=== PATIENT | female | born 1990 | race Caucasian/White ===

== ENCOUNTER → 2018-03-20 | Outpatient (CLI) | payer SELFPAY ==
[~2018-03-20] MED LIST: ALBU0.8322 IH; ALBU8.5H2 IH; AZIT200S PO; CYCL10TA9 PO; FAMO20TA5 PO; NAPR-243 PO; ONDA-42 SL; OTC ALLERGY; PRED15SO PO; TRAM50TA2 PO; TRM50T PO
--- NOTE | 2018-03-20 16:06 | Diagnostic Imaging Report ---
PROCEDURE: US OB SINGLE FETUS <14 WKS. TECHNIQUE: Multiple real-time grayscale images were obtained over the gravid uterus in various projections. INDICATION: Positive test and episodes of vaginal bleeding. FINDINGS: The uterus measures 8.9 x 4.7 x 5.8 cm. Endometrium is 5 mm in thickness. No intrauterine gestational sac is present. The ovaries are unremarkable and show normal vascularity. No adnexal mass or free fluid is seen. IMPRESSION: No evidence of intrauterine or ectopic . Dictated by: Dictated on workstation # [id number]
== END ==
LOC: RAD 13:38
PROVIDERS: ATTEND Nurse Practitioner Family
DX: O20.9 Hemorrhage in early pregnancy, unspecified (principal); R79.9 Abnormal finding of blood chemistry, unspecified; Z3A.00 Weeks of gestation of pregnancy not specified
CPT/HCPCS: 76801

== ENCOUNTER 2018-05-14 05:49 | Outpatient (CLI) | payer MEDICAID ==
[~2018-05-14] VITALS: Ht 165.1 cm; Wt 49.9 kg
[2018-05-14] MEDS ORDERED: LORA10CA PO (09:28)
[2018-05-15] MEDS ORDERED: OXYC-471 PO (13:14)
[2018-05-15] MEDS ORDERED: MEDR150D8 IM (13:14)
== END 2018-05-14 09:41 | disposition home or self-care (01) ==
LOC: PREOP 05:49
PROVIDERS: ATTEND Obstetrics & Gynecology
DX: Z01.818 Encounter for other preprocedural examination (principal)

== ENCOUNTER 2018-05-15 11:26 | Day surgery (SDC) | payer MEDICAID ==
[~2018-05-15] VITALS: Ht 157.5 cm; Wt 117.9 kg
[~2018-05-15 11:26] MED LIST changes: +LORA10CA PO
[2018-05-15] MEDS ORDERED: ceFAZolin 2 GM IV Premixed 50 ML IV ONE (11:30)
[2018-05-15] MEDS: LACTATED RINGERS 1,000 ML IV PRN ×2 (11:50→14:13)
[2018-05-15 11:58] VITALS: BP 129/77
[2018-05-15] MEDS ORDERED: SEVOFLURANE (ULTANE) 15 ML INHAL SOLN ONE ×6 (11:58→15:00)
[2018-05-15] MEDS ORDERED: proPOfol 200 MG/20 ML (DIPRIVAN) VIAL IV ONE ×2 (11:58→14:05)
[2018-05-15] MEDS ORDERED: ONDANSETRON 4 MG/2 ML (SDV) Z0FRAN ONE (11:58)
[2018-05-15] MEDS ORDERED: DEXAMETHASONE 10 MG/ML (DECADRON) 1 ML VIAL ONE (11:58)
[2018-05-15] MEDS ORDERED: LIDOCAINE PF 2% 5 ML (XYLOCAINE) VIAL ONE (11:58)
[2018-05-15] MEDS ORDERED: MIDAZOLAM 2 MG/2 ML (VERSED) VIAL ONE (11:59)
[2018-05-15] MEDS ORDERED: fentaNYL INJECTION 100 MCG/2 ML AMP ONE (11:59)
[2018-05-15] MEDS ORDERED: ceFAZolin INJECTION 1,000 MG in NS (IVPB) 50 ML IV ONE (12:15)
[2018-05-15] MEDS ORDERED: D5 LR IV SOLUTION 1,000 ML IV SCH (13:09)
--- NOTE | 2018-05-15 13:12 | Discharge Instructions ---
Discharge Instructions Discharge Medications New, Converted or Re-Newed RX: RX on Chart Patient Instructions Patient Instructions: As directed Return to The Hospital For: As directed Activity & Diet Activity as Tolerated: No Orders-Post D/C & Referrals Follow Up Appt: Call to make follow up appt. for patient in 2 weeks. Activity: As tolerated. Diet: As tolerated-Clear Liquids only if nauseated. May shower or tub bathe as desired. No driving for 24 hours, no alcoholic beverages for 24 hours, and nothing per vagina (no tampons, douching, or intercoarse) for 2 weeks. Patient to return to the clinic as soon as possible for: Temperature greater than 101F, Severe Pain, Foul discharge from incision or vagina, Excessive Bleeding (more than a period). YOBANI WALKER MD May 15, 2018 1:12 pm
[2018-05-15] MEDS ORDERED: MEDR150D8 IM (13:14)
[2018-05-15] MEDS ORDERED: OXYC-471 PO (13:14)
[2018-05-15] MEDS ORDERED: MEPERIDINE (DEMEROL) INJ 100 MG/ML IM ONE (13:15)
[2018-05-15] MEDS ORDERED: ONDANSETRON 4 MG/2 ML (SDV) Z0FRAN IVP PRN ×2 (13:15→15:15)
[2018-05-15] MEDS ORDERED: KETOROLAC 30 MG/ML VIAL IVP ONE (13:15)
[2018-05-15] MEDS ORDERED: oxyCODONE/APAP 5/325MG (PERCOCET 5) TABLET PO PRN ×2 (13:15→14:00)
[2018-05-15] MEDS ORDERED: PROMETHAZINE INJ 25 MG/ML (PHENERGAN) AMP IM ONE (13:15)
--- NOTE | 2018-05-15 13:15 | Progress Note-Pre Operative ---
Pre-Operative Progress Note H&P Reviewed The H&P was reviewed, patient examined and no changes noted. Date Seen by Provider: May 15, 2018 Time Seen by Provider: 13:15 Date H&P Reviewed: May 15, 2018 Time H&P Reviewed: 13:15 Pre-Operative Diagnosis: DUB/intrauterine mass YOBANI WALKER MD May 15, 2018 1:15 pm
--- NOTE | 2018-05-15 13:16 | Progress Note-Post Operative ---
Post-Operative Progess Note Surgeon (s)/Managing Consultant Clinical Professor (s) Surgeon YOBANI WALKER MD Managing Consultant Clinical Professor: Melissa Cuello Pre-Operative Diagnosis DUB/intrauterine mass Post-Operative Diagnosis same with pathology pending Procedure & Operative Findings Date of Procedure 05/15/18 Procedure Performed/Findings Hysteroscopy with mass/polyp resection Anesthesia Type GETA Estimated Blood Loss Estimated blood loss (mL): 100-200 cc Specimens/Packing Specimens Removed Intrauterine mass and endometrial curettings Packing: None YOBANI WALKER MD May 15, 2018 13:16
[2018-05-15] MEDS ORDERED: HYDROmorphone 1 MG/ML (DILAUDID) 1 ML SYRINGE IV PRN (15:15)
[2018-05-15] MEDS: morphine INJ 10 MG/ML 1ML (SYR OR VIAL) IVP PRN ×2 (15:20→15:25)
--- NOTE | 2018-05-15 15:21 | Anesthesia-General Post-Op ---
General Patient Condition Mental Status/LOC: Same as Preop Cardiovascular: Satisfactory Nausea/Vomiting: Absent Respiratory: Satisfactory Pain: Controlled Complications: Absent Post Op Complications Complications None Follow Up Care/Instructions Patient Instructions None needed. Anesthesia/Patient Condition Patient Condition Patient is doing well, no complaints, stable vital signs, no apparent adverse anesthesia problems. JEREMY FAGAN DO May 15, 2018 15:21
[2018-05-15 16:00] VITALS: BP 105/61
[2018-05-15 16:30] VITALS: BP 110/62
[2018-05-15 17:00] VITALS: BP 105/64
[2018-05-15 17:20] VITALS: BP 105/64
--- NOTE | 2018-05-15 19:32 | OPERATIVE REPORT ---
DATE OF SERVICE: 05/15/2018 PREOPERATIVE DIAGNOSES: Dysfunctional uterine bleeding and intrauterine mass. POSTOPERATIVE DIAGNOSES: Dysfunctional uterine bleeding and intrauterine mass with pathology pending. OPERATIVE PROCEDURE: Hysteroscopy with resection of intrauterine mass of unsure etiology with pathology still pending and with endometrial curettage. OPERATIVE DESCRIPTION: With the patient in supine position under satisfactory general anesthesia, she was repositioned in dorsal lithotomy position in the Zack stirrups and prepped and draped in usual fashion for vaginal surgery. A weighted speculum was placed in the posterior fornix of vagina, cervix was exposed and grasped anteriorly with single tooth tenaculum. Uterus was sounded to 8 cm with uterine sound. The cervix was then serially dilated with Tulio dilators to a #20 Tulio and then a #19 Hegar dilator. Hysteroscope was introduced. There was a large fibrotic appearing mass basically filling the lower half of the endometrial cavity. The upper endometrial cavity appeared perfectly normal as were both tubal ostia. An attempt was made to resect the mass at its attachment posteriorly. Part of the attachment was resected and then the mass was gradually extracted in bits and pieces in order to reduce its size adequate that it would pass through the cervix at the point of dilation as the cervix was resistant to dilating any further. Eventually, the bulk of the mass was re-extracted in one final portion; numerous portions were removed in the process. The endometrial cavity was then sharply curettaged in all 4 quadrants. That tissue was labeled and sent to pathology separately. The endometrial cavity was examined a final time with the hysteroscope. There was no remaining abnormal appearing tissue. The endometrial cavity appeared perfectly normal at this point. Sponge and needle counts were correct at the end of procedure. Estimated blood loss for procedure was around 100 to 200 mL. A total of 2700 mL of glycine was used as distending medium and 2500 mL was recovered and another fairly large aliquot was on the floor and in the drapes. The patient tolerated the procedure well and was uneventfully awakened from general anesthesia and transferred to recovery room in stable condition with plans for discharge home PAR. Job ID: [id number] DocumentID: [id number] Dictated Date: 05/15/2018 14:53:16 Pricing/Signage Team Member Date: 05/15/2018 19:32:19 Dictated By: YOBANI WALKER MD
== END 2018-05-15 17:20 | disposition home or self-care (01) ==
LOC: SDC 11:26
PROVIDERS: ATTEND Obstetrics & Gynecology
DX: N93.8 Other specified abnormal uterine and vaginal bleeding (principal); N85.9 Noninflammatory disorder of uterus, unspecified
CPT/HCPCS: 84703; 87081

== ENCOUNTER → 2018-06-04 | Outpatient (CLI) | payer MEDICAID ==
[~2018-06-04] MED LIST changes: +MEDR150D8 IM; +OXYC-471 PO
--- NOTE | 2018-06-04 12:08 | Diagnostic Imaging Report ---
INDICATION: Routine screening. Patient has family history of mother diagnosed with breast carcinoma at the age of 35. COMPARISON: No prior mammograms are available for comparison. This is a baseline study. TECHNIQUE: 2D and 3D bilateral screening mammography was performed with computer-aided detection (CAD) system. FINDINGS: Both breasts are extremely dense, limiting the sensitivity of mammography. No mass or malignant appearing microcalcifications are seen. The axillae are unremarkable. IMPRESSION: No mammographic features suspicious for malignancy are identified. ACR BI-RADS Category 1: Negative. Result letter will be mailed to the patient. Note: At least 10% of breast cancer is not imaged by mammography. Dictated by: Dictated on workstation # [id number]
== END ==
LOC: RAD 09:15
PROVIDERS: ATTEND Obstetrics & Gynecology
DX: Z12.31 Encounter for screening mammogram for malignant neoplasm of breast (principal); Z80.3 Family history of malignant neoplasm of breast
CPT/HCPCS: 77067

== ENCOUNTER 2018-11-06 11:49 | Emergency (ER) | payer SELFPAY ==
[~2018-11-06] VITALS: Ht 167.6 cm; Wt 52.2 kg
[2018-11-06] MEDS ORDERED: NAPR-1071 PO (12:40)
[2018-11-06] MEDS ORDERED: PROM5SYR PO (12:40)
[2018-11-06] MEDS ORDERED: AMOX500C2 PO (12:40)
--- NOTE | 2018-11-06 12:41 | ED Cough/URI ---
General Stated Complaint: CONGESTION;CHEST PAIN;COUGH Source: patient Exam Limitations: no limitations History of Present Illness Date Seen by Provider: Nov 06, 2018 Time Seen by Provider: 12:36 Initial Comments to ER with a one-week history of a cough that is occasionally productive. She does have sharp unbearable" chest pain when she coughs. This is been present for one week and she also has a sore throat getting progressively worse. She denies any fevers. Timing/Duration: week, getting worse Severity/Quality: productive cough Associated Symptoms: cough, sore throat Allergies and Home Medications Allergies Coded Allergies: No Known Drug Allergies (Unverified , 05/14/18) Home Medications Loratadine 10 Mg Capsule, 10 MG PO DAILY, (Reported) Medroxyprogesterone Acetate 150 Mg/1 Ml Syringe, 150 MG IM [id number] PRN for sched Prescribed by: YOBANI PETERSON on 05/15/18 1314 Oxycodone HCl/Acetaminophen 1 Each Tablet, 1-2 TAB PO Q4H PRN for PAIN-MODERATE Prescribed by: YOBANI PETERSON on 05/15/18 1314 Patient Home Medication List Home Medication List Reviewed: Yes Review of Systems Review of Systems Constitutional: see HPI; No chills, No fever EENTM: see HPI, throat pain Respiratory: see HPI, cough Cardiovascular: no symptoms reported Genitourinary: no symptoms reported Musculoskeletal: no symptoms reported Skin: no symptoms reported Psychiatric/Neurological: No Symptoms Reported Past Apjhhcu-Jcngsa-Xukpwl Hx Patient Social History Recent Hopitalizations: No Immunizations Up To Date Tetanus Booster (TDap): Less than 5yrs Seasonal Allergies Seasonal Allergies: Yes Past Medical History Headaches /Migraines Reproductive Disorders: Yes (DUB, UTERINE MASS) Female Reproductive Disorders: Menstrual Problems Sexually Transmitted Disease: No HIV/AIDS: No Loss of Vision: Denies Hearing Impairment: Denies Adverse Reaction/Blood Tranf: No (N/A) Family Medical History No Pertinent Family Hx Physical Exam Capillary Refill : Height: 5'2.00" Weight: 260lbs. 0.0oz. 117.229096gh; 47.6 BMI Method:Stated General Appearance: WD/WN, no apparent distress Eyes: Bilateral Eye Normal Inspection, Bilateral Eye PERRL, Bilateral Eye EOMI HEENT: PERRL/EOMI, normal ENT inspection Respiratory: no respiratory distress, no accessory muscle use Cardiovascular: regular rate, rhythm, no murmur Gastrointestinal: normal bowel sounds, non tender, soft Extremities: normal range of motion, non-tender Neurologic/Psychiatric: alert, normal mood/affect, oriented x 3 Skin: normal color, warm/dry Progress/Results/Core Measures Suspected Sepsis SIRS Temperature: Pulse: Respiratory Rate: Blood Pressure / Mean: Results/Orders My Orders Orders - FOREIGN TAVERAS APRN Rapid Strep A Screen (11/06/18 12:35) Chest Pa/Lat (2 View) (11/06/18 12:35) Vital Signs/I&O Capillary Refill : Departure Impression Primary Impression: Bronchitis Additional Impression: Pharyngitis Qualified Codes: J02.9 - Acute pharyngitis, unspecified Disposition: HOME, SELF-CARE Condition: Stable Departure-Patient Inst. Decision time for Depature: 12:38 Referrals: NO,LOCAL PHYSICIAN (PCP/Family) Primary Care Physician Patient Instructions: Acute Bronchitis in Adults, Sore Throat in Adults Add. Discharge Instructions: 1. Cough medication as directed. Beware this may cause constipation so you should take MiraLAX daily while taking the cough medication. Antibiotics as directed. Scripts Amoxicillin (Amoxicillin) 500 Mg Capsule 500 MG PO TID, #21 CAP Prov: FOREIGN TAVERAS APRN 11/06/18 Naproxen (Naprosyn) 500 Mg Tablet 500 MG PO BID PRN for CHEST PAIN, #20 TAB Prov: FOREIGN TAVERAS APRN 11/06/18 Promethazine HCl/Codeine (Prometh-Codein 6.25-10 mg/5 ml) 5 Ml Syrup 5 ML PO Q4H PRN for COUGH, #120 ML Prov: FOREIGN TAVERAS APRN 11/06/18 FOREIGN TAVERAS APRN Nov 06, 2018 12:41
--- NOTE | 2018-11-06 13:18 | Diagnostic Imaging Report ---
INDICATION: Lower respiratory infection. EXAMINATION: PA and lateral chest. FINDINGS: The heart size and pulmonary vascularity are normal. The lungs are clear. There are no effusions or pneumothoraces. IMPRESSION: Negative chest. Dictated by: Dictated on workstation # [id number]
[2018-11-06 13:40] VITALS: BP 110/58
== END 2018-11-06 13:40 | disposition home or self-care (01) ==
LOC: EDUNIT# 11:49 → ER 11:50
DX: J40 Bronchitis, not specified as acute or chronic (principal); J02.9 Acute pharyngitis, unspecified; G43.909 Migraine, unspecified, not intractable, without status migrainosus; Z87.448 Personal history of other diseases of urinary system
CPT/HCPCS: 71046; 87430

== ENCOUNTER 2018-12-11 11:21 | Emergency (ER) | payer SELFPAY ==
[~2018-12-11] VITALS: Ht 167.6 cm; Wt 52.2 kg
[~2018-12-11 11:21] MED LIST changes: +AMOX500C2 PO; +NAPR-1071 PO; +PROM5SYR PO
--- OUTSIDE RECORDS SUMMARY | 2018-12-11 11:26 | XMS REPORT ---
Author Author JON RICHEY Organization [facility] Address [address] [place] [address] Care Team Providers Care Hogshead Mat Assembler Name Role Phone JON RICHEY Unavailable PROBLEMS Type Condition ICD9-CM Code UGG65-DV Code Onset Dates Condition Status SNOMED Code Problem Seasonal allergic rhinitis, unspecified trigger J30.2 Active [id number] ALLERGIES No Known Allergies ENCOUNTERS Encounter Location Date Diagnosis [facility] [address] [address] May, [facility] [address] [address] Apr, Vaginal bleeding N93.9 [facility] [address] [address] Apr, [facility] [address] [address] Apr, 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 [facility] [id number] [place] [phone] 15 Apr, 2018 Paroxysmal nerve pain M79.2 [facility] [id number] [place] [address] 13 Apr, 2018 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 [facility] [id number] [place] [address] 12 Apr, 2018 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 [facility] [id number] [place] [address] Apr, [facility] [address] [address] Apr, 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 [facility] [address] [address] Apr, 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 [facility] [id number] [address] March, 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 [facility] [id number] [place] [address] March, 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 [facility] [id number] [place] [address] March, 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 [facility] [address] [place] [address] March, 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 [facility] [id number] [place] [address] March, 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 [facility] [address] [address] March, [facility] [id number] [address] March, 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 [facility] [address] [address] March, Miscarriage O03.9 [facility] [address] [address] March, [facility] [id number] [address] March, Miscarriage O03.9 [facility] [address] [address] March, Miscarriage O03.9 [facility] [id number] [place] [address] Feb, Miscarriage O03.9 [place] [address] [address] Feb, Miscarriage O03.9 [place] [id number] [place] [address] Feb, Miscarriage O03.9 [facility] [address] [address] Feb, 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 [place] [address] [address] Feb, 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 [place] [id number] [place] [address] Feb, 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 [place] [id number] [place] [address] Feb, 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 [place] [id number] [place] [address] Feb, confirmed by positive urine test Z32.01 [place] [id number] [place] [address] Jan, confirmed by positive urine test Z32.01 [place] [id number] [place] [address] Jan, Encounter for counseling regarding contraception Z30.09 ; Encounter for initial prescription of injectable contraceptive Z30.013 ; Encounter to establish care Z76.89 ; Seasonal allergic rhinitis, unspecified trigger J30.2 and confirmed by positive urine test Z32.01 [place] [address] [place] [address] Feb, Encounter for Depo-Provera contraception Z30.42 [place] [address] [address] Dec, Encounter for Depo-Provera contraception Z30.42 [facility] [address] [address] Sep, Encounter for Depo-Provera contraception Z30.42 [facility] [address] [address] Sep, Well woman exam Z01.419 and Breast cancer screening Z12.39 [facility] [id number], [place] [address] Jun, Encounter for contraceptive management V25.9 [facility] [address] [address] Apr, Encounter for contraceptive management V25.9 [facility] [address], [place] [address] Jan, [facility] [id number] [address] Jan, [facility] [address] [address] Jan, [facility] [address] [address] Jan, [facility] [address] [address] Jan, [facility] [address] [address] Aug, [facility] [address] [address] Aug, [facility] [id number] [address] Aug, [facility] [id number] [address] Aug, [facility] [id number] [address] 19 Jul, 2014 [facility] [id number] [address] Jul, [facility] [address] [address] Aug, [facility] [id number] [address] Aug, [facility] [address] [address] Aug, [facility] [address] [address] Aug, [facility] [id number] [address] Oct, [facility] [id number], [place] [address] Sep, [facility] [id number] [address] Sep, IMMUNIZATIONS No Known Immunizations SOCIAL HISTORY Never Assessed REASON FOR VISIT Abnormal labs -- [facility] PLAN OF CARE Activity Details Follow Up prn Reason: VITAL SIGNS Height 66 in 2018-04-30 Weight 105.6 lbs 2018-04-30 Temperature 97.7 degrees Fahrenheit 2018-04-30 Heart Rate 70 bpm 2018-04-30 Respiratory Rate 18 2018-04-30 BMI 17.04 kg/m2 2018-04-30 Blood pressure systolic 110 mmHg 2018-04-30 Blood pressure diastolic 68 mmHg 2018-04-30 MEDICATIONS Unknown Medications RESULTS Name Result Date Reference Range HEMOGLOBIN (IN HOUSE) 2018-04-30 HEMOGLOBIN 13.2 11.5 - 16 gm/dL Lot # [id number] Exp date 08/13/2019 PROCEDURES Procedure Date Ordered Result Body Site HEMOGLOBIN April 30, 2018 INSTRUCTIONS MEDICATIONS ADMINISTERED No Known Medications MEDICAL (GENERAL) HISTORY Type Description Date Medical History asthma Surgical History DN 2016
--- OUTSIDE RECORDS SUMMARY | 2018-12-11 11:26 | XMS REPORT ---
Author Author CHRIS ROJAS [facility] IN [facility] Address [address] [place] [address] Care Team Providers Care Labeling Specialist Name Role Phone CHRIS ROJAS Unavailable PROBLEMS Type Condition ICD9-CM Code RAX61-MM Code Onset Dates Condition Status SNOMED Code Problem Vaginal bleeding N93.9 Active 631732099 Problem Encounter for initial prescription of injectable contraceptive Z30.013 Active 834437770 Problem 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 Active 703639746 Problem confirmed by positive urine test Z32.01 Active 690111356 Problem Seasonal allergic rhinitis, unspecified trigger J30.2 Active [id number] ALLERGIES No Information ENCOUNTERS Encounter Location Date Diagnosis [facility] [id number] [place] [address] 99840- 7737 05 May, 2018 [facility] [id number] [place] [address] 57253- 7998 26 Apr, 2018 Vaginal bleeding N93.9 [facility] [id number] [place] [address] 58406- 4803 22 Apr, 2018 [facility] [id number] [place] [address] 70731- 6457 19 Apr, 2018 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 [facility] IN [facility] [id number] [place] [address] 06350 -6009 15 Apr, 2018 Paroxysmal nerve pain M79.2 [facility] [address] 94304- 8371 13 Apr, 2018 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 [facility] [id number] [place] [address] 09920- 0256 12 Apr, 2018 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 [facility] [address] [address] 8[address] Apr, [facility] [id number] [place] [address] 97817- 9246 Apr, 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 [facility] [address] [address] 2546 Apr, 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 [facility] [id number] [place] [address] 97907 2546 March, 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 [facility] [id number] [place] [address] 65359- 5536 March, 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 [facility] [id number] [place] [address] 56205- 9936 March, 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 [facility] [id number] [address] 2[address] March, 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 [facility] [address], [place] [address]- 8074 March, 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 [facility] [address], [place] [address] 2546 March, [facility] [address], [place] [address]- 2546 March, 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 [facility] [id number] [address] 3286 March, Miscarriage O03.9 [facility] [address] [address] 2546 March, [facility] [id number] [place] [address] 96861- 2425 March, Miscarriage O03.9 [facility] [address] [place] [address] 17046- 9115 March, Miscarriage O03.9 [facility] [id number] [place] [address] 62093- 7731 Feb, Miscarriage O03.9 [facility] [id number] [place] [address] 02479- 8328 Feb, Miscarriage O03.9 [facility] [id number] [place] [address] 88190- 8794 Feb, Miscarriage O03.9 [facility] [id number] [place] [address] 64379- 4237 Feb, 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 [facility] [id number] [place] [address] 21331- 6362 Feb, 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 [facility] [id number] [place] [address] 77159- 1236 Feb, 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 [facility] [id number] [place] [address] 51032- 1621 Feb, 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 [facility] [facility] [address] [place] [address] 08966- 4607 Feb, confirmed by positive urine test Z32.01 [facility] [facility] [address] [place] [address] 55417- 0198 Jan, confirmed by positive urine test Z32.01 [facility] [address] [place] [address] 17763- 1901 Jan, Encounter for counseling regarding contraception Z30.09 ; Encounter for initial prescription of injectable contraceptive Z30.013 ; Encounter to establish care Z76.89 ; Seasonal allergic rhinitis, unspecified trigger J30.2 and confirmed by positive urine test Z32.01 [facility] [address], [place] [address]- 6363 Feb, Encounter for Depo-Provera contraception Z30.42 [facility] [address] [place] [address] 85484- 2783 Dec, Encounter for Depo-Provera contraception Z30.42 [facility] [id number] [place] [address] 01607- 8540 Sep, Encounter for Depo-Provera contraception Z30.42 [facility] [address] [place] [address] 01073- 5679 Sep, Well woman exam Z01.419 and Breast cancer screening Z12.39 [facility] [address] [place] [address] 02860- 7383 Jun, Encounter for contraceptive management V25.9 [facility] [id number] [place] [address] 86449- 3087 Apr, Encounter for contraceptive management V25.9 [facility] [address] [place] [address] 63074- 4107 30 Jan, 2015 [facility] [id number] [place] [address] 71450- 6256 Jan, [facility] [address], [place] [address]- 6649 Jan, [facility] [address], [place] [address]- 7247 Jan, [facility] [address], [place] [address]- 8337 Jan, [facility] [id number] [place] [address] 40381- 6648 Aug, [facility] [address], [place] [address]- 6654 Aug, [facility] [address] [address]- 1534 17 Aug, 2014 [facility] [address] [facility] [id number] [address]- 2426 17 Aug, 2014 [facility] [address] [facility] [id number] [address] 8416 Jul, [facility] [address], [place] [address]- 5468 Jul, [facility] [address] [facility] [id number] [address]- 9522 Aug, [facility] [address], [place] [address]- 1429 Aug, [facility] [address], [place] [address]- 4714 Aug, [facility] [address], [place] [address]- 6561 Aug, [facility] [id number], [place] [address]- 9066 Oct, [facility] [address], [place] [address]- 3811 Sep, [facility] [id number] [address]- 3989 Sep, IMMUNIZATIONS No Known Immunizations SOCIAL HISTORY Never Assessed REASON FOR VISIT Requests return call PLAN OF CARE VITAL SIGNS MEDICATIONS Unknown Medications RESULTS No Results PROCEDURES No Known procedures INSTRUCTIONS MEDICATIONS ADMINISTERED No Known Medications MEDICAL (GENERAL) HISTORY Type Description Date Medical History asthma Surgical History [facility] 2016
--- OUTSIDE RECORDS SUMMARY | 2018-12-11 11:27 | XMS REPORT ---
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 Active 806015387 Problem confirmed by positive urine test Z32.01 Active 876030022 Problem Seasonal allergic rhinitis, unspecified trigger J30.2 Active 568451113 ALLERGIES No Known Allergies ENCOUNTERS Encounter Location Date Diagnosis [facility] [id number] [place] [address] 48964- 6130 05 May, 2018 [facility] [address] 57624- 1856 26 Apr, 2018 Vaginal bleeding N93.9 [facility] [id number] [place] [address] 56296- 7383 22 Apr, 2018 [facility] [id number] [place] [address] 23244- 3883 19 Apr, 2018 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 [facility] IN [facility] [id number] [place] [address] 24515 -7948 15 Apr, 2018 Paroxysmal nerve pain M79.2 [facility] [id number] [place] [address] 29797- 7262 13 Apr, 2018 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 [facility] [id number] [place] [address] 88118- 3003 12 Apr, 2018 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 [facility] [address] [address]- 3496 Apr, [facility] [id number] [place] [address] 74099- 0136 Apr, 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 [facility] [id number] [place] [address] 06795 2546 Apr, 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 [facility] [id number] [place] [address] 55835 2546 March, 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 [facility] [id number] [place] [address] 13552- 8326 March, 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 [facility] [id number] [place] [address] 90530- 5446 March, 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 [facility] [id number] [place] [address] 06774- 4254 March, 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 [facility] [id number] [place] [address] 83368- 7966 March, 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 [facility] [address] [address]- 2186 March, [facility] [id number] [place] [address] 48086- 2548 March, 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 [facility] [id number] [place] [address] 79891- 2446 March, Miscarriage O03.9 [facility] [address] [address]- 2886 March, [facility] [id number] [place] [address] 65290- 4317 March, Miscarriage O03.9 [facility] [address] [place] [address] 26571- 3438 March, Miscarriage O03.9 [facility] [id number] [place] [address] 82897- 8455 Feb, Miscarriage O03.9 [facility] [id number] [place] [address] 74447- 6491 Feb, Miscarriage O03.9 [place] [facility] [id number] [place] [address] 95451- 3593 Feb, Miscarriage O03.9 [place] [facility] [id number] [place] [address] 73003- 7338 Feb, 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 [place] [facility] [id number] [place] [address] 43195- 3413 Feb, 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 [place] [facility] [id number] [place] [address] 45307- 6373 Feb, 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 [place] [facility] [id number] [place] [address] 29749- 0349 Feb, 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 [place] [facility] [id number] [place] [address] 92589- 1170 Feb, confirmed by positive urine test Z32.01 [place] [facility] [id number] [place] [address] 12424- 5084 Jan, confirmed by positive urine test Z32.01 [place] [facility] [id number] [place] [address] 95189- 3212 Jan, Encounter for counseling regarding contraception Z30.09 ; Encounter for initial prescription of injectable contraceptive Z30.013 ; Encounter to establish care Z76.89 ; Seasonal allergic rhinitis, unspecified trigger J30.2 and confirmed by positive urine test Z32.01 [facility] [address] [address]- 3211 Feb, Encounter for Depo-Provera contraception Z30.42 [facility] [id number] [place] [address] 329038- 9116 Dec, Encounter for Depo-Provera contraception Z30.42 [facility] [id number] [place] [address] 62292- 9554 Sep, Encounter for Depo-Provera contraception Z30.42 [facility] [id number] [place] [address] 20691- 5954 Sep, Well woman exam Z01.419 and Breast cancer screening Z12.39 [facility] [id number] [place] [address] 08930- 4077 Jun, Encounter for contraceptive management V25.9 [facility] [id number] [place] [address] 50484- 2779 Apr, Encounter for contraceptive management V25.9 [facility] [id number] [place] [address] 74292- 0718 Jan, [facility] [id number] [place] [address] 84499- 0654 Jan, [facility] [id number] [place] [address] 73332- 9942 Jan, [facility] [id number] [place] [address] 89602- 3425 Jan, [facility] [id number] [place] [address] 16244- 1792 Jan, [facility] [id number] [place] [address] 113165- 5403 Aug, [facility] [id number] [place] [address] 03657- 4568 Aug, [facility] [address] [address]- 5835 17 Aug, 2014 [facility] [address] [address]- 1630 17 Aug, 2014 [facility] [address] [address]- 1480 19 Jul, 2013 [facility] [address] [address]- 6489 19 Jul, 2013 [facility] [address] [address]- 9694 Aug, 2012 [facility] [id number] [place] [address] 79860- 0168 Aug, [facility] [id number] [place] [address] 86672- 9080 Aug, [facility] [id number] [place] [address] 39785- 5672 Aug, [facility] [address] [address]- 6734 Oct, [facility] [address] [address]- 0795 Sep, [facility] [address] [address]- 0393 Sep, IMMUNIZATIONS No Known Immunizations SOCIAL HISTORY Never Assessed REASON FOR VISIT ear infection Pt c/o R ear pain which started about an hour ago and radiates into neck LENNY Fernandez PLAN OF CARE Activity Details Follow Up prn Reason: VITAL SIGNS Height 66 in 2018-04-19 Weight 109.8 lbs 2018-04-19 Temperature 99.4 degrees Fahrenheit 2018-04-19 Heart Rate 88 bpm 2018-04-19 Respiratory Rate 20 2018-04-19 BMI 17.72 kg/m2 2018-04-19 Blood pressure systolic 122 mmHg 2018-04-19 Blood pressure diastolic 64 mmHg 2018-04-19 MEDICATIONS Unknown Medications RESULTS No Results PROCEDURES No Known procedures INSTRUCTIONS MEDICATIONS ADMINISTERED No Known Medications MEDICAL (GENERAL) HISTORY Type Description Date Medical History asthma Surgical History [facility] 2017
--- OUTSIDE RECORDS SUMMARY | 2018-12-11 11:27 | XMS REPORT ---
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 Active 586503632 Problem confirmed by positive urine test Z32.01 Active 425403350 Problem Seasonal allergic rhinitis, unspecified trigger J30.2 Active 735958027 ALLERGIES No Information ENCOUNTERS Encounter Location Date Diagnosis [facility] [id number] [place] [address] 31693- 4278 05 May, 2018 [facility] [id number] [place] [address] 69570- 7738 26 Apr, 2018 Vaginal bleeding N93.9 [facility] [id number] [place] [address] 96960- 0279 22 Apr, 2018 [facility] [id number] [place] [address] 67965- 1497 19 Apr, 2018 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 [facility] [id number] [place] [address] 57060 -1444 15 Apr, 2018 Paroxysmal nerve pain M79.2 [facility] [address] 94007- 8527 13 Apr, 2018 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 [facility] [id number] [place] [address] 88341- 4633 12 Apr, 2018 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 [facility] [address], [place] [address] Apr, [facility] [id number] [place] [address] 73791- 6236 Apr, 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 [facility] [address], [place] [address] 2546 Apr, 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 [facility] [id number] [place] [address] 07098 2546 March, 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 [facility] [id number] [place] [address] 91985- 5286 March, 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 [facility] [id number] [place] [address] 48102- 5386 March, 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 [facility] [id number] [address] 14[address] March, 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 [facility] [address], [place] [address] 5895 March, 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 [facility] [address], [place] [address] 2546 March, [facility] [address], [place] [address]- 2546 March, 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 [facility] [id number] [address] 1626 March, Miscarriage O03.9 [facility] [address], [place] [address] 2546 March, [facility] [id number] [place] [address] 73455- 2936 March, Miscarriage O03.9 [facility] [id number] [place] [address] 46872- 5943 March, Miscarriage O03.9 [facility] [id number] [place] [address] 34761- 8363 Feb, Miscarriage O03.9 [facility] [id number] [place] [address] 25846- 0715 Feb, Miscarriage O03.9 [facility] [id number] [place] [address] 17722- 6523 Feb, Miscarriage O03.9 [facility] [id number] [place] [address] 52628- 0624 Feb, 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 [place] [id number] [place] [address] 38840- 9702 Feb, 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 [place] [id number] [place] [address] 84066- 9494 Feb, 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 [place] [id number] [place] [address] 72297- 7765 Feb, 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 [place] [address] [place] [address] 55717- 4109 Feb, confirmed by positive urine test Z32.01 [place] [address] [place] [address] 69025- 3551 Jan, confirmed by positive urine test Z32.01 [place] [id number] [place] [address] 33686- 9931 Jan, Encounter for counseling regarding contraception Z30.09 ; Encounter for initial prescription of injectable contraceptive Z30.013 ; Encounter to establish care Z76.89 ; Seasonal allergic rhinitis, unspecified trigger J30.2 and confirmed by positive urine test Z32.01 [facility] [address], [place] [address]- 3377 Feb, Encounter for Depo-Provera contraception Z30.42 [facility] [address] [place] [address] 15528- 4008 Dec, Encounter for Depo-Provera contraception Z30.42 [facility] [id number] [place] [address] 29884- 9825 Sep, Encounter for Depo-Provera contraception Z30.42 [facility] [address] [place] [address] 27621- 1771 Sep, Well woman exam Z01.419 and Breast cancer screening Z12.39 [facility] [address] [place] [address] 73418- 6651 Jun, Encounter for contraceptive management V25.9 [facility] [id number] [place] [address] 20010- 9048 Apr, Encounter for contraceptive management V25.9 [facility] [address] [place] [address] 78509- 3054 30 Jan, 2015 [facility] [id number] [place] [address] 49693- 0308 Jan, [facility] [address], [place] [address]- 9999 Jan, [facility] [address], [place] [address]- 7870 Jan, [facility] [address], [place] [address]- 7154 Jan, [facility] [id number] [place] [address] 49347- 9961 Aug, [facility] [address], [place] [address] 0006 Aug, [facility] [address] [address] 3014 17 Aug, 2014 [facility] [address] [facility] [id number] [address] 8126 17 Aug, 2014 [facility] [address] [facility] [id number] [address]692 Jul, [facility] [address], [place] [address]- 3045 Jul, [facility] [address] [facility] [id number] [address] 3863 Aug, [facility] [address] 9337 Aug, [facility] [address], [place] [address]- 5936 Aug, [facility] [address], [place] [address]- 1994 Aug, [facility] [address], [place] [address]- 3228 Oct, [facility] [address], [place] [address]- 3843 Sep, [facility] [id number], [place] [address]- 3640 Sep, IMMUNIZATIONS No Known Immunizations SOCIAL HISTORY Never Assessed REASON FOR VISIT Deferred lab PLAN OF CARE VITAL SIGNS MEDICATIONS Unknown Medications RESULTS No Results PROCEDURES No Known procedures INSTRUCTIONS MEDICATIONS ADMINISTERED No Known Medications MEDICAL (GENERAL) HISTORY Type Description Date Medical History asthma Surgical History [facility] 2016
--- OUTSIDE RECORDS SUMMARY | 2018-12-11 11:27 | XMS REPORT ---
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 Active 088172098 Problem confirmed by positive urine test Z32.01 Active 536702411 Problem Seasonal allergic rhinitis, unspecified trigger J30.2 Active 693406189 ALLERGIES No Information ENCOUNTERS Encounter Location Date Diagnosis [facility] [id number] [place] [address] 68167- 1991 05 May, 2018 [facility] [id number] [place] [address] 79912- 2659 26 Apr, 2018 Vaginal bleeding N93.9 [facility] [id number] [place] [address] 63770- 7568 22 Apr, 2018 [facility] [id number] [place] [address] 12289- 1093 19 Apr, 2018 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 [facility] IN [facility] [id number] [place] [address] 77375 -9150 15 Apr, 2018 Paroxysmal nerve pain M79.2 [facility] [address] 72528- 2885 13 Apr, 2018 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 [facility] [id number] [place] [address] 03414- 7031 12 Apr, 2018 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 [facility] [address] [address]- 9106 Apr, [facility] [id number] [place] [address] 58730- 4226 Apr, 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 [facility] [address] [address] 2546 Apr, 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 [facility] [id number] [place] [address] 26320 2546 March, 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 [facility] [id number] [place] [address] 89636- 2386 March, 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 [facility] [id number] [place] [address] 41020- 0646 March, 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 [facility] [address] [address]- 1235 March, 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 [facility] [address] [address]- 1128 March, 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 [facility] [address] [address] 2546 March, [facility] [address] [address]- 2546 March, 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 [facility] [address] [address]- 4416 March, Miscarriage O03.9 [facility] [address] [address]- 2546 March, [facility] [id number] [place] [address] 62970- 3934 March, Miscarriage O03.9 [facility] [id number] [place] [address] 60677- 3225 March, Miscarriage O03.9 [facility] [id number] [place] [address] 35068- 0770 Feb, Miscarriage O03.9 [facility] [id number] [place] [address] 58443- 5877 Feb, Miscarriage O03.9 [facility] [id number] [place] [address] 21775- 5298 Feb, Miscarriage O03.9 [facility] [id number] [place] [address] 96056- 7850 Feb, 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 [place] [id number] [place] [address] 63123- 2485 Feb, 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 [place] [id number] [place] [address] 75451- 4721 Feb, 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 [place] [id number] [place] [address] 18877- 4974 Feb, 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 [place] [address] [place] [address] 82224- 8499 Feb, confirmed by positive urine test Z32.01 [place] [address] [place] [address] 78615- 4348 Jan, confirmed by positive urine test Z32.01 [place] [id number] [place] [address] 81571- 1818 Jan, Encounter for counseling regarding contraception Z30.09 ; Encounter for initial prescription of injectable contraceptive Z30.013 ; Encounter to establish care Z76.89 ; Seasonal allergic rhinitis, unspecified trigger J30.2 and confirmed by positive urine test Z32.01 [facility] [address] [address]- 9519 Feb, Encounter for Depo-Provera contraception Z30.42 [facility] [address] [place] [address] 45039- 1910 Dec, Encounter for Depo-Provera contraception Z30.42 [facility] [id number] [place] [address] 79247- 2521 Sep, Encounter for Depo-Provera contraception Z30.42 [facility] [address] [place] [address] 55167- 6584 Sep, Well woman exam Z01.419 and Breast cancer screening Z12.39 [facility] [address] [place] [address] 13371- 7883 Jun, Encounter for contraceptive management V25.9 [facility] [id number] [place] [address] 74634- 6292 Apr, Encounter for contraceptive management V25.9 [facility] [address] [place] [address] 71394- 5315 30 Jan, 2015 [facility] [id number] [place] [address] 82700- 4434 Jan, [facility] [address] [address]- 3010 Jan, [facility] [address] [address]- 0734 Jan, [facility] [address] [address]- 1844 Jan, [facility] [id number] [place] [address] 03763- 9367 Aug, [facility] [address] [address]- 6804 Aug, [facility] [address] [address]- 6929 17 Aug, 2014 [facility] [id number] [address]- 5629 17 Aug, 2014 [facility] [id number] [address]- 8580 Jul, [facility] [address] [address]- 6874 19 Jul, 2014 [facility] [address] [address]- 0217 Aug, [facility] [address] [address]- 0449 Aug, [facility] [address] 5782 Aug, [facility] [address] [address]- 7964 Aug, [facility] [address] [address]- 2334 Oct, [facility] [address] 7106 Sep, [facility] [id number] [address]- 6801 Sep, IMMUNIZATIONS No Known Immunizations SOCIAL HISTORY Never Assessed REASON FOR VISIT Lab (walk-in) PLAN OF CARE VITAL SIGNS MEDICATIONS Unknown Medications RESULTS No Results PROCEDURES Procedure Date Ordered Result Body Site CHORIONIC GONADOTROPIN TEST April 23, 2018 VENIPUNCT, ROUTINE* April 23, 2018 INSTRUCTIONS MEDICATIONS ADMINISTERED No Known Medications MEDICAL (GENERAL) HISTORY Type Description Date Medical History asthma Surgical History [facility] 2016
--- OUTSIDE RECORDS SUMMARY | 2018-12-11 11:27 | XMS REPORT ---
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 Active 623700543 Problem confirmed by positive urine test Z32.01 Active 208528935 Problem Seasonal allergic rhinitis, unspecified trigger J30.2 Active 469772181 ALLERGIES No Information ENCOUNTERS Encounter Location Date Diagnosis [facility] [place] [id number] [place] [address] 55329- 8143 05 May, 2018 [facility] [place] [id number] [place] [address] 56729- 2442 26 Apr, 2018 Vaginal bleeding N93.9 [facility] [place] [id number] [place] [address] 89254- 8507 22 Apr, 2018 [facility] [place] [id number] [place] [address] 26193- 6276 19 Apr, 2018 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 [facility] IN [facility] [id number] [place] [address] 10301 -8944 15 Apr, 2018 Paroxysmal nerve pain M79.2 [facility] [place] [address] 42326- 5068 13 Apr, 2018 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 [facility] [place] [id number] [place] [address] 88522- 7803 12 Apr, 2018 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 [facility] [place] [address], [place] [address] 7986 Apr, [facility] [place] [id number] [place] [address] 88697- 4796 Apr, 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 [facility] [place] [address], [place] [address] 2546 Apr, 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 [facility] [place] [id number] [place] [address] 30476 2546 March, 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 [facility] [place] [id number] [place] [address] 40892- 5636 March, 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 [facility] [place] [id number] [place] [address] 58303- 7996 March, 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 [facility] [place] [id number] [address]- 6627 March, 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 [facility] [place] [address] [address]- 4901 March, 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 [facility] [place] [address] [address] 2546 March, [facility] [place] [address], [place] [address]- 2546 March, 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 [facility] [place] [id number] [address]- 0566 March, Miscarriage O03.9 [facility] [place] [address] [address]- 2546 March, [facility] [place] [id number] [place] [address] 25860- 5892 March, Miscarriage O03.9 [facility] [place] [id number] [place] [address] 31479- 0186 March, Miscarriage O03.9 [facility] [place] [id number] [place] [address] 86258- 1663 Feb, Miscarriage O03.9 [facility] [place] [id number] [place] [address] 19537- 0434 Feb, Miscarriage O03.9 [facility] [place] [id number] [place] [address] 24514- 4979 Feb, Miscarriage O03.9 [facility] [place] [id number] [place] [address] 69294- 1373 Feb, 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 [place] [id number] [place] [address] 57630- 3911 Feb, 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 [place] [id number] [place] [address] 06527- 0065 Feb, 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 [place] [id number] [place] [address] 62623- 4252 Feb, 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 [place] [address] [place] [address] 68265- 8410 Feb, confirmed by positive urine test Z32.01 [place] [address] [place] [address] 17371- 7329 Jan, confirmed by positive urine test Z32.01 [place] [id number] [place] [address] 50108- 3406 Jan, Encounter for counseling regarding contraception Z30.09 ; Encounter for initial prescription of injectable contraceptive Z30.013 ; Encounter to establish care Z76.89 ; Seasonal allergic rhinitis, unspecified trigger J30.2 and confirmed by positive urine test Z32.01 [facility] [place] [address] [address]- 8745 Feb, Encounter for Depo-Provera contraception Z30.42 [facility] [place] [address] [place] [address] 07160- 0747 Dec, Encounter for Depo-Provera contraception Z30.42 [facility] [place] [id number] [place] [address] 15414- 5206 Sep, Encounter for Depo-Provera contraception Z30.42 [facility] [place] [address] [place] [address] 62949- 4548 Sep, Well woman exam Z01.419 and Breast cancer screening Z12.39 [facility] [place] [id number] [place] [address] 57374- 8187 Jun, Encounter for contraceptive management V25.9 [facility] [place] [id number] [place] [address] 39329- 1980 Apr, Encounter for contraceptive management V25.9 [facility] [place] [id number] [place] [address] 64140- 0261 30 Jan, 2015 [facility] [place] [id number] [place] [address] 07601- 3611 Jan, [facility] [place] [address] [address]- 8611 Jan, [facility] [place] [address] [address]- 2598 Jan, [facility] [place] [address] [address]- 1689 Jan, [facility] [place] [id number] [place] [address] 12015- 2528 Aug, [facility] [place] [address] [address]- 2822 Aug, [facility] [place] [id number] [address]- 2171 17 Aug, 2014 [facility] [place] [id number] [address]- 1860 17 Aug, 2014 [facility] [place] [address] [address]- 0718 19 Jul, 2013 [facility] [place] [address] [address]- 3196 19 Jul, 2013 [facility] [place] [address] [address]- 5310 Aug, [facility] [place] [address] [address]- 1918 18 Aug, 2013 [facility] [place] [address] [address]- 1369 Aug, [facility] [place] [address] [address]- 1471 Aug, [facility] [place] [address], [place] [address]- 5648 Oct, [facility] [place] [address] [address]- 4145 Sep, [facility] [place] [id number] [address]- 5029 Sep, IMMUNIZATIONS No Known Immunizations SOCIAL HISTORY Never Assessed REASON FOR VISIT Lab (walk-in)--[facility] PLAN OF CARE VITAL SIGNS MEDICATIONS Unknown Medications RESULTS No Results PROCEDURES Procedure Date Ordered Result Body Site CHORIONIC GONADOTROPIN TEST April 16, 2018 VENIPUNCT, ROUTINE* April 16, 2018 INSTRUCTIONS MEDICATIONS ADMINISTERED No Known Medications MEDICAL (GENERAL) HISTORY Type Description Date Medical History asthma Surgical History [facility] 2017
--- OUTSIDE RECORDS SUMMARY | 2018-12-11 11:27 | XMS REPORT ---
Author Author CHRIS ROJAS 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 230878213 Problem confirmed by positive urine test Z32.01 Active 634458150 Problem Seasonal allergic rhinitis, unspecified trigger J30.2 Active 050165053 ALLERGIES No Information ENCOUNTERS Encounter Location Date Diagnosis [facility] [id number] [place] [address] 83521- 9771 05 May, 2018 [facility] [id number] [place] [address] 68363- 3584 26 Apr, 2018 Vaginal bleeding N93.9 [facility] [id number] [place] [address] 43282- 8452 22 Apr, 2018 [facility] [id number] [place] [address] 86731- 8164 19 Apr, 2018 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 [facility] [id number] [place] [address] 32305 -9241 15 Apr, 2018 Paroxysmal nerve pain M79.2 [facility] [address] 17764- 0238 13 Apr, 2018 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 [facility] [id number] [place] [address] 26292- 4741 12 Apr, 2018 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 [facility] [address], [place] [address]- 8346 Apr, [facility] [id number] [place] [address] 04878- 0216 Apr, 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 [facility] [address], [place] [address] 2546 Apr, 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 [facility] [id number] [place] [address] 59130 2546 March, 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 [facility] [id number] [place] [address] 57521- 9176 March, 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 [facility] [id number] [place] [address] 33916- 6996 March, 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 [facility] [id number], [place] [address]- 9917 March, 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 [facility] [address], [place] [address]- 0493 March, 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 [facility] [address], [place] [address] 2546 March, [facility] [address], [place] [address]- 2546 March, 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 [facility] [id number], [place] [address]- 2506 March, Miscarriage O03.9 [facility] [address], [place] [address]- 2546 March, [facility] [id number] [place] [address] 58954- 5400 March, Miscarriage O03.9 [facility] [address] [place] [address] 09619- 1095 March, Miscarriage O03.9 [facility] [id number] [place] [address] 49915- 4743 Feb, Miscarriage O03.9 [facility] [id number] [place] [address] 61873- 7385 Feb, Miscarriage O03.9 [facility] [id number] [place] [address] 18167- 4134 Feb, Miscarriage O03.9 [facility] [id number] [place] [address] 55131- 4566 Feb, 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 [place] [id number] [place] [address] 83505- 9553 Feb, 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 [place] [id number] [place] [address] 12944- 2262 Feb, 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 [place] [id number] [place] [address] 62808- 4224 Feb, 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 [place] [address] [place] [address] 17142- 5140 Feb, confirmed by positive urine test Z32.01 [place] [address] [place] [address] 52578- 0187 Jan, confirmed by positive urine test Z32.01 [place] [id number] [place] [address] 74268- 7628 Jan, Encounter for counseling regarding contraception Z30.09 ; Encounter for initial prescription of injectable contraceptive Z30.013 ; Encounter to establish care Z76.89 ; Seasonal allergic rhinitis, unspecified trigger J30.2 and confirmed by positive urine test Z32.01 [facility] [address], [place] [address]- 1142 Feb, Encounter for Depo-Provera contraception Z30.42 [facility] [address] [place] [address] 86179- 2148 Dec, Encounter for Depo-Provera contraception Z30.42 [facility] [id number] [place] [address] 68454- 2693 Sep, Encounter for Depo-Provera contraception Z30.42 [facility] [address] [place] [address] 43956- 7195 Sep, Well woman exam Z01.419 and Breast cancer screening Z12.39 [facility] [address] [place] [address] 24858- 6990 Jun, Encounter for contraceptive management V25.9 [facility] [id number] [place] [address] 71325- 9804 Apr, Encounter for contraceptive management V25.9 [facility] [address] [place] [address] 87027- 5235 30 Jan, 2015 [facility] [id number] [place] [address] 31864- 2919 Jan, [facility] [address], [place] [address]- 5311 Jan, [facility] [address], [place] [address]- 0431 Jan, [facility] [address], [place] [address]- 6213 Jan, [facility] [id number] [place] [address] 36716- 7251 Aug, [facility] [address], [place] [address]- 2813 Aug, [facility] [id number] [place] [address]- 9368 17 Aug, 2014 [facility] [address] [facility] [id number] [address]- 8433 17 Aug, 2014 [facility] [address] [facility] [id number], [place] [address]- 0693 Jul, [facility] [address], [place] [address]- 1065 Jul, [facility] [address] [facility] [id number], [place] [address]- 2538 Aug, [facility] [address], [place] [address]- 7006 Aug, [facility] [address], [place] [address]- 0500 Aug, [facility] [address], [place] [address]- 3874 Aug, [facility] [id number], [place] [address]- 6450 Oct, [facility] [address], [place] [address]- 4044 Sep, [facility] [id number], [place] [address]- 5329 Sep, IMMUNIZATIONS No Known Immunizations SOCIAL HISTORY Never Assessed REASON FOR VISIT Requests return call PLAN OF CARE VITAL SIGNS MEDICATIONS Unknown Medications RESULTS No Results PROCEDURES No Known procedures INSTRUCTIONS MEDICATIONS ADMINISTERED No Known Medications MEDICAL (GENERAL) HISTORY Type Description Date Medical History asthma Surgical History [facility] 2016
--- OUTSIDE RECORDS SUMMARY | 2018-12-11 11:27 | XMS REPORT ---
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 600397884 Problem confirmed by positive urine test Z32.01 Active 026672248 Problem Seasonal allergic rhinitis, unspecified trigger J30.2 Active 136070259 ALLERGIES No Information ENCOUNTERS Encounter Location Date Diagnosis [facility] [id number] [place] [address] 18189- 1975 05 May, 2018 [facility] [id number] [address] 97690- 3506 26 Apr, 2018 Vaginal bleeding N93.9 [facility] [id number] [address] 89180- 8742 22 Apr, 2018 [facility] [id number] [address] 97178- 0565 19 Apr, 2018 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 [facility] [id number] [address] 66019 -1671 15 Apr, 2018 Paroxysmal nerve pain M79.2 [facility] [address] 25161- 6752 13 Apr, 2018 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 [facility] [id number] [address] 67254- 9388 12 Apr, 2018 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 [place] [id number] [address] 2546 Apr, [facility] [id number] [address] 10527- 3856 Apr, 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 [facility] [address] [address] 2546 Apr, 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 [facility] [id number] [address] 2546 March, 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 [facility] [id number] [address] 99326- 2696 March, 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 [facility] [address] [address] 12[address] March, 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 [facility] [address] [place] [address] 65893- 4053 March, 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 [facility] [address] [address] 54805- 5297 March, 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 [facility] [address] [address]- 8636 March, [facility] [address] [address] 2546 March, 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 [facility] [address], [place] [address] 2546 March, Miscarriage O03.9 [facility] [address], [place] [address]- 2546 March, [facility] [id number] [address] 69866- 0774 March, Miscarriage O03.9 [facility] [id number] [address] 37188- 8960 March, Miscarriage O03.9 [facility] [id number] [place] [address] 049512- 3775 Feb, Miscarriage O03.9 [facility] [id number] [place] [address] 74973- 9126 Feb, Miscarriage O03.9 [facility] [id number] [place] [address] 13824- 0920 Feb, Miscarriage O03.9 [place] [id number] [address] 46911- 5370 Feb, 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 [place] [id number] [address] 76482- 9427 Feb, 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 [place] [id number] [address] 23978- 2126 Feb, 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 [place] [id number] [place] [address] 25746- 5235 Feb, 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 [place] [id number] [place] [address] 52743- 4920 Feb, confirmed by positive urine test Z32.01 [place] [id number] [place] [address] 43839- 8130 Jan, confirmed by positive urine test Z32.01 [place] [id number] [place] [address] 94515- 1192 Jan, Encounter for counseling regarding contraception Z30.09 ; Encounter for initial prescription of injectable contraceptive Z30.013 ; Encounter to establish care Z76.89 ; Seasonal allergic rhinitis, unspecified trigger J30.2 and confirmed by positive urine test Z32.01 [facility] [address] [address]- 2662 Feb, Encounter for Depo-Provera contraception Z30.42 [facility] [address] [place] [address] 802092- 1300 Dec, Encounter for Depo-Provera contraception Z30.42 [facility] [address] [place] [address] 40954- 2404 Sep, Encounter for Depo-Provera contraception Z30.42 [facility] [address] [place] [address] 36277- 6070 Sep, Well woman exam Z01.419 and Breast cancer screening Z12.39 [facility] [address] [address]- 7305 Jun, Encounter for contraceptive management V25.9 [facility] [id number] [place] [address] 96537- 1149 Apr, Encounter for contraceptive management V25.9 [facility] [address] [address]- 7795 Jan, [facility] [address] [place] [address] 20706- 0498 Jan, [facility] [address], [place] [address]- 8136 Jan, [facility] [address], [place] [address]- 6542 Jan, [facility] [address], [place] [address]- 9402 Jan, [facility] [id number] [place] [address] 191524- 7896 Aug, [facility] [address], [place] [address]- 1630 Aug, [facility] [id number] [address]- 5827 17 Aug, 2014 [facility] [address] [facility] [id number] [address] 4796 17 Aug, 2014 [facility] [address] [facility] [id number] [address] Jul, [facility] [address], [place] [address]- 1022 Jul, [facility] [address], [place] [address]- 5535 Aug, [facility] [address] 5747 Aug, [facility] [address], [place] [address]- 4736 Aug, [facility] [address], [place] [address]- 9929 Aug, [facility] [id number] [address]- 3627 Oct, [facility] [id number], [place] [address]- 0137 Sep, [facility] [id number] [address]- 5867 Sep, IMMUNIZATIONS No Known Immunizations SOCIAL HISTORY Never Assessed REASON FOR VISIT Requests return call PLAN OF CARE VITAL SIGNS MEDICATIONS Unknown Medications RESULTS No Results PROCEDURES No Known procedures INSTRUCTIONS MEDICATIONS ADMINISTERED No Known Medications MEDICAL (GENERAL) HISTORY Type Description Date Medical History asthma Surgical History [facility] 2016
--- OUTSIDE RECORDS SUMMARY | 2018-12-11 11:27 | XMS REPORT ---
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 Active 364216702 Problem confirmed by positive urine test Z32.01 Active 596334640 Problem Seasonal allergic rhinitis, unspecified trigger J30.2 Active 524492510 ALLERGIES No Information ENCOUNTERS Encounter Location Date Diagnosis [facility] [id number] [place] [address] 01145- 6976 05 May, 2018 [facility] [id number] [place] [address] 66557- 0501 26 Apr, 2018 Vaginal bleeding N93.9 [facility] [id number] [place] [address] 43208- 3700 22 Apr, 2018 [facility] [id number] [place] [address] 83672- 0123 19 Apr, 2018 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 [facility] [id number] [place] [address] 57812 -5956 15 Apr, 2018 Paroxysmal nerve pain M79.2 [facility] [address] 23562- 9524 13 Apr, 2018 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 [facility] [id number] [place] [address] 28096- 4943 12 Apr, 2018 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 [facility] [address] [address]- 4496 Apr, [facility] [id number] [place] [address] 33909- 8026 Apr, 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 [facility] [address] [address] 2546 Apr, 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 [facility] [id number] [place] [address] 54638 2546 March, 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 [facility] [id number] [place] [address] 56050- 8596 March, 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 [facility] [id number] [place] [address] 65951- 1106 March, 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 [facility] [id number] [address]- 0400 March, 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 [facility] [address] [address]- 5676 March, 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 [facility] [address] [address] 2546 March, [facility] [address] [address]- 2546 March, 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 [facility] [address] [address]- 4566 March, Miscarriage O03.9 [facility] [address] [address]- 2546 March, [facility] [id number] [place] [address] 02521- 0935 March, Miscarriage O03.9 [facility] [address] [place] [address] 46594- 1333 March, Miscarriage O03.9 [facility] [id number] [place] [address] 81923- 8837 Feb, Miscarriage O03.9 [facility] [id number] [place] [address] 77378- 7252 Feb, Miscarriage O03.9 [facility] [id number] [place] [address] 31597- 7782 Feb, Miscarriage O03.9 [facility] [id number] [place] [address] 09552- 0057 Feb, 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 [place] [id number] [place] [address] 20675- 3438 Feb, 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 [place] [id number] [place] [address] 56136- 9136 Feb, 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 [place] [id number] [place] [address] 96020- 6041 Feb, 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 [place] [address] [place] [address] 31670- 1713 Feb, confirmed by positive urine test Z32.01 [place] [address] [place] [address] 24493- 6781 Jan, confirmed by positive urine test Z32.01 [place] [id number] [place] [address] 84930- 3205 Jan, Encounter for counseling regarding contraception Z30.09 ; Encounter for initial prescription of injectable contraceptive Z30.013 ; Encounter to establish care Z76.89 ; Seasonal allergic rhinitis, unspecified trigger J30.2 and confirmed by positive urine test Z32.01 [facility] [address] [address]- 0113 Feb, Encounter for Depo-Provera contraception Z30.42 [facility] [address] [place] [address] 44685- 1792 Dec, Encounter for Depo-Provera contraception Z30.42 [facility] [id number] [place] [address] 08088- 2655 Sep, Encounter for Depo-Provera contraception Z30.42 [facility] [address] [place] [address] 28350- 6417 Sep, Well woman exam Z01.419 and Breast cancer screening Z12.39 [facility] [address] [place] [address] 08480- 3227 Jun, Encounter for contraceptive management V25.9 [facility] [id number] [place] [address] 18078- 8389 Apr, Encounter for contraceptive management V25.9 [facility] [address] [place] [address] 04672- 7910 30 Jan, 2015 [facility] [id number] [place] [address] 46678- 1387 Jan, [facility] [address] [address]- 4430 Jan, [facility] [address] [address]- 3921 Jan, [facility] [address] [address]- 3687 Jan, [facility] [id number] [place] [address] 65080- 6458 Aug, [facility] [address] [address]- 0784 Aug, [facility] [id number] [address]- 6862 17 Aug, 2014 [facility] [address] [facility] [id number] [address]- 9252 17 Aug, 2014 [facility] [address] [facility] [id number] 9118 Jul, [facility] [address] [address]- 3723 Jul, [facility] [address] [facility] [id number] [address]- 1657 Aug, [facility] [address] 4313 Aug, [facility] [address] [address]- 8821 Aug, [facility] [address] [address]- 0731 Aug, [facility] [address] [address]- 4142 Oct, [facility] [address] [address]- 5899 Sep, [facility] [id number] [address]- 1298 Sep, IMMUNIZATIONS No Known Immunizations SOCIAL HISTORY Never Assessed REASON FOR VISIT deferred lab PLAN OF CARE VITAL SIGNS MEDICATIONS Unknown Medications RESULTS No Results PROCEDURES No Known procedures INSTRUCTIONS MEDICATIONS ADMINISTERED No Known Medications MEDICAL (GENERAL) HISTORY Type Description Date Medical History asthma Surgical History [facility] 2016
--- OUTSIDE RECORDS SUMMARY | 2018-12-11 11:28 | XMS REPORT ---
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 Active 300942980 Problem confirmed by positive urine test Z32.01 Active 749010943 Problem Seasonal allergic rhinitis, unspecified trigger J30.2 Active 889923300 ALLERGIES No Information ENCOUNTERS Encounter Location Date Diagnosis [facility] [id number] [place] [address] 99987- 9724 05 May, 2018 [facility] [id number] [place] [address] 92274- 3057 26 Apr, 2018 Vaginal bleeding N93.9 [facility] [id number] [place] [address] 34091- 0797 22 Apr, 2018 [facility] [id number] [place] [address] 99778- 9948 19 Apr, 2018 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 [facility] IN [facility] [id number] [place] [address] 72389 -2997 15 Apr, 2018 Paroxysmal nerve pain M79.2 [facility] [address] 07667- 1240 13 Apr, 2018 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 [facility] [id number] [place] [address] 30476- 6102 12 Apr, 2018 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 [facility] [address], [place] [address] 3[address] Apr, [facility] [id number] [place] [address] 63052- 4536 Apr, 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 [facility] [address], [place] [address] 2546 Apr, 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 [facility] [id number] [place] [address] 98290 2546 March, 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 [facility] [id number] [place] [address] 71933- 7626 March, 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 [facility] [id number] [place] [address] 55856- 9256 March, 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 [facility] [id number] [address] 0018 March, 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 [facility] [address], [place] [address] 9739 March, 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 [facility] [address] [address] 2546 March, [facility] [address], [place] [address]- 2546 March, 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 [facility] [id number] [address] 5226 March, Miscarriage O03.9 [facility] [address] [address] 2546 March, [facility] [id number] [place] [address] 60558- 5229 March, Miscarriage O03.9 [facility] [address] [place] [address] 84654- 3939 March, Miscarriage O03.9 [facility] [id number] [place] [address] 09885- 4001 Feb, Miscarriage O03.9 [facility] [id number] [place] [address] 55961- 4024 Feb, Miscarriage O03.9 [facility] [id number] [place] [address] 64850- 0133 Feb, Miscarriage O03.9 [facility] [id number] [place] [address] 30403- 5608 Feb, 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 [place] [facility] [id number] [place] [address] 83491- 2275 Feb, 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 [facility] [facility] [id number] [place] [address] 84597- 9901 Feb, 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 [place] [id number] [place] [address] 37679- 0787 Feb, 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 [place] [facility] [address] [place] [address] 13067- 0548 Feb, confirmed by positive urine test Z32.01 [place] [address] [place] [address] 18766- 2231 Jan, confirmed by positive urine test Z32.01 [place] [facility] [id number] [place] [address] 55313- 2501 Jan, Encounter for counseling regarding contraception Z30.09 ; Encounter for initial prescription of injectable contraceptive Z30.013 ; Encounter to establish care Z76.89 ; Seasonal allergic rhinitis, unspecified trigger J30.2 and confirmed by positive urine test Z32.01 [facility] [address], [place] [address] 2730 Feb, Encounter for Depo-Provera contraception Z30.42 [facility] [address] [place] [address] 50809- 7502 Dec, Encounter for Depo-Provera contraception Z30.42 [facility] [id number] [place] [address] 04218- 6891 Sep, Encounter for Depo-Provera contraception Z30.42 [facility] [address] [place] [address] 55973- 2330 Sep, Well woman exam Z01.419 and Breast cancer screening Z12.39 [facility] [address] [place] [address] 72571- 0221 Jun, Encounter for contraceptive management V25.9 [facility] [id number] [place] [address] 89648- 8551 Apr, Encounter for contraceptive management V25.9 [facility] [address] [place] [address] 87046- 8319 30 Jan, 2015 [facility] [id number] [place] [address] 91642- 8804 Jan, [facility] [address], [place] [address]- 7960 Jan, [facility] [address], [place] [address]- 8689 Jan, [facility] [address], [place] [address]- 5321 Jan, [facility] [id number] [place] [address] 84927- 4595 Aug, [facility] [address], [place] [address]- 2448 Aug, [facility] [address] [address]- 3031 17 Aug, 2014 [facility] [id number] [address]- 5126 17 Aug, 2014 [facility] [id number], [place] [address]- 7419 19 Jul, 2013 [facility] [address], [place] [address]- 1660 19 Jul, 2013 [facility] [address], [place] [address]- 5037 Aug, [facility] [address], [place] [address]- 8336 18 Aug, 2013 [facility] [address], [place] [address]- 7969 Aug, [facility] [address], [place] [address]- 9948 Aug, [facility] [address], [place] [address]- 8905 Oct, [facility] [address], [place] [address]- 3223 Sep, [facility] [id number] [address]- 5685 Sep, IMMUNIZATIONS No Known Immunizations SOCIAL HISTORY Never Assessed REASON FOR VISIT Lab (walk-in)--[facility] PLAN OF CARE VITAL SIGNS MEDICATIONS Unknown Medications RESULTS No Results PROCEDURES Procedure Date Ordered Result Body Site CHORIONIC GONADOTROPIN TEST March 28, 2018 VENIPUNCT, ROUTINE* March 28, 2018 INSTRUCTIONS MEDICATIONS ADMINISTERED No Known Medications MEDICAL (GENERAL) HISTORY Type Description Date Medical History asthma Surgical History [facility] 2016
--- OUTSIDE RECORDS SUMMARY | 2018-12-11 11:28 | XMS REPORT ---
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 025728117 Problem confirmed by positive urine test Z32.01 Active 432065370 Problem Seasonal allergic rhinitis, unspecified trigger J30.2 Active 507429512 ALLERGIES No Information ENCOUNTERS Encounter Location Date Diagnosis [facility] [id number] [place] [address] 07803- 5346 05 May, 2018 [facility] [id number] [place] [address] 96455- 3762 26 Apr, 2018 Vaginal bleeding N93.9 [facility] [id number] [place] [address] 80141- 6738 22 Apr, 2018 [facility] [id number] [place] [address] 58127- 6420 19 Apr, 2018 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 [facility] IN [facility] [id number] [place] [address] 46271 -3626 15 Apr, 2018 Paroxysmal nerve pain M79.2 [facility] [address] 94458- 3486 13 Apr, 2018 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 [facility] [id number] [place] [address] 76594- 4804 12 Apr, 2018 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 [facility] [address], [place] [address]- 9576 Apr, [facility] [id number] [place] [address] 44226- 8106 Apr, 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 [facility] [address], [place] [address] 2546 Apr, 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 [facility] [id number] [place] [address] 77925 2546 March, 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 [facility] [id number] [place] [address] 66443- 2146 March, 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 [facility] [id number] [place] [address] 44715- 6726 March, 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 [facility] [id number] [address]- 0753 March, 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 [facility] [address], [place] [address]- 0389 March, 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 [facility] [address], [place] [address] 2546 March, [facility] [address], [place] [address]- 2546 March, 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 [facility] [id number] [address]- 7226 March, Miscarriage O03.9 [facility] [address], [place] [address]- 2546 March, [facility] [id number] [place] [address] 68462- 8733 March, Miscarriage O03.9 [facility] [address] [place] [address] 19616- 4128 March, Miscarriage O03.9 [facility] [id number] [place] [address] 73419- 7715 Feb, Miscarriage O03.9 [facility] [id number] [place] [address] 20169- 5810 Feb, Miscarriage O03.9 [facility] [id number] [place] [address] 23541- 2775 Feb, Miscarriage O03.9 [facility] [id number] [place] [address] 57557- 7996 Feb, 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 [place] [facility] [id number] [place] [address] 79436- 4409 Feb, 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 [place] [facility] [id number] [place] [address] 53075- 6022 Feb, 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 [place] [id number] [place] [address] 92686- 9106 Feb, 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 [place] [facility] [address] [place] [address] 21016- 4429 Feb, confirmed by positive urine test Z32.01 [place] [address] [place] [address] 39910- 5818 Jan, confirmed by positive urine test Z32.01 [place] [id number] [place] [address] 46704- 5261 Jan, Encounter for counseling regarding contraception Z30.09 ; Encounter for initial prescription of injectable contraceptive Z30.013 ; Encounter to establish care Z76.89 ; Seasonal allergic rhinitis, unspecified trigger J30.2 and confirmed by positive urine test Z32.01 [facility] [address], [place] [address]- 7077 Feb, Encounter for Depo-Provera contraception Z30.42 [facility] [address] [place] [address] 15562- 9573 Dec, Encounter for Depo-Provera contraception Z30.42 [facility] [id number] [place] [address] 03124- 0707 Sep, Encounter for Depo-Provera contraception Z30.42 [facility] [address] [place] [address] 07610- 9944 Sep, Well woman exam Z01.419 and Breast cancer screening Z12.39 [facility] [address] [place] [address] 22558- 8409 Jun, Encounter for contraceptive management V25.9 [facility] [id number] [place] [address] 49569- 2319 Apr, Encounter for contraceptive management V25.9 [facility] [address] [place] [address] 07028- 9402 30 Jan, 2015 [facility] [id number] [place] [address] 30421- 5540 Jan, [facility] [address], [place] [address]- 0410 Jan, [facility] [address], [place] [address]- 1923 Jan, [facility] [address], [place] [address]- 4407 Jan, [facility] [id number] [place] [address] 96228- 7541 Aug, [facility] [address], [place] [address]- 2140 Aug, [facility] [address] [address]- 9505 17 Aug, 2014 [facility] [address], [place] [address]- 2961 Aug, [facility] [address] 2535 Jul, [facility] [address], [place] [address]- 5116 Jul, [facility] [address], [place] [address]- 4678 Aug, [facility] [address] 8871 Aug, [facility] [address] [place] [address]- 5929 Aug, [facility] [address] 4241 Aug, [facility] [address], [place] [address]- 1197 Oct, [facility] [address], [place] [address]- 9809 Sep, [facility] [id number] [address]- 3802 Sep, IMMUNIZATIONS No Known Immunizations SOCIAL HISTORY Never Assessed REASON FOR VISIT new orders for HCG PLAN OF CARE VITAL SIGNS MEDICATIONS Unknown Medications RESULTS No Results PROCEDURES No Known procedures INSTRUCTIONS MEDICATIONS ADMINISTERED No Known Medications MEDICAL (GENERAL) HISTORY Type Description Date Medical History asthma Surgical History [facility] 2016
--- OUTSIDE RECORDS SUMMARY | 2018-12-11 11:28 | XMS REPORT ---
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 Active 742511682 Problem confirmed by positive urine test Z32.01 Active 165857548 Problem Seasonal allergic rhinitis, unspecified trigger J30.2 Active 404472156 ALLERGIES No Information ENCOUNTERS Encounter Location Date Diagnosis [facility] [id number] [place] [address] 45560- 0205 05 May, 2018 [facility] [id number] [place] [address] 91468- 5883 26 Apr, 2018 Vaginal bleeding N93.9 [facility] [id number] [place] [address] 77955- 8076 22 Apr, 2018 [facility] [id number] [place] [address] 83763- 5421 19 Apr, 2018 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 [facility] IN [facility] [id number] [place] [address] 83140 -0626 15 Apr, 2018 Paroxysmal nerve pain M79.2 [facility] [address] 8[address]67- 0301 13 Apr, 2018 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 [facility] [id number] [place] [address] 86640- 0403 12 Apr, 2018 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 [facility] [address], [place] [address] 12[address] Apr, [facility] [id number] [place] [address] 30961- 5316 Apr, 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 [facility] [address], [place] [address] 2546 Apr, 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 [facility] [id number] [place] [address] 52952 2546 March, 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 [facility] [id number] [place] [address] 62593- 8276 March, 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 [facility] [id number] [place] [address] 25315- 7946 March, 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 [facility] [id number] [address] 9833 March, 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 [facility] [address], [place] [address]- 7052 March, 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 [facility] [address] [place] [address] 2546 March, [facility] [address] [place] [address]- 2546 March, 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 [facility] [id number] [address] 9316 March, Miscarriage O03.9 [facility] [address], [place] [address] 2546 March, [facility] [id number] [place] [address] 57113- 8322 March, Miscarriage O03.9 [facility] [address] [place] [address] 34502- 1031 March, Miscarriage O03.9 [facility] [id number] [place] [address] 90518- 6855 Feb, Miscarriage O03.9 [facility] [id number] [place] [address] 26707- 7945 Feb, Miscarriage O03.9 [facility] [id number] [place] [address] 14201- 8293 Feb, Miscarriage O03.9 [facility] [id number] [place] [address] 18925- 6731 Feb, 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 [place] [id number] [place] [address] 31796- 3844 Feb, 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 [place] [id number] [place] [address] 19345- 5807 Feb, 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 [place] [facility] [id number] [place] [address] 05647- 6219 Feb, 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 [place] [address] [place] [address] 06273- 5123 Feb, confirmed by positive urine test Z32.01 [place] [id number] [place] [address] 91779- 1629 Jan, confirmed by positive urine test Z32.01 [place] [id number] [place] [address] 78482- 0805 Jan, Encounter for counseling regarding contraception Z30.09 ; Encounter for initial prescription of injectable contraceptive Z30.013 ; Encounter to establish care Z76.89 ; Seasonal allergic rhinitis, unspecified trigger J30.2 and confirmed by positive urine test Z32.01 [facility] [address], [place] [address] 5837 Feb, Encounter for Depo-Provera contraception Z30.42 [facility] [address] [place] [address] 20477- 0113 Dec, Encounter for Depo-Provera contraception Z30.42 [facility] [id number] [place] [address] 05825- 1857 Sep, Encounter for Depo-Provera contraception Z30.42 [facility] [address] [place] [address] 87355- 6162 Sep, Well woman exam Z01.419 and Breast cancer screening Z12.39 [facility] [address] [place] [address] 98833- 8581 Jun, Encounter for contraceptive management V25.9 [facility] [id number] [place] [address] 77001- 7355 Apr, Encounter for contraceptive management V25.9 [facility] [address] [place] [address] 52648- 9803 30 Jan, 2015 [facility] [id number] [place] [address] 03127- 0891 Jan, [facility] [address], [place] [address]- 2206 Jan, [facility] [address], [place] [address]- 4536 Jan, [facility] [address], [place] [address]- 3497 Jan, [facility] [id number] [place] [address] 23587- 1127 Aug, [facility] [address], [place] [address]- 6613 Aug, [facility] [id number] [address]- 7365 17 Aug, 2014 [facility] [address], [place] [address]- 3560 17 Aug, 2014 [facility] [address], [place] [address]- 0326 19 Jul, 2014 [facility] [address], [place] [address]- 4283 19 Jul, 2014 [facility] [address], [place] [address]- 0619 Aug, [facility] [address], [place] [address]- 5020 18 Aug, 2013 [facility] [address] 8033 Aug, [facility] [address], [place] [address]- 4568 Aug, [facility] [address] 6703 Oct, [facility] [address] 5064 Sep, [facility] [id number] [address]- 5812 Sep, IMMUNIZATIONS No Known Immunizations SOCIAL HISTORY Never Assessed REASON FOR VISIT Lab (walk-in) PLAN OF CARE VITAL SIGNS MEDICATIONS Unknown Medications RESULTS No Results PROCEDURES Procedure Date Ordered Result Body Site CHORIONIC GONADOTROPIN TEST April 09, 2018 INSTRUCTIONS MEDICATIONS ADMINISTERED No Known Medications MEDICAL (GENERAL) HISTORY Type Description Date Medical History asthma Surgical History [facility] 2016
--- OUTSIDE RECORDS SUMMARY | 2018-12-11 11:28 | XMS REPORT ---
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 Active 805524035 Problem confirmed by positive urine test Z32.01 Active 544681610 Problem Seasonal allergic rhinitis, unspecified trigger J30.2 Active 632877058 ALLERGIES No Information ENCOUNTERS Encounter Location Date Diagnosis [facility] [id number] [place] [address] 66375- 5483 05 May, 2018 [facility] [id number] [place] [address] 14204- 6935 26 Apr, 2018 Vaginal bleeding N93.9 [facility] [id number] [place] [address] 42758- 9238 22 Apr, 2018 [facility] [id number] [place] [address] 00793- 1420 19 Apr, 2018 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 [facility] [id number] [place] [address] 71371 -5582 15 Apr, 2018 Paroxysmal nerve pain M79.2 [facility] [address] 66682- 5574 13 Apr, 2018 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 [facility] [id number] [place] [address] 54065- 4422 12 Apr, 2018 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 [facility] [address] [address]- 5866 Apr, [facility] [id number] [place] [address] 96490- 2236 Apr, 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 [facility] [address] [address] 2546 Apr, 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 [facility] [id number] [place] [address] 48000 2546 March, 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 [facility] [id number] [place] [address] 65843- 4136 March, 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 [facility] [id number] [place] [address] 51573- 2956 March, 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 [facility] [address] [address]- 8202 March, Abnormal human chorionic gonadotropin (hCG) 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.9 [facility] [address] [address]- 8778 March, Abnormal human chorionic gonadotropin (hCG) R79.9 [facility] [address] [address] 2546 March, [facility] [address] [address]- 2546 March, Abnormal human chorionic gonadotropin (hCG) 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 [facility] [address] [address]- 7296 March, Miscarriage O03.9 [facility] [address] [address]- 2546 March, [facility] [id number] [place] [address] 96354- 2521 March, Miscarriage O03.9 [facility] [address] [place] [address] 35849- 3683 March, Miscarriage O03.9 [facility] [id number] [place] [address] 70308- 5731 Feb, Miscarriage O03.9 [facility] [id number] [place] [address] 32830- 6201 Feb, Miscarriage O03.9 [facility] [id number] [place] [address] 30685- 0615 Feb, Miscarriage O03.9 [facility] [id number] [place] [address] 32167- 1574 Feb, Abnormal human chorionic gonadotropin (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 [place] [id number] [place] [address] 14822- 7410 Feb, Abnormal human chorionic gonadotropin (hCG) 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 [place] [id number] [place] [address] 76326- 4510 Feb, Abnormal human chorionic gonadotropin (hCG) 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.9 [place] [id number] [place] [address] 15478- 5451 Feb, Abnormal human chorionic 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 [place] [address] [place] [address] 53126- 9088 Feb, confirmed by positive urine test Z32.01 [place] [address] [place] [address] 66457- 8536 Jan, confirmed by positive urine test Z32.01 [place] [id number] [place] [address] 01915- 5515 Jan, Encounter for counseling regarding contraception Z30.09 ; Encounter for initial prescription of injectable contraceptive Z30.013 ; Encounter to establish care Z76.89 ; Seasonal allergic rhinitis, unspecified trigger J30.2 and confirmed by positive urine test Z32.01 [facility] [address] [address]- 4439 Feb, Encounter for Depo-Provera contraception Z30.42 [facility] [address] [place] [address] 02294- 4000 Dec, Encounter for Depo-Provera contraception Z30.42 [facility] [id number] [place] [address] 41808- 0207 Sep, Encounter for Depo-Provera contraception Z30.42 [facility] [address] [place] [address] 26689- 1628 Sep, Well woman exam Z01.419 and Breast cancer screening Z12.39 [facility] [address] [place] [address] 82218- 0190 Jun, Encounter for contraceptive management V25.9 [facility] [id number] [place] [address] 41369- 2141 Apr, Encounter for contraceptive management V25.9 [facility] [address] [place] [address] 96896- 0150 30 Jan, 2015 [facility] [id number] [place] [address] 10448- 1812 Jan, [facility] [address] [address]- 1132 Jan, [facility] [address] [address]- 7754 Jan, [facility] [address] [address]- 3008 Jan, [facility] [id number] [place] [address] 71020- 3870 Aug, [facility] [address] [address]- 0688 Aug, [facility] [address] [address]- 6315 17 Aug, 2014 [facility] [id number] [address]- 8227 17 Aug, 2014 [facility] [id number] [address]- 5315 19 Jul, 2013 [facility] [address] [address]- 3078 19 Jul, 2013 [facility] [address] [address]- 2234 Aug, [facility] [address] [address]- 7967 18 Aug, 2013 [facility] [address] [address]- 1183 Aug, [facility] [address] [address]- 0584 Aug, [facility] [address] [address]- 5625 Oct, [facility] [address] [address]- 3741 Sep, [facility] [id number] [address]- 8006 Sep, IMMUNIZATIONS No Known Immunizations SOCIAL HISTORY Never Assessed REASON FOR VISIT Lab (walk-in)--[facility]ly [facility] PLAN OF CARE Activity Details Future/Pending Procedure ROUTINE VENIPUNCTURE VITAL SIGNS MEDICATIONS Unknown Medications RESULTS No Results PROCEDURES Procedure Date Ordered Result Body Site CHORIONIC GONADOTROPIN TEST April 02, 2018 VENIPUNCT, ROUTINE* April 02, 2018 INSTRUCTIONS MEDICATIONS ADMINISTERED No Known Medications MEDICAL (GENERAL) HISTORY Type Description Date Medical History asthma Surgical History [facility] 2016
--- OUTSIDE RECORDS SUMMARY | 2018-12-11 11:28 | XMS REPORT ---
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 Active 521314509 Problem confirmed by positive urine test Z32.01 Active 757208995 Problem Seasonal allergic rhinitis, unspecified trigger J30.2 Active 151251474 ALLERGIES No Information ENCOUNTERS Encounter Location Date Diagnosis [facility] [id number] [place] [address] 83334- 3873 05 May, 2018 [facility] [id number] [place] [address] 78138- 4167 26 Apr, 2018 Vaginal bleeding N93.9 [facility] [id number] [place] [address] 39016- 9347 22 Apr, 2018 [facility] [id number] [place] [address] 37413- 4480 Apr, Abnormal human chorionic gonadotropin (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 [facility] IN [facility] [id number] [place] [address] 75456 -9845 15 Apr, 2018 Paroxysmal nerve pain M79.2 [facility] [address] 43131- 4871 13 Apr, 2018 Abnormal human chorionic gonadotropin (hCG) 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.9 [facility] [id number] [place] [address] 37233- 1754 12 Apr, 2018 Abnormal human chorionic gonadotropin (hCG) 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.9 [facility] [address] [address] 8[address] Apr, [facility] [id number] [place] [address] 92868- 7216 Apr, Abnormal human chorionic gonadotropin (hCG) 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.9 [facility] [address], [place] [address] 2546 Apr, Abnormal human chorionic gonadotropin (hCG) R79.9 [facility] [id number] [place] [address] 62700 2546 March, Abnormal human chorionic gonadotropin (hCG) 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.9 [facility] [id number] [place] [address] 13818- 1826 March, Abnormal human chorionic gonadotropin (hCG) R79.9 [facility] [id number] [place] [address] 47893- 7926 March, Abnormal human chorionic gonadotropin (hCG) R79.9 [facility] [id number] [address] 9045 March, Abnormal human chorionic gonadotropin (hCG) R79.9 [facility] [address], [place] [address] 4509 March, Abnormal human chorionic gonadotropin (hCG) R79.9 [facility] [address], [place] [address] 2546 March, [facility] [address], [place] [address] 2546 March, Abnormal human chorionic gonadotropin (hCG) R79.9 [facility] [id number] [address] 3136 March, Miscarriage O03.9 [facility] [address] [address] 2546 March, [facility] [id number] [place] [address] 28722- 0211 March, Miscarriage O03.9 [facility] [id number] [place] [address] 49427- 7042 March, Miscarriage O03.9 [facility] [id number] [place] [address] 85360- 6436 Feb, Miscarriage O03.9 [facility] [id number] [place] [address] 11909- 4276 Feb, Miscarriage O03.9 [facility] [id number] [place] [address] 64036- 7745 Feb, Miscarriage O03.9 [facility] [id number] [place] [address] 50704- 8404 Feb, Abnormal human chorionic gonadotropin (hCG) 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 [place] [facility] [id number] [place] [address] 82671- 7008 Feb, Abnormal human chorionic gonadotropin (hCG) 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.9 [facility] [facility] [id number] [place] [address] 72703- 0534 Feb, Abnormal human chorionic gonadotropin (hCG) 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.9 [facility] [facility] [id number] [place] [address] 60415- 0301 Feb, Abnormal human chorionic gonadotropin (hCG) 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 [place] [facility] [address] [place] [address] 07933- 4907 Feb, confirmed by positive urine test Z32.01 [place] [id number] [place] [address] 99208- 5501 Jan, confirmed by positive urine test Z32.01 [place] [facility] [id number] [place] [address] 65994- 6267 Jan, Encounter for counseling regarding contraception Z30.09 ; Encounter for initial prescription of injectable contraceptive Z30.013 ; Encounter to establish care Z76.89 ; Seasonal allergic rhinitis, unspecified trigger J30.2 and confirmed by positive urine test Z32.01 [facility] [address], [place] [address]- 6336 Feb, Encounter for Depo-Provera contraception Z30.42 [facility] [address] [place] [address] 34405- 2200 Dec, Encounter for Depo-Provera contraception Z30.42 [facility] [id number] [place] [address] 78810- 3881 Sep, Encounter for Depo-Provera contraception Z30.42 [facility] [address] [place] [address] 46177- 3498 Sep, Well woman exam Z01.419 and Breast cancer screening Z12.39 [facility] [address] [place] [address] 77296- 8700 Jun, Encounter for contraceptive management V25.9 [facility] [id number] [place] [address] 94636- 1679 Apr, Encounter for contraceptive management V25.9 [facility] [address] [place] [address] 87458- 3657 30 Jan, 2015 [facility] [id number] [place] [address] 24089- 9524 Jan, [facility] [address], [place] [address]- 6789 Jan, [facility] [address], [place] [address]- 2285 Jan, [facility] [address], [place] [address]- 9503 Jan, [facility] [id number] [place] [address] 72573- 8162 Aug, [facility] [address], [place] [address]- 3042 Aug, [facility] [id number] [address]- 8484 17 Aug, 2014 [facility] [address] [facility] [id number] [address]- 9773 17 Aug, 2014 [facility] [address] [facility] [id number] 1429 Jul, [facility] [address], [place] [address]- 1845 Jul, [facility] [address] [facility] [id number] [address]- 8635 Aug, [facility] [address] 3489 Aug, [facility] [address], [place] [address]- 2645 Aug, [facility] [address], [place] [address]- 7545 Aug, [facility] [address], [place] [address]- 3622 Oct, [facility] [address], [place] [address]- 4192 Sep, [facility] [id number] [address]- 3409 Sep, IMMUNIZATIONS No Known Immunizations SOCIAL HISTORY Never Assessed REASON FOR VISIT Deferred lab PLAN OF CARE VITAL SIGNS MEDICATIONS Unknown Medications RESULTS No Results PROCEDURES No Known procedures INSTRUCTIONS MEDICATIONS ADMINISTERED No Known Medications MEDICAL (GENERAL) HISTORY Type Description Date Medical History asthma Surgical History [facility] 2016
--- OUTSIDE RECORDS SUMMARY | 2018-12-11 11:28 | XMS REPORT ---
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 [id number] [place] [address] 17548- 1657 05 May, 2018 [facility] [id number] [place] [address] 47723- 3233 26 Apr, [address] [facility] [id number] [place] [address] 70659- 4585 22 Apr, 2018 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 [address], [place] [address]- 7506 Apr, 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 [address], [place] [address] 2546 March, 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 [id number] [address]- 6866 March, Miscarriage O03.9 [facility] [address], [place] [address]- 2546 March, [facility] [id number] [place] [address] 96374- 7149 March, Miscarriage O03.9 [facility] [id number] [place] [address] 98503- 9796 March, Miscarriage O03.9 [facility] [id number] [place] [address] 24770- 1602 Feb, Miscarriage O03.9 [facility] [id number] [place] [address] 05717- 5668 Feb, Miscarriage O03.9 [facility] [id number] [place] [address] 30668- 3692 Feb, Miscarriage O03.9 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 [facility] [id number] [place] [address] 22364- 5954 Feb, confirmed by positive urine test Z32.01 [place] [id number] [place] [address] 84185- 3816 Jan, confirmed by positive urine test Z32.01 [place] [id number] [place] [address] 67299- 3605 Jan, Encounter for counseling regarding contraception Z30.09 ; Encounter for initial prescription of injectable contraceptive Z30.013 ; Encounter to establish care Z76.89 ; Seasonal allergic rhinitis, unspecified trigger J30.2 and confirmed by positive urine test Z32.01 [facility] [address], [place] [address]- 8284 Feb, Encounter for Depo-Provera contraception Z30.42 [facility] [id number] [place] [address] 61575- 9030 Dec, Encounter for Depo-Provera contraception Z30.42 [facility] [id number] [place] [address] 01444- 9098 Sep, Encounter for Depo-Provera contraception Z30.42 [facility] [id number] [place] [address] 93511- 1858 Sep, Well woman exam Z01.419 and Breast cancer screening Z12.39 [facility] [id number] [place] [address] 72656- 1027 Jun, Encounter for contraceptive management V25.9 [facility] [id number] [place] [address] 46454- 1023 Apr, Encounter for contraceptive management V25.9 [facility] [id number] [place] [address] 06436- 7669 [address], 2015 [facility] [id number] [place] [address] 17732- 6028 Jan, [facility] [address] [address]- 4340 Jan, [facility] [address] [address]- 7738 Jan, [facility] [address], [place] [address]- 1474 Jan, [facility] [id number] [place] [address] 00644- 2541 Aug, [facility] [address], [place] [address]- 1011 Aug, [facility] [id number] [address]- 4525 17 Aug, 2014 [facility] [address] [facility] [id number], [place] [address]- 9417 17 Aug, 2014 [facility] [address] [facility] [id number] [address]287 Jul, [facility] [address], [place] [address]- 2056 19 Jul, 2014 [facility] [address] [facility] [id number], [place] [address]- 4079 Aug, [facility] [address] [address]- 3735 Aug, [facility] [address]- 6104 Aug, [facility] [address] [address] 4040 Aug, [facility] [id number] [address]- 5913 Oct, [facility] [address] 3947 Sep, [facility] [id number], [place] [address]- 1109 Sep, IMMUNIZATIONS No Known Immunizations SOCIAL HISTORY Never Assessed REASON FOR VISIT ask Dr. Strauss on Sunday PLAN OF CARE VITAL SIGNS MEDICATIONS Unknown Medications RESULTS No Results PROCEDURES No Known procedures INSTRUCTIONS MEDICATIONS ADMINISTERED No Known Medications MEDICAL (GENERAL) HISTORY Type Description Date Medical History asthma Surgical History [facility] 2016
--- OUTSIDE RECORDS SUMMARY | 2018-12-11 11:29 | XMS REPORT ---
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 Active 081784351 Problem confirmed by positive urine test Z32.01 Active 701734643 Problem Seasonal allergic rhinitis, unspecified trigger J30.2 Active 604256023 ALLERGIES No Information ENCOUNTERS Encounter Location Date Diagnosis [facility] [id number] [place] [address] 15048- 0285 05 May, 2018 [facility] [id number] [place] [address] 25400- 8678 26 Apr, 2018 Vaginal bleeding N93.9 [facility] [id number] [place] [address] 27816- 4843 22 Apr, 2018 [facility] [id number] [place] [address] 00814- 0845 19 Apr, 2018 Abnormal human chorionic 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 [facility] [id number] [place] [address] 46934 -9363 15 Apr, 2018 Paroxysmal nerve pain M79.2 [facility] [address] 25786- 9880 13 Apr, 2018 Abnormal human chorionic gonadotropin (hCG) R79.9 [facility] [id number] [place] [address] 35821- 7953 12 Apr, 2018 Abnormal human chorionic gonadotropin (hCG) 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.9 [facility] [address] [place] [address] 4816 Apr, [facility] [id number] [place] [address] 59244- 5296 Apr, Abnormal human chorionic gonadotropin (hCG) 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.9 [facility] [address] [place] [address] 2546 Apr, Abnormal human chorionic gonadotropin (hCG) 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 [facility] [id number] [place] [address] 79013 2546 March, Abnormal human chorionic gonadotropin (hCG) 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 [facility] [address] [place] [address] 2546 March, [facility] [address] [place] [address]- 2546 March, Abnormal human chorionic gonadotropin (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 [facility] [id number] [address]- 4296 March, Miscarriage O03.9 [facility] [address] [place] [address] 2546 March, [facility] [id number] [place] [address] 94943- 2564 March, Miscarriage O03.9 [facility] [address] [place] [address] 50245- 0335 March, Miscarriage O03.9 [facility] [id number] [place] [address] 59331- 0557 Feb, Miscarriage O03.9 [facility] [id number] [place] [address] 93937- 1482 Feb, Miscarriage O03.9 [facility] [id number] [place] [address] 71061- 9392 Feb, Miscarriage O03.9 [facility] [id number] [place] [address] 90778- 2753 Feb, Abnormal human chorionic gonadotropin (hCG) 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 [facility] [id number] [place] [address] 67232- 6282 Feb, Abnormal human chorionic gonadotropin (hCG) 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 [facility] [id number] [place] [address] 36904- 5821 Feb, Abnormal human chorionic gonadotropin (hCG) 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 [facility] [id number] [place] [address] 95305- 6961 Feb, Abnormal human chorionic 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 [facility] [address] [place] [address] 18851- 7236 Feb, confirmed by positive urine test Z32.01 [place] [facility] [address] [place] [address] 78657- 2561 Jan, confirmed by positive urine test Z32.01 [facility] [id number] [place] [address] 10946- 1367 Jan, Encounter for counseling regarding contraception Z30.09 ; Encounter for initial prescription of injectable contraceptive Z30.013 ; Encounter to establish care Z76.89 ; Seasonal allergic rhinitis, unspecified trigger J30.2 and confirmed by positive urine test Z32.01 [facility] [address], [place] [address]- 5435 Feb, Encounter for Depo-Provera contraception Z30.42 [facility] [address] [place] [address] 42251- 5253 Dec, Encounter for Depo-Provera contraception Z30.42 [facility] [id number] [place] [address] 87073- 5305 Sep, Encounter for Depo-Provera contraception Z30.42 [facility] [address] [place] [address] 19011- 8585 Sep, Well woman exam Z01.419 and Breast cancer screening Z12.39 [facility] [address] [place] [address] 30216- 2141 Jun, Encounter for contraceptive management V25.9 [facility] [id number] [place] [address] 78055- 7369 Apr, Encounter for contraceptive management V25.9 [facility] [address] [place] [address] 24763- 3692 30 Jan, 2015 [facility] [id number] [place] [address] 33774- 0721 Jan, [facility] [address], [place] [address]- 3088 Jan, [facility] [address], [place] [address] 1948 Jan, [facility] [address], [place] [address]- 0164 Jan, [facility] [id number] [place] [address] 73948- 4900 Aug, [facility] [address], [place] [address]- 9110 Aug, [facility] [id number] [place] [address]- 5294 17 Aug, 2014 [facility] [id number] [address]- 5693 17 Aug, 2014 [facility] [id number] [address]- 3180 19 Jul, 2013 [facility] [address], [place] [address]- 0548 19 Jul, 2013 [facility] [address], [place] [address]- 5593 Aug, [facility] [address], [place] [address]- 8696 18 Aug, 2013 [facility] [address], [place] [address]- 4388 Aug, [facility] [address], [place] [address]- 0762 Aug, [facility] [address], [place] [address]- 8491 Oct, [facility] [address], [place] [address]- 7743 Sep, [facility] [id number] [address]- 8614 Sep, IMMUNIZATIONS No Known Immunizations SOCIAL HISTORY Never Assessed REASON FOR VISIT Lab (walk-in) PLAN OF CARE VITAL SIGNS MEDICATIONS Unknown Medications RESULTS No Results PROCEDURES Procedure Date Ordered Result Body Site CHORIONIC GONADOTROPIN TEST March 05, 2018 VENIPUNCT, ROUTINE* March 05, 2018 INSTRUCTIONS MEDICATIONS ADMINISTERED No Known Medications MEDICAL (GENERAL) HISTORY Type Description Date Medical History asthma Surgical History [facility] 2016
--- OUTSIDE RECORDS SUMMARY | 2018-12-11 11:29 | XMS REPORT ---
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 Active 996018915 Problem confirmed by positive urine test Z32.01 Active 072103795 Problem Seasonal allergic rhinitis, unspecified trigger J30.2 Active [id number] ALLERGIES No Information ENCOUNTERS Encounter Location Date Diagnosis [facility] [id number] [place] [address] 49659- 1924 05 May, 2018 [facility] [id number] [place] [address] 01901- 2776 26 Apr, 2018 Vaginal bleeding N93.9 [facility] [id number] [place] [address] 23380- 0193 22 Apr, 2018 [facility] [id number] [place] [address] 08325- 9570 19 Apr, 2018 Abnormal human chorionic 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 [facility] [id number] [place] [address] 81474 -6707 15 Apr, 2018 Paroxysmal nerve pain M79.2 [facility] [id number] [place] [address] 45501- 0550 13 Apr, 2018 Abnormal human 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 [facility] [id number] [place] [address] 60798- 4950 12 Apr, 2018 Abnormal human chorionic gonadotropin (hCG) 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 [facility] [address], [place] [address]- 7166 Apr, [facility] [id number] [place] [address] 15924- 4946 Apr, Abnormal human chorionic 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 [facility] [address], [place] [address] 2546 Apr, Abnormal human chorionic gonadotropin (hCG) 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 [facility] [id number] [place] [address] 98167 2546 March, Abnormal human chorionic gonadotropin (hCG) 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 [facility] [id number] [place] [address] 29504- 6396 March, Abnormal human chorionic gonadotropin (hCG) 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 [facility] [id number] [place] [address] 52283- 5126 March, Abnormal human chorionic gonadotropin (hCG) 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.9 [facility] [id number] [address]- 3625 March, Abnormal human chorionic gonadotropin (hCG) 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.9 [facility] [address], [place] [address]- 6921 March, Abnormal human chorionic gonadotropin (hCG) 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.9 [facility] [address], [place] [address] 2546 March, [facility] [address], [place] [address]- 2546 March, Abnormal human chorionic gonadotropin (hCG) 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 [facility] [id number] [place] [address]- 5396 March, Miscarriage O03.9 [facility] [address], [place] [address]- 2546 March, [facility] [id number] [place] [address] 24842- 6364 March, Miscarriage O03.9 [facility] [address] [place] [address] 75789- 0637 March, Miscarriage O03.9 [facility] [id number] [place] [address] 96777- 1379 Feb, Miscarriage O03.9 [facility] [id number] [place] [address] 54575- 4331 Feb, Miscarriage O03.9 [facility] [id number] [place] [address] 79623- 8884 Feb, Miscarriage O03.9 [facility] [id number] [place] [address] 63297- 7249 Feb, Abnormal human chorionic 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 [facility] [id number] [place] [address] 39699- 9262 Feb, Abnormal human chorionic 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 [facility] [id number] [place] [address] 13334- 4516 Feb, Abnormal human chorionic gonadotropin (hCG) 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 [facility] [id number] [place] [address] 28777- 5391 Feb, Abnormal human 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 [facility] [address] [place] [address] 52696- 5835 Feb, confirmed by positive urine test Z32.01 [facility] [address] [place] [address] 79686- 3342 Jan, confirmed by positive urine test Z32.01 [facility] [id number] [place] [address] 43721- 6323 Jan, Encounter for counseling regarding contraception Z30.09 ; Encounter for initial prescription of injectable contraceptive Z30.013 ; Encounter to establish care Z76.89 ; Seasonal allergic rhinitis, unspecified trigger J30.2 and confirmed by positive urine test Z32.01 [facility] [address], [place] [address]- 5283 Feb, Encounter for Depo-Provera contraception Z30.42 [facility] [address] [place] [address] 43947- 8588 Dec, Encounter for Depo-Provera contraception Z30.42 [facility] [id number] [place] [address] 46373- 0905 Sep, Encounter for Depo-Provera contraception Z30.42 [facility] [address] [place] [address] 90299- 5871 Sep, Well woman exam Z01.419 and Breast cancer screening Z12.39 [facility] [address] [place] [address] 96187- 1207 Jun, Encounter for contraceptive management V25.9 [facility] [id number] [place] [address] 95952- 8596 Apr, Encounter for contraceptive management V25.9 [facility] [address] [place] [address] 59170- 2546 30 Jan, 2015 [facility] [id number] [place] [address] 49794- 2193 Jan, [facility] [address], [place] [address]- 1714 Jan, [facility] [address], [place] [address]- 3311 Jan, [facility] [address], [place] [address]- 4469 Jan, [facility] [id number] [place] [address] 65272- 0638 Aug, [facility] [address], [place] [address]- 1186 Aug, [facility] [id number] [place] [address]- 3316 17 Aug, 2013 [facility] [id number], [place] [address]- 6474 17 Aug, 2013 [facility] [id number], [place] [address]- 1090 19 Jul, 2013 [facility] [address] [place] [address]- 6719 19 Jul, 2013 [facility] [address], [place] [address]- 9442 19 Aug, 2012 [facility] [address], [place] [address]- 0728 18 Aug, 2013 [facility] [address] [place] [address]- 6701 Aug, 2012 [facility] [address], [place] [address]- 9395 16 Aug, 2012 [facility] [id number] [place] [address]- 6168 Oct, [facility] [address], [place] [address]- 2730 Sep, [facility] [id number], [place] [address]- 4345 Sep, IMMUNIZATIONS No Known Immunizations SOCIAL HISTORY Never Assessed REASON FOR VISIT Blood pressure check. [facility] PLAN OF CARE VITAL SIGNS Height 66 in 2018-03-19 Blood pressure systolic 90 mmHg 2018-03-19 Blood pressure diastolic 60 mmHg 2018-03-19 MEDICATIONS Unknown Medications RESULTS No Results PROCEDURES No Known procedures INSTRUCTIONS MEDICATIONS ADMINISTERED No Known Medications MEDICAL (GENERAL) HISTORY Type Description Date Medical History asthma Surgical History [facility] 2017
--- OUTSIDE RECORDS SUMMARY | 2018-12-11 11:29 | XMS REPORT ---
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 Active 604641347 Problem confirmed by positive urine test Z32.01 Active 040686841 Problem Seasonal allergic rhinitis, unspecified trigger J30.2 Active 508167637 ALLERGIES No Information ENCOUNTERS Encounter Location Date Diagnosis [facility] [id number] [place] [address] 08534- 9634 05 May, 2018 [facility] [id number] [place] [address] 12451- 2008 26 Apr, 2018 Vaginal bleeding N93.9 [facility] [id number] [place] [address] 36822- 2074 22 Apr, 2018 [facility] [id number] [place] [address] 07444- 4488 19 Apr, 2018 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 [facility] IN [facility] [id number] [place] [address] 71221 -4247 15 Apr, 2018 Paroxysmal nerve pain M79.2 [facility] [address] [address]- 5013 13 Apr, 2018 Abnormal human chorionic 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 [facility] [id number] [place] [address] 80410- 8295 12 Apr, 2018 Abnormal human chorionic 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 [facility] [address] [address] Apr, [facility] [id number] [place] [address] 14811- 2116 Apr, Abnormal human chorionic gonadotropin (hCG) 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.9 [facility] [address] [address] 2546 Apr, Abnormal human chorionic gonadotropin (hCG) 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.9 [facility] [id number] [place] [address] 68140 2546 March, Abnormal human chorionic gonadotropin (hCG) 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.9 [facility] [id number] [place] [address] 31646- 0496 March, Abnormal human chorionic gonadotropin (hCG) R79.9 [facility] [id number] [place] [address] 06578- 3236 March, Abnormal human chorionic gonadotropin (hCG) R79.9 [facility] [id number] [address]- 7394 March, Abnormal human chorionic gonadotropin (hCG) R79.9 [facility] [address] [address]- 8681 March, Abnormal human chorionic gonadotropin (hCG) 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.9 [facility] [id number] [address] 2546 March, [facility] [address] [address]- 2546 March, Abnormal human chorionic gonadotropin (hCG) 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.9 [facility] [id number] [address]- 8886 March, Miscarriage O03.9 [facility] [address] [address] 2546 March, [facility] [id number] [place] [address] 50912- 2878 March, Miscarriage O03.9 [facility] [id number] [place] [address] 30735- 0889 March, Miscarriage O03.9 [facility] [id number] [place] [address] 97659- 0414 Feb, Miscarriage O03.9 [facility] [id number] [place] [address] 87113- 6134 Feb, Miscarriage O03.9 [facility] [id number] [place] [address] 47755- 6490 Feb, Miscarriage O03.9 [facility] [id number] [place] [address] 10496- 7612 Feb, Abnormal human chorionic gonadotropin (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 [place] [id number] [place] [address] 88763- 9873 Feb, Abnormal human chorionic gonadotropin (hCG) 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.9 [place] [id number] [place] [address] 80872- 7721 Feb, Abnormal human chorionic gonadotropin (hCG) 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.9 [place] [id number] [place] [address] 54028- 1096 Feb, Abnormal human chorionic gonadotropin (hCG) 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 [place] [id number] [place] [address] 00467- 7139 Feb, confirmed by positive urine test Z32.01 [place] [id number] [place] [address] 11737- 7468 Jan, confirmed by positive urine test Z32.01 [place] [id number] [place] [address] 50620- 7744 Jan, Encounter for counseling regarding contraception Z30.09 ; Encounter for initial prescription of injectable contraceptive Z30.013 ; Encounter to establish care Z76.89 ; Seasonal allergic rhinitis, unspecified trigger J30.2 and confirmed by positive urine test Z32.01 [facility] [address] [address]- 1598 Feb, Encounter for Depo-Provera contraception Z30.42 [facility] [id number] [place] [address] 10355- 5977 Dec, Encounter for Depo-Provera contraception Z30.42 [facility] [id number] [place] [address] 74378- 8228 Sep, Encounter for Depo-Provera contraception Z30.42 [facility] [address] [place] [address] 47951- 3516 Sep, Well woman exam Z01.419 and Breast cancer screening Z12.39 [facility] [id number] [place] [address] 26832- 5602 Jun, Encounter for contraceptive management V25.9 [facility] [id number] [place] [address] 64952- 8839 Apr, Encounter for contraceptive management V25.9 [facility] [id number] [place] [address] 41903- 0158 30 Jan, 2015 [facility] [id number] [place] [address] 90500- 0431 Jan, [facility] [address] [address]- 9866 Jan, [facility] [address], [place] [address]- 8068 Jan, [facility] [address] [address]- 1723 Jan, [facility] [id number] [place] [address] 31357- 5127 Aug, [facility] [address], [place] [address]- 3971 Aug, [facility] [id number], [place] [address]- 0522 17 Aug, 2014 [facility] [address] [facility] [id number] [address]- 6826 17 Aug, 2014 [facility] [address] [facility] [id number] [address]- 1185 Jul, [facility] [address] [address]- 5810 Jul, [facility] [address] [facility] [id number] [address]- 1146 Aug, [facility] [address] [address]- 0711 Aug, [facility] [address] [address]- 4639 Aug, [facility] [address] [address]- 5980 Aug, [facility] [id number] [address]- 4017 Oct, [facility] [address], [place] [address]- 1775 Sep, [facility] [id number] [address]- 3077 Sep, IMMUNIZATIONS No Known Immunizations SOCIAL HISTORY Never Assessed REASON FOR VISIT Requests return call PLAN OF CARE VITAL SIGNS MEDICATIONS Unknown Medications RESULTS No Results PROCEDURES No Known procedures INSTRUCTIONS MEDICATIONS ADMINISTERED No Known Medications MEDICAL (GENERAL) HISTORY Type Description Date Medical History asthma Surgical History [facility] 2016
--- OUTSIDE RECORDS SUMMARY | 2018-12-11 11:29 | XMS REPORT ---
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 749014237 Problem confirmed by positive urine test Z32.01 Active 456170623 Problem Seasonal allergic rhinitis, unspecified trigger J30.2 Active 906365727 ALLERGIES No Information ENCOUNTERS Encounter Location Date Diagnosis [facility] [id number] [place] [address] 95445- 0268 05 May, 2018 [facility] [id number] [place] [address] 16461- 6513 26 Apr, 2018 Vaginal bleeding N93.9 [facility] [id number] [place] [address] 98310- 0883 22 Apr, 2018 [facility] [id number] [place] [address] 66814- 4605 19 Apr, 2018 Abnormal human chorionic gonadotropin (hCG) R79.9 [facility] IN [facility] [id number] [place] [address] 35658 -0246 15 Apr, 2018 Paroxysmal nerve pain M79.2 [facility] [address] 61018- 8355 13 Apr, 2018 Abnormal human chorionic gonadotropin (hCG) 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.9 [facility] [id number] [place] [address] 09470- 2714 12 Apr, 2018 Abnormal human chorionic gonadotropin (hCG) 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 [facility] [address] [address]- 2496 Apr, [facility] [id number] [place] [address] 04777- 8776 Apr, Abnormal human chorionic gonadotropin (hCG) 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.9 [facility] [address] [address] 2546 Apr, Abnormal human chorionic gonadotropin (hCG) 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.9 [facility] [id number] [place] [address] 47113 2546 March, Abnormal human chorionic gonadotropin (hCG) 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.9 [facility] [id number] [place] [address] 86323- 5466 March, Abnormal human chorionic gonadotropin (hCG) 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.9 [facility] [id number] [place] [address] 80921- 2806 March, Abnormal human chorionic gonadotropin (hCG) R79.9 [facility] [id number] [address]- 2191 March, Abnormal human chorionic gonadotropin (hCG) 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.9 [facility] [address] [address]- 9270 March, Abnormal human chorionic gonadotropin (hCG) 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.9 [facility] [address] [address] 2546 March, [facility] [id number] [address]- 2546 March, Abnormal human chorionic 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 [facility] [id number] [address]- 1456 March, Miscarriage O03.9 [facility] [address] [address]- 2546 March, [facility] [id number] [place] [address] 12555- 9623 March, Miscarriage O03.9 [facility] [id number] [place] [address] 53795- 5906 March, Miscarriage O03.9 [facility] [id number] [place] [address] 94030- 6676 Feb, Miscarriage O03.9 [facility] [id number] [place] [address] 57379- 0644 Feb, Miscarriage O03.9 [facility] [id number] [place] [address] 42100- 5490 Feb, Miscarriage O03.9 [facility] [id number] [place] [address] 02264- 1113 Feb, Abnormal human chorionic gonadotropin (hCG) 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.9 [place] [id number] [place] [address] 61934- 7462 Feb, Abnormal human chorionic gonadotropin (hCG) 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.9 [place] [id number] [place] [address] 99428- 0979 Feb, Abnormal human chorionic gonadotropin (hCG) 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.9 [place] [id number] [place] [address] 64570- 5296 Feb, Abnormal human chorionic 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 [place] [id number] [place] [address] 44077- 9326 Feb, confirmed by positive urine test Z32.01 [place] [id number] [place] [address] 28400- 4047 Jan, confirmed by positive urine test Z32.01 [place] [id number] [place] [address] 28728- 3946 Jan, Encounter for counseling regarding contraception Z30.09 ; Encounter for initial prescription of injectable contraceptive Z30.013 ; Encounter to establish care Z76.89 ; Seasonal allergic rhinitis, unspecified trigger J30.2 and confirmed by positive urine test Z32.01 [facility] [address] [address]- 8228 Feb, Encounter for Depo-Provera contraception Z30.42 [facility] [id number] [place] [address] 77928- 0863 Dec, Encounter for Depo-Provera contraception Z30.42 [facility] [id number] [place] [address] 29254- 7182 Sep, Encounter for Depo-Provera contraception Z30.42 [facility] [id number] [place] [address] 96093- 8540 Sep, Well woman exam Z01.419 and Breast cancer screening Z12.39 [facility] [id number] [place] [address] 87310- 7776 Jun, Encounter for contraceptive management V25.9 [facility] [id number] [place] [address] 06634- 5515 Apr, Encounter for contraceptive management V25.9 [facility] [id number] [place] [address] 78275- 9582 30 Jan, 2015 [facility] [id number] [place] [address] 94952- 6779 Jan, [facility] [address] [address]- 3928 Jan, [facility] [id number] [address]- 9879 Jan, [facility] [id number] [address]- 6750 Jan, [facility] [id number] [place] [address] 54014- 9389 Aug, [facility] [address] [address]- 7548 Aug, [facility] [id number] [address]- 0455 17 Aug, 2014 [facility] [address] [facility] [id number] [address]- 4771 17 Aug, 2014 [facility] [address] [facility] [id number] [address]- 3333 Jul, [facility] [address] [address]- 7517 Jul, [facility] [address] [facility] [id number] [address]- 8745 Aug, [facility] [id number] [address]- 6724 Aug, [facility] [id number] [address]- 9929 Aug, [facility] [id number] [address]- 5753 Aug, [facility] [id number] [address]- 4523 Oct, [facility] [address] [address]- 1334 Sep, [facility] [id number] [address]- 1400 Sep, IMMUNIZATIONS No Known Immunizations SOCIAL HISTORY Never Assessed REASON FOR VISIT Requests return call PLAN OF CARE VITAL SIGNS MEDICATIONS Unknown Medications RESULTS No Results PROCEDURES No Known procedures INSTRUCTIONS MEDICATIONS ADMINISTERED No Known Medications MEDICAL (GENERAL) HISTORY Type Description Date Medical History asthma Surgical History [facility] 2016
--- OUTSIDE RECORDS SUMMARY | 2018-12-11 11:29 | XMS REPORT ---
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 728189545 Problem confirmed by positive urine test Z32.01 Active 487196980 Problem Seasonal allergic rhinitis, unspecified trigger J30.2 Active 893377672 ALLERGIES No Information ENCOUNTERS Encounter Location Date Diagnosis [facility] [id number] [place] [address] 24964- 6417 05 May, 2018 [facility] [id number] [place] [address] 52943- 7814 26 Apr, 2018 Vaginal bleeding N93.9 [facility] [id number] [place] [address] 42660- 0983 22 Apr, 2018 [facility] [id number] [place] [address] 55582- 5427 19 Apr, 2018 Abnormal human chorionic gonadotropin (hCG) 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.9 [facility] IN [facility] [id number] [place] [address] 15528 -5690 15 Apr, 2018 Paroxysmal nerve pain M79.2 [facility] [id number] [place] [address] 04168- 3515 13 Apr, 2018 Abnormal human chorionic gonadotropin (hCG) 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.9 [facility] [id number] [place] [address] 71482- 2937 12 Apr, 2018 Abnormal human chorionic gonadotropin (hCG) 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.9 [facility] [id number] [address] Apr, [facility] [id number] [place] [address] 07009- 5426 Apr, Abnormal human chorionic gonadotropin (hCG) 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.9 [facility] [id number] [address] 2546 Apr, Abnormal human chorionic gonadotropin (hCG) 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.9 [facility] [id number] [place] [address] 34661 2546 March, Abnormal human chorionic gonadotropin (hCG) 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.9 [facility] [id number] [place] [address] 43533- 6326 March, Abnormal human chorionic gonadotropin (hCG) R79.9 [facility] [id number] [place] [address] 55726- 3296 March, Abnormal human chorionic gonadotropin (hCG) R79.9 [facility] [id number] [address] 2580 March, Abnormal human chorionic gonadotropin (hCG) 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.9 [facility] [id number] [address] 2046 March, Abnormal human chorionic gonadotropin (hCG) 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.9 [facility] [id number] [address] 2546 March, [facility] [id number] [address]- 2546 March, Abnormal human chorionic gonadotropin (hCG) 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.9 [facility] [id number] [address]- 5856 March, Miscarriage O03.9 [facility] [id number] [address]- 2546 March, [facility] [id number] [place] [address] 81114- 2698 March, Miscarriage O03.9 [facility] [id number] [place] [address] 76696- 2694 March, Miscarriage O03.9 [facility] [id number] [place] [address] 35138- 0311 Feb, Miscarriage O03.9 [facility] [id number] [place] [address] 70519- 3112 Feb, Miscarriage O03.9 [facility] [id number] [place] [address] 12770- 8443 Feb, Miscarriage O03.9 [facility] [id number] [place] [address] 37418- 7718 Feb, Abnormal human chorionic gonadotropin (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 [place] [id number] [place] [address] 09242- 7064 Feb, Abnormal human chorionic gonadotropin (hCG) 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 [place] [id number] [place] [address] 76036- 0314 Feb, Abnormal human chorionic gonadotropin (hCG) 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 [place] [id number] [place] [address] 98602- 2251 Feb, Abnormal human 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 [place] [id number] [place] [address] 26527- 0789 Feb, confirmed by positive urine test Z32.01 [place] [id number] [place] [address] 41994- 3553 Jan, confirmed by positive urine test Z32.01 [place] [id number] [place] [address] 66119- 4685 Jan, Encounter for counseling regarding contraception Z30.09 ; Encounter for initial prescription of injectable contraceptive Z30.013 ; Encounter to establish care Z76.89 ; Seasonal allergic rhinitis, unspecified trigger J30.2 and confirmed by positive urine test Z32.01 [facility] [address] [address]- 4068 Feb, Encounter for Depo-Provera contraception Z30.42 [facility] [id number] [place] [address] 52138- 2508 Dec, Encounter for Depo-Provera contraception Z30.42 [facility] [id number] [place] [address] 38043- 8183 Sep, Encounter for Depo-Provera contraception Z30.42 [facility] [id number] [place] [address] 61713- 7182 Sep, Well woman exam Z01.419 and Breast cancer screening Z12.39 [facility] [id number] [place] [address] 64812- 2053 Jun, Encounter for contraceptive management V25.9 [facility] [id number] [place] [address] 16134- 7192 Apr, Encounter for contraceptive management V25.9 [facility] [id number] [place] [address] 10300- 7418 30 Jan, 2015 [facility] [id number] [place] [address] 46000- 3322 Jan, [facility] [id number] [address]- 6230 Jan, [facility] [id number] [address]- 8455 Jan, [facility] [id number] [address]- 6813 Jan, [facility] [id number] [place] [address] 05476- 2642 Aug, [facility] [address] [address]- 9294 Aug, [facility] [id number] [address]- 9927 17 Aug, 2014 [facility] [id number] [address]- 8130 17 Aug, 2014 [facility] [address] [facility] [id number] 7162 19 Jul, 2013 [facility] [address] [address]- 8316 19 Jul, 2013 [facility] [address] [facility] [id number] [address]- 7050 Aug, [facility] [id number] 8578 18 Aug, 2013 [facility] [id number] [address]- 0045 Aug, [facility] [id number] [address]- 3142 Aug, [facility] [id number] [address]- 1044 Oct, [facility] [id number] [address]- 6923 Sep, [facility] [id number] [address]- 5293 Sep, IMMUNIZATIONS No Known Immunizations SOCIAL HISTORY Never Assessed REASON FOR VISIT Referral/US from lab PLAN OF CARE VITAL SIGNS MEDICATIONS Unknown Medications RESULTS Name Result Date Reference Range Ultrasound : OB, Early <14 WEEKS 2018-03-21 PROCEDURES No Known procedures INSTRUCTIONS MEDICATIONS ADMINISTERED No Known Medications MEDICAL (GENERAL) HISTORY Type Description Date Medical History asthma Surgical History [facility] 2017
--- OUTSIDE RECORDS SUMMARY | 2018-12-11 11:29 | XMS REPORT ---
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 Active 432247814 Problem confirmed by positive urine test Z32.01 Active 229661687 Problem Seasonal allergic rhinitis, unspecified trigger J30.2 Active [id number] ALLERGIES No Information ENCOUNTERS Encounter Location Date Diagnosis [facility] [id number] [place] [address] 81513- 9930 05 May, 2018 [facility] [id number] [place] [address] 78570- 1008 26 Apr, 2018 Vaginal bleeding N93.9 [facility] [id number] [place] [address] 26420- 4027 22 Apr, 2018 [facility] [id number] [place] [address] 96813- 9830 19 Apr, 2018 Abnormal human chorionic 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 [facility] IN [facility] [id number] [place] [address] 59920 -4059 15 Apr, 2018 Paroxysmal nerve pain M79.2 [facility] [address] 26273- 2065 13 Apr, 2018 Abnormal human chorionic 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 [facility] [id number] [place] [address] 77850- 7804 12 Apr, 2018 Abnormal human chorionic gonadotropin (hCG) 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 [facility] [address] [address]- 8256 Apr, [facility] [id number] [place] [address] 95903- 0686 Apr, Abnormal human chorionic gonadotropin (hCG) 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 [facility] [address] [address] 2546 Apr, Abnormal human chorionic gonadotropin (hCG) 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 [facility] [id number] [place] [address] 59665 2546 March, Abnormal human chorionic gonadotropin (hCG) 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 [facility] [id number] [place] [address] 63299- 1766 March, Abnormal human chorionic gonadotropin (hCG) 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 [facility] [id number] [place] [address] 41230- 7046 March, Abnormal human chorionic gonadotropin (hCG) 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 [facility] [id number] [address]- 9849 March, Abnormal human chorionic gonadotropin (hCG) 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.9 [facility] [address] [address]- 6543 March, Abnormal human chorionic gonadotropin (hCG) 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 [facility] [id number] [address] 2546 March, [facility] [id number] [address]- 2546 March, Abnormal human chorionic gonadotropin (hCG) 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 [facility] [id number] [address]- 5746 March, Miscarriage O03.9 [facility] [address] [address]- 2546 March, [facility] [id number] [place] [address] 06545- 0429 March, Miscarriage O03.9 [facility] [id number] [place] [address] 04871- 1292 March, Miscarriage O03.9 [facility] [id number] [place] [address] 10277- 9429 Feb, Miscarriage O03.9 [facility] [id number] [place] [address] 21330- 8717 Feb, Miscarriage O03.9 [facility] [id number] [place] [address] 75906- 6236 Feb, Miscarriage O03.9 [facility] [id number] [place] [address] 94152- 9712 Feb, Abnormal human chorionic gonadotropin (hCG) 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 [place] [id number] [place] [address] 91127- 2163 Feb, Abnormal human chorionic gonadotropin (hCG) 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.9 [place] [id number] [place] [address] 36971- 5924 Feb, Abnormal human chorionic 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 [place] [facility] [id number] [place] [address] 14913- 3786 Feb, Abnormal human 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 [place] [address] [place] [address] 29179- 6060 Feb, confirmed by positive urine test Z32.01 [place] [id number] [place] [address] 19405- 7925 Jan, confirmed by positive urine test Z32.01 [place] [facility] [id number] [place] [address] 22676- 0518 Jan, Encounter for counseling regarding contraception Z30.09 ; Encounter for initial prescription of injectable contraceptive Z30.013 ; Encounter to establish care Z76.89 ; Seasonal allergic rhinitis, unspecified trigger J30.2 and confirmed by positive urine test Z32.01 [facility] [address] [address]- 4844 Feb, Encounter for Depo-Provera contraception Z30.42 [facility] [id number] [place] [address] 25870- 6190 Dec, Encounter for Depo-Provera contraception Z30.42 [facility] [id number] [place] [address] 54164- 1829 Sep, Encounter for Depo-Provera contraception Z30.42 [facility] [address] [place] [address] 91894- 1918 Sep, Well woman exam Z01.419 and Breast cancer screening Z12.39 [facility] [address] [place] [address] 78110- 7457 Jun, Encounter for contraceptive management V25.9 [facility] [id number] [place] [address] 81301- 3864 Apr, Encounter for contraceptive management V25.9 [facility] [id number] [place] [address] 35901- 7839 30 Jan, 2015 [facility] [id number] [place] [address] 93206- 9728 Jan, [facility] [address] [address]- 0362 Jan, [facility] [address] [address]- 3743 Jan, [facility] [address] [address]- 2632 Jan, [facility] [id number] [place] [address] 41156- 8845 Aug, [facility] [address] [address]- 0898 Aug, [facility] [id number] [address]- 4416 17 Aug, 2014 [facility] [address] [address]- 5592 17 Aug, 2014 [facility] [address] [address]- 5585 19 Jul, 2014 [facility] [address] [address]- 5281 19 Jul, 2014 [facility] [address] [address]- 6378 Aug, [facility] [address] [address]- 2810 Aug, [facility] [id number] 8219 Aug, [facility] [id number] [address]- 5229 Aug, [facility] [address] [address]- 6112 Oct, [facility] [id number] 4720 Sep, [facility] [id number] [address]- 6664 Sep, IMMUNIZATIONS No Known Immunizations SOCIAL HISTORY Never Assessed REASON FOR VISIT Lab (walk-in) PLAN OF CARE VITAL SIGNS MEDICATIONS Unknown Medications RESULTS No Results PROCEDURES Procedure Date Ordered Result Body Site CHORIONIC GONADOTROPIN TEST March 12, 2018 INSTRUCTIONS MEDICATIONS ADMINISTERED No Known Medications MEDICAL (GENERAL) HISTORY Type Description Date Medical History asthma Surgical History [facility] 2016
--- OUTSIDE RECORDS SUMMARY | 2018-12-11 11:29 | XMS REPORT ---
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 Active 662777955 Problem confirmed by positive urine test Z32.01 Active 045926318 Problem Seasonal allergic rhinitis, unspecified trigger J30.2 Active 508341014 ALLERGIES No Information ENCOUNTERS Encounter Location Date Diagnosis [facility] [id number] [place] [address] 20759- 2617 05 May, 2018 [facility] [id number] [place] [address] 97002- 4710 26 Apr, 2018 Vaginal bleeding N93.9 [facility] [id number] [place] [address] 52363- 6179 22 Apr, 2018 [facility] [id number] [place] [address] 16207- 6504 19 Apr, 2018 Abnormal human chorionic gonadotropin (hCG) 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.9 [facility] [address], [place] [address] 94[address] Apr, [facility] [id number] [place] [address] 28492- 3506 Apr, Abnormal human chorionic gonadotropin (hCG) 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.9 [facility] [address], [place] [address] 2546 Apr, Abnormal human chorionic gonadotropin (hCG) 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.9 [facility] [id number] [place] [address] 06314 2546 March, Abnormal human chorionic gonadotropin (hCG) 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.9 [facility] [id number] [place] [address] 15278- 0556 March, Abnormal human chorionic gonadotropin (hCG) R79.9 [facility] [id number] [place] [address] 50835- 8566 March, Abnormal human chorionic gonadotropin (hCG) R79.9 [facility] [id number] [address] 6505 March, Abnormal human chorionic gonadotropin (hCG) R79.9 [facility] [address], [place] [address] 3312 March, Abnormal human chorionic gonadotropin (hCG) R79.9 [facility] [address], [place] [address] 2546 March, [facility] [address], [place] [address]- 2546 March, Abnormal human chorionic gonadotropin (hCG) R79.9 [facility] [id number] [address] 0266 March, Miscarriage O03.9 [facility] [address], [place] [address] 2546 March, [facility] [id number] [place] [address] 79388- 0373 March, Miscarriage O03.9 [facility] [id number] [place] [address] 06064- 3040 March, Miscarriage O03.9 [facility] [id number] [place] [address] 37940- 9755 Feb, Miscarriage O03.9 [facility] [id number] [place] [address] 20847- 5838 Feb, Miscarriage O03.9 [facility] [id number] [place] [address] 69799- 4876 Feb, Miscarriage O03.9 [facility] [id number] [place] [address] 82884- 7500 Feb, Abnormal human chorionic gonadotropin (hCG) 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.9 [facility] [id number] [place] [address] 90251- 5138 Feb, Abnormal human chorionic gonadotropin (hCG) 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 [place] [facility] [id number] [place] [address] 86858- 4379 Feb, Abnormal human chorionic gonadotropin (hCG) 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.9 [facility] [id number] [place] [address] 62007- 0845 Feb, Abnormal human chorionic gonadotropin (hCG) 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 [facility] [facility] [id number] [place] [address] 72008- 8436 Feb, confirmed by positive urine test Z32.01 [address] [id number] [place] [address] 82546- 5185 Jan, confirmed by positive urine test Z32.01 [facility] [facility] [id number] [place] [address] 79361- 7357 Jan, Encounter for counseling regarding contraception Z30.09 ; Encounter for initial prescription of injectable contraceptive Z30.013 ; Encounter to establish care Z76.89 ; Seasonal allergic rhinitis, unspecified trigger J30.2 and confirmed by positive urine test Z32.01 [facility] [address], [place] [address]- 3878 Feb, Encounter for Depo-Provera contraception Z30.42 [facility] [address] [place] [address] 29735- 6917 Dec, Encounter for Depo-Provera contraception Z30.42 [facility] [id number] [place] [address] 22711- 4486 Sep, Encounter for Depo-Provera contraception Z30.42 [facility] [address] [place] [address] 13510- 5850 Sep, Well woman exam Z01.419 and Breast cancer screening Z12.39 [facility] [id number] [place] [address] 60183- 1546 Jun, Encounter for contraceptive management V25.9 [facility] [id number] [place] [address] 54923- 0375 Apr, Encounter for contraceptive management V25.9 [facility] [address] [place] [address] 67069- 2225 30 Jan, 2015 [facility] [id number] [place] [address] 10741- 2653 Jan, [facility] [address], [place] [address]- 2352 Jan, [facility] [address], [place] [address]- 7559 Jan, [facility] [address], [place] [address]- 6212 Jan, [facility] [id number] [place] [address] 43091- 6179 Aug, [facility] [address], [place] [address]- 9251 Aug, [facility] [id number] [address]- 2200 17 Aug, 2014 [facility] [address] [facility] [id number] [address] 3536 17 Aug, 2014 [facility] [address] [facility] [id number] 4127 Jul, [facility] [address], [place] [address]- 7078 Jul, [facility] [address] [facility] [id number], [place] [address]- 6011 Aug, [facility] [address] 1009 Aug, [facility] [address], [place] [address]- 8872 Aug, [facility] [address], [place] [address]- 5067 Aug, [facility] [address], [place] [address]- 5037 Oct, [facility] [address], [place] [address]- 8441 Sep, [facility] [id number], [place] [address]- 0978 Sep, IMMUNIZATIONS No Known Immunizations SOCIAL HISTORY Never Assessed REASON FOR VISIT deferred lab PLAN OF CARE VITAL SIGNS MEDICATIONS Unknown Medications RESULTS No Results PROCEDURES No Known procedures INSTRUCTIONS MEDICATIONS ADMINISTERED No Known Medications MEDICAL (GENERAL) HISTORY Type Description Date Medical History asthma Surgical History [facility] 2016
--- OUTSIDE RECORDS SUMMARY | 2018-12-11 11:30 | XMS REPORT ---
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 944303584 Problem confirmed by positive urine test Z32.01 Active 854781378 Problem Seasonal allergic rhinitis, unspecified trigger J30.2 Active [id number] ALLERGIES No Information ENCOUNTERS Encounter Location Date Diagnosis [facility] [place] [id number] [place] [address] 84424- 1183 05 May, 2018 [facility] [place] [id number] [place] [address] 22623- 4556 26 Apr, 2018 Vaginal bleeding N93.9 [facility] [place] [id number] [place] [address] 56576- 3712 22 Apr, 2018 [facility] [place] [id number] [place] [address] 82069- 7708 19 Apr, 2018 Abnormal human chorionic gonadotropin (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 [facility] IN [facility] [id number] [place] [address] 55847 -2921 15 Apr, 2018 Paroxysmal nerve pain M79.2 [facility] [place] [address] 92401- 3936 13 Apr, 2018 Abnormal human chorionic gonadotropin (hCG) 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.9 [facility] [place] [id number] [place] [address] 92567- 8004 12 Apr, 2018 Abnormal human chorionic gonadotropin (hCG) 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.9 [facility] [place] [address], [place] [address]- 9966 Apr, [facility] [place] [id number] [place] [address] 68979- 3366 Apr, Abnormal human chorionic gonadotropin (hCG) 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9 [facility] [place] [id number] [place] [address] 86307- 7596 March, Abnormal human chorionic gonadotropin (hCG) 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.9 [facility] [place] [id number], [place] [address]- 9575 March, Abnormal human chorionic gonadotropin (hCG) 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.9 [facility] [place] [address], [place] [address]- 4005 March, Abnormal human chorionic gonadotropin (hCG) 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 [facility] [place] [address], [place] [address] 2546 March, [facility] [place] [address], [place] [address]- 2546 March, Abnormal human chorionic gonadotropin (hCG) 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.9 [facility] [place] [id number], [place] [address]- 4086 March, Miscarriage O03.9 [facility] [place] [address], [place] [address]- 2546 March, [facility] [place] [id number] [place] [address] 08014- 7218 March, Miscarriage O03.9 [facility] [place] [address] [place] [address] 28446- 5178 March, Miscarriage O03.9 [facility] [place] [id number] [place] [address] 78792- 6571 Feb, Miscarriage O03.9 [facility] [place] [id number] [place] [address] 35858- 7293 Feb, Miscarriage O03.9 [facility] [place] [id number] [place] [address] 05252- 7089 Feb, Miscarriage O03.9 [facility] [place] [id number] [place] [address] 65361- 6652 Feb, Abnormal human chorionic gonadotropin (hCG) 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.9 [facility] [facility] [id number] [place] [address] 83644- 5474 Feb, Abnormal human chorionic gonadotropin (hCG) 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.9 [place] [facility] [id number] [place] [address] 72308- 0584 Feb, Abnormal human chorionic gonadotropin (hCG) 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.9 [facility] [id number] [place] [address] 94096- 8656 Feb, Abnormal human chorionic gonadotropin (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 [facility] [address] [place] [address] 35714- 3337 Feb, confirmed by positive urine test Z32.01 [place] [facility] [address] [place] [address] 97897- 6786 Jan, confirmed by positive urine test Z32.01 [place] [facility] [id number] [place] [address] 93602- 1959 Jan, Encounter for counseling regarding contraception Z30.09 ; Encounter for initial prescription of injectable contraceptive Z30.013 ; Encounter to establish care Z76.89 ; Seasonal allergic rhinitis, unspecified trigger J30.2 and confirmed by positive urine test Z32.01 [facility] [place] [address], [place] [address]- 9277 Feb, Encounter for Depo-Provera contraception Z30.42 [facility] [place] [address] [place] [address] 23525- 5544 Dec, Encounter for Depo-Provera contraception Z30.42 [facility] [place] [id number] [place] [address] 01886- 9379 Sep, Encounter for Depo-Provera contraception Z30.42 [facility] [place] [address] [place] [address] 61807- 7057 Sep, Well woman exam Z01.419 and Breast cancer screening Z12.39 [facility] [place] [address] [place] [address] 41199- 6263 Jun, Encounter for contraceptive management V25.9 [facility] [place] [id number] [place] [address] 60811- 7152 Apr, Encounter for contraceptive management V25.9 [facility] [place] [address] [place] [address] 86504- 6490 30 Jan, 2015 [facility] [place] [id number] [place] [address] 09869- 8955 Jan, [facility] [place] [address], [place] [address]- 0346 Jan, [facility] [place] [address], [place] [address]- 5331 Jan, [facility] [place] [address], [place] [address]- 5753 Jan, [facility] [place] [id number] [place] [address] 45529- 5340 Aug, [facility] [place] [address], [place] [address]- 8910 Aug, [facility] [place] [id number], [place] [address]- 1997 17 Aug, 2014 [facility] [place] [id number], [place] [address]- 7760 17 Aug, 2014 [facility] [place] [id number], [place] [address]- 2986 19 Jul, 2013 [facility] [place] [address], [place] [address]- 0806 19 Jul, 2013 [facility] [place] [address], [place] [address]- 6144 Aug, [facility] [place] [address], [place] [address]- 1612 18 Aug, 2013 [facility] [place] [address], [place] [address]- 6153 Aug, [facility] [place] [address], [place] [address]- 1463 Aug, [facility] [place] [address], [place] [address]- 9607 Oct, [facility] [place] [address], [place] [address]- 9884 Sep, [facility] [place] [id number], [place] [address]- 3502 Sep, IMMUNIZATIONS No Known Immunizations SOCIAL HISTORY Never Assessed REASON FOR VISIT Lab (walk-in) PLAN OF CARE VITAL SIGNS MEDICATIONS Unknown Medications RESULTS No Results PROCEDURES Procedure Date Ordered Result Body Site CHORIONIC GONADOTROPIN TEST February 12, 2018 VENIPUNCT, ROUTINE* February 12, 2018 INSTRUCTIONS MEDICATIONS ADMINISTERED No Known Medications MEDICAL (GENERAL) HISTORY Type Description Date Medical History asthma Surgical History [facility] 2017
--- OUTSIDE RECORDS SUMMARY | 2018-12-11 11:30 | XMS REPORT ---
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 Active 063665027 Problem confirmed by positive urine test Z32.01 Active 389284959 Problem Seasonal allergic rhinitis, unspecified trigger J30.2 Active [id number] ALLERGIES No Information ENCOUNTERS Encounter Location Date Diagnosis [facility] [id number] [place] [address] 55986- 6125 05 May, 2018 [facility] [id number] [place] [address] 20398- 3791 26 Apr, 2018 Vaginal bleeding N93.9 [facility] [id number] [place] [address] 28291- 9571 22 Apr, 2018 [facility] [id number] [place] [address] 86361- 3860 19 Apr, 2018 Abnormal human chorionic gonadotropin (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 [facility] [id number] [place] [address] 63835 -5448 15 Apr, 2018 Paroxysmal nerve pain M79.2 [facility] [address] 95188- 2355 13 Apr, 2018 Abnormal human chorionic gonadotropin (hCG) 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.9 [facility] [id number] [place] [address] 06088- 7733 12 Apr, 2018 Abnormal human chorionic gonadotropin (hCG) 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.9 [facility] [address] [address] 8[address] Apr, [facility] [id number] [place] [address] 94033- 2786 Apr, Abnormal human chorionic gonadotropin (hCG) 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.9 [facility] [address] [address] 2546 Apr, Abnormal human chorionic gonadotropin (hCG) R79.9 [facility] [id number] [place] [address] 01218 2546 March, Abnormal human chorionic gonadotropin (hCG) 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.9 [facility] [id number] [place] [address] 63056- 6846 March, Abnormal human chorionic gonadotropin (hCG) 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.9 [facility] [id number] [place] [address] 83945- 5846 March, Abnormal human chorionic gonadotropin (hCG) 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.9 [facility] [id number] [address] 3666 March, Abnormal human chorionic gonadotropin (hCG) 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.9 [facility] [address] [address] 3221 March, Abnormal human chorionic gonadotropin (hCG) R79.9 [facility] [address] [address] 2546 March, [facility] [address] [address]- 2546 March, Abnormal human chorionic gonadotropin (hCG) 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 [facility] [id number] [address]- 9366 March, Miscarriage O03.9 [facility] [address] [address]- 2546 March, [facility] [id number] [place] [address] 46480- 9725 March, Miscarriage O03.9 [facility] [address] [place] [address] 38743- 7121 March, Miscarriage O03.9 [facility] [id number] [place] [address] 47693- 7911 Feb, Miscarriage O03.9 [facility] [id number] [place] [address] 79328- 2948 Feb, Miscarriage O03.9 [facility] [id number] [place] [address] 33940- 1441 Feb, Miscarriage O03.9 [facility] [id number] [place] [address] 17075- 6651 Feb, Abnormal human chorionic gonadotropin (hCG) 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.9 [place] [id number] [place] [address] 93118- 9674 Feb, Abnormal human chorionic gonadotropin (hCG) 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.9 [place] [id number] [place] [address] 36860- 4329 Feb, Abnormal human chorionic gonadotropin (hCG) 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.9 [place] [id number] [place] [address] 54007- 9928 Feb, Abnormal human 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 [place] [address] [place] [address] 82591- 3682 Feb, confirmed by positive urine test Z32.01 [place] [address] [place] [address] 05861- 9776 Jan, confirmed by positive urine test Z32.01 [place] [id number] [place] [address] 79447- 0604 Jan, Encounter for counseling regarding contraception Z30.09 ; Encounter for initial prescription of injectable contraceptive Z30.013 ; Encounter to establish care Z76.89 ; Seasonal allergic rhinitis, unspecified trigger J30.2 and confirmed by positive urine test Z32.01 [facility] [address], [place] [address]- 9254 Feb, Encounter for Depo-Provera contraception Z30.42 [facility] [address] [place] [address] 40162- 6153 Dec, Encounter for Depo-Provera contraception Z30.42 [facility] [id number] [place] [address] 07954- 0478 Sep, Encounter for Depo-Provera contraception Z30.42 [facility] [address] [place] [address] 25705- 6209 Sep, Well woman exam Z01.419 and Breast cancer screening Z12.39 [facility] [address] [place] [address] 26251- 4457 Jun, Encounter for contraceptive management V25.9 [facility] [id number] [place] [address] 62582- 3280 Apr, Encounter for contraceptive management V25.9 [facility] [address] [place] [address] 07040- 9274 30 Jan, 2015 [facility] [id number] [place] [address] 53646- 8920 Jan, [facility] [address] [address]- 9713 Jan, [facility] [address], [place] [address]- 0074 Jan, [facility] [address], [place] [address]- 0937 Jan, [facility] [id number] [place] [address] 17166- 3261 Aug, [facility] [address] [address]- 3200 Aug, [facility] [address] [address]- 6790 17 Aug, 2014 [facility] [address], [place] [address]- 5377 17 Aug, 2014 [facility] [address] [facility] [id number] 6463 Jul, [facility] [address], [place] [address]- 9471 Jul, [facility] [address] [address]- 1070 Aug, [facility] [address] 0122 Aug, [facility] [address], [place] [address]- 7676 Aug, [facility] [address], [place] [address]- 6073 Aug, [facility] [id number] [address]- 8217 Oct, [facility] [address], [place] [address]- 9757 Sep, [facility] [id number], [place] [address]- 2296 Sep, IMMUNIZATIONS No Known Immunizations SOCIAL HISTORY Never Assessed REASON FOR VISIT Deferred Lab/FYI PLAN OF CARE VITAL SIGNS MEDICATIONS Unknown Medications RESULTS No Results PROCEDURES No Known procedures INSTRUCTIONS MEDICATIONS ADMINISTERED No Known Medications MEDICAL (GENERAL) HISTORY Type Description Date Medical History asthma Surgical History [facility] 2016
--- OUTSIDE RECORDS SUMMARY | 2018-12-11 11:30 | XMS REPORT ---
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 Active 494283170 Problem confirmed by positive urine test Z32.01 Active 429262032 Problem Seasonal allergic rhinitis, unspecified trigger J30.2 Active [id number] ALLERGIES No Information ENCOUNTERS Encounter Location Date Diagnosis [facility] [id number] [place] [address] 76344- 3333 05 May, 2018 [facility] [id number] [place] [address] 95454- 4404 26 Apr, 2018 Vaginal bleeding N93.9 [facility] [id number] [place] [address] 06273- 7698 22 Apr, 2018 [facility] [id number] [place] [address] 98583- 9423 19 Apr, 2018 Abnormal human chorionic 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 [facility] [id number] [place] [address] 44524 -9543 15 Apr, 2018 Paroxysmal nerve pain M79.2 [facility] [address] 39362- 5156 13 Apr, 2018 Abnormal human chorionic gonadotropin (hCG) 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 [facility] [id number] [place] [address] 14217- 8721 12 Apr, 2018 Abnormal human chorionic gonadotropin (hCG) 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 [facility] [address], [place] [address]- 6246 Apr, [facility] [id number] [place] [address] 07961- 8216 Apr, Abnormal human chorionic gonadotropin (hCG) 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 [facility] [address], [place] [address] 2546 Apr, Abnormal human chorionic gonadotropin (hCG) 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.9 [facility] [id number] [place] [address] 92167 2546 March, Abnormal human chorionic gonadotropin (hCG) 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.9 [facility] [id number] [place] [address] 42119- 1296 March, Abnormal human chorionic gonadotropin (hCG) R79.9 [facility] [id number] [place] [address] 32598- 0686 March, Abnormal human chorionic gonadotropin (hCG) 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.9 [facility] [address], [place] [address]- 0582 March, Abnormal human chorionic gonadotropin (hCG) R79.9 [facility] [address], [place] [address]- 2493 March, Abnormal human chorionic gonadotropin (hCG) R79.9 [facility] [address], [place] [address] 2546 March, [facility] [address], [place] [address]- 2546 March, Abnormal human chorionic gonadotropin (hCG) 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.9 [facility] [id number] [address]- 0746 March, Miscarriage O03.9 [facility] [address], [place] [address]- 2546 March, [facility] [id number] [place] [address] 89541- 2380 March, Miscarriage O03.9 [facility] [address] [place] [address] 17317- 7326 March, Miscarriage O03.9 [facility] [id number] [place] [address] 80041- 8105 Feb, Miscarriage O03.9 [facility] [id number] [place] [address] 62514- 9745 Feb, Miscarriage O03.9 [facility] [id number] [place] [address] 01970- 6740 Feb, Miscarriage O03.9 [facility] [id number] [place] [address] 49104- 2850 Feb, Abnormal human chorionic 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 [place] [id number] [place] [address] 95874- 0554 Feb, Abnormal human chorionic gonadotropin (hCG) 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 [place] [id number] [place] [address] 85634- 7956 Feb, Abnormal human chorionic gonadotropin (hCG) 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 [place] [id number] [place] [address] 36405- 8004 Feb, Abnormal human chorionic 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 [place] [address] [place] [address] 99962- 1247 Feb, confirmed by positive urine test Z32.01 [place] [address] [place] [address] 29644- 8100 Jan, confirmed by positive urine test Z32.01 [place] [id number] [place] [address] 04075- 0336 Jan, Encounter for counseling regarding contraception Z30.09 ; Encounter for initial prescription of injectable contraceptive Z30.013 ; Encounter to establish care Z76.89 ; Seasonal allergic rhinitis, unspecified trigger J30.2 and confirmed by positive urine test Z32.01 [facility] [address], [place] [address]- 0634 Feb, Encounter for Depo-Provera contraception Z30.42 [facility] [address] [place] [address] 15255- 9246 Dec, Encounter for Depo-Provera contraception Z30.42 [facility] [id number] [place] [address] 52448- 8902 Sep, Encounter for Depo-Provera contraception Z30.42 [facility] [address] [place] [address] 62115- 6493 Sep, Well woman exam Z01.419 and Breast cancer screening Z12.39 [facility] [address] [place] [address] 08668- 3089 Jun, Encounter for contraceptive management V25.9 [facility] [id number] [place] [address] 02373- 1988 Apr, Encounter for contraceptive management V25.9 [facility] [address] [place] [address] 03656- 9921 30 Jan, 2015 [facility] [id number] [place] [address] 00832- 7981 Jan, [facility] [address], [place] [address]- 8707 Jan, [facility] [address], [place] [address]- 4188 Jan, [facility] [address], [place] [address]- 4846 Jan, [facility] [id number] [place] [address] 93514- 0308 Aug, [facility] [address], [place] [address]- 7160 Aug, [facility] [address] [address]- 3478 17 Aug, 2014 [facility] [address] [facility] [id number] [address]- 8827 17 Aug, 2014 [facility] [address] [facility] [id number] 2952 Jul, [facility] [address], [place] [address]- 6971 Jul, [facility] [address] [facility] [id number], [place] [address]- 8856 Aug, [facility] [address]- 4295 Aug, [facility] [address], [place] [address]- 8372 Aug, [facility] [address], [place] [address]- 6359 Aug, [facility] [address], [place] [address]- 9383 Oct, [facility] [address], [place] [address]- 7348 Sep, [facility] [id number], [place] [address]- 0656 Sep, IMMUNIZATIONS No Known Immunizations SOCIAL HISTORY Never Assessed REASON FOR VISIT Deferred lab PLAN OF CARE VITAL SIGNS MEDICATIONS Unknown Medications RESULTS No Results PROCEDURES No Known procedures INSTRUCTIONS MEDICATIONS ADMINISTERED No Known Medications MEDICAL (GENERAL) HISTORY Type Description Date Medical History asthma Surgical History [facility] 2016
--- OUTSIDE RECORDS SUMMARY | 2018-12-11 11:30 | XMS REPORT ---
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 Active 146565106 Problem confirmed by positive urine test Z32.01 Active 802499395 Problem Seasonal allergic rhinitis, unspecified trigger J30.2 Active 612938210 ALLERGIES No Information ENCOUNTERS Encounter Location Date Diagnosis [facility] [id number] [place] [address] 00211- 5401 05 May, 2018 [facility] [id number] [place] [address] 86481- 8710 26 Apr, 2018 Vaginal bleeding N93.9 [facility] [id number] [place] [address] 07015- 6239 22 Apr, 2018 [facility] [id number] [place] [address] 98941- 1703 19 Apr, 2018 Abnormal human chorionic gonadotropin (hCG) R79.9 [facility] IN [facility] [id number] [place] [address] 93630 -7807 15 Apr, 2018 Paroxysmal nerve pain M79.2 [facility] [address] 39689- 4348 13 Apr, 2018 Abnormal human chorionic gonadotropin (hCG) 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.9 [facility] [id number] [place] [address] 69594- 2096 12 Apr, 2018 Abnormal human chorionic gonadotropin (hCG) R79.9 [facility] [address] [address] 9296 Apr, [facility] [id number] [place] [address] 68068- 5686 Apr, Abnormal human chorionic gonadotropin (hCG) R79.9 [facility] [address] [address] 2546 Apr, Abnormal human chorionic gonadotropin (hCG) R79.9 [facility] [id number] [place] [address] 27978 2546 March, Abnormal human chorionic gonadotropin (hCG) R79.9 [facility] [id number] [place] [address] 64949- 0216 March, Abnormal human chorionic gonadotropin (hCG) R79.9 [facility] [id number] [place] [address] 95164- 0766 March, Abnormal human chorionic gonadotropin (hCG) R79.9 [facility] [id number] [address] 8586 March, Abnormal human chorionic gonadotropin (hCG) R79.9 [facility] [address] [place] [address]- 6974 March, Abnormal human chorionic gonadotropin (hCG) R79.9 [facility] [address] [address] 2546 March, [facility] [address] [place] [address]- 2546 March, Abnormal human chorionic gonadotropin (hCG) 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.9 [facility] [id number] [address] 6356 March, Miscarriage O03.9 [facility] [address] [place] [address] 2546 March, [facility] [id number] [place] [address] 64753- 2520 March, Miscarriage O03.9 [facility] [id number] [place] [address] 77002- 6438 March, Miscarriage O03.9 [facility] [id number] [place] [address] 11151- 8001 Feb, Miscarriage O03.9 [facility] [id number] [place] [address] 16619- 9210 Feb, Miscarriage O03.9 [facility] [id number] [place] [address] 13237- 2337 Feb, Miscarriage O03.9 [facility] [id number] [place] [address] 96576- 9680 Feb, Abnormal human chorionic gonadotropin (hCG) R79.9 [facility] [id number] [place] [address] 20713- 7134 Feb, Abnormal human chorionic gonadotropin (hCG) R79.9 [place] [facility] [id number] [place] [address] 23002- 2151 Feb, Abnormal human chorionic gonadotropin (hCG) R79.9 [facility] [id number] [place] [address] 60583- 2895 Feb, Abnormal human chorionic gonadotropin (hCG) R79.9 [facility] [id number] [place] [address] 78853- 5581 Feb, confirmed by positive urine test Z32.01 [place] [id number] [place] [address] 28736- 5140 Jan, confirmed by positive urine test Z32.01 [facility] [id number] [place] [address] 00427- 4861 Jan, Encounter for counseling regarding contraception Z30.09 ; Encounter for initial prescription of injectable contraceptive Z30.013 ; Encounter to establish care Z76.89 ; Seasonal allergic rhinitis, unspecified trigger J30.2 and confirmed by positive urine test Z32.01 [facility] [address], [place] [address]- 4115 Feb, Encounter for Depo-Provera contraception Z30.42 [facility] [id number] [place] [address] 00016- 1845 Dec, Encounter for Depo-Provera contraception Z30.42 [facility] [id number] [place] [address] 15559- 2411 Sep, Encounter for Depo-Provera contraception Z30.42 [facility] [id number] [place] [address] 69138- 6033 Sep, Well woman exam Z01.419 and Breast cancer screening Z12.39 [facility] [id number] [place] [address] 92617- 8450 Jun, Encounter for contraceptive management V25.9 [facility] [id number] [place] [address] 96533- 7968 Apr, Encounter for contraceptive management V25.9 [facility] [id number] [place] [address] 16675- 2778 30 Jan, 2015 [facility] [id number] [place] [address] 44166- 9086 Jan, [facility] [address], [place] [address]- 9522 Jan, [facility] [address], [place] [address]- 3206 Jan, [facility] [address] [place] [address]- 6312 Jan, [facility] [id number] [place] [address] 04765- 2457 Aug, [facility] [address], [place] [address]- 6380 Aug, [facility] [id number] [address]- 1800 17 Aug, 2014 [facility] [address] [address]- 7427 17 Aug, 2014 [facility] [address] [place] [address]- 2173 Jul, [facility] [address], [place] [address]- 5276 19 Jul, 2014 [facility] [address], [place] [address]- 0122 Aug, [facility] [address] [place] [address]- 5359 Aug, [facility] [address] 3119 Aug, [facility] [address], [place] [address]- 7686 Aug, [facility] [address], [place] [address]- 1017 Oct, [facility] [address] 8[address] Sep, [facility] [id number] [address]- 9420 Sep, IMMUNIZATIONS No Known Immunizations SOCIAL HISTORY Never Assessed REASON FOR VISIT Lab (walk-in) PLAN OF CARE VITAL SIGNS MEDICATIONS Unknown Medications RESULTS No Results PROCEDURES Procedure Date Ordered Result Body Site CHORIONIC GONADOTROPIN TEST February 19, 2018 INSTRUCTIONS MEDICATIONS ADMINISTERED No Known Medications MEDICAL (GENERAL) HISTORY Type Description Date Medical History asthma Surgical History [facility] 2016
--- OUTSIDE RECORDS SUMMARY | 2018-12-11 11:30 | XMS REPORT ---
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 645180335 Problem confirmed by positive urine test Z32.01 Active 827628166 Problem Seasonal allergic rhinitis, unspecified trigger J30.2 Active 335230293 ALLERGIES No Information ENCOUNTERS Encounter Location Date Diagnosis [facility] [id number] [place] [address] 19262- 6346 05 May, 2018 [facility] [id number] [place] [address] 57781- 1492 26 Apr, 2018 Vaginal bleeding N93.9 [facility] [id number] [place] [address] 37557- 1270 22 Apr, 2018 [facility] [id number] [place] [address] 98996- 5424 19 Apr, 2018 Abnormal human chorionic gonadotropin (hCG) R79.9 [facility] IN [facility] [id number] [place] [address] 84539 -9087 15 Apr, 2018 Paroxysmal nerve pain M79.2 [facility] [address] 81075- 8461 13 Apr, 2018 Abnormal human chorionic gonadotropin (hCG) 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.9 [facility] [id number] [place] [address] 08677- 0574 12 Apr, 2018 Abnormal human chorionic gonadotropin (hCG) R79.9 [facility] [address], [place] [address]- 4886 Apr, [facility] [id number] [place] [address] 77866- 2896 Apr, Abnormal human chorionic gonadotropin (hCG) R79.9 [facility] [address], [place] [address] 2546 Apr, Abnormal human chorionic gonadotropin (hCG) R79.9 [facility] [id number] [place] [address] 04418 2546 March, Abnormal human chorionic gonadotropin (hCG) R79.9 [facility] [id number] [place] [address] 50138- 6946 March, Abnormal human chorionic gonadotropin (hCG) R79.9 [facility] [id number] [place] [address] 64657- 7516 March, Abnormal human chorionic gonadotropin (hCG) R79.9 [facility] [id number] [address]- 1286 March, Abnormal human chorionic gonadotropin (hCG) R79.9 [facility] [address], [place] [address]- 2946 March, Abnormal human chorionic gonadotropin (hCG) R79.9 [facility] [address], [place] [address] 2546 March, [facility] [address] [address]- 2546 March, Abnormal human chorionic gonadotropin (hCG) 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.9 [facility] [id number] [address]- 4136 March, Miscarriage O03.9 [facility] [address], [place] [address]- 2546 March, [facility] [id number] [place] [address] 72963- 0961 March, Miscarriage O03.9 [facility] [id number] [place] [address] 31861- 4971 March, Miscarriage O03.9 [facility] [id number] [place] [address] 58176- 9479 Feb, Miscarriage O03.9 [facility] [id number] [place] [address] 70031- 9166 Feb, Miscarriage O03.9 [facility] [id number] [place] [address] 19539- 4246 Feb, Miscarriage O03.9 [facility] [id number] [place] [address] 13422- 0864 Feb, Abnormal human chorionic gonadotropin (hCG) R79.9 [facility] [id number] [place] [address] 17033- 0699 Feb, Abnormal human chorionic gonadotropin (hCG) R79.9 [place] [id number] [place] [address] 40644- 3809 Feb, Abnormal human chorionic gonadotropin (hCG) R79.9 [place] [id number] [place] [address] 82765- 9595 Feb, Abnormal human chorionic gonadotropin (hCG) 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.9 [place] [id number] [place] [address] 65538- 0704 Feb, confirmed by positive urine test Z32.01 [place] [id number] [place] [address] 08756- 9199 Jan, confirmed by positive urine test Z32.01 [place] [facility] [id number] [place] [address] 56421- 5297 Jan, Encounter for counseling regarding contraception Z30.09 ; Encounter for initial prescription of injectable contraceptive Z30.013 ; Encounter to establish care Z76.89 ; Seasonal allergic rhinitis, unspecified trigger J30.2 and confirmed by positive urine test Z32.01 [facility] [address], [place] [address]- 1925 Feb, Encounter for Depo-Provera contraception Z30.42 [facility] [id number] [place] [address] 75031- 8342 Dec, Encounter for Depo-Provera contraception Z30.42 [facility] [id number] [place] [address] 04233- 3794 Sep, Encounter for Depo-Provera contraception Z30.42 [facility] [address] [place] [address] 58993- 5036 Sep, Well woman exam Z01.419 and Breast cancer screening Z12.39 [facility] [address] [place] [address] 46727- 6788 Jun, Encounter for contraceptive management V25.9 [facility] [id number] [place] [address] 25335- 9350 Apr, Encounter for contraceptive management V25.9 [facility] [address] [place] [address] 76865- 3765 30 Jan, 2015 [facility] [id number] [place] [address] 83734- 9496 Jan, [facility] [address], [place] [address]- 8706 Jan, [facility] [address], [place] [address]- 4831 Jan, [facility] [address], [place] [address]- 0274 Jan, [facility] [id number] [place] [address] 09707- 0429 Aug, [facility] [address] [address]- 0317 Aug, [facility] [address] [place] [address]- 5885 17 Aug, 2014 [facility] [address] 1669 Aug, [facility] [address] 6935 Jul, [facility] [address] [address]- 0078 Jul, [facility] [address] [address]- 5764 Aug, [facility] [address] [address]- 2687 Aug, [facility] [address] 0399 Aug, [facility] [address], [place] [address]- 5864 Aug, [facility] [address], [place] [address]- 4150 Oct, [facility] [address] [address]- 4735 Sep, [facility] [id number] [address]- 9377 Sep, IMMUNIZATIONS No Known Immunizations SOCIAL HISTORY Never Assessed REASON FOR VISIT Patient Concerns PLAN OF CARE VITAL SIGNS MEDICATIONS Unknown Medications RESULTS No Results PROCEDURES No Known procedures INSTRUCTIONS MEDICATIONS ADMINISTERED No Known Medications MEDICAL (GENERAL) HISTORY Type Description Date Medical History asthma Surgical History [facility] 2016
--- OUTSIDE RECORDS SUMMARY | 2018-12-11 11:30 | XMS REPORT ---
Author Author CHRIS ROJAS 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 314617313 Problem confirmed by positive urine test Z32.01 Active 112637052 Problem Seasonal allergic rhinitis, unspecified trigger J30.2 Active [id number] ALLERGIES No Information ENCOUNTERS Encounter Location Date Diagnosis [facility] [id number] [place] [address] 95966- 8277 05 May, 2018 [facility] [id number] [place] [address] 43369- 5620 26 Apr, 2018 Vaginal bleeding N93.9 [facility] [id number] [place] [address] 11989- 0740 22 Apr, 2018 [facility] [id number] [place] [address] 63764- 5272 19 Apr, 2018 Abnormal human chorionic gonadotropin (hCG) R79.9 [facility] IN [facility] [id number] [place] [address] 60664 -1203 15 Apr, 2018 Paroxysmal nerve pain M79.2 [facility] [address] [address]- 8903 13 Apr, 2018 Abnormal human chorionic gonadotropin (hCG) R79.9 [facility] [id number] [place] [address] 02321- 5363 12 Apr, 2018 Abnormal human chorionic gonadotropin (hCG) R79.9 [facility] [address] [address] Apr, [facility] [id number] [place] [address] 80112- 7216 Apr, Abnormal human chorionic gonadotropin (hCG) R79.9 [facility] [address] [address] 2546 Apr, Abnormal human chorionic gonadotropin (hCG) R79.9 [facility] [id number] [place] [address] 14776 2546 March, Abnormal human chorionic gonadotropin (hCG) R79.9 [facility] [id number] [place] [address] 57706- 2796 March, Abnormal human chorionic gonadotropin (hCG) R79.9 [facility] [id number] [place] [address] 35926- 9046 March, Abnormal human chorionic gonadotropin (hCG) R79.9 [facility] [id number] [address]- 0678 March, Abnormal human chorionic gonadotropin (hCG) R79.9 [facility] [address] [address] 8157 March, Abnormal human chorionic gonadotropin (hCG) R79.9 [facility] [address] [address] 2546 March, [facility] [address] [address]- 2546 March, Abnormal human chorionic gonadotropin (hCG) R79.9 [facility] [id number] [address] 3596 March, Miscarriage O03.9 [facility] [address] [address]- 2546 March, [facility] [id number] [place] [address] 02144- 4951 March, Miscarriage O03.9 [facility] [address] [place] [address] 57703- 3783 March, Miscarriage O03.9 [facility] [id number] [place] [address] 40389- 1136 Feb, Miscarriage O03.9 [facility] [id number] [place] [address] 21569- 8771 Feb, Miscarriage O03.9 [facility] [id number] [place] [address] 22328- 1308 Feb, Miscarriage O03.9 [facility] [id number] [place] [address] 76479- 1632 Feb, Abnormal human chorionic gonadotropin (hCG) R79.9 [facility] [facility] [id number] [place] [address] 99475- 8549 Feb, Abnormal human chorionic gonadotropin (hCG) 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.9 [place] [facility] [id number] [place] [address] 38398- 9525 Feb, Abnormal human chorionic gonadotropin (hCG) 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.9 [place] [facility] [id number] [place] [address] 29039- 3626 Feb, Abnormal human chorionic gonadotropin (hCG) 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 [place] [facility] [address] [place] [address] 43988- 4149 Feb, confirmed by positive urine test Z32.01 [place] [address] [place] [address] 23430- 8547 Jan, confirmed by positive urine test Z32.01 [place] [facility] [id number] [place] [address] 22928- 9213 Jan, Encounter for counseling regarding contraception Z30.09 ; Encounter for initial prescription of injectable contraceptive Z30.013 ; Encounter to establish care Z76.89 ; Seasonal allergic rhinitis, unspecified trigger J30.2 and confirmed by positive urine test Z32.01 [facility] [address] [address]- 7995 Feb, Encounter for Depo-Provera contraception Z30.42 [facility] [address] [place] [address] 42463- 8007 Dec, Encounter for Depo-Provera contraception Z30.42 [facility] [id number] [place] [address] 71308- 8525 Sep, Encounter for Depo-Provera contraception Z30.42 [facility] [address] [place] [address] 93221- 8179 Sep, Well woman exam Z01.419 and Breast cancer screening Z12.39 [facility] [address] [place] [address] 53218- 0408 Jun, Encounter for contraceptive management V25.9 [facility] [id number] [place] [address] 63019- 7268 Apr, Encounter for contraceptive management V25.9 [facility] [address] [place] [address] 96334- 3369 30 Jan, 2015 [facility] [id number] [place] [address] 14889- 2887 Jan, [facility] [address] [address]- 6564 Jan, [facility] [address] [address]- 1000 Jan, [facility] [address] [address]- 2193 Jan, [facility] [id number] [place] [address] 90958- 6404 Aug, [facility] [address] [address]- 2785 Aug, [facility] [address] [address]- 8739 17 Aug, 2014 [facility] [address] [address]- 1847 17 Aug, 2014 [facility] [address] [address]- 8755 19 Jul, 2013 [facility] [address] [address]- 9181 19 Jul, 2013 [facility] [address] [address]- 0721 Aug, [facility] [address] [address]- 7926 18 Aug, 2013 [facility] [address] 8[address] Aug, [facility] [address] [address]- 5360 Aug, [facility] [address] [address]- 1352 Oct, [facility] [address] [address] Sep, [facility] [id number] [address]- 6239 Sep, IMMUNIZATIONS No Known Immunizations SOCIAL HISTORY Never Assessed REASON FOR VISIT Lab (walk-in)--[facility] PLAN OF CARE VITAL SIGNS MEDICATIONS Unknown Medications RESULTS No Results PROCEDURES Procedure Date Ordered Result Body Site CHORIONIC GONADOTROPIN TEST February 26, 2018 INSTRUCTIONS MEDICATIONS ADMINISTERED No Known Medications MEDICAL (GENERAL) HISTORY Type Description Date Medical History asthma Surgical History [facility] 2016
--- OUTSIDE RECORDS SUMMARY | 2018-12-11 11:31 | XMS REPORT ---
Author BRITTNI Jimenez [facility] eClinicalWorks Address Unknown Phone Unavailable Care Team Providers Care Missile Pad Mechanic Name Role Phone BRITTNI MCMAHON CP Unavailable Allergies No Known Allergies Problems Problem Type Condition Code Onset Dates Condition Status Problem Unspecified breast screening V76.10 Active Problem General counseling for prescription of oral contraceptives V25.01 Active Problem examination or test, negative result V72.41 Active Assessment Encounter for Depo-Provera contraception Z30.42 Active Problem Leukorrhea, not specified as infective 623.5 Active Problem Screening examination for venereal disease V74.5 Active Medications No Known Medications Procedures Procedure Coding System Code Date DEPO PROVERA (150 MG/ML) CPT-4 J1050 February 24, 2016 THER/PROPH/DIAG INJ, SC/IM CPT-4 21021 February 24, 2016 URINE TEST CPT-4 20923 February 24, 2016 Results Name Result Date Reference Range Unit Abnormality Flag TEST, URINE (IN HOUSE) ----RESULTS negative [id number] ----Lot # [id number] ----Control + [id number] ----Exp date [id number] Summary Purpose eClinicalWorks Submission
--- OUTSIDE RECORDS SUMMARY | 2018-12-11 11:31 | XMS REPORT ---
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 Active 968140940 Problem confirmed by positive urine test Z32.01 Active 624647547 Problem Seasonal allergic rhinitis, unspecified trigger J30.2 Active 367225403 ALLERGIES No Information ENCOUNTERS Encounter Location Date Diagnosis [facility] [id number] [place] [address] 49469- 8864 05 May, 2018 [facility] [place] [id number] [place] [address] 41455- 1437 26 Apr, 2018 Vaginal bleeding N93.9 [facility] [id number] [place] [address] 03663- 7623 22 Apr, 2018 [facility] [place] [id number] [place] [address] 91822- 7622 19 Apr, 2018 Abnormal human chorionic gonadotropin (hCG) 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.9 [facility] IN [facility] [id number] [place] [address] 85503 -5372 15 Apr, 2018 Paroxysmal nerve pain M79.2 [facility] [place] [address] 55597- 8342 13 Apr, 2018 Abnormal human chorionic gonadotropin (hCG) 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.9 [facility] [place] [id number] [place] [address] 86687- 0689 12 Apr, 2018 Abnormal human chorionic gonadotropin (hCG) R79.9 [facility] [address] [address]- 6036 Apr, [facility] [place] [id number] [place] [address] 40010- 3256 Apr, Abnormal human chorionic gonadotropin (hCG) R79.9 [facility] [place] [address] [address] 2546 Apr, Abnormal human chorionic gonadotropin (hCG) R79.9 [facility] [place] [id number] [place] [address] 71724 2546 March, Abnormal human chorionic gonadotropin (hCG) R79.9 [facility] [place] [id number] [place] [address] 81445- 8446 March, Abnormal human chorionic gonadotropin (hCG) R79.9 [facility] [place] [id number] [place] [address] 30929- 4296 March, Abnormal human chorionic gonadotropin (hCG) R79.9 [facility] [place] [id number] [address]- 4339 March, Abnormal human chorionic gonadotropin (hCG) R79.9 [facility] [place] [address] [address]- 9604 March, Abnormal human chorionic gonadotropin (hCG) R79.9 [facility] [place] [address] [address] 2546 March, [facility] [place] [address] [address]- 2546 March, Abnormal human chorionic gonadotropin (hCG) R79.9 [facility] [place] [id number] [address]- 1606 March, Miscarriage O03.9 [facility] [place] [address] [address]- 2546 March, [facility] [place] [id number] [place] [address] 24236- 5839 March, Miscarriage O03.9 [facility] [place] [address] [place] [address] 42437- 2530 March, Miscarriage O03.9 [facility] [place] [id number] [place] [address] 83400- 4476 Feb, Miscarriage O03.9 [facility] [place] [id number] [place] [address] 58258- 9033 Feb, Miscarriage O03.9 [facility] [place] [id number] [place] [address] 16510- 4030 Feb, Miscarriage O03.9 [facility] [place] [id number] [place] [address] 75403- 4304 Feb, Abnormal human chorionic gonadotropin (hCG) 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 [place] [facility] [id number] [place] [address] 27752- 8038 Feb, Abnormal human chorionic gonadotropin (hCG) R79.9 [place] [id number] [place] [address] 40426- 7729 Feb, Abnormal human chorionic gonadotropin (hCG) 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.9 [place] [id number] [place] [address] 79661- 1331 Feb, Abnormal human chorionic gonadotropin (hCG) 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 [place] [address] [place] [address] 91118- 3139 Feb, confirmed by positive urine test Z32.01 [place] [address] [place] [address] 96617- 2382 Jan, confirmed by positive urine test Z32.01 [place] [facility] [id number] [place] [address] 00952- 8096 Jan, Encounter for counseling regarding contraception Z30.09 ; Encounter for initial prescription of injectable contraceptive Z30.013 ; Encounter to establish care Z76.89 ; Seasonal allergic rhinitis, unspecified trigger J30.2 and confirmed by positive urine test Z32.01 [facility] [place] [address] [address]- 9237 Feb, Encounter for Depo-Provera contraception Z30.42 [facility] [place] [address] [place] [address] 75278- 8753 Dec, Encounter for Depo-Provera contraception Z30.42 [facility] [place] [id number] [place] [address] 64570- 3442 Sep, Encounter for Depo-Provera contraception Z30.42 [facility] [place] [address] [place] [address] 91476- 5145 Sep, Well woman exam Z01.419 and Breast cancer screening Z12.39 [facility] [place] [address] [place] [address] 60594- 6844 Jun, Encounter for contraceptive management V25.9 [facility] [place] [id number] [place] [address] 52611- 6975 Apr, Encounter for contraceptive management V25.9 [facility] [place] [address] [place] [address] 01686- 8925 30 Jan, 2015 [facility] [place] [id number] [place] [address] 99793- 4122 Jan, [facility] [place] [address] [address]- 0179 Jan, [facility] [place] [address], [place] [address]- 7837 Jan, [facility] [place] [address], [place] [address]- 4860 Jan, [facility] [place] [id number] [place] [address] 71797- 5882 Aug, [facility] [place] [address] [address]- 6030 Aug, [facility] [place] [id number] [address]- 6554 17 Aug, 2014 [facility] [place] [id number] [address]- 0322 17 Aug, 2014 [facility] [place] [id number] [address]- 2820 19 Jul, 2013 [facility] [place] [address] [address]- 3976 19 Jul, 2013 [facility] [place] [address] [address]- 0042 Aug, [facility] [place] [address] [address]- 1661 18 Aug, 2013 [facility] [place] [address] [address]- 7586 Aug, [facility] [place] [address], [place] [address]- 3549 Aug, [facility] [place] [address], [place] [address]- 0478 Oct, [facility] [place] [address], [place] [address]- 6383 Sep, [facility] [place] [id number] [address]- 9893 Sep, IMMUNIZATIONS No Known Immunizations SOCIAL HISTORY Never Assessed REASON FOR VISIT Lab (walk-in) PLAN OF CARE VITAL SIGNS MEDICATIONS Unknown Medications RESULTS No Results PROCEDURES Procedure Date Ordered Result Body Site CHORIONIC GONADOTROPIN TEST February 05, 2018 VENIPUNCT, ROUTINE* February 05, 2018 INSTRUCTIONS MEDICATIONS ADMINISTERED No Known Medications MEDICAL (GENERAL) HISTORY Type Description Date Medical History asthma Surgical History [facility] 2016
--- OUTSIDE RECORDS SUMMARY | 2018-12-11 11:31 | XMS REPORT ---
Author BRITTNI Jimneez eClinicalWorks Address Unknown Phone Unavailable Care Team Providers Care Water Resources Technical Officer Name Role Phone BRITTNI MCMAHON CP Unavailable [...] Date DEPO PROVERA (150 MG/ML) CPT-4 J1050 Dec 06, 2015 THER/PROPH/DIAG INJ, SC/IM CPT-4 62308 Dec 06, 2015 URINE TEST CPT-4 82466 Dec 06, 2015 Results No Known Results Summary Purpose eClinicalWorks Submission
--- OUTSIDE RECORDS SUMMARY | 2018-12-11 11:31 | XMS REPORT ---
Author MAU Vela [facility] eClinicalWorks Address Unknown Phone Unavailable Care Team Providers Care Swim Coach Name Role Phone MAU JAMES CP Unavailable Allergies No Known Allergies Problems [...] Date DEPO PROVERA (150 MG/ML) CPT-4 J1050 Sep 14, 2015 THER/PROPH/DIAG INJ, SC/IM CPT-4 97744 Sep 14, 2015 URINE TEST CPT-4 18916 Sep 14, 2015 Results Name Result Date Reference Range Unit Abnormality Flag TEST, URINE (IN HOUSE) Summary Purpose eClinicalWorks Submission
--- OUTSIDE RECORDS SUMMARY | 2018-12-11 11:31 | XMS REPORT ---
Author Author MAU JAMES [facility] eClinicalWorks Address Unknown Phone Unavailable Care Team Providers Care Production Technician Name Role Phone MAU JAMES CP Unavailable Allergies, Adverse Reactions, Alerts Substance Reaction Event Type N.K.D.A. Info Not Available Non Drug Allergy Problems Problem Type Condition Code Onset Dates Condition Status Problem Unspecified breast screening V76.10 Active Problem General counseling for prescription of oral contraceptives V25.01 Active Problem examination or test, negative result V72.41 Active Assessment Well woman exam Z01.419 Active Assessment Breast cancer screening Z12.39 Active Problem Leukorrhea, not specified as infective 623.5 Active Problem Screening examination for venereal disease V74.5 Active Medications No Known Medications Procedures Procedure Coding System Code Date CULTURE, BACTERIA, OTHER CPT-4 82473 Sep 07, 2015 Preventive Care Est Pt. Age 18-39 CPT-4 68634 Sep 07, 2015 SPECIMEN HANDLING CPT-4 26839 Sep 07, 2015 Vital Signs Date/Time: Sep 07, 2015 Temperature 99.4 F Weight 110.2 lbs Height 66 in BMI 17.78 Index Blood Pressure Diastolic 68 mmHg Blood Pressure Systolic 118 mmHg Cardiac Monitoring Heart Rate 84 bpm Results Name Result Date Reference Range Unit Abnormality Flag PDF Report PAP TEST, HPV IF ASCUS Summary Purpose eClinicalWorks Submission
--- OUTSIDE RECORDS SUMMARY | 2018-12-11 11:31 | XMS REPORT ---
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 Active 358136538 Problem confirmed by positive urine test Z32.01 Active 739283582 Problem Seasonal allergic rhinitis, unspecified trigger J30.2 Active 271244639 ALLERGIES No Information ENCOUNTERS Encounter Location Date Diagnosis [facility] [id number] [place] [address] 47033- 1108 05 May, 2018 [facility] [id number] [place] [address] 92891- 5043 26 Apr, 2018 Vaginal bleeding N93.9 [facility] [id number] [place] [address] 89885- 6728 22 Apr, 2018 [facility] [id number] [place] [address] 93064- 0658 19 Apr, 2018 Abnormal human chorionic gonadotropin (hCG) R79.9 [facility] IN [facility] [id number] [place] [address] 43426 -7899 15 Apr, 2018 Paroxysmal nerve pain M79.2 [facility] [address] 45644- 7784 13 Apr, 2018 Abnormal human chorionic gonadotropin (hCG) R79.9 [facility] [id number] [place] [address] 28305- 2023 12 Apr, 2018 Abnormal human chorionic gonadotropin (hCG) R79.9 [facility] [address] [address] 8[address] Apr, [facility] [id number] [place] [address] 84911- 3956 Apr, Abnormal human chorionic gonadotropin (hCG) R79.9 [facility] [address] [address] 2546 Apr, Abnormal human chorionic gonadotropin (hCG) R79.9 [facility] [id number] [place] [address] 31404 2546 March, Abnormal human chorionic gonadotropin (hCG) R79.9 [facility] [id number] [place] [address] 42228- 9876 March, Abnormal human chorionic gonadotropin (hCG) R79.9 [facility] [id number] [place] [address] 63194- 8196 March, Abnormal human chorionic gonadotropin (hCG) R79.9 [facility] [id number] [address] 0161 March, Abnormal human chorionic gonadotropin (hCG) R79.9 [facility] [address] [address] 9338 March, Abnormal human chorionic gonadotropin (hCG) R79.9 [facility] [address] [address] 2546 March, [facility] [address] [address] 2546 March, Abnormal human chorionic gonadotropin (hCG) R79.9 [facility] [id number] [address] 8286 March, Miscarriage O03.9 [facility] [address] [address] 2546 March, [facility] [id number] [place] [address] 81869- 8071 March, Miscarriage O03.9 [facility] [address] [place] [address] 42036- 1227 March, Miscarriage O03.9 [facility] [id number] [place] [address] 49826- 7554 Feb, Miscarriage O03.9 [facility] [id number] [place] [address] 28908- 8158 Feb, Miscarriage O03.9 [facility] [id number] [place] [address] 04389- 8195 Feb, Miscarriage O03.9 [facility] [id number] [place] [address] 98285- 3636 Feb, Abnormal human chorionic gonadotropin (hCG) R79.9 [facility] [id number] [place] [address] 08855- 4968 Feb, Abnormal human chorionic gonadotropin (hCG) R79.9 [facility] [id number] [place] [address] 89433- 3051 Feb, Abnormal human chorionic gonadotropin (hCG) R79.9 [facility] [id number] [place] [address] 87337- 5150 Feb, Abnormal human chorionic gonadotropin (hCG) R79.9 [facility] [address] [place] [address] 99547- 9809 Feb, confirmed by positive urine test Z32.01 [place] [facility] [address] [place] [address] 69375- 0645 Jan, confirmed by positive urine test Z32.01 [facility] [id number] [place] [address] 07526- 5212 Jan, Encounter for counseling regarding contraception Z30.09 ; Encounter for initial prescription of injectable contraceptive Z30.013 ; Encounter to establish care Z76.89 ; Seasonal allergic rhinitis, unspecified trigger J30.2 and confirmed by positive urine test Z32.01 [facility] [address] [address]- 4711 Feb, Encounter for Depo-Provera contraception Z30.42 [facility] [address] [place] [address] 22330- 5999 Dec, Encounter for Depo-Provera contraception Z30.42 [facility] [id number] [place] [address] 69743- 0702 Sep, Encounter for Depo-Provera contraception Z30.42 [facility] [address] [place] [address] 89370- 1119 Sep, Well woman exam Z01.419 and Breast cancer screening Z12.39 [facility] [address] [place] [address] 17477- 0331 Jun, Encounter for contraceptive management V25.9 [facility] [id number] [place] [address] 17999- 1305 Apr, Encounter for contraceptive management V25.9 [facility] [address] [place] [address] 75896- 8782 30 Jan, 2015 [facility] [id number] [place] [address] 66519- 2136 Jan, [facility] [address] [address] 0621 Jan, [facility] [address] [address]- 0695 Jan, [facility] [address] [address]- 1648 Jan, [facility] [id number] [place] [address] 83674- 0709 Aug, [facility] [address] [address]- 5267 Aug, [facility] [id number] [address]- 9955 17 Aug, 2014 [facility] [address] [facility] [id number] [address]- 0281 17 Aug, 2014 [facility] [address] [facility] [id number] [address]19 Jul, [facility] [address] [address]- 3644 Jul, [facility] [address] [facility] [id number] [address]- 9137 Aug, [facility] [address] 5992 Aug, [facility] [address] [address]- 3064 Aug, [facility] [address] [address]- 3574 Aug, [facility] [id number] [address]- 7607 Oct, [facility] [address] [address]- 2041 Sep, [facility] [id number] [address]- 5769 Sep, IMMUNIZATIONS No Known Immunizations SOCIAL HISTORY Never Assessed REASON FOR VISIT Deferred Lab PLAN OF CARE VITAL SIGNS MEDICATIONS Unknown Medications RESULTS No Results PROCEDURES No Known procedures INSTRUCTIONS MEDICATIONS ADMINISTERED No Known Medications MEDICAL (GENERAL) HISTORY Type Description Date Medical History asthma Surgical History [facility] 2016
--- OUTSIDE RECORDS SUMMARY | 2018-12-11 11:31 | XMS REPORT ---
Author Author MISAEL CASTELAN Organization [employer] Address Unknown Phone Unavailable Care Team Providers Care Color Specialist Name Role Phone MISAEL CASTELAN CP Unavailable Allergies No Known Allergies Problems Problem Type Condition ICD-9 Code Onset Dates Condition Status Problem Unspecified breast screening V76.10 Active Problem General counseling for prescription of oral contraceptives V25.01 Active Problem examination or test, negative result V72.41 Active Assessment Encounter for contraceptive management V25.9 Active Problem Leukorrhea, not specified as infective 623.5 Active Problem Screening examination for venereal disease V74.5 Active Medications No Known Medications Procedures Procedure Coding System Code Date DEPO PROVERA (150 MG/ML) CPT-4 J1050 Jun 28, 2015 THER/PROPH/DIAG INJ, SC/IM CPT-4 14501 Jun 28, 2015 URINE TEST CPT-4 25005 Jun 28, 2015 Results Name Result Date Reference Range Unit Abnormality Flag TEST, URINE (IN HOUSE) Summary Purpose [employer] Submission
--- OUTSIDE RECORDS SUMMARY | 2018-12-11 11:31 | XMS REPORT ---
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 Active 913728827 Problem confirmed by positive urine test Z32.01 Active 614059335 Problem Seasonal allergic rhinitis, unspecified trigger J30.2 Active 940504057 ALLERGIES No Known Allergies ENCOUNTERS Encounter Location Date Diagnosis [facility] [id number] [place] [address] 00582- 8341 05 May, 2018 [facility] [id number] [place] [address] 70705- 9311 26 Apr, 2018 Vaginal bleeding N93.9 [facility] [id number] [place] [address] 67102- 1484 22 Apr, 2018 [facility] [id number] [place] [address] 22212- 2048 19 Apr, 2018 Abnormal human chorionic gonadotropin (hCG) R79.9 [facility] [address] [place] [address] 31510 -2860 15 Apr, 2018 Paroxysmal nerve pain M79.2 [facility] [id number] [place] [address] 51901- 8597 13 Apr, 2018 Abnormal human chorionic gonadotropin (hCG) R79.9 [facility] [id number] [place] [address] 00577- 8793 12 Apr, 2018 Abnormal human chorionic gonadotropin (hCG) R79.9 [facility] [address], [place] [address]- 1906 Apr, [facility] [id number] [place] [address] 09967- 3936 Apr, Abnormal human chorionic gonadotropin (hCG) R79.9 [facility] [address], [place] [address] 2546 Apr, Abnormal human chorionic gonadotropin (hCG) R79.9 [facility] [id number] [place] [address] 60801- 5706 March, Abnormal human chorionic gonadotropin (hCG) R79.9 [facility] [id number] [place] [address] 28929- 6206 March, Abnormal human chorionic gonadotropin (hCG) R79.9 [facility] [id number] [place] [address] 99386- 3776 March, Abnormal human chorionic gonadotropin (hCG) R79.9 [facility] [address], [place] [address]- 4319 March, Abnormal human chorionic gonadotropin (hCG) R79.9 [facility] [id number], [place] [address]- 9111 March, Abnormal human chorionic gonadotropin (hCG) R79.9 [facility] [address], [place] [address]- 3176 March, [facility] [id number], [place] [address]- 2540 March, Abnormal human chorionic gonadotropin (hCG) R79.9 [facility] [id number] [address]- 6646 March, Miscarriage O03.9 [facility] [address], [place] [address]- 7296 March, [facility] [id number] [place] [address] 97541- 6940 March, Miscarriage O03.9 [facility] [id number] [place] [address] 71829- 1903 March, Miscarriage O03.9 [facility] [address] [place] [address]- 5891 Feb, Miscarriage O03.9 [facility] [id number] [place] [address] 52836- 4810 Feb, Miscarriage O03.9 [facility] [id number] [place] [address] 52094- 0991 Feb, Miscarriage O03.9 [facility] [id number] [place] [address] 92493- 2070 Feb, Abnormal human chorionic gonadotropin (hCG) R79.9 [facility] [id number] [place] [address] 37108- 8208 Feb, Abnormal human chorionic gonadotropin (hCG) R79.9 [facility] [address] [place] [address] 65725- 4103 Feb, Abnormal human chorionic gonadotropin (hCG) R79.9 [facility] [id number] [place] [address] 45425- 2201 Feb, Abnormal human chorionic gonadotropin (hCG) R79.9 [facility] [address] [place] [address] 97247- 9089 Feb, confirmed by positive urine test Z32.01 [facility] [id number] [place] [address] 74921- 0756 Jan, confirmed by positive urine test Z32.01 [facility] [id number] [place] [address] 66813- 9405 Jan, Encounter for counseling regarding contraception Z30.09 ; Encounter for initial prescription of injectable contraceptive Z30.013 ; Encounter to establish care Z76.89 ; Seasonal allergic rhinitis, unspecified trigger J30.2 and confirmed by positive urine test Z32.01 [facility] [address], [place] [address]- 8028 Feb, Encounter for Depo-Provera contraception Z30.42 [facility] [id number]- 2956 Dec, Encounter for Depo-Provera contraception Z30.42 [facility] [address] [place] [address] 65317- 8900 Sep, Encounter for Depo-Provera contraception Z30.42 [facility] [address] [place] [address] 72761- 5241 Sep, Well woman exam Z01.419 and Breast cancer screening Z12.39 [facility] [address], [place] [address]- 8739 Jun, Encounter for contraceptive management V25.9 [facility] [id number] [place] [address] 93291- 7053 Apr, Encounter for contraceptive management V25.9 [facility] [address], [place] [address]- 5067 30 Jan, 2015 [facility] [id number] [place] [address] 91353- 1090 Jan, [facility] [id number], [place] [address]- 1885 Jan, [facility] [address], [place] [address]- 9668 Jan, [facility] [address], [place] [address]- 7425 Jan, [facility] [id number] [place] [address] 331337- 7744 Aug, [facility] [address], [place] [address]- 1756 Aug, [facility] [id number] [address]- 0407 17 Aug, 2014 [facility] [address], [place] [address]- 4973 Aug, [facility] [address], [place] [address]- 3839 Jul, [facility] [address], [place] [address]- 5988 Jul, [facility] [address] [address]- 7822 Aug, [facility] [address] [place] [address] 07849- 6237 Aug, [facility] [address], [place] [address]- 7599 Aug, [facility] [id number] [place] [address] 517433- 7626 Aug, [facility] [address], [place] [address]- 5582 Oct, [facility] [address], [place] [address]- 0387 Sep, [facility] [id number], [place] [address]- 5299 Sep, IMMUNIZATIONS No Known Immunizations SOCIAL HISTORY Never Assessed REASON FOR VISIT control consult-- cierra alicea, patient states she had 3 miscarriage , she was using depo injection back in and would like to talk to doctor today what other options she has PLAN OF CARE Activity Details Follow Up prn, will refer to MONITOR TECH Reason: VITAL SIGNS Height 66 in 2018-01-29 Weight 111.4 lbs 2018-01-29 Temperature 98.0 degrees Fahrenheit 2018-01-29 BMI 17.98 kg/m2 2018-01-29 Blood pressure systolic 118 mmHg 2018-01-29 Blood pressure diastolic 78 mmHg 2018-01-29 MEDICATIONS Medication Instructions Dosage Frequency Start Date End Date Duration Status Flonase 50 MCG/ACT Nasally Once a day 1 spray in each nostril 24h Jan, 30 day(s) Active RESULTS No Results PROCEDURES Procedure Date Ordered Result Body Site COMPREHEN METABOLIC PANEL January 29, 2018 COMPLETE CBC W/AUTO DIFF WBC January 29, 2018 URINE TEST January 29, 2018 VENIPUNCT, ROUTINE* January 29, 2018 Hemoglobin Test Send Out 0 dollar January 29, 2018 LIPID PANEL January 29, 2018 CHORIONIC GONADOTROPIN TEST January 29, 2018 ASSAY THYROID STIM HORMONE January 29, 2018 INSTRUCTIONS MEDICATIONS ADMINISTERED No Known Medications MEDICAL (GENERAL) HISTORY Type Description Date Medical History asthma Surgical History [facility] 2017
--- OUTSIDE RECORDS SUMMARY | 2018-12-11 11:32 | XMS REPORT | Continuity of Care Document ---
Author Author [facility] Address Unknown Phone Unavailable Allergies Active Description Code Type Severity Reaction Onset Reported/Identified Relationship to Patient Clinical Status Yes No Known Drug Allergies [id number] Drug Allergy Unknown N/A 05/14/2018 Medications There is no data. Problems Date Dx Coded Attending Type Code Diagnosis Diagnosed By 09/26/2011 BRITTNI MCMAHON DO V16.3 FAMILY HISTORY OF MALIGNANT NEOPLASM OF BREAST 09/26/2011 BRITTNI MCMAHON DO V70.0 EXAM - ROUTINE H&P 09/26/2011 MISAEL CASTELAN APRN A V16.3 FAMILY HISTORY OF MALIGNANT NEOPLASM OF BREAST 09/26/2011 MISAEL CASTELAN APRN A V70.0 EXAM - ROUTINE H&P 09/26/2011 MISAEL CASTELAN APRN A V16.3 FAMILY HISTORY OF MALIGNANT NEOPLASM OF BREAST 09/26/2011 TONIE CASTELAN APRNIDI A V70.0 EXAM - ROUTINE H&P 10/13/2011 BRITTNI MCMAHON DO V25.9 CONTRACEPTION MANAGEMENT 10/13/2011 MISAEL CASTELAN APRN A V25.9 CONTRACEPTION MANAGEMENT 10/13/2011 MISAEL CASTELAN APRN A V25.9 CONTRACEPTION MANAGEMENT 05/31/2013 DARON SINGLETARY Ot 786.50 CHEST PAIN NOS 05/31/2013 DARON SINGLETARY Ot 786.52 PAINFUL RESPIRATION 05/31/2013 DARON SINGLETAYR Ot 787.3 FLATUL/ERUCTAT/GAS PAIN 08/20/2013 BRITTNI MCMAHON DO 623.5 LEUKORRHEA NOT SPECIFIED INFECTIVE 08/20/2013 BRITTNI MCMAHON DO V25.01 CONTRACEPTION - ORAL CONTRACEPTION 08/20/2013 BRITTNI MCMAHON DO V76.10 BREAST CANCER SCREENING 08/20/2013 MISAEL CASTELAN APRN 623.5 LEUKORRHEA NOT SPECIFIED INFECTIVE 08/20/2013 ANNELISE INTERIOR ASSEMBLIES INSTALLER, MISAEL A V25.01 CONTRACEPTION - ORAL CONTRACEPTION 08/20/2013 TONIE CASTELAN APRNIDI A V76.10 BREAST CANCER SCREENING 08/20/2013 TONIE CASTELAN APRNPAUL Schneider 623.5 LEUKORRHEA NOT SPECIFIED INFECTIVE 08/20/2013 ANNELISE PATELNTONIEMISAEL A V25.01 CONTRACEPTION - ORAL CONTRACEPTION 08/20/2013 ANNELISE PATELNTONIEMISAEL A V76.10 BREAST CANCER SCREENING 03/20/2014 DARON SINGLETARY Ot 478.75 LARYNGEAL SPASM 03/20/2014 DARON SINGLETARY Ot 493.00 EXTRINSIC ASTHMA, NOS 03/20/2014 DARON SINGLETARY Ot 786.52 PAINFUL RESPIRATION 01/18/2015 ANNELISE INTERIOR ASSEMBLIES INSTALLER, MISAEL A V72.41 TEST NEGATIVE RESULT 01/19/2015 ANNELISE PATELStephani IMSAEL A V74.5 STD SCREEN 03/08/2015 FOREIGN TAVERAS INTERIOR ASSEMBLIES INSTALLER Ot 787.01 NAUSEA WITH VOMITING 07/22/2015 FOREIGN TAVERAS INTERIOR ASSEMBLIES INSTALLER Ot 462 ACUTE PHARYNGITIS 02/25/2016 FOREIGN TAVERAS INTERIOR ASSEMBLIES INSTALLER Ot 787.01 NAUSEA WITH VOMITING 03/21/2018 CHRIS ROJAS INTERIOR ASSEMBLIES INSTALLER Ot O20.9 HEMORRHAGE IN EARLY , UNSPECIFI 03/21/2018 CHRIS ROJAS APRN Ot R79.9 ABNORMAL FINDING OF BLOOD CHEMISTRY, UNS 03/21/2018 CHRIS ROJAS APRN Ot Z3A.00 WEEKS OF GESTATION OF NOT SPEC 05/13/2018 CHRIS ROJAS APRN Ot O20.9 HEMORRHAGE IN EARLY , UNSPECIFI 05/13/2018 CHRIS ROJAS INTERIOR ASSEMBLIES INSTALLER Ot R79.9 ABNORMAL FINDING OF BLOOD CHEMISTRY, UNS 05/13/2018 CHRIS ROJAS INTERIOR ASSEMBLIES INSTALLER Ot Z3A.00 WEEKS OF GESTATION OF NOT SPEC 05/14/2018 YOBANI WALKER MD Ot Z01.818 ENCOUNTER FOR OTHER PREPROCEDURAL EXAMIN 05/15/2018 YOBANI WALKER MD Ot Z01.818 ENCOUNTER FOR OTHER PREPROCEDURAL EXAMIN 05/15/2018 YOBANI WALKER MD Ot N85.9 NONINFLAMMATORY DISORDER OF UTERUS, [facility] 05/15/2018 YOBANI WALKER MD, Ot N93.8 OTHER SPECIFIED ABNORMAL UTERINE AND VAG 05/17/2018 YOBANI WALKER MD, Ot N85.9 NONINFLAMMATORY DISORDER OF UTERUS, UNSP 05/17/2018 YOBANI WALKER MD, Ot N93.8 OTHER SPECIFIED ABNORMAL UTERINE AND VAG 05/20/2018 YOBANI WALKER MD, Ot Z01.818 ENCOUNTER FOR OTHER PREPROCEDURAL EXAMIN 05/22/2018 CHRIS ROJAS APRN Ot O20.9 HEMORRHAGE IN EARLY , UNSPECIFI 05/22/2018 CHRIS ROJAS APRN Ot R79.9 ABNORMAL FINDING OF BLOOD CHEMISTRY, UNS 05/22/2018 CHRIS ROJAS APRN Ot Z3A.00 WEEKS OF GESTATION OF NOT SPEC 05/23/2018 YOBANI WALKER MD, Ot N85.9 NONINFLAMMATORY DISORDER OF UTERUS, [facility] 05/23/2018 YOBANI WALKER MD, Ot N93.8 OTHER SPECIFIED ABNORMAL UTERINE AND VAG 11/06/2018 CHRIS ROJAS APRN Ot O20.9 HEMORRHAGE IN EARLY , UNSPECIFI 11/06/2018 CHRIS ROJAS APRN Ot R79.9 ABNORMAL FINDING OF BLOOD CHEMISTRY, UNS 11/06/2018 CHRIS ROJAS APRN Ot Z3A.00 WEEKS OF GESTATION OF NOT SPEC 11/06/2018 YOBANI WALKER MD, Ot Z12.31 ENCNTR SCREEN MAMMOGRAM FOR MALIGNANT NE 11/06/2018 YOBANI WALKER MD, Ot Z80.3 FAMILY HISTORY OF MALIGNANT NEOPLASM OF 11/08/2018 FOREIGN TAVERAS APRN Ot G43.909 MIGRAINE, UNSP, NOT INTRACTABLE, WITHOUT 11/08/2018 FOREIGN TAVERAS APRN Ot J02.9 ACUTE PHARYNGITIS, UNSPECIFIED 11/08/2018 FOREIGN TAVERAS APRN Ot J40 BRONCHITIS, NOT SPECIFIED ACUTE OR CH 11/08/2018 FOREIGN TAVERAS APRN Ot R05 COUGH 11/08/2018 FOREIGN TAVERAS APRN Ot Z87.448 PERSONAL HISTORY OF OTHER DISEASES OF UR Procedures Code Description [place] [address] URINE TEST (IN- HOUSE) 08/20/2013 30582 CULTURE UROGENITAL 08/23/2013 83238 TEST, URINE (IN- HOUSE) 08/24/2014 35990 TEST, URINE (IN- HOUSE) 01/18/2015 Results Test Result Range [facility] - 01/29/18 10:37 GLUCOSE 76 mg/dL 65-99 UREA NITROGEN (BUN) 8 mg/dL 7-25 CREATININE 0.63 mg/dL 0.50-1.10 eGFR NON-AFR. NEPALESE 125 mL/min/1.73m2 > OR=60 eGFR 144 mL/min/1.73m2 > OR=60 BUN/CREATININE RATIO NOT APPLICABLE (calc) 6-22 SODIUM 141 mmol/L 135-146 POTASSIUM 3.9 mmol/L 3.5-5.3 CHLORIDE 108 mmol/L 98-110 CARBON DIOXIDE 26 mmol/L 20-31 CALCIUM 9.5 mg/dL 8.6-10.2 PROTEIN, TOTAL 7.7 g/dL 6.1-8.1 ALBUMIN 4.5 g/dL 3.6-5.1 GLOBULIN 3.2 g/dL (calc) 1.9-3.7 ALBUMIN/GLOBULIN RATIO 1.4 (calc) 1.0-2.5 BILIRUBIN, TOTAL 0.4 mg/dL 0.2-1.2 ALKALINE PHOSPHATASE 73 U/L 33-115 AST 19 U/L 10-30 ALT 15 U/L 6-29 CBC - 01/29/18 10:37 WHITE BLOOD CELL COUNT 4.4 Thousand/uL 3.8-10.8 RED BLOOD CELL COUNT 4.23 Million/uL 3.80-5.10 HEMOGLOBIN 12.7 g/dL 11.7-15.5 HEMATOCRIT 38.1 % 35.0-45.0 MCV 90.1 fL 80.0-100.0 MCH 30.0 pg 27.0-33.0 MCHC 33.3 g/dL 32.0-36.0 RDW 11.7 % 11.0-15.0 PLATELET COUNT 201 Thousand/uL 140-400 MPV 11.2 fL 7.5-12.5 ABSOLUTE NEUTROPHILS 2424 cells/uL [id number] ABSOLUTE LYMPHOCYTES 1544 cells/uL 850-3900 ABSOLUTE MONOCYTES 321 cells/uL 200-950 ABSOLUTE EOSINOPHILS 88 cells/uL 15-500 ABSOLUTE BASOPHILS 22 cells/uL 0-200 NEUTROPHILS 55.1 % NRG LYMPHOCYTES 35.1 % NRG MONOCYTES 7.3 % NRG EOSINOPHILS 2.0 % NRG BASOPHILS 0.5 % NRG HCG, QUANTITATIVE - 01/29/18 10:37 HCG, TOTAL, QN 660 mIU/mL NRG THYROID ANALYZER - 01/29/18 10:37 TSH 0.67 mIU/L NRG A1C - 01/29/18 10:37 HEMOGLOBIN A1c 4.9 % of total Hgb <5.7 HCG, QUANTITATIVE - 02/05/18 09:20 HCG, TOTAL, QN 238 mIU/mL NRG HCG, QUANTITATIVE - 02/12/18 15:54 HCG, TOTAL, QN 116 mIU/mL NRG HCG, QUANTITATIVE - 03/12/18 12:30 HCG, TOTAL, QN 32 mIU/mL NRG HCG, QUANTITATIVE - 03/28/18 15:12 HCG, TOTAL, QN 22 mIU/mL NRG HCG, QUANTITATIVE - 04/02/18 13:36 HCG, TOTAL, QN 18 mIU/mL NRG HCG, QUANTITATIVE - 04/09/18 13:22 HCG, TOTAL, QN 16 mIU/mL NRG HCG, QUANTITATIVE - 04/16/18 13:10 HCG, TOTAL, QN 9 mIU/mL NRG HCG, QUANTITATIVE - 04/23/18 13:49 HCG, TOTAL, QN 12 mIU/mL NRG Urine beta human chorionic gonadotropin (hCG) measurement - 05/15/18 11:35 Urine beta human chorionic gonadotropin (hCG) measurement NEGATIVE NEGATIVE Methicillin resistant Staphylococcus aureus (MRSA) screening culture - 11:40 Methicillin resistant Staphylococcus aureus (MRSA) screening culture NEG NRG Streptococcus pyogenes antigen detection - 11/06/18 12:35 Streptococcus pyogenes antigen detection NEGATIVE NEGATIVE Bacterial throat culture - 11/06/18 12:35 Bacterial throat culture NBS NRG Encounters ACCT No. Visit Date/Time Discharge Status Pt. Type Provider Facility Loc./Unit Complaint [id number] 01/19/2015 10:35:00 01/19/2015 23:59:59 [facility] Outpatient MISAEL CASTELAN APRN [id number] 08/24/2014 10:13:00 08/24/2014 23:59:59 [facility] Outpatient MISAEL CASTELAN APRN [id number] 08/20/2013 10:48:00 08/20/2013 23:59:59 CLS Outpatient BRITTNI MCMAHON DO [id number] 11/06/2018 11:50:00 11/06/2018 13:40:00 DIS Outpatient FOREIGN TAVERAS APRN [facility] ER CONGESTION;CHEST PAIN; COUGH [id number] 06/04/2018 09:15:00 06/04/2018 23:59:59 CLS Outpatient YOBANI WALKER MD [facility] RAD FAMILY HX BREAST CANCER [id number] 05/15/2018 11:26:00 05/15/2018 17:20:00 DIS Outpatient YOBANI WALKER MD [facility] SDC DUB,INTRAUTERINE MASS [id number] 05/14/2018 05:49:00 05/14/2018 09:41:00 DIS Outpatient YOBANI WALKER MD [facility] PREOP DUB, INTRAUTERINE MASS [id number] 03/20/2018 13:38:00 03/20/2018 23:59:59 CLS Outpatient CHRIS ROJAS APRN [facility] RAD ABN HUMAN CHORIONIC GONADOTROPIN [id number] 07/22/2015 19:20:00 07/22/2015 19:53:00 DIS Emergency FOREIGN TAVERAS APRN [facility] ER SORE THROAT [id number] 03/08/2015 13:34:00 03/08/2015 16:17:00 DIS Emergency FOREIGN TAVERAS INTERIOR ASSEMBLIES INSTALLER [facility] ER VOMITING [id number] 03/20/2014 11:33:00 03/20/2014 15:02:00 DIS Emergency DARON SINGLETARY [facility] ER CHEST PAIN [id number] 05/31/2013 13:40:00 05/31/2013 15:20:00 DIS Emergency DARON SINGLETARY [facility] ER CHEST PAIN WHEEZING [id number] 03/30/2013 15:07:00 03/30/2013 23:59:59 CLS Outpatient [id number] 11/19/2018 15:00:00 11/19/2018 23:59:59 CLS [facility] [id number] 04/23/2018 13:40:00 Document Registration [id number] 04/16/2018 13:00:00 Document Registration [id number] 04/09/2018 13:20:00 Document Registration [id number] 04/02/2018 13:20:00 Document Registration [id number] 03/28/2018 15:00:00 Document Registration [id number] 03/12/2018 12:20:00 Document Registration [id number] 02/12/2018 15:40:00 Document Registration [id number] 02/05/2018 09:20:00 Document Registration [id number] 01/29/2018 09:30:00 Document Registration [id number] 07/22/2015 19:20:33 ACT Document Registration
--- NOTE | 2018-12-11 11:55 | ED Lower Extremity ---
General Chief Complaint: Lower Extremity Stated Complaint: FOOT INJ Nursing Triage Note: BOTTLE OF SOAP FELL ON TOP OF LEFT FOOT CUASING PAIN AND SWELLING. HAVE NOT TAKEN ANYTHING FOR THE PAIN. Nursing Sepsis Screen: No Definite Risk History of Present Illness Date Seen by Provider: Dec 11, 2018 Time Seen by Provider: 11:45 Initial Comments 28-year-old female presents for left foot pain. She states that she dropped a large, 1 L bottle of shampoo onto her foot last evening at approximately 2300. She reports that it immediately came painful and swollen. She has had nothing for the pain or swelling. She denies any previous histories of injury to her left foot. She is on the Depo-Provera shot. Onset: yesterday Pain/Injury Location: left foot Method of Injury: direct blow Allergies and Home Medications Allergies Coded Allergies: No Known Drug Allergies (Unverified , 05/14/18) Home Medications Medroxyprogesterone Acetate 150 Mg/1 Ml Syringe, 150 MG IM [id number] PRN for sched Prescribed by: YOBANI PETERSON on 05/15/18 1314 Patient Home Medication List Home Medication List Reviewed: Yes Review of Systems Constitutional: no symptoms reported, see HPI Musculoskeletal: see HPI, joint pain (left foot), joint swelling All Other Systems Reviewed Negative Unless Noted: Yes Past Naqjyhl-Pxrroh-Nubkpd Hx Past Med/Social Hx: Reviewed Nursing Past Med/Soc Hx Patient Social History Alcohol Use: Denies Use Recreational Drug Use: No Smoking Status: Never a Smoker Recent Foreign Travel: No Contact w/Someone Who Travel: No Recent Infectious Disease Expo: No Recent Hopitalizations: No Immunizations Up To Date Tetanus Booster (TDap): Less than 5yrs Seasonal Allergies Seasonal Allergies: Yes Past Medical History Surgeries: Yes (D&C) Respiratory: No Cardiac: No Neurological: Yes Headaches /Migraines : No Reproductive Disorders: Yes (DUB, UTERINE MASS) Female Reproductive Disorders: Menstrual Problems Sexually Transmitted Disease: No HIV/AIDS: No Gastrointestinal: No Musculoskeletal: No Endocrine: No Loss of Vision: Denies Hearing Impairment: Denies Cancer: No Psychosocial: No Integumentary: No Blood Disorders: No Adverse Reaction/Blood Tranf: No (N/A) Family Medical History No Pertinent Family Hx Physical Exam Vital Signs Vital Signs - First Documented 12/11/18 11:25 Temp 98.5 Pulse 96 Resp 16 B/P (MAP) 116/66 (83) Pulse Ox 98 O2 Delivery Room Air Capillary Refill : Less Than 3 Seconds Height, Weight, BMI Height: 5'6.00" Weight: 115lbs. 0.0oz. 52.444245pd; 47.6 BMI Method:Stated General Appearance: WD/WN, no apparent distress Cardiovascular: normal peripheral pulses, regular rate, rhythm, no murmur Respiratory: chest non-tender, lungs clear, normal breath sounds Feet: right foot non-tender, right foot normal inspection, right foot normal range of motion, right foot no evidence of injury; left foot bone tenderness ( fourth and fifth metatarsals), left foot ecchymosis, left foot limited range of motion (third fourth and fifth toes, secondary to pain), left foot pain (dorsum , lateral aspect), left foot soft tissue tenderness, left foot swelling Neurologic/Tendon: normal sensation, normal motor functions, normal tendon functions Neurologic/Psychiatric: no motor/sensory deficits, alert, normal mood/affect, oriented x 3 Skin: normal color, warm/dry Progress/Results/Core Measures Results/Orders My Orders Orders - SRIKANTH ROWLEY Foot, Left, 3 Views (12/11/18 11:44) Acetaminophen Tablet/Caplet (Tylenol T (12/11/18 11:56) Vital Signs/I&O 12/11/18 12/11/18 11:25 12:30 Temp 98.5 98.5 Pulse 96 96 Resp 16 16 B/P (MAP) 116/66 (83) 116/66 (83) Pulse Ox 98 98 O2 Delivery Room Air Blood Pressure Mean: 83 Diagnostic Imaging Diagonstic Imaging: Xray Plain Films/CT/US/NM/MRI: other (foot) Comments NAME: JAMA VALADEZ MED REC#: [id number] PT STATUS: REG ER : 1990 PHYSICIAN: SRIKANTH ROWLEY ADMIT DATE: 12/11/18/ER Draft Date of Exam:12/11/18 FOOT, LEFT, 3 VIEWS INDICATION: Bruising and swelling to left foot. TIME OF EXAM: 12:06 p.m. FINDINGS: 3 views of the left foot were obtained. Metatarsals are intact. Phalanges are intact. Midfoot and hindfoot are unremarkable. No fractures are seen. IMPRESSION: No acute bony abnormality is detected. Dictated on workstation # [id number] Dict: 12/11/18 1209 Trans: 12/11/18 1217 [id number] Interpreted by: SYDNEY SANDERS MD Electronically signed by: Reviewed: Reviewed by Me Departure Impression Primary Impression: Contusion of left foot Qualified Codes: S90.32XA - Contusion of left foot, initial encounter Disposition: HOME, SELF-CARE Condition: Improved Departure-Patient Inst. Decision time for Depature: 12:20 Referrals: NO,LOCAL PHYSICIAN (PCP/Family) Primary Care Physician Patient Instructions: Contusion (DC) Add. Discharge Instructions: Ice pack to left foot 20 minutes every 2 hours while awake. Elevate for 20 minutes every 2 hours as tolerated. Use Gabriel wrap for the next 2-3 days. Activity and shoe her comfortable. You may alternate between Tylenol 650 mg and ibuprofen 600 mg every 4 hours for pain and swelling. Follow-up with your primary care provider in 2-3 days if symptoms are not improving or worsen. Return to the emergency department for new, urgent health care matters. All discharge instructions reviewed with patient and/or family. Voiced understanding. SRIKANTH ROWLEY Dec 11, 2018 11:55
[2018-12-11] MEDS ORDERED: ACETAMINOPHEN 325 MG TABLET PO STA (11:56)
--- NOTE | 2018-12-11 12:17 | Diagnostic Imaging Report ---
INDICATION: Bruising and swelling to left foot. TIME OF EXAM: 12:06 p.m. FINDINGS: 3 views of the left foot were obtained. Metatarsals are intact. Phalanges are intact. Midfoot and hindfoot are unremarkable. No fractures are seen. IMPRESSION: No acute bony abnormality is detected. Dictated by: Dictated on workstation # [id number]
[2018-12-11 12:30] VITALS: BP 116/66
== END 2018-12-11 12:30 | disposition home or self-care (01) ==
LOC: EDUNIT# 11:21 → ER 11:22
DX: S90.32XA Contusion of left foot, initial encounter (principal); G43.909 Migraine, unspecified, not intractable, without status migrainosus; Z87.448 Personal history of other diseases of urinary system; Z98.890 Other specified postprocedural states; W20.8XXA Other cause of strike by thrown, projected or falling object, initial encounter
CPT/HCPCS: 73630

== ENCOUNTER 2019-06-17 10:54 | Emergency (ER) | payer MEDICAID, OTHER ==
[~2019-06-17] VITALS: Ht 167.6 cm; Wt 49.4 kg
[2019-06-17] MEDS ORDERED: LACTATED RINGERS 1,000 ML IV ONE (11:07)
[2019-06-17 11:17] LABS: BASOPHILS % (AUTO) 0 % (0-10); EOSINOPHILS # (AUTO) 0.1 10^3/uL (0.0-0.3); EOSINOPHILS % (AUTO) 1 % (0-10); HEMATOCRIT 42 % (35-52); HEMOGLOBIN 13.5 G/DL (11.5-16.0); LYMPHOCYTES # (AUTO) 1.5 X 10^3 (1.0-4.0); LYMPHOCYTES % (AUTO) 20 % (12-44); MEAN CORPUSCULAR HEMOGLOBIN 29 PG (25-34); MEAN CORPUSCULAR HGB CONC 32 G/DL (32-36); MEAN CORPUSCULAR VOLUME 90 FL (80-99); MEAN PLATELET VOLUME 10.3 FL (7.4-10.4); MONOCYTES # (AUTO) 0.8 X 10^3 (0.0-1.0); MONOCYTES % (AUTO) 10 % (0-12); NEUTROPHILS # (AUTO) 5.3 X 10^3 (1.8-7.8); NEUTROPHILS % (AUTO) 69 % (42-75); PLATELET COUNT 223 10^3/uL (130-400); WHITE BLOOD COUNT 7.6 10^3/uL (4.3-11.0)
--- NOTE | 2019-06-17 11:17 | ED GI ---
General Chief Complaint: Abdominal/GI Problems Stated Complaint: N/V/D; Nursing Triage Note: PT AMBULATE TO ROOM 10 WITH C/O N/V X1, DIARRHEA X4 ALL BEGINNING THIS MORNING. PT STATES SHE IS AND HAD FIRST APPT WITH LOYOLA THIS SUNDAY. Sepsis Screen: No Definite Risk Source of Information: Patient Exam Limitations: No Limitations History of Present Illness Date Seen by Provider: Jun 17, 2019 Time Seen by Provider: 11:10 Initial Comments at approximately 9 weeks 0 days with LMP of 04/15/19 presents with one day nausea vomiting and diarrhea as well as runny nose. No fevers chills cough chest pain or abdominal pain. No significant history of medical history or history of abdominal surgeries. No trauma. No blood in the stool. She's vomited 4 times and had 3 bouts of diarrhea. She has not tried taking anything for it. Allergies and Home Medications Allergies Coded Allergies: No Known Drug Allergies (Unverified , 05/14/18) Home Medications Medroxyprogesterone Acetate 150 Mg/1 Ml Syringe, 150 MG IM [id number] PRN for sched Prescribed by: YOBANI PETERSON on 05/15/18 1314 Patient Home Medication List Home Medication List Reviewed: Yes Review of Systems Review of Systems Constitutional: No chills, No diaphoresis EENTM: No Blurred Vision, No Double Vision Respiratory: Denies Cough, Denies Shortness of Air Cardiovascular: Denies Chest Pain, Denies Edema Gastrointestinal: Denies Constipated; Diarrhea, Nausea, Vomiting Genitourinary: Denies Discharge, Denies Drainage Musculoskeletal: No back pain, No joint pain Skin: No pruritus, No rash Past Nqvfeqt-Qufvvl-Dynnre Hx Patient Social History Alcohol Use: Denies Use Recreational Drug Use: No Smoking Status: Never a Smoker Recent Foreign Travel: No Contact w/Someone Who Travel: No Recent Infectious Disease Expo: No Recent Hopitalizations: No Physical Abuse: No Sexual Abuse: No Mistreated: No Fear: No Immunizations Up To Date Tetanus Booster (TDap): Less than 5yrs Seasonal Allergies Seasonal Allergies: Yes Past Medical History Surgeries: Yes (D&C) Respiratory: No Cardiac: No Neurological: Yes Headaches /Migraines : Yes Reproductive Disorders: Yes (DUB, UTERINE MASS) Female Reproductive Disorders: Menstrual Problems Sexually Transmitted Disease: No HIV/AIDS: No Genitourinary: No Gastrointestinal: No Musculoskeletal: No Endocrine: No HEENT: No Loss of Vision: Denies Hearing Impairment: Denies Cancer: No Psychosocial: No Integumentary: No Blood Disorders: No Adverse Reaction/Blood Tranf: No (N/A) Family Medical History No Pertinent Family Hx Physical Exam Vital Signs Vital Signs - First Documented 06/17/19 11:01 Temp 97.8 Pulse 95 Resp 16 B/P (MAP) 132/86 (101) Pulse Ox 100 O2 Delivery Room Air Capillary Refill : Less Than 3 Seconds Height/Weight/BMI Height: 5'6.00" Weight: 109lbs. 0.0oz. 49.738035rz; 47.6 BMI Method:Stated General Appearance: no apparent distress, thin HEENT: PERRL/EOMI, pharynx normal Neck: full range of motion, normal inspection Respiratory: normal breath sounds, no respiratory distress, no accessory muscle use Cardiovascular: normal peripheral pulses, regular rate, rhythm Gastrointestinal: normal bowel sounds, non tender, soft Neurologic/Psychiatric: alert, normal mood/affect, oriented x 3 Skin: normal color, warm/dry Progress/Results/Core Measures Results/Orders Lab Results Laboratory Tests Test 06/17/19 11:06 06/17/19 11:16 Range/Units White Blood Count 7.6 4.3-11.0 10^3/uL Red Blood Count 4.65 4.35-5.85 10^6/uL Hemoglobin 13.5 11.5-16.0 G/DL Hematocrit 42 35-52 % Mean Corpuscular Volume 90 80-99 FL Mean Corpuscular Hemoglobin 29 25-34 PG Mean Corpuscular Hemoglobin Concent 32 32-36 G/DL Red Cell Distribution Width 13.0 10.0-14.5 % Platelet Count 223 130-400 10^3/uL Mean Platelet Volume 10.3 7.4-10.4 FL Neutrophils (%) (Auto) 69 42-75 % Lymphocytes (%) (Auto) 20 12-44 % Monocytes (%) (Auto) 10 0-12 % Eosinophils (%) (Auto) 1 0-10 % Basophils (%) (Auto) 0 0-10 % Neutrophils # (Auto) 5.3 1.8-7.8 X 10^3 Lymphocytes # (Auto) 1.5 1.0-4.0 X 10^3 Monocytes # (Auto) 0.8 0.0-1.0 X 10^3 Eosinophils # (Auto) 0.1 0.0-0.3 10^3/uL Basophils # (Auto) 0.0 0.0-0.1 10^3/uL Sodium Level 141 135-145 MMOL/L Potassium Level 3.9 3.6-5.0 MMOL/L Chloride Level 112 H 98-107 MMOL/L Carbon Dioxide Level 20 L 21-32 MMOL/L Anion Gap 9 5-14 MMOL/L Blood Urea Nitrogen 8 7-18 MG/DL Creatinine 0.64 0.60-1.30 MG/DL Estimat Glomerular Filtration Rate > 60 BUN/Creatinine Ratio 13 Glucose Level 87 70-105 MG/DL Calcium Level 9.7 8.5-10.1 MG/DL Corrected Calcium 9.3 8.5-10.1 MG/DL Magnesium Level 2.0 1.6-2.4 MG/DL Total Bilirubin 0.3 0.1-1.0 MG/DL Aspartate Amino Transf (AST/SGOT) 18 5-34 U/L Alanine Aminotransferase (ALT/SGPT) 18 0-55 U/L Alkaline Phosphatase 94 40-136 U/L Total Protein 8.4 H 6.4-8.2 GM/DL Albumin 4.5 3.2-4.5 GM/DL Urine Color YELLOW Urine Clarity CLEAR Urine pH 5 5-9 Urine Specific Gail 1.030 H 1.016-1.022 Urine Protein NEGATIVE NEGATIVE Urine Glucose (UA) NEGATIVE NEGATIVE Urine Ketones NEGATIVE NEGATIVE Urine Nitrite NEGATIVE NEGATIVE Urine Bilirubin NEGATIVE NEGATIVE Urine Urobilinogen NORMAL NORMAL MG/DL Urine Leukocyte Esterase NEGATIVE NEGATIVE Urine RBC (Auto) 2+ H NEGATIVE Urine RBC RARE /HPF Urine WBC 5-10 H /HPF Urine Squamous Epithelial Cells 25-50 H /HPF Urine Crystals NONE /LPF Urine Bacteria LARGE H /HPF Urine Casts NONE /LPF Urine Mucus NEGATIVE /LPF Urine Culture Indicated YES Urine Test POSITIVE NEGATIVE My Orders Orders - YENNY CANELA Cbc With Automated Diff (06/17/19 11:07) Comprehensive Metabolic Panel (06/17/19 11:07) Magnesium (06/17/19 11:07) Ua Culture If Indicated (06/17/19 11:07) Ed Iv/Invasive Line Start (06/17/19 11:07) Lactated Ringers (Lr 1000 Ml Iv Solution (06/17/19 11:07) Hcg,Qualitative Urine (06/17/19 11:17) Ondansetron Injection (Zofran Injectio (06/17/19 11:30) Urine Culture (06/17/19 11:16) Medications Given in ED Current Medications Medications Dose Ordered Sig/Oriana Route Start Time Stop Time Status Last Admin Dose Admin Lactated Ringer's 1,000 ml @ 0 mls/hr Q0M ONCE IV 06/17/19 11:07 06/17/19 11:13 DC 06/17/19 11:21 999 MLS/HR Ondansetron HCl 4 mg ONCE ONCE IVP 06/17/19 11:30 06/17/19 11:31 DC 06/17/19 11:25 4 MG Vital Signs/I&O 06/17/19 11:01 Temp 97.8 Pulse 95 Resp 16 B/P (MAP) 132/86 (101) Pulse Ox 100 O2 Delivery Room Air Blood Pressure Mean: 101 Progress Progress Note : Time: 12:04 Progress Note Concern for viral gastroenteritis and colitis. Zofran for her nausea check some labs give her a liter of saline and check a urinalysis. Urinalysis looks to be contaminated. She's not having any urinary symptoms so we will just culture it and wait for results. Departure Impression Primary Impression: Gastroenteritis and colitis, viral Additional Impression: Qualified Codes: Z3A.09 - 9 weeks gestation of Disposition: 01 HOME, SELF-CARE Condition: Stable Departure-Patient Inst. Decision time for Depature: 12:06 Referrals: NO,LOCAL PHYSICIAN (PCP) Primary Care Physician MARVEL LOYOLA DO Patient Instructions: Viral Gastroenteritis, Adult (DC) Add. Discharge Instructions: Start with a liquid diet. Advance your diet as you're tolerating it. If you're still having diarrhea then use soft, bland foods such as bananas, rice, applesauce and toast. Zofran 1 tablet under the tongue every 6 hours as needed for nausea or vomiting. Keep your scheduled follow-up appointment later this week with Dr. Loyola. All discharge instructions reviewed with patient and/or family. Voiced understanding. Scripts Ondansetron (Ondansetron Odt) 4 Mg Tab.rapdis 4 MG PO Q6H PRN for NAUSEA/VOMITING, #8 TAB 0 Refills Prov: YENNY CANELA 06/17/19 YENNY CANELA Jun 17, 2019 11:17
[2019-06-17 11:20] LABS: BILIRUBIN,URINE NEGATIVE (NEGATIVE); CLARITY,URINE CLEAR; COLOR,URINE YELLOW; GLUCOSE, URINE (UA) NEGATIVE (NEGATIVE); KETONES,URINE NEGATIVE (NEGATIVE); LEUKOCYTE ESTERASE ,URINE NEGATIVE (NEGATIVE); NITRITE,URINE NEGATIVE (NEGATIVE); PH,URINE 5 (5-9); PROTEIN,URINE NEGATIVE (NEGATIVE); UROBILINOGEN,URINE NORMAL (NORMAL)
[2019-06-17 11:29] LABS: BACTERIA,URINE LARGE /HPF; RBC,URINE RARE /HPF; SQUAMOUS EPITHELIAL CELL,UR 25-50 /HPF
[2019-06-17] MEDS ORDERED: ONDANSETRON 4 MG/2 ML (SDV) Z0FRAN IVP ONE (11:30)
[2019-06-17 11:37] LABS: ALANINE AMINOTRANSFERASE 18 U/L (0-55); ALBUMIN 4.5 GM/DL (3.2-4.5); ALKALINE PHOSPHATASE 94 U/L (40-136); BILIRUBIN,TOTAL 0.3 MG/DL (0.1-1.0); BUN/CREATININE RATIO 13; CALCIUM 9.7 MG/DL (8.5-10.1); CARBON DIOXIDE 20 MMOL/L (21-32); CHLORIDE 112 MMOL/L (98-107); CREATININE SERUM 0.64 MG/DL (0.60-1.30); GFR ESTIMATED > 60; GLUCOSE 87 MG/DL (70-105); POTASSIUM 3.9 MMOL/L (3.6-5.0); SODIUM 141 MMOL/L (135-145); TOTAL PROTEIN 8.4 GM/DL (6.4-8.2)
--- NOTE | 2019-06-17 12:05 | NUR ---
PT CONTINUE C/O NAUSEA. PROVIDER NOTIFIED.
[2019-06-17] MEDS ORDERED: ONDA4TAB11 PO (12:08)
[2019-06-17] MEDS ORDERED: PROMETHAZINE INJ 25 MG/ML (PHENERGAN) AMP IVP ONE (12:15)
[2019-06-17] MEDS ORDERED: PROM25TA14 PO (12:15)
--- NOTE | 2019-06-17 13:00 | NUR ---
PT REPORTS NAUSEA HAS DECREASED. PROVIDER NOTIFIED.
[2019-06-17 13:02] VITALS: BP 131/80
== END 2019-06-17 13:02 | disposition home or self-care (01) ==
LOC: EDUNIT# 10:54 → ER 10:55
DX: O98.811 Other maternal infectious and parasitic diseases complicating pregnancy, first trimester (principal); A08.4 Viral intestinal infection, unspecified; O99.351 Diseases of the nervous system complicating pregnancy, first trimester; G43.909 Migraine, unspecified, not intractable, without status migrainosus; Z3A.09 9 weeks gestation of pregnancy
CPT/HCPCS: 36415; 80053; 81000; 83735; 84703; 85025; 87088

== ENCOUNTER → 2019-07-23 | Outpatient (CLI) | payer MEDICAID ==
[~2019-07-23] MED LIST changes: +ONDA4TAB11 PO; +PROM25TA14 PO
== END ==
LOC: LABNPT 16:13
PROVIDERS: ATTEND Obstetrics & Gynecology
DX: Z91.89 Other specified personal risk factors, not elsewhere classified (principal); Z3A.10 10 weeks gestation of pregnancy
CPT/HCPCS: 84702

== ENCOUNTER 2019-10-07 08:43 | Emergency (ER) | payer MEDICAID ==
[~2019-10-07] VITALS: Ht 168 cm; Wt 51.0 kg
--- NOTE | 2019-10-07 09:15 | ED GU-Female ---
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 Patient reports that just started this morning as heavy with clots. Patient is unsure when her last menstrual period was. Patient has been on the Depakote shot for a few years. She is having some lower abdominal pelvic cramping. Mild dizziness. No other systemic complaints Allergies and Home Medications Allergies Coded Allergies: No Known Drug Allergies (Unverified , 05/14/18) Home Medications Medroxyprogesterone Acetate 150 Mg/1 Ml Syringe, 150 MG IM [id number] PRN for sche d Prescribed by: YOBANI PETERSON on 05/15/18 1314 Ondansetron 4 Mg Tab.rapdis, 4 MG PO Q6H PRN for NAUSEA/VOMITING Prescribed by: YENNY CANELA on 06/17/19 1208 Promethazine HCl 25 Mg Tablet, 25 MG PO Q6H PRN for NAUSEA/VOMITING Prescribed by: YENNY CANELA on 06/17/19 1215 Patient Home Medication List Home Medication List Reviewed: Yes Review of Systems Review of Systems Constitutional: No chills, No fever Respiratory: No cough, No short of breath Cardiovascular: No chest pain, No palpitations Gastrointestinal: see HPI Genitourinary: see HPI Musculoskeletal: no symptoms reported Skin: no symptoms reported Past Ztailse-Oiqwbd-Fnzzts Hx Past Med/Social Hx: Reviewed Nursing Past Med/Soc Hx Patient Social History Recent Hopitalizations: No Immunizations Up To Date Tetanus Booster (TDap): Less than 5yrs Seasonal Allergies Seasonal Allergies: Yes Past Medical History Surgeries: Yes (D&C) Respiratory: No Cardiac: No Neurological: Yes Headaches /Migraines Reproductive Disorders: Yes (DUB, UTERINE MASS) Female Reproductive Disorders: Menstrual Problems Sexually Transmitted Disease: No HIV/AIDS: No Genitourinary: No Gastrointestinal: No Musculoskeletal: No Endocrine: No HEENT: No Loss of Vision: Denies Hearing Impairment: Denies Cancer: No Psychosocial: No Integumentary: No Blood Disorders: No Adverse Reaction/Blood Tranf: No (N/A) Family Medical History No Pertinent Family Hx Physical Exam Vital Signs Vital Signs - First Documented 10/07/19 09:00 Temp 36.7 Pulse 91 Resp 20 B/P (MAP) 119/84 (96) Pulse Ox 98 O2 Delivery Room Air Capillary Refill : Height, Weight, BMI Height: 5'6.00" Weight: 109lbs. 0.0oz. 49.606386ab; 47.6 BMI Method:Stated General Appearance: WD/WN, no apparent distress Cardiovascular: normal peripheral pulses, regular rate, rhythm Respiratory: chest non-tender, lungs clear Gastrointestinal: normal bowel sounds, soft, other (mild tenderness to lower abdomen) Pelvic: other (exam deferred) Back: normal inspection Extremities: non-tender Neurologic/Psychiatric: normal mood/affect, oriented x 3 Skin: normal color, warm/dry Progress/Results/Core Measures Suspected Sepsis SIRS Temperature: Pulse: Respiratory Rate: Blood Pressure / Mean: Results/Orders Lab Results Laboratory Tests Test 10/07/19 09:35 Range/Units Hemoglobin 12.4 11.5-16.0 G/DL Hematocrit 38 35-52 % My Orders Orders - RANULFO WELCH DO Hemoglobin And Hematocrit (10/07/19 09:11) Vital Signs/I&O 10/07/19 09:00 Temp 36.7 Pulse 91 Resp 20 B/P (MAP) 119/84 (96) Pulse Ox 98 O2 Delivery Room Air Capillary Refill : Departure Impression Primary Impression: Heavy menses Qualified Codes: N92.0 - Excessive and frequent menstruation with regular cycle Additional Impression: Menses painful Disposition: 01 HOME, SELF-CARE Condition: Stable Departure-Patient Inst. Referrals: NO,LOCAL PHYSICIAN (PCP/Family) Primary Care Physician Patient Instructions: Menstrual Cramps, Heavy Periods (DC) RANULFO WELCH DO Oct 07, 2019 09:15 POS
[2019-10-07 09:44] LABS: HEMOGLOBIN 12.4 G/DL (11.5-16.0)
[2019-10-07 10:08] VITALS: BP 105/70
--- OUTSIDE RECORDS SUMMARY | 2019-11-01 06:32 | XMS REPORT ---
Author Author Nilam Palafox Organization [facility] Address [address] [place] [address] Care Team Providers Care Pet Training Instructor Name Role Phone MISAEL Palafox Unavailable PROBLEMS Type Condition ICD9-CM Code IVD07-EQ Code Onset Dates Condition S tatus SNOMED Code Problem Seasonal allergic rhinitis, unspecified trigger J3 0.2 Active [id number] ALLERGIES No Information ENCOUNTERS Encounter Location Date Diagnosis [facility] [id number] [place] [address] Jun, [facility] [address] [address] Feb, Encounter for test Z32.00 [facility] [address] [id number] [place] [address] Nov, Encounter for Depo-Provera c ontraception Z30.42 [place] [address] [id number] [address] [place] [address] May, [facility] [address] [id number] [address] [place] [address] Apr, Vaginal bleeding N93.9 [facility] [address] [id number] [address] [place] [address] Apr, [facility] [address] [id number] [address] [place] [phone] Apr, Abnormal human chorionic manfred adotropin (hCG) R79.9 [facility] [address] [facility] [id number] [address] [place] [address] Apr, Paroxysmal nerve pain M79.2 [facility] [address] [id number] [address] [place] [address] Apr, Abnormal human chorionic manfred adotropin (hCG) R79.9 [facility] [address] [id number] [address] [place] [address] Apr, Abnormal human chorionic manfred adotropin (hCG) R79.9 [facility] [address] [id number] [address] [place] [address] Apr, [facility] [address] [id number] [address] [place] [address] Apr, Abnormal human chorionic manfred adotropin (hCG) R79.9 [facility] [address] [id number] [address] [place] [address] Apr, Abnormal human chorionic manfred adotropin (hCG) R79.9 [facility] [address] [id number] [address] [place] [address] March, Abnormal human chorionic manfred adotropin (hCG) R79.9 [facility] [address] [id number] [address] [place] [address] March, Abnormal human chorionic manfred adotropin (hCG) R79.9 [facility] [address] [id number] [address] [place] [address] March, Abnormal human chorionic manfred adotropin (hCG) R79.9 [facility] [address] [id number] [address] [place] [address] March, Abnormal human chorionic manfred adotropin (hCG) R79.9 [facility] [address] [id number] [address] [place] [address] March, Abnormal human chorionic manfred adotropin (hCG) R79.9 [facility] [address] [id number] [address] [place] [id number] March, [facility] [address] [id number] [address] [place] [phone] March, Abnormal human chorionic manfred adotropin (hCG) R79.9 [facility] [address] [id number] [address] [place] [address] March, Miscarriage O03.9 [facility] [address] [id number] [address] [place] [address] March, [facility] [address] [id number] [address] [place] [address] March, Miscarriage O03.9 [facility] [address] [id number] [address] [place] [address] March, Miscarriage O03.9 [facility] [address] [id number] [address] [place] [address] Feb, Miscarriage O03.9 [facility] [address] [id number] [address] [place] [address] Feb, Miscarriage O03.9 [facility] [address] [facility] [id number] [address] [place] [address] Feb, Miscarriage O03.9 [facility] [address] [id number] [address] [place] [address] Feb, Abnormal human chorionic manfred adotropin (hCG) R79.9 [facility] [address] [facility] [id number] [address] [place] [address] Feb, Abnormal human chorionic manfred adotropin (hCG) R79.9 [facility] [address] [id number] [address] [place] [address] Feb, Abnormal human chorionic manfred adotropin (hCG) R79.9 [facility] [address] [id number] [address] [place] [address] Feb, Abnormal human chorionic manfred adotropin (hCG) R79.9 [facility] [address] [facility] [id number] [address] [place] [address] Feb, confirmed by posit oli urine test Z32.01 [facility] [address] [facility] [id number] [address] [place] [address] Jan, confirmed by posit oli urine test Z32.01 [facility] [address] [facility] [id number] [address] [place] [address] 27 Jan, 2018 Encounter for counseling reg arding contraception Z30.09 ; Encounter for initial prescription of injectable contraceptive Z30.013 ; Encounter to establish care Z76.89 ; Seasonal allergic rhinitis, unspecified trigger J30.2 and confirmed by positive urine test Z32.01 [place] [address] [facility] [id number] [address] [place] [address] Feb, Encounter for Depo-Provera c ontraception Z30.42 [place] [address] [facility] [id number] [address] [place] [address] Dec, Encounter for Depo-Provera c ontraception Z30.42 [place] [address] [address] [id number] [address] [place] [address] Sep, Encounter for Depo-Provera c ontraception Z30.42 [place] [address] [facility] [id number] [address] [place] [address] Sep, Well woman exam Z01.419 and Breast cancer screening Z12.39 [place] [address] [facility] [id number] [address] [place] [address] Jun, Encounter for contraceptive management V25.9 [place] [address] [facility] [id number] [address] [place] [address] Apr, Encounter for contraceptive management V25.9 [place] [address] [facility] [id number] [address] [place] [address] 30 Jan, 2015 [place] [address] [facility] [id number] [address] [place] [address] Jan, [place] [address] [facility] [id number] [address] [place] [phone] Jan, [place] [address] [facility] [id number] [address] [place] [phone] 16 Jan, 2015 [facility] [address] [id number] [address] [place] [id number] 16 Jan, 2015 [facility] [address] [id number] [address] [place] [phone] Aug, [facility] [address] [id number] [address] [place] [address] Aug, [facility] [address] [id number] [address] [place] [phone] Aug, [facility] [address] [id number] [address] [place] [phone] Aug, [facility] [address] [id number] [address] [place] [id number] Jul, [facility] [address] [id number] [address] [place] [address] Jul, [facility] [address] [id number] [address] [place] [address] Aug, [facility] [address] [id number] [address] [place] [address] Aug, [facility] [address] [id number] [address] [place] [address] Aug, [facility] [address] [id number] [address] [place] [address] Aug, [facility] [address] [id number] [address] [place] [phone] Oct, [facility] [address] [id number] [address] [place] [address] Sep, [facility] [address] [id number] [address] [place] [address] Sep, IMMUNIZATIONS No Known Immunizations SOCIAL HISTORY Never Assessed REASON FOR VISIT PLAN OF CARE VITAL SIGNS MEDICATIONS Unknown Medications RESULTS No Results PROCEDURES No Known procedures INSTRUCTIONS MEDICATIONS ADMINISTERED No Known Medications MEDICAL (GENERAL) HISTORY Type Description Date Medical History asthma Surgical History DN 2017
--- OUTSIDE RECORDS SUMMARY | 2019-11-01 06:32 | XMS REPORT ---
Author Author Nilam Palafox Organization [facility] Address [address] [place] [address] Care Team Providers Care Senior Ui Ux Developer Name Role Phone MISAEL Palafox Unavailable PROBLEMS Type Condition ICD9-CM Code XRE12-JZ Code Onset Dates Condition S tatus SNOMED Code Problem Seasonal allergic rhinitis, unspecified trigger J3 0.2 Active [id number] ALLERGIES No Information ENCOUNTERS Encounter Location Date Diagnosis [facility] [address] [id number] [address] [place] [id number] Jun, [facility] [address] [phone] Feb, Encounter for test Z32.00 [facility] [address] [id number] [address] [place] [address] Nov, Encounter for Depo-Provera c ontraception Z30.42 [place] [address] [address] [id number] [address] [place] [address] May, [facility] [address] [id number] [address] [place] [address] Apr, Vaginal bleeding N93.9 [facility] [address] [id number] [address] [place] [address] Apr, [facility] [address] [id number] [address] [place] [address] Apr, Abnormal human chorionic manfred adotropin (hCG) R79.9 [facility] [address] [facility] [id number] [address] [place] [phone] Apr, Paroxysmal nerve pain M79.2 [facility] [address] [id number] [address] [place] [address] Apr, Abnormal human chorionic manfred adotropin (hCG) R79.9 [facility] [address] [id number] [address] [place] [address] Apr, Abnormal human chorionic manfred adotropin (hCG) R79.9 [facility] [address] [id number] [address] [place] [address] Apr, [facility] [address] [id number] [address] [place] [phone] Apr, Abnormal human chorionic manfred adotropin (hCG) R79.9 [facility] [address] [id number] [address] [place] [phone] Apr, Abnormal human chorionic manfred adotropin (hCG) R79.9 [facility] [address] [id number] [address] [place] [address] March, Abnormal human chorionic manfred adotropin (hCG) R79.9 [facility] [address] [id number] [address] [place] [phone] March, Abnormal human chorionic manfred adotropin (hCG) R79.9 [facility] [address] [id number] [address] [place] [phone] March, Abnormal human chorionic manfred adotropin (hCG) R79.9 [facility] [address] [id number] [address] [place] [address] March, Abnormal human chorionic manfred adotropin (hCG) R79.9 [facility] [address] [id number] [address] [place] [phone] March, Abnormal human chorionic manfred adotropin (hCG) R79.9 [facility] [address] [id number] [address] [place] [address] March, [facility] [address] [id number] [address] [place] [phone] March, Abnormal human chorionic manfred adotropin (hCG) R79.9 [facility] [address] [id number] [address] [place] [id number] March, Miscarriage O03.9 [facility] [address] [id number] [address] [place] [phone] March, [facility] [address] [id number] [address] [place] [phone] March, Miscarriage O03.9 [facility] [address] [id number] [address] [place] [phone] March, Miscarriage O03.9 [facility] [address] [id number] [address] [place] [id number] Feb, Miscarriage O03.9 [facility] [address] [id number] [address] [place] [phone] Feb, Miscarriage O03.9 [facility] [address] [facility] [id number] [address] [place] [phone] Feb, Miscarriage O03.9 [facility] [address] [id number] [address] [place] [phone] Feb, Abnormal human chorionic manfred adotropin (hCG) R79.9 [facility] [address] [facility] [id number] [address] [place] [phone] Feb, Abnormal human chorionic manfred adotropin (hCG) R79.9 [facility] [address] [id number] [address] [place] [phone] Feb, Abnormal human chorionic manfred adotropin (hCG) R79.9 [facility] [address] [id number] [address] [place] [address] Feb, Abnormal human chorionic manfred adotropin (hCG) R79.9 [facility] [address] [facility] [id number] [address] [place] [phone] Feb, confirmed by posit oli urine test Z32.01 [facility] [address] [facility] [id number] [address] [place] [address] Jan, confirmed by posit oli urine test Z32.01 [facility] [address] [facility] [id number] [address] [place] [address] 27 Jan, 2018 Encounter for counseling reg arding contraception Z30.09 ; Encounter for initial prescription of injectable contraceptive Z30.013 ; Encounter to establish care Z76.89 ; Seasonal allergic rhinitis, unspecified trigger J30.2 and confirmed by positive urine test Z32.01 [place] [address] [facility] [id number] [address] [place] [address] Feb, Encounter for Depo-Provera c ontraception Z30.42 [place] [address] [facility] [id number] [address] [place] [address] Dec, Encounter for Depo-Provera c ontraception Z30.42 [place] [address] [place] [id number] [address] [place] [address] Sep, Encounter for Depo-Provera c ontraception Z30.42 [place] [address] [facility] [id number] [address] [place] [address] Sep, Well woman exam Z01.419 and Breast cancer screening Z12.39 [place] [address] [facility] [id number] [address] [place] [address] Jun, Encounter for contraceptive management V25.9 [place] [address] [facility] [id number] [address] [place] [address] Apr, Encounter for contraceptive management V25.9 [place] [address] [facility] [id number] [address] [place] [address] 30 Jan, 2015 [place] [address] [facility] [id number] [address] [place] [address] Jan, [place] [address] [facility] [id number] [address] [place] [address] Jan, [place] [address] [facility] [id number] [address] [place] [id number] 16 Jan, 2015 [facility] [address] [id number] [address] [place] [phone] 16 Jan, 2015 [facility] [address] [id number] [address] [place] [address] Aug, [facility] [address] [id number] [address] [place] [address] Aug, [facility] [address] [id number] [address] [place] [address] Aug, [facility] [address] [id number] [address] [place] [address] Aug, [facility] [address] [id number] [address] [place] [phone] Jul, [facility] [address] [id number] [address] [place] [phone] Jul, [facility] [address] [id number] [address] [place] [address] Aug, [facility] [address] [id number] [address] [place] [address] Aug, [facility] [address] [id number] [address] [place] [phone] Aug, [facility] [address] [id number] [address] [place] [address] Aug, [facility] [address] [id number] [address] [place] [phone] Oct, [facility] [address] [id number] [address] [place] [id number] Sep, [facility] [address] [id number] [address] [place] [phone] Sep, IMMUNIZATIONS No Known Immunizations SOCIAL HISTORY Never Assessed REASON FOR VISIT PLAN OF CARE VITAL SIGNS MEDICATIONS Unknown Medications RESULTS No Results PROCEDURES No Known procedures INSTRUCTIONS MEDICATIONS ADMINISTERED No Known Medications MEDICAL (GENERAL) HISTORY Type Description Date Medical History asthma Surgical History DN 2017
--- OUTSIDE RECORDS SUMMARY | 2019-11-01 06:33 | XMS REPORT | Continuity of Care Document ---
Author Organization Unknown Address Unknown Phone Unavailable Allergies Active Description Code Type Severity Reaction Onset Reported/Identified Relationship to Patient Clinical Status Yes No Known Drug Allergies [id number] Drug Allergy Unknown N/A 05/14/2018 Medications There is no data. Problems Date Dx Coded Attending Type Code Diagnosis Diagnosed By 09/26/2011 BRITTNI MCMAHON DO V16.3 FAMILY HISTORY OF MALIGNANT NEOPLASM OF BREAST 09/26/2011 BRITTNI MCMAHON DO V70.0 EXAM - ROUTINE H&P 09/26/2011 ANNELISE RF TEST TECHNICIAN, MISAEL A V1 6.3 FAMILY HISTORY OF MALIGNANT NEOPLASM OF BREAST 09/26/2011 ANNELISE RF TEST TECHNICIAN, MISAEL A V7 0.0 EXAM - ROUTINE H&P 09/26/2011 ANNELISE RF TEST TECHNICIAN, MISAEL A V1 6.3 FAMILY HISTORY OF MALIGNANT NEOPLASM OF BREAST 09/26/2011 ANNELISE RF TEST TECHNICIAN, MISAEL A V7 0.0 EXAM - ROUTINE H&P 10/13/2011 BRITTNI MCMAHON DO V25.9 CONTRACEPTION MANAGEMENT 10/13/2011 ANNELISE RF TEST TECHNICIAN, MISAEL A V2 5.9 CONTRACEPTION MANAGEMENT 10/13/2011 ANNELISE RF TEST TECHNICIAN, MISAEL A V2 5.9 CONTRACEPTION MANAGEMENT 05/31/2013 DARON SINGLETARY Ot 786.50 CHEST PAIN NOS 05/31/2013 DARON SINGLETARY Ot 786.52 PAINFUL RESPIRATION 05/31/2013 DARON SINGLETARY Ot 787.3 FLATUL/ERUCTAT/GAS PAIN 08/20/2013 BRITTNI MCMAHON DO 623.5 LEUKORRHEA NOT SPECIFIED INFECTIVE 08/20/2013 BRITTNI MCMAHON DO V25.01 CONTRACEPTION - ORAL CONTRACEPTION 08/20/2013 BRITTNI MCMAHON DO V76.10 BREAST CANCER SCREENING 08/20/2013 ANNELISE CHRISTIAN, MISAEL A 62 3.5 LEUKORRHEA NOT SPECIFIED INFECTIVE 08/20/2013 ANNELISE CHRISTIAN, MISAEL A V25.01 CONTRACEPTION - ORAL CONTRACEPTION 08/20/2013 ANNELISEMISAEL Styles APRN V76.10 BREAST CANCER SCREENING 08/20/2013 ANNELISEMISAEL Styles APRN 62 3.5 LEUKORRHEA NOT SPECIFIED INFECTIVE 08/20/2013 ANNELISEStephani CHRISTIAN MISAEL A V25.01 CONTRACEPTION - ORAL CONTRACEPTION 08/20/2013 ANNELISEStephani CHRISTIAN MISAEL A V76.10 BREAST CANCER SCREENING 03/20/2014 DARON SINGLETARY Ot 478.75 LARYNGEAL SPASM 03/20/2014 DARON SINGLETARY Ot 493.00 EXTRINSIC ASTHMA, NOS 03/20/2014 DARON SINGLETARY Ot 786.52 PAINFUL RESPIRATION 01/18/2015 ANNELISEMISAEL Styles APRN V72.41 TEST NEGATIVE RESULT 01/19/2015 MISAEL CASTELAN APRN V7 4.5 STD SCREEN 03/08/2015 FOREIGN TAVERAS RF TEST TECHNICIAN Ot 787.01 NAUSEA WITH VOMITING 07/22/2015 FOREIGN TAVERAS RF TEST TECHNICIAN Ot 462 ACUTE PHARYNGITIS 02/25/2016 FOREIGN TAVERAS RF TEST TECHNICIAN Ot 787.01 NAUSEA WITH VOMITING 03/21/2018 CHRIS ROJAS RF TEST TECHNICIAN Ot O20.9 HEMORRHAGE IN EARLY , UNSPECIFI 03/21/2018 CHRIS ROJAS RF TEST TECHNICIAN Ot R79.9 ABNORMAL FINDING OF BLOOD CHEMISTRY, [facility] 03/21/2018 CHRIS ROJAS APRN Ot Z3A.00 WEEKS OF GESTATION OF NOT SPEC 05/13/2018 CHRIS ROJAS RF TEST TECHNICIAN Ot O20.9 HEMORRHAGE IN EARLY , UNSPECIFI 05/13/2018 CHRIS ROJAS RF TEST TECHNICIAN Ot R79.9 ABNORMAL FINDING OF BLOOD CHEMISTRY, [facility] 05/13/2018 CHRIS ROJAS APRN Ot Z3A.00 WEEKS OF GESTATION OF NOT SPEC 05/14/2018 YOBANI WALKER MD Ot Z01.818 ENCOUNTER FOR OTHER PREPROCEDURAL EXAMIN 05/15/2018 YOBANI WALKER MD, Ot Z01.818 ENCOUNTER FOR OTHER PREPROCEDURAL EXAMIN 05/15/2018 YOBANI WALKER MD Ot N85.9 NONINFLAMMATORY DISORDER OF UTERUS, [facility] 05/15/2018 YOBANI WALKER MD Ot N93.8 OTHER SPECIFIED ABNORMAL UTERINE AND [...] Ot N85.9 NONINFLAMMATORY DISORDER OF UTERUS, [facility] 05/23/2018 YOBANI WALKER MD, Ot N93.8 OTHER SPECIFIED ABNORMAL UTERINE AND VAG 11/06/2018 FOREIGN TAVERAS APRN Ot G43.909 MIGRAINE, UNSP, NOT INTRACTABLE, WITHOUT 11/06/2018 FOREIGN TAVERAS APRN Ot J02 .9 ACUTE PHARYNGITIS, UNSPECIFIED 11/06/2018 FOREIGN TAVERAS RF TEST TECHNICIAN Ot J40 BRONCHITIS, NOT SPECIFIED ACUTE OR CH 11/06/2018 FOREIGN TAVERAS APRN Ot R05 COUGH 11/06/2018 FOREIGN TAVERAS RF TEST TECHNICIAN Ot Z87.448 PERSONAL HISTORY OF OTHER DISEASES OF UR 11/06/2018 CHRIS ROJAS APRN Ot O20.9 HEMORRHAGE [...] UNSP, NOT INTRACTABLE, WITHOUT 11/08/2018 FOREIGN TAVERAS RF TEST TECHNICIAN Ot J02 .9 ACUTE PHARYNGITIS, UNSPECIFIED 11/08/2018 FOREIGN TAVERAS RF TEST TECHNICIAN Ot J40 BRONCHITIS, NOT SPECIFIED ACUTE OR CH 11/08/2018 FOREIGN TAVERAS RF TEST TECHNICIAN Ot R05 COUGH 11/08/2018 FOREIGN TAVERAS RF TEST TECHNICIAN Ot Z87.448 PERSONAL HISTORY OF OTHER DISEASES OF UR 12/11/2018 ROJASCHRIS CRAIN RF TEST TECHNICIAN Ot O20.9 HEMORRHAGE IN EARLY , UNSPECIFI 12/11/2018 BOBCHRIS RF TEST TECHNICIAN Ot R79.9 ABNORMAL FINDING OF BLOOD CHEMISTRY, UNS 12/11/2018 BOBCHRIS RF TEST TECHNICIAN Ot Z3A.00 WEEKS OF GESTATION OF NOT SPEC 12/11/2018 DENISE FLAHERTY, YOBANI Knight Ot Z12.31 ENCNTR SCREEN MAMMOGRAM FOR MALIGNANT NE 12/11/2018 DENISE FLAHERTY, YOBANI Knight Ot Z80.3 FAMILY HISTORY OF MALIGNANT NEOPLASM OF 12/11/2018 HALLEY [employer] Ot G43.909 MIGRAINE, UNSP, NOT INTRACTABLE, WITHOUT 12/11/2018 HALLEY, [employer] Ot M79.672 PAIN IN LEFT FOOT 12/11/2018 HALLEY, [employer] Ot S90.32XA CONTUSION OF LEFT FOOT, INITIAL ENCOUNTE 12/11/2018 HALLEY, [employer] Ot W20.8XXA OTH CAUSE OF STRIKE BY THROWN, PROJECTED 12/11/2018 HALLEY, [employer] Ot Z87.448 PERSONAL HISTORY OF OTHER DISEASES OF UR 12/11/2018 HALLEY, [employer] Ot Z98.890 OTHER SPECIFIED POSTPROCEDURAL STATES 12/13/2018 HALLEY, [employer] Ot G43.909 MIGRAINE, UNSP, NOT INTRACTABLE, WITHOUT 12/13/2018 HALLEY, [employer] Ot M79.672 PAIN IN LEFT FOOT 12/13/2018 HALLEY, [employer] Ot S90.32XA CONTUSION OF LEFT FOOT, INITIAL ENCOUNTE 12/13/2018 HALLEY, [employer] Ot W20.8XXA OTH CAUSE OF STRIKE BY THROWN, PROJECTED 12/13/2018 HALLEY, [employer] Ot Z87.448 PERSONAL HISTORY OF OTHER DISEASES OF UR 12/13/2018 SRIKANTH ROWLEY Ot Z98.890 OTHER SPECIFIED POSTPROCEDURAL STATES 06/17/2019 CHRIS ROJAS RF TEST TECHNICIAN Ot O20.9 HEMORRHAGE IN EARLY , UNSPECIFI 06/17/2019 CHRIS ROJAS RF TEST TECHNICIAN Ot R79.9 ABNORMAL FINDING OF BLOOD CHEMISTRY, UNS 06/17/2019 CHRIS ROJAS RF TEST TECHNICIAN Ot Z3A.00 WEEKS OF GESTATION OF NOT SPEC 06/17/2019 YOBANI WALKER MD Ot Z12.31 ENCNTR SCREEN MAMMOGRAM FOR MALIGNANT NE 06/17/2019 YOBANI WALKER MD Ot Z80.3 FAMILY HISTORY OF MALIGNANT NEOPLASM OF 06/17/2019 YENNY CANELA MD Ot A08. 4 VIRAL INTESTINAL INFECTION, UNSPECIFIED 06/17/2019 YENNY CANELA MD Ot G43.909 MIGRAINE, UNSP, NOT INTRACTABLE, WITHOUT 06/17/2019 YENNY CANELA MD Ot O21. 9 VOMITING OF , UNSPECIFIED 06/17/2019 YENNY CANELA MD Ot O98.811 OTH MATERNAL INFEC/PARASTC DISEASES COMP 06/17/2019 YENNY CANELA MD Ot O99.351 DISEASES OF THE NERVOUS SYS COMP PREGNAN 06/17/2019 YENNY CANELA MD Ot Z3A. 09 9 WEEKS GESTATION OF 06/19/2019 YENNY CANELA MD Ot A08. 4 VIRAL INTESTINAL INFECTION, UNSPECIFIED 06/19/2019 YENNY CANELA MD Ot G43.909 MIGRAINE, UNSP, NOT INTRACTABLE, WITHOUT 06/19/2019 YENNY CANELA MD Ot O21. 9 VOMITING OF , UNSPECIFIED 06/19/2019 YENNY CANELA MD Ot O98.811 OTH MATERNAL INFEC/PARASTC DISEASES COMP 06/19/2019 YENNY CANELA MD Ot O99.351 DISEASES OF THE NERVOUS SYS COMP PREGNAN 06/19/2019 YENNY CANELA MD Ot Z3A. 09 9 WEEKS GESTATION OF 07/25/2019 MARVEL LOYOLA DO Ot Z3A.1 0 10 WEEKS GESTATION OF 07/25/2019 MARVEL LOYOLA DO Ot Z91.8 9 OTH PERSONAL RISK FACTORS, NOT ELSEWHERE 10/07/2019 WELCH DO, RANULFO L Ot G43.9 09 MIGRAINE, UNSP, NOT INTRACTABLE, WITHOUT 10/07/2019 WELCH DO, RANULFO L Ot N92.0 EXCESSIVE AND FREQUENT MENSTRUATION WITH 10/07/2019 WELCH DO, RANULFO L Ot N93.9 ABNORMAL UTERINE AND VAGINAL BLEEDING, U 10/07/2019 WELCH DO, RANULFO L Ot N94.6 DYSMENORRHEA, UNSPECIFIED 10/13/2019 WELCH DO, RANULFO L Ot G43.9 09 MIGRAINE, UNSP, NOT INTRACTABLE, WITHOUT 10/13/2019 WELCH DO, RANULFO L Ot N92.0 EXCESSIVE AND FREQUENT MENSTRUATION WITH 10/13/2019 WELCH DO, RANULFO L Ot N93.9 ABNORMAL UTERINE AND VAGINAL BLEEDING, U 10/13/2019 WELCH DO, RANULFO L Ot N94.6 DYSMENORRHEA, UNSPECIFIED Procedures Code Description [place] [address] URIN E TEST (IN- HOUSE) 08/20/2013 96813 CULT URE UROGENITAL 08/23/2013 61442 PREG VINCENT TEST, URINE (IN- HOUSE) 08/24/2014 47097 PREG VINCENT TEST, URINE (IN- HOUSE) 01/18/2015 Results Test Result Range CMP - 01/29/18 10:37 GLUCOSE 76 mg/dL 65-99 UREA NITROGEN (BUN) 8 mg/dL 7-25 CREATININE 0.63 mg/dL 0.50-1.10 eGFR NON-AFR. [place] 125 mL/min/1.73m2 > OR = 60 eGFR 144 mL/min/1.73m2 > OR = 60 BUN/CREATININE RATIO NOT APPLICABLE (calc) 6-22 SODIUM 141 mmol/L 135-146 POTASSIUM 3.9 mmol/L 3.5-5.3 CHLORIDE 108 mmol/L 98-110 CARBON DIOXIDE 26 mmol/L 20-31 CALCIUM 9.5 mg/dL 8.6-10.2 PROTEIN, TOTAL 7.7 g/dL 6.1-8.1 ALBUMIN 4.5 g/dL 3.6-5.1 GLOBULIN 3.2 g/dL (calc) 1.9-3.7 ALBUMIN/GLOBULIN RATIO 1.4 (calc) 1.0-2. 5 BILIRUBIN, TOTAL 0.4 mg/dL 0.2-1.2 ALKALINE PHOSPHATASE 73 U/L 33-115 AST 19 U/L 10-30 ALT 15 U/L 6-29 CBC - 01/29/18 10:37 WHITE BLOOD CELL COUNT 4.4 Thousand/uL 3 .8-10.8 RED BLOOD CELL COUNT 4.23 Million/uL 3.8 0-5.10 HEMOGLOBIN 12.7 g/dL 11.7-15.5 HEMATOCRIT 38.1 % 35.0-45.0 MCV 90.1 fL 80.0-100.0 MCH 30.0 pg 27.0-33.0 MCHC 33.3 g/dL 32.0-36.0 RDW 11.7 % 11.0-15.0 PLATELET COUNT 201 Thousand/uL 140-400 MPV 11.2 fL 7.5-12.5 ABSOLUTE NEUTROPHILS 2424 cells/uL 1500- 7800 ABSOLUTE LYMPHOCYTES 1544 cells/uL 850-3 900 ABSOLUTE MONOCYTES 321 cells/uL 200-950 ABSOLUTE EOSINOPHILS [...] 11:35 Urine beta human chorionic gonadotropin (hCG) measurem ent NEGATIVE NEGATIVE Methicillin resistant Staphylococcus aur eus (MRSA) screening culture - 05/15/18 11:40 Methicillin resistant Staphylococcus aureus (MRSA) scr eening culture NEG NRG Streptococcus pyogenes antigen detection - 11/06/18 12:35 Streptococcus pyogenes antigen detection NEGATIVE NEGATIVE Bacterial throat culture - 11/06/18 12:3 5 Bacterial throat culture NBS NRG Complete blood count (CBC) with automate d white blood cell (WBC) differential - 06/17/19 11:06 Blood leukocytes automated count (number/volume) 7.6 10*3/uL 4.3-11.0 Blood erythrocytes automated count (number/volume) 4.65 10*6/uL 4.35-5.85 Venous blood hemoglobin measurement (mass/volume) 13.5 g/dL 11.5-16.0 Blood hematocrit (volume fraction) 42 % 35-52 Automated erythrocyte mean corpuscular volume 90 [ foz_us] 80-99 Automated erythrocyte mean corpuscular h emoglobin (mass per erythrocyte) 29 pg 25-34 Automated erythrocyte mean corpuscular h emoglobin concentration measurement (mass/volume) 32 g/dL 32-36 Automated erythrocyte distribution width ratio 13. 0 % 10.0- 14.5 Automated blood platelet count (count/volume) 223 10*3/uL 130-400 Automated blood platelet mean volume measurement 10.3 [foz_us] 7.4-10.4 Automated blood neutrophils/100 leukocytes 69 % 42-75 Automated blood lymphocytes/100 leukocytes 20 % 12-44 Blood monocytes/100 leukocytes 10 % 0-12 Automated blood eosinophils/100 leukocytes 1 % 0-10 Automated blood basophils/100 leukocytes 0 % 0-10 Blood neutrophils automated count (number/volume) 5.3 10*3 1.8-7.8 Blood lymphocytes automated count (number/volume) 1.5 10*3 1.0-4.0 Blood monocytes automated count (number/volume) 0. 8 10*3 0.0-1.0 Automated eosinophil count 0.1 10*3/uL 0 .0-0.3 Automated blood basophil count (count/volume) 0.0 10*3/uL 0.0-0.1 Comprehensive metabolic panel - 06/17/19 11:06 Serum or plasma sodium measurement (moles/volume) 141 mmol/L 135-145 Serum or plasma potassium measurement (moles/volume) 3.9 mmol/L 3.6-5.0 Serum or plasma chloride measurement (moles/volume) 112 mmol/L 98-107 Carbon dioxide 20 mmol/L 21-32 Serum or plasma anion gap determination (moles/volume) 9 mmol/L 5-14 Serum or plasma urea nitrogen measurement (mass/volume ) 8 mg/dL 7-18 Serum or plasma creatinine measurement (mass/volume) 0.64 mg/dL 0.60-1.30 Serum or plasma urea nitrogen/creatinine mass ratio 13 NRG Serum or plasma creatinine measurement w ith calculation of estimated glomerular filtration rate > NRG Serum or plasma glucose measurement (mass/volume) 87 mg/dL 70-105 Serum or plasma calcium measurement (mass/volume) 9.7 mg/dL 8.5-10.1 Serum or plasma total bilirubin measurement (mass/volu me) 0.3 mg/dL 0.1-1.0 Serum or plasma alkaline phosphatase mustapha surement (enzymatic activity/volume) 94 U/L 40-136 Serum or plasma aspartate aminotransfera se measurement (enzymatic activity/volume) 18 U/L 5-34 Serum or plasma alanine aminotransferase measurement (enzymatic activity/volume) 18 U/L 0-55 Serum or plasma protein measurement (mass/volume) 8.4 g/dL 6.4-8.2 Serum or plasma albumin measurement (mass/volume) 4.5 g/dL 3.2-4.5 CALCIUM CORRECTED 9.3 mg/dL 8.5-10.1 Magnesium - 06/17/19 11:06 Magnesium 2.0 mg/dL 1.6-2.4 Urine beta human chorionic gonadotropin (hCG) measurement - 06/17/19 11:16 Urine beta human chorionic gonadotropin (hCG) measurem ent POSITIVE NEGATIVE Complete urinalysis with reflex to cultu re - 06/17/19 11:16 Urine color determination YELLOW NRG Urine clarity determination CLEAR NR G Urine pH measurement by test strip 5 5-9 Specific gravity of urine by test strip 1.030 1.016-1.022 Urine protein assay by test strip, semi-quantitative NEGATIVE NEGATIVE Urine glucose detection by automated test strip NE GATIVE NEGATIVE Erythrocytes detection in urine sediment by light micr oscopy 2+ NEGATIVE Urine ketones detection by automated test strip NE GATIVE NEGATIVE Urine nitrite detection by test strip NEGATIVE NEGATIVE Urine total bilirubin detection by test strip NEGA TIVE NEGATIVE Urine urobilinogen measurement by automated test strip (mass/volume) NORMAL NORMAL Urine leukocyte esterase detection by dipstick NEG ATIVE NEGATIVE Automated urine sediment erythrocyte cou nt by microscopy (number/high power field) RARE NRG Automated urine sediment leukocyte count by microscopy (number/high power field) [HPF] NRG Bacteria detection in urine sediment by light microsco py LARGE NRG Squamous epithelial cells detection in u rine sediment by light microscopy 25-50 NRG Crystals detection in urine sediment by light microsco py NONE NRG Casts detection in urine sediment by light microscopy NONE NRG Mucus detection in urine sediment by light microscopy NEGATIVE NRG Complete urinalysis with reflex to culture YES NRG Bacterial urine culture - 06/17/19 11:16 Bacterial urine culture 3 OR MORE NRG COLONY COUNT >100,000/ML NRG FTX;REPORTABLE GRAM POSITIVE, SUGGESTING PROBABLE NRG FREE TEXT ENTRY 2 COLLECTION CONTAMINATION WITH SK IN WINTER NRG FREE TEXT ENTRY 3 NO SUSCEPTIBILITY PERFORMED NRG Serum or plasma choriogonadotropin measu rement (units/volume) - 07/23/19 16:14 Serum or plasma choriogonadotropin measurement (units/ volume) 34681 m[iU]/mL <5 Whole blood hemoglobin and hematocrit pa clare - 10/07/19 09:35 Venous blood hemoglobin measurement (mass/volume) 12.4 g/dL 11.5-16.0 Blood hematocrit (volume fraction) 38 % 35-52 Encounters ACCT No. Visit Date/Time Discharge Status Pt. Type Provider Facility Loc./Unit Complaint [id number] 06/09/2019 13:20:00 06/09/2019 23:59: 59 CLS Outpatient RAMAN [facility]ARAYANAN [facility] [id number] 04/23/2018 13:40:00 Document Registration [id number] 04/16/2018 13:00:00 Document Registration [id number] 04/09/2018 13:20:00 Document Registration [id number] 04/02/2018 13:20:00 Document Registration [id number] 03/28/2018 15:00:00 Document Registration [id number] 03/12/2018 12:20:00 Document Registration [id number] 02/12/2018 15:40:00 Document Registration [id number] 02/05/2018 09:20:00 Document Registration [id number] 01/29/2018 09:30:00 Document Registration [id number] 01/19/2015 10:35:00 01/19/2015 23:59: 59 CLS Outpatient ANNELISE PATELStephani MISAEL A [id number] 08/24/2014 10:13:00 08/24/2014 23:59: 59 CLS Outpatient ANNELISE MISAEL CHRISTIAN [id number] 08/20/2013 10:48:00 08/20/2013 23:59: 59 CLS Outpatient BRITTNI MCMAHON DO [id number] 10/07/2019 08:44:00 10:08:00 DIS Emergency WELCH RANULFO Sherry [facility] ER VAGINAL BLEEDING;BLOOD CLOTS [id number] 07/23/2019 16:13:00 23:59:59 CLS Outpatient MARVEL LOYOLA DO [facility] LABNPT [id number] 06/17/2019 10:55:00 13:02:00 DIS Emergency YENNY CANELA MD [facility] ER N/V/D; [id number] 12/11/2018 11:22:00 12:30:00 DIS Emergency SRIKANTH [employer] [facility] ER FOOT INJ [id number] 11/06/2018 11:50:00 13:40:00 DIS Emergency FOREIGN TAVERAS APRN [facility] ER CONGESTION;CHEST PAIN;C OUGH [id number] 06/04/2018 09:15:00 23:59:59 CLS Outpatient YOBANI WALKER MD [facility] RAD FAMILY HX BREAS T CANCER [id number] 05/15/2018 11:26:00 17:20:00 DIS Outpatient YOBANI WALKER MD [facility] SDC DUB,INTRAUTERIN E MASS [id number] 05/14/2018 05:49:00 018 09:41:00 DIS Outpatient DENISE FLAHERTY, YOBANI Knight [facility] PREOP DUB,INTRAUTERIN E MASS [id number] 03/20/2018 13:38:00 018 23:59:59 CLS Outpatient CHRIS ROJAS RF TEST TECHNICIAN [facility] RAD ABN HUMAN CHORIONIC GO NADOTROPIN [id number] 07/22/2015 19:20:00 015 19:53:00 DIS Emergency FOREIGN TAVERAS RF TEST TECHNICIAN [facility] ER SORE THROAT [id number] 03/08/2015 13:34:00 015 16:17:00 DIS Emergency FOREIGN TAVERAS RF TEST TECHNICIAN [facility] ER VOMITING [id number] 03/20/2014 11:33:00 014 15:02:00 DIS Emergency DARON SINGLETARY [facility] ER CHEST PAIN [id number] 05/31/2013 13:40:00 013 15:20:00 DIS Emergency DARON SINGLETARY [facility] ER CHEST PAIN WHEEZING [id number] 03/30/2013 15:07:00 013 23:59:59 CLS Outpatient
== END 2019-10-07 10:08 | disposition home or self-care (01) ==
LOC: EDUNIT# 08:43 → ER 08:44
DX: N92.0 Excessive and frequent menstruation with regular cycle (principal); N94.6 Dysmenorrhea, unspecified; G43.909 Migraine, unspecified, not intractable, without status migrainosus
CPT/HCPCS: 36415; 85014; 85018; 99281

== ENCOUNTER 2019-11-26 14:13 | Emergency (ER) | payer MEDICAID ==
[~2019-11-26] VITALS: Ht 167 cm; Wt 50.3 kg
[2019-11-26] MEDS ORDERED: IBUPROFEN 800 MG (MOTRIN) TAB PO ONE (14:30)
--- NOTE | 2019-11-26 14:34 | ED Cough/URI ---
General Chief Complaint: Cough/Cold/Flu Symptoms Stated Complaint: FEVER;BODY ACHES;CHEST CONGESTION;NAUSEA Nursing Triage Note: FLU LIKE SX X2 DAYS. Sepsis Screen: Possible Severe Sepsis Risk Source: patient Exam Limitations: no limitations History of Present Illness Date Seen by Provider: Nov 26, 2019 Time Seen by Provider: 14:23 Initial Comments 36-48 hours of bodyaches fever nausea sore throat cough Timing/Duration: constant Severity/Quality: moderate Associated Symptoms: cough, fever/chills, sore throat Allergies and Home Medications Allergies Coded Allergies: No Known Drug Allergies (Unverified , 05/14/18) Home Medications Medroxyprogesterone Acetate 150 Mg/1 Ml Syringe, 150 MG IM [id number] PRN for sched Prescribed by: YOBANI PETERSON on 05/15/18 1314 Ondansetron 4 Mg Tab.rapdis, 4 MG PO Q6H PRN for NAUSEA/VOMITING Prescribed by: YENNY CANELA on 06/17/19 1208 Promethazine HCl 25 Mg Tablet, 25 MG PO Q6H PRN for NAUSEA/VOMITING Prescribed by: YENNY CANELA on 06/17/19 1215 Patient Home Medication List Home Medication List Reviewed: Yes Review of Systems Review of Systems Constitutional: see HPI, chills, malaise, weakness EENTM: see HPI Respiratory: see HPI, cough Genitourinary: no symptoms reported Musculoskeletal: no symptoms reported Skin: no symptoms reported Psychiatric/Neurological: No Symptoms Reported Hematologic/Lymphatic: No Symptoms Reported Past Zxoaprr-Gfwtbd-Jxquhd Hx Patient Social History 2nd Hand Smoke Exposure: Yes Recent Foreign Travel: No Contact w/Someone Who Travel: No Recent Infectious Disease Expo: No Recent Hopitalizations: No Immunizations Up To Date Tetanus Booster (TDap): Less than 5yrs Seasonal Allergies Seasonal Allergies: Yes Past Medical History Surgeries: Yes (D&C) Respiratory: No Cardiac: No Neurological: Yes Headaches /Migraines Reproductive Disorders: Yes (DUB, UTERINE MASS) Female Reproductive Disorders: Menstrual Problems Sexually Transmitted Disease: No HIV/AIDS: No Genitourinary: No Gastrointestinal: No Musculoskeletal: No Endocrine: No HEENT: No Loss of Vision: Denies Hearing Impairment: Denies Cancer: No Psychosocial: No Integumentary: No Blood Disorders: No Adverse Reaction/Blood Tranf: No (N/A) Family Medical History No Pertinent Family Hx Physical Exam Vital Signs - First Documented 11/26/19 14:20 Temp 38.0 Pulse 133 Resp 16 B/P (MAP) 100/61 (74) Pulse Ox 99 O2 Delivery Room Air Capillary Refill : Less Than 3 Seconds Height: 5'6.00" Weight: 109lbs. 0.0oz. 49.291273zo; 18.00 BMI Method:Stated General Appearance: WD/WN, no apparent distress Eyes: Bilateral Eye Normal Inspection, Bilateral Eye PERRL, Bilateral Eye EOMI HEENT: PERRL/EOMI, normal ENT inspection, pharyngeal erythema Neck: non-tender, full range of motion Respiratory: no respiratory distress, no accessory muscle use Cardiovascular: no murmur, tachycardia Gastrointestinal: normal bowel sounds, non tender, soft Extremities: normal range of motion, non-tender Neurologic/Psychiatric: alert, normal mood/affect Skin: normal color, warm/dry Progress/Results/Core Measures Suspected Sepsis Recent Fever Within 48 Hours: Yes Infection Criteria Present: Suspected New Infection New/Unexplained Altered Menta: No Sepsis Screen: Possible Severe Sepsis Risk SIRS Temperature: Pulse: 133 Respiratory Rate: 16 Blood Pressure 100 /61 Mean: 74 Results/Orders My Orders Orders - FOREIGN TAVERAS APRN Influenza A And B Antigens (11/26/19 14:15) Ibuprofen Tablet (Motrin Tablet) (11/26/19 14:30) Medications Given in ED Current Medications Medications Dose Ordered Sig/Oriana Route Start Time Stop Time Status Last Admin Dose Admin Ibuprofen 800 mg ONCE ONCE PO 11/26/19 14:30 11/26/19 14:31 DC 11/26/19 14:29 800 MG Vital Signs/I&O 11/26/19 14:20 Temp 38.0 Pulse 133 Resp 16 B/P (MAP) 100/61 (74) Pulse Ox 99 O2 Delivery Room Air Capillary Refill : Less Than 3 Seconds Blood Pressure Mean: 74 Departure Impression Primary Impression: Influenza Disposition: 01 HOME, SELF-CARE Condition: Stable Departure-Patient Inst. Decision time for Depature: 15:03 Referrals: NO,LOCAL PHYSICIAN (PCP/Family) Primary Care Physician Patient Instructions: Flu, Adult (DC) Add. Discharge Instructions: 1. Return to ER for any concerns. He tested positive for influenza a. 2. Tylenol and ibuprofen for pain or fever control 3. Expect 3648 more hours before you notice yourself to feel better, symptoms wi ll stick around for 7-10 days. All discharge instructions reviewed with patient and/or family. Voiced understanding. Scripts Promethazine/Phenyleph/Codeine (Yxrlfsmirhgi-HM-Ombfmbp Syrup) 118 Ml Syrup 5 ML PO Q6H PRN for COUGH, #60 ML Prov: FOREIGN TAVERAS APRN 11/26/19 Baloxavir Marboxil (Xofluza) 40 Mg Tablet 40 MG PO ONCE, #1 TAB Prov: FOREIGN TAVERAS APRN 11/26/19 Ondansetron (Ondansetron Odt) 8 Mg Tab.rapdis 8 MG PO Q6H PRN for NAUSEA/VOMITING, #10 TAB Prov: FOREIGN TAVERAS APRN 11/26/19 Work/School Note: Work Release Form Date Seen in the Emergency Department: Nov 26, 2019 Return to Work: Nov 24, 2019 FOREIGN TAVERAS APRN Nov 26, 2019 14:34
[2019-11-26] MEDS ORDERED: ONDA8TAB13 PO (15:05)
[2019-11-26] MEDS ORDERED: BALO40TA PO (15:05)
[2019-11-26] MEDS ORDERED: PROM118S PO (15:05)
[2019-11-26 15:16] VITALS: BP 100/61
== END 2019-11-26 15:16 | disposition home or self-care (01) ==
LOC: EDUNIT# 14:13 → ER 14:14
DX: J11.1 Influenza due to unidentified influenza virus with other respiratory manifestations (principal); G43.909 Migraine, unspecified, not intractable, without status migrainosus; Z77.22 Contact with and (suspected) exposure to environmental tobacco smoke (acute) (chronic)
CPT/HCPCS: 87804

== ENCOUNTER 2020-02-22 23:52 | Emergency (ER) | payer MEDICAID ==
[~2020-02-22] VITALS: Ht 167 cm; Wt 52.2 kg
[~2020-02-22 23:52] MED LIST changes: +BALO40TA PO; +ONDA8TAB13 PO; +PROM118S PO
[2020-02-23 00:22] LABS: BILIRUBIN,URINE NEGATIVE (NEGATIVE); CLARITY,URINE SL CLOUDY; COLOR,URINE YELLOW; GLUCOSE, URINE (UA) NEGATIVE (NEGATIVE); KETONES,URINE NEGATIVE (NEGATIVE); LEUKOCYTE ESTERASE ,URINE NEGATIVE (NEGATIVE); NITRITE,URINE NEGATIVE (NEGATIVE); PH,URINE 7.5 (5-9); PROTEIN,URINE NEGATIVE (NEGATIVE)
--- NOTE | 2020-02-23 00:30 | NUR ---
informed pt erp. had to go to icu at this time et. she would be in to see her when she returned. no needs voiced at this time.
[2020-02-23 00:48] LABS: BACTERIA,URINE NEGATIVE /HPF
[2020-02-23] MEDS ORDERED: predniSONE 20 MG TAB PO ONE (01:15)
[2020-02-23] MEDS ORDERED: PRD20T PO (01:17)
--- NOTE | 2020-02-23 01:17 | ED Back Pain ---
General Chief Complaint: Back Problems Stated Complaint: BACK PAIN, L EXT NUMBNESS Nursing Triage Note: c/o sharp/stabbing lower back pain x15min denies injury, reports bilateral leg numbness. lidocaine patches in place. Nursing Sepsis Screen: No Definite Risk Source of Information: Patient History of Present Illness Date Seen by Provider: Feb 23, 2020 Time Seen by Provider: 00:20 Initial Comments PT ARRIVES VIA POV FROM HOME--DROVE SELF HERE, AMBULATES IN ON HER OWN PT STATES 10-15 MINUTES PRIOR TO ARRIVAL, SHE WAS LAYING DOWN AND BEGAN TO HAVE LOW BACK PAIN PT STATES BOTH OF HER LEGS AND FEET, WELL BOTH OF HER ARMS AND HANDS FEEL NUMB PT IS ABLE TO WALK NORMALLY AND FREELY USE ALL EXTREMITIES WITHOUT DIFFICULTY PT HAS VOIDED AND HAD A NORMAL BM SINCE THIS OCCURRED, AND DID NOT HAVE ANY PROBLEMS OF ANY KIND PT DENIES ANY PARESTHESIAS TO RECTAL OR PERINEAL AREA NO HEADACHE NO NECK PAIN OR STIFFNESS NO FEVER OR RECENT ILLNESS OF ANY KIND NO DIZZINESS NO VISION CHANGES NO CHEST PAIN OR SHORTNESS OF BREATH NO ABDOMINAL PAIN OR NAUSEA/VOMITING NO PAIN ON URINATION OR HEMATURIA NO INJURY OF ANY KIND PT DENIES ANY UNUSUAL ACTIVITY TODAY OR IN THE LAST FEW DAYS--STATES "I JUST LAY AROUND ALL DAY AND DON'T DO ANYTHING" PT STATES SHE HAD JUST EATEN DINNER AND LAID DOWN, WHEN SYMPTOMS BEGAN PT HAS PUT LIDOCAINE PATCHES ON HER BACK AND STATES IT HAS HELPED WITH THE PAIN, BUT IT IS NOT GONE HAS NOT TAKEN ANY TYLENOL OR OTHER MEDICATION FOR PAIN STATES SHE HAS HAD SIMILAR BACK PAIN IN THE PAST, BUT HAS NOT HAD PARESTHESIAS PT IS 6 WEEKS --LMP 01/26/20 HAS HAD ONE VISIT AT [facility], AND HAS NEXT APPOINTMENT NEXT MONTH PT IS AB3 PT DENIES ANY OTHER MEDICAL PROBLEMS OF ANY KIND Other Comments PCP: [facility] Allergies and Home Medications Allergies Coded Allergies: No Known Drug Allergies (Unverified , 05/14/18) Home Medications Prednisone 20 Mg Tab, 40 MG PO DAILY Prescribed by: ERIC SALVADOR on 02/23/20 4941 Patient Home Medication List Home Medication List Reviewed: Yes Review of Systems Constitutional: no symptoms reported; No chills, No diaphoresis, No dizziness, No fever, No malaise EENTM: no symptoms reported; No ear pain, No nose congestion, No throat pain Respiratory: no symptoms reported; No cough, No orthopnea, No short of breath, No wheezing Cardiovascular: no symptoms reported; No chest pain, No edema, No palpitations, No syncope, No vascular heart diseas Gastrointestinal: no symptoms reported; No abdominal pain, No constipation, No diarrhea, No loss of appetite, No nausea, No vomiting Genitourinary: no symptoms reported; No decreased output, No discharge, No dysuria, No frequency, No incontinence, No pain : Yes LMP: Jan 26, 2020 Control/STD Prophylaxis: None Musculoskeletal: see HPI, back pain; No joint pain, No muscle stiffness, No muscle twitching, No muscle weakness, No neck pain Skin: no symptoms reported; No rash Psychiatric/Neurological: See HPI; Denies Headache; Numbness, Paresthesia; Denies Seizure; Tingling; Denies Tremors, Denies Weakness Past Nepntxu-[id number]-Anvtpf Hx Past Med/Social Hx: Reviewed and Corrections made Patient Social History Alcohol Use: Denies Use Recreational Drug Use: No Smoking Status: Never a Smoker 2nd Hand Smoke Exposure: Yes Recent Foreign Travel: No Contact w/Someone Who Travel: No Recent Infectious Disease Expo: No Recent Hopitalizations: No Physical Abuse: No Sexual Abuse: No Mistreated: No Fear: No Immunizations Up To Date Tetanus Booster (TDap): Less than 5yrs Seasonal Allergies Seasonal Allergies: Yes Past Medical History Surgeries: Yes (D&C) Respiratory: No Cardiac: No Neurological: Yes Headaches /Migraines : Yes Last Menstrual Period: Jan 26, 2020 Hx : 4 Hx Para: 0 Hx Total # of Abortions (Sp): 3 Reproductive Disorders: Yes (DUB, UTERINE MASS) Female Reproductive Disorders: Menstrual Problems Sexually Transmitted Disease: No HIV/AIDS: No Genitourinary: No Gastrointestinal: No Musculoskeletal: Yes (INTERMITTENT BACK PAIN ) Endocrine: No HEENT: No Loss of Vision: Denies Hearing Impairment: Denies Cancer: No Psychosocial: No Integumentary: No Blood Disorders: No Adverse Reaction/Blood Tranf: No (N/A) Family Medical History No Pertinent Family Hx Physical Exam Vital Signs Vital Signs - First Documented 02/23/20 00:05 Temp 36.8 Pulse 100 Resp 20 B/P (MAP) 108/53 (71) Pulse Ox 99 O2 Delivery Room Air Capillary Refill : Less Than 3 Seconds Height, Weight, BMI Height: 5'6.00" Weight: 109lbs. 0.0oz. 49.488992mk; 18.00 BMI Method:Stated General Appearance: No Apparent Distress, Thin Neck: Full Range of Motion, Normal Inspection, Non Tender, Supple; No Carotid Bruit, No JVD Cardiovascular: Regular Rate, Rhythm, No Edema, No JVD, No Murmur, Normal Peripheral Pulses Respiratory: Normal Breath Sounds, No Accessory Muscle Use, No Respiratory Distress Peripheral Pulses: 2+ Dorsalis Pedis (R), 2+ Left Dors-Pedis (L), 2+ Radial Pulses (R), 2+ Radial Pulses (L) Gastrointestinal: Normal Bowel Sounds, No Organomegaly, No Pulsatile Mass, Non Tender, Soft Back: No CVA Tenderness; No Decreased Range of Motion, No Muscle Spasm; Vertebral Tenderness (DIFFUSE TENDERNESS TO BACK FROM MID THORACIC AREA DOWN TO LOWER LUMBAR AREA), Other (NEGATIVE STRAIGHT LEG RAISING. STRENGTH IS GOOD AND EQUAL IN ALL EXTREMITIES, FULL ROM) Extremity: Normal Capillary Refill, Normal Inspection, Normal Range of Motion, Non Tender, No Calf Tenderness, No Pedal Edema, Other (DTR'S INTACT. ) Neurologic/Psychiatric: Alert, Oriented x3, No Motor/Sensory Deficits, Normal Mood/Affect, circuitry negative inspector II-XII Norm as Tested; No Abnormal Cerebellar Tests (ALL CEREBELLAR TESTING IS NORMAL. ), No Abnormal Gait, No Aphasia, No Disoriented, No EOM Palsy, No Facial Droop, No Motor Weakness, No Sensory Deficit (PT DOES HAVE SENSATION TO LIGHT TOUCH AND PAINFUL STIMULI--STATES "IT JUST FEELS WEIRD" ; DTR'S INTACT IN ALL EXTREMITIES. ); Other (PT WALKS UPRIGHT AND FREELY MOVES WITHOUT DIFFICULTY. NO PROBLEMS MOVING FROM LYING TO SITTING OR SITTING TO STANDING, OR WITH WALKING,. PT VOIDED ON ARRIVAL WITHOUT DIFFICULTY. ) Skin: Normal Color, Warm/Dry; No Rash Progress/Results/Core Measures Results/Orders Lab Results Laboratory Tests Test 02/23/20 00:13 Range/Units Urine Color YELLOW Urine Clarity SL CLOUDY Urine pH 7.5 5-9 Urine Specific [place] 1.020 1.016-1.022 Urine Protein NEGATIVE NEGATIVE Urine Glucose (UA) NEGATIVE NEGATIVE Urine Ketones NEGATIVE NEGATIVE Urine Nitrite NEGATIVE NEGATIVE Urine Bilirubin NEGATIVE NEGATIVE Urine Urobilinogen 1.0 < = 1.0 MG/DL Urine Leukocyte Esterase NEGATIVE NEGATIVE Urine RBC (Auto) NEGATIVE NEGATIVE Urine RBC NONE /HPF Urine WBC NONE /HPF Urine Squamous Epithelial Cells 2-5 /HPF Urine Crystals NONE /LPF Urine Bacteria NEGATIVE /HPF Urine Casts NONE /LPF Urine Mucus MODERATE H /LPF Urine Culture Indicated NO My Orders Orders - ERIC SALVADOR DO Urine Bedside (02/23/20 00:15) Ua Culture If Indicated (02/23/20 00:15) Prednisone Tablet (Deltasone Tablet) (02/23/20 01:15) Medications Given in ED Current Medications Medications Dose Ordered Sig/Oriana Route Start Time Stop Time Status Last Admin Dose Admin Prednisone 40 mg ONCE ONCE PO 02/23/20 01:15 02/23/20 01:16 DC 02/23/20 01:20 40 MG Vital Signs/I&O 02/23/20 02/23/20 00:05 01:20 Temp 36.8 36.8 Pulse 100 89 Resp 20 16 B/P (MAP) 108/53 (71) 105/65 (71) Pulse Ox 99 97 O2 Delivery Room Air Room Air Blood Pressure Mean: 71 Progress Progress Note : Progress Note PT ADVISED OF IMPORTANCE OF FOLLOW UP WITH [facility] TOMORROW FOR FURTHER EVALUATION ADVISED THAT SHE IS , SHE COULD NOT HAVE A CT OR XRAYS AT THIS TIME, BUT MAY NEED AN OUTPATIENT MRI IF SYMPTOMS PERSIST OR WORSEN PT ADVISED THAT IF SHE LOSES MOTOR FUNCTION OR LOSS OF BOWEL OR BLADDER FUNCTION THAT SHE NEEDS TO RETURN IMMEDIATELY TO ER Departure Impression Primary Impression: Low back pain Additional Impression: SUBJECTIVE PARESTHESIAS Disposition: 01 HOME, SELF-CARE Condition: Stable Departure-Patient Inst. Referrals: TREMAINE ROJAS MD (PCP/Family) Primary Care Physician Patient Instructions: Low Back Pain (DC), Paresthesias (DC), Back Flexion Stretching Exercises Add. Discharge Instructions: CONTINUE LIDOCAINE PATCHES NEEDED FOR PAIN ALTERNATE ICE AND HEAT TO AREA AT 20 MINUTE INTERVALS TYLENOL NEEDED FOR PAIN FOLLOW UP WITH [facility] TOMORROW FOR FURTHER CARE, RETURN TO ER IF WORSE All discharge instructions reviewed with patient and/or family. Voiced u nderstanding. Scripts Prednisone (Prednisone) 20 Mg Tab 40 MG PO DAILY, #6 TAB 0 Refills Prov: ERIC SALVADOR DO 02/23/20 ERIC SALVADOR DO Feb 23, 2020 01:17
[2020-02-23 01:20] VITALS: BP 105/65
== END 2020-02-23 01:21 | disposition home or self-care (01) ==
LOC: EDUNIT# 23:52 → ER 23:54
DX: O99.89 Other specified diseases and conditions complicating pregnancy, childbirth and the puerperium (principal); M54.5 Low back pain; R20.2 Paresthesia of skin; Z3A.01 Less than 8 weeks gestation of pregnancy
CPT/HCPCS: 81000; 84703; 99283

== ENCOUNTER 2020-10-15 15:25 | Inpatient (IN) | payer MEDICAID ==
[2020-10-15] VITALS (21 sets, daily range): BP systolic 95–128; BP diastolic 56–79
[~2020-10-15] VITALS: Ht 167.7 cm; Wt 63.6 kg
[~2020-10-15 15:25] MED LIST changes: +PRD20T PO
--- NOTE | 2020-10-15 15:30 | NUR ---
Arrived to unit via wheelchair per ED staff. wt obtained and to room 319. Gowned and urine sample obtained. To bed and oriented to room, call light and surroundings. Plan of care reviewed with pt and s.o.
[2020-10-15 15:46] LABS: BILIRUBIN,URINE NEGATIVE (NEGATIVE); CLARITY,URINE CLEAR; COLOR,URINE YELLOW; GLUCOSE, URINE (UA) NEGATIVE (NEGATIVE); KETONES,URINE NEGATIVE (NEGATIVE); LEUKOCYTE ESTERASE ,URINE 1+ (NEGATIVE); NITRITE,URINE NEGATIVE (NEGATIVE); PROTEIN,URINE NEGATIVE (NEGATIVE)
[2020-10-15] MEDS ORDERED: PREN-37 PO (16:04)
[2020-10-15 16:05] LABS: BACTERIA,URINE TRACE /HPF; RBC,URINE RARE /HPF
--- NOTE | 2020-10-15 16:26 | NUR ---
Dr Perkins on unit and updated on pt. New orders received.
[2020-10-15] MEDS ORDERED: LACTATED RINGERS 1,000 ML IV ONE (16:30)
[2020-10-15] MEDS ORDERED: fentaNYL INJECTION 100 MCG/2 ML AMP IVP ONE (16:45)
--- NOTE | 2020-10-15 18:18 | NUR ---
Dr Perkins updated on fluid bolus complete, sve, contraction pattern.
--- NOTE | 2020-10-15 18:19 | NUR ---
Dr Perkins called and new orders received.
--- NOTE | 2020-10-15 18:25 | NUR ---
plan of care reviewed with pt and s.o.
[2020-10-15] MEDS ORDERED: fentaNYL INJECTION 100 MCG/2 ML AMP IVP PRN (18:30)
[2020-10-15] MEDS ORDERED: D5 LR IV SOLUTION 1,000 ML IV ONE (18:30)
[2020-10-15] MEDS: D5 LR IV SOLUTION 1,000 ML IV SCH (18:35)
[2020-10-15] MEDS ORDERED: D5 LR IV SOLUTION 1,000 ML IV SCH (20:15)
[2020-10-15] MEDS ORDERED: MINERAL OIL CONCENTRATE 99.9% 15 ML UDC TOP PRN (20:15)
[2020-10-15 20:28] LABS: HEMOGLOBIN 10.2 g/dL (11.5-16.0); MONOCYTES # (AUTO) 0.5 10^3/uL (0.0-1.0)
[2020-10-15 20:30] LABS: BASOPHILS % (AUTO) 0 % (0-10); EOSINOPHILS % (AUTO) 0 % (0-10); HEMATOCRIT 33 % (35-52); LYMPHOCYTES % (AUTO) 15 % (12-44); MEAN CORPUSCULAR HEMOGLOBIN 27 pg (25-34); MEAN CORPUSCULAR HGB CONC 31 g/dL (32-36); MEAN CORPUSCULAR VOLUME 86 fL (80-99); MEAN PLATELET VOLUME 13.1 fL (9.0-12.2); MONOCYTES % (AUTO) 8 % (0-12); NEUTROPHILS # (AUTO) 4.9 10^3/uL (1.8-7.8); NEUTROPHILS % (AUTO) 76 % (42-75); PLATELET COUNT 185 10^3/uL (130-400); WHITE BLOOD COUNT 6.4 10^3/uL (4.3-11.0)
[2020-10-15] MEDS ORDERED: fentaNYL 2 mcg/ml BUPIVA 0.125 100 ML ONE (20:42)
[2020-10-15] MEDS ORDERED: NALOXONE 0.4 MG/ML 1 ML (NARCAN) VIAL IV PRN ×2 (21:45)
[2020-10-15] MEDS ORDERED: diphenhydrAMINE 50 MG/ML INJ (BENADRYL) IV PRN (21:45)
[2020-10-15] MEDS ORDERED: LACTATED RINGERS 1,000 ML IV SCH (21:45)
[2020-10-15] MEDS ORDERED: CATHETER FLUSH 10 ML SYR IV SCH (22:00)
[2020-10-15] MEDS: ONDANSETRON 4 MG/2 ML (SDV) Z0FRAN IV PRN (23:02)
[2020-10-15] MEDS: EPIDURAL (fentaNYL 2 MCG/ML BUPIVA 0.125%)100 ML BAG EPI SCH (23:04)
[2020-10-16] VITALS (71 sets, daily range): BP systolic 91–151; BP diastolic 52–83
[2020-10-16] MEDS: EPIDURAL (fentaNYL 2 MCG/ML BUPIVA 0.125%)100 ML BAG EPI SCH (03:56)
[2020-10-16] MEDS ORDERED: OXYTOCIN PRE-MIX DRIP 500 ML IV ONE ×2 (07:17→16:58)
[2020-10-16] MEDS ORDERED: LIDOCAINE/EPI 2% 1:200,00 (XYLOCAINE) 10 ML VIAL ONE (07:18)
[2020-10-16] MEDS: ONDANSETRON 4 MG/2 ML (SDV) Z0FRAN IV PRN ×2 (08:00→13:14)
[2020-10-16] MEDS: D5 LR IV SOLUTION 1,000 ML IV SCH (08:46)
[2020-10-16] MEDS: METOCLOPRAMIDE INJ 10 MG/2 ML (REGLAN) IV PRN ×2 (09:23→13:39)
--- NOTE | 2020-10-16 09:47 | NUR ---
This Rn texted Dr Perkins that pt is 9ms with bulging bag of water. Temp 100.4.
--- NOTE | 2020-10-16 10:39 | History & Physical-OB/GYN ---
ASIFJEAN CARLOS Powell MED STUDENT 10/16/20 1039: OB - Chief Complaint & HPI Date/Time Date of Admission: Date of Admission: Oct 15, 2020 at 20:00 Date seen by a Provider: Oct 15, 2020 Time Seen by a Provider: 04:30 Chief Complaint/History OB-Reason for Admission/Chief: Onset of Labor Hx : 5 Hx Para: 0 Hx Last Menstrual Period: 01/28/2020 Expected Date of Delivery: Oct 19, 2020 Gestational Age in Weeks: 39 Gestational Age in Days: 3 Allergies and Home Medications Allergies Coded Allergies: No Known Drug Allergies (Unverified , 05/14/18) Patient Home Medication List Home Medication List Reviewed: Yes OB - History Hx of Present Care: Yes Ultrasounds: Normal mid trimester US Obstetrical Complications: None Medical Complications: None Information Induced Hypertension: No Maternal Gestational Diabetes: No Obstetrical History Hx : 5 Hx Para: 0 Hx # Term Pregnancies: 0 Hx # Pregnancies: 0 Number of Living Children: 0 Hx Termination: No Hx Total # of Abortions (Spona: 4 Hx Multiple Gestation: No Hx Ectopic : No Delivery History Hx Blood Disorders: No Adverse Rxn to Tranfusion: No (N/A) Social History/Family History HIV/AIDS: No Recent Infectious Disease Expo: No Sexually Transmitted Disease: No Alcohol Use: Denies Use Recreational Drug Use: No 2nd Hand Smoke Exposure: Yes Immunizations Tetanus Booster (TDap): Less than 5yrs Date of Pneumonia Vaccine: Jul 28, 2020 Date of Influenza Vaccine: Sep 29, 2020 Rubella: immune RPR/VDRL: Negative GBS Status: Negative HBsAG: Negative OB - Admission Exam Physical Exam Vitals: Vital Signs 10/16/20 10/16/20 10/16/20 07:30 09:45 10:00 Temp 38.0 Pulse 83 Resp 16 B/P (MAP) 117/69 (85) Pulse Ox 99 O2 Delivery Room Air HEENT: Eyes non-injected Abdomen: Gravid Extremities: Normal Cervical Dilatation: 2cm Effacement: 75% Station: -1 Membranes: Intact Amniotic Fluid: Other (light brown tinged) Heart Rate: 150's Accelerations: Accelerations Present Short Term Variability: Present Senior Living Variability: Average (6-25) Contractions on Admission: < 5 Minutes Apart Date/Time Contractions Began;: 10/15 at 06:00 Frequency of Contractions: every 3-4 minutes Intensity: Mild Gomez Scoring Tool (Modified) Dilation (cm): 1-2cm (1) Effacement (%): 80-100% (3) Descent/Station: -1,0 (2) Cervix Consistency: Soft (2) Cervix Position: Anterior (2) Labs Laboratory Tests Test 10/15/20 15:35 10/15/20 16:40 10/15/20 20:30 Range/Units Urine Color YELLOW Urine Clarity CLEAR Urine pH 7.0 5-9 Urine Specific Man <=1.005 1.016-1.022 Urine Protein NEGATIVE NEGATIVE Urine Glucose (UA) NEGATIVE NEGATIVE Urine Ketones NEGATIVE NEGATIVE Urine Nitrite NEGATIVE NEGATIVE Urine Bilirubin NEGATIVE NEGATIVE Urine Urobilinogen 1.0 < = 1.0 MG/DL Urine Leukocyte Esterase 1+ H NEGATIVE Urine RBC (Auto) 1+ H NEGATIVE Urine RBC RARE /HPF Urine WBC 5-10 H /HPF Urine Squamous Epithelial Cells 5-10 /HPF Urine Crystals NONE /LPF Urine Bacteria TRACE /HPF Urine Casts NONE /LPF Urine Mucus NEGATIVE /LPF Urine Culture Indicated YES White Blood Count 6.4 4.3-11.0 10^3/uL Red Blood Count 3.82 3.80-5.11 10^6/uL Hemoglobin 10.2 L 11.5-16.0 g/dL Hematocrit 33 L 35-52 % Mean Corpuscular Volume 86 80-99 fL Mean Corpuscular Hemoglobin 27 25-34 pg Mean Corpuscular Hemoglobin Concent 31 L 32-36 g/dL Red Cell Distribution Width 13.0 10.0-14.5 % Platelet Count 185 130-400 10^3/uL Mean Platelet Volume 13.1 H 9.0-12.2 fL Immature Granulocyte % (Auto) 0 % Neutrophils (%) (Auto) 76 H 42-75 % Lymphocytes (%) (Auto) 15 12-44 % Monocytes (%) (Auto) 8 0-12 % Eosinophils (%) (Auto) 0 0-10 % Basophils (%) (Auto) 0 0-10 % Neutrophils # (Auto) 4.9 1.8-7.8 10^3/uL Lymphocytes # (Auto) 1.0 1.0-4.0 10^3/uL Monocytes # (Auto) 0.5 0.0-1.0 10^3/uL Eosinophils # (Auto) 0.0 0.0-0.3 10^3/uL Basophils # (Auto) 0.0 0.0-0.1 10^3/uL Immature Granulocyte # (Auto) 0.0 0.0-0.1 10^3/uL OB - Assessment/Plan/Diagnosis Assessment Assessment: active labor Admission Dx Active labor Reason for Inpatient Admission: active labor Plan Plan: Expectant Management JEOVANNY LAZCANO MD 10/16/20 1245: Allergies and Home Medications Allergies Coded Allergies: No Known Drug Allergies (Unverified , 05/14/18) OB - History Patient Past Medical History PMHx: Denies OB - Assessment/Plan/Diagnosis Assessment Admission Status: Inpatient Order (span 2 midnights) Reason for Inpatient Admission: Labor, delivery and course Supervisory-Addendum Brief Verification & Attestation Participated in pt care: history, MDM, physical Personally performed: exam, history, MDM Care discussed with: Medical Student Procedures: n/a I personally did my own history on this patient, cervical exam per nursing report. I directed plan of care as documented by medical student. JEAN CARLOS GOLD MED STUDENT Oct 16, 2020 10:39 JEOVANNY LAZCANO MD Oct 16, 2020 12:45
--- NOTE | 2020-10-16 12:45 | NUR ---
Report rec'd from Ke Prince RN. Pt cares assumed per this RN at this time.
[2020-10-16] MEDS: LACTATED RINGERS 1,000 ML IV PRN ×2 (16:24→17:26)
[2020-10-16] MEDS ORDERED: CATHETER FLUSH 10 ML SYR IV PRN (16:30)
[2020-10-16] MEDS ORDERED: CITRIC ACID/SOB CIT (BICITRA) 30 ML UDC PO ONE (16:30)
[2020-10-16] MEDS ORDERED: LIDOCAINE PF 2% 5 ML (XYLOCAINE) VIAL ONE (16:30)
[2020-10-16] MEDS ORDERED: ceFAZolin INJECTION 1,000 MG in WATER (STERILE) FOR INJECTION 10 ML IV ONE (16:30)
[2020-10-16] MEDS ORDERED: FAMOTIDINE 20MG/2ML IV (PEPCID) IV ONE (16:30)
[2020-10-16] MEDS ORDERED: METOCLOPRAMIDE INJ 10 MG/2 ML (REGLAN) IV ONE (16:30)
[2020-10-16] MEDS ORDERED: fentaNYL INJECTION 100 MCG/2 ML AMP ONE (16:33)
--- NOTE | 2020-10-16 16:58 | Consultation ---
History of Present Illness History of Present Illness Patient Consulted On(tennille/time) 10/16/20 16:53 Date Seen by Provider: Oct 16, 2020 Time Seen by Provider: 16:50 Reason for Visit: Active labor History of Present Illness This 30 yo was admitted by Dr. Perkins yesterday morning in active labor. She received no augmentation, but did get an epidural yesterday. She progressed to 9 cm, when AROM was performed at 1300 today. She progressed to complete and +1 and pushed for 2 hours with no progression in station when I was consulted for delivery. Patient is exhausted when speaking to her. Having some pressure but good pain control with epidural. Allergies and Home Medications Allergies Coded Allergies: No Known Drug Allergies (Unverified , 05/14/18) Patient Home Medication List Home Medication List Reviewed: Yes Past Zggqzta-Crjkzr-Tqmten Hx Patient Social History Alcohol Use: Denies Use Recreational Drug Use: No Smoking Status: Never a Smoker 2nd Hand Smoke Exposure: Yes Recent Foreign Travel: No Contact w/Someone Who Travel: No Recent Infectious Disease Expo: No Recent Hopitalizations: No Physical Abuse: No Sexual Abuse: No Mistreated: No Fear: No Immunizations Up To Date Tetanus Booster (TDap): Less than 5yrs PED Vaccines UTD: Yes Date of Pneumonia Vaccine: Jul 28, 2020 Date of Influenza Vaccine: Sep 29, 2020 Seasonal Allergies Seasonal Allergies: Yes Past Medical History Surgeries: No Respiratory: No Cardiac: No Neurological: Yes Headaches /Migraines Expected Date of Delivery: Oct 19, 2020 Hx : 5 Hx Para: 0 Hx Total # of Abortions (Sp): 4 Reproductive Disorders: Yes (DUB, UTERINE MASS) Female Reproductive Disorders: Menstrual Problems Sexually Transmitted Disease: No HIV/AIDS: No Genitourinary: No Gastrointestinal: No Musculoskeletal: No Endocrine: No HEENT: No Loss of Vision: Denies Hearing Impairment: Denies Cancer: No Psychosocial: No Integumentary: No Blood Disorders: No Adverse Reaction/Blood Tranf: No (N/A) Family Medical History FH: breast cancer 19 MOTHER No Pertinent Family Hx Review of Systems-General Constitutional: see HPI EENTM: see HPI Respiratory: see HPI Cardiovascular: see HPI Gastrointestinal: see HPI Genitourinary: see HPI : Yes Expected Date of Delivery: Oct 19, 2020 Musculoskeletal: no symptoms reported Skin: see HPI Psychiatric/Neurological: See HPI All Other Systems Reviewed Negative Unless Noted: Yes Physical Exam-General Problems Physical Exam Vital Signs Vital Signs - First Documented 10/15/20 10/15/20 15:40 17:00 Temp 37.0 Pulse 94 Resp 18 B/P (MAP) 95/57 (70) Pulse Ox 98 O2 Delivery Room Air Capillary Refill : Less Than 3 Seconds General Appearance: WD/WN HEENT: PERRL/EOMI Neck: non-tender Respiratory: chest non-tender Cardiovascular: normal peripheral pulses, regular rate, rhythm Assessment/Plan Assessment/Plan Admission Diagnosis/Plan Diagnosis 30 yo @ 39.5 Active labor with normal progression to complete CPD P: PLTCS discussed with patient and S/O, risk and recovery, hospital stay and expectations all discussed. All questions answered. Will proceed once OR staff ready. Consent to be obtained. Admission Status: Inpatient Order (span 2 midnights) Reason for Inpatient Admission: PLTCS Clinical Quality Measures DVT/VTE Risk/Contraindication: Risk Factor Score Per Nursin RFS Level Per Nursing on Admit: 1=Low/No VTE PPX NUBIA NELSON DO Oct 16, 2020 16:58
[2020-10-16] MEDS ORDERED: MEASLES,MUMPS,RUBELLA 1 EA INJ SC SCH (17:00)
[2020-10-16] MEDS ORDERED: ONDANSETRON 4 MG/2 ML (SDV) Z0FRAN IVP PRN (17:00)
[2020-10-16] MEDS ORDERED: TETANUS,DIPTH,PERTUSS P/F (BOOSTRIX) 0.5 ML VIAL IM SCH (17:00)
[2020-10-16] MEDS ORDERED: ACHD5005 PO (17:05)
[2020-10-16] MEDS ORDERED: DCS100C PO (17:05)
[2020-10-16] MEDS ORDERED: IBUP-844 PO (17:05)
[2020-10-16] MEDS ORDERED: ONDANSETRON 4 MG/2 ML (SDV) Z0FRAN ONE ×2 (17:13→17:54)
--- NOTE | 2020-10-16 17:13 | Discharge Inst-Women's Service ---
Discharge Inst-Women's Serv Depart Medication/Instructions New, Converted or Re-Newed RX: RX on Chart Final Diagnosis POD 2 PLTCS Problems Reviewed?: Yes Consults/Follow Up Additional Follow Up: Yes Orders/Referrals Dr. Krueger in 7-10 day and in [address] Taylor Activity Activity: Activity as Tolerated Driving Instructions: No Driving for 1 Week NO SMOKING: NO SMOKING Nothing Inside Vagina: No Douching, No [place], No Tampons Diet Discharge Diet: No Restrictions Symptoms to Report to : Bleeding Excessive, Pain Increased, Fever Over 101 Degrees F, Vaginal Bleeding Increase, Questions/Concerns For Any Problems or Questions: Contact Your Physician Skin/Wound Care Infection Signs and Symptoms: Increased Redness, Foul Odor of Wound, Increased Drainage, Skin Itchy or Has a Rash, Increased Swelling, Temperature Above 101 F Operative Area Clean and Dry: Keep Incision Clean/Dry Stitches/Elli/Dermabond: Dermabond, Care of Stitches Bathing Instructions: NUBIA Umana DO Oct 16, 2020 17:12
[2020-10-16] MEDS ORDERED: METHYLERGONOVINE 0.2 MG/ML (METHERGINE) AMP ONE (17:32)
[2020-10-16] MEDS ORDERED: KETOROLAC 30 MG/ML VIAL ONE (17:35)
[2020-10-16] MEDS ORDERED: BUPIVACAINE 0.25% 30 ML (SENSORCAINE) VIAL ONE (17:35)
[2020-10-16] MEDS ORDERED: PHENYLEPHRINE 100 MCG/ML 10 ML (ANESTHESIA) SYR ONE (18:08)
--- NOTE | 2020-10-16 19:30 | NUR ---
Patient transferred to PP room 308 via bed, accompanied by staff, infant in crib, and significant other. Patient and significant other oriented to room, call light, thermostat, and dietary menu. PP folder given and explained. Fresh ice water provided. SCDs applied.
[2020-10-16] MEDS: HYDROcodone/APAP 5 MG/325 MG (LORTAB) TAB PO PRN (21:17)
[2020-10-16] MEDS: DOCUSATE SODIUM 100 MG (COLACE) CAP PO SCH (21:17)
[2020-10-16] MEDS ORDERED: CATHETER FLUSH 10 ML SYR IV SCH (22:00)
--- NOTE | 2020-10-16 22:00 | NUR ---
Patient ambulated without difficulty to bathroom with standby assist, positive void noted. light rubra bleeding, no clots noted.
--- NOTE | 2020-10-16 22:10 | OPERATIVE REPORT ---
DATE OF SERVICE: PREOPERATIVE DIAGNOSES: 1. A 30-year-old G5, P0 at 39 weeks and 4 days gestation. 2. Cephalopelvic disproportion. POSTOPERATIVE DIAGNOSES: 1. A 30-year-old G5, P0 at 39 weeks and 4 days gestation. 2. Cephalopelvic disproportion. PROCEDURE: Primary low transverse section. SURGEON: Kamari Krueger DO ANESTHESIA: Spinal. ESTIMATED BLOOD LOSS: 500 mL. URINE OUTPUT: 150 mL clear at the end of procedure. FLUIDS: 1500 mL lactated Ringer's solution. FINDINGS: A live male weighing 9 pounds even with Apgars of 4 and 9. Grossly normal appearing uterus, bilateral fallopian tubes and ovaries. SPECIMEN SENT: Placenta. INDICATIONS FOR PROCEDURE: This 30-year-old female is the patient was admitted by Dr. Perkins for labor. Her labor did not require augmentation. She progressed to complete; however, after two hours of pushing was unable to progress the vertex past +1 to 0 station. I was consulted for recommendations on delivery method. After reviewing the patient's information, I discussed with the patient proceeding with primary and recommended this as the delivery method. Risks of the procedure were discussed with the patient in detail and after all questions were answered in the preoperative area, consent was obtained, the patient was taken to the operating room. OPERATIVE REPORT IN DETAIL: Once in the operating room, spinal analgesia was found to be adequate. She was placed in the supine position with leftward tilt, prepped and draped in normal sterile fashion. A timeout was performed and anesthesia was tested. I then make a Pfannenstiel skin incision with a knife and carried down to the underlying fascia using Bovie cautery. The fascial incision extended laterally using Bovie cautery. Superior aspect of fascial incision was then grasped with Jessie clamps, tented up and dissected off the underlying rectus muscles. The inferior aspect of the fascial incision was then grasped with Jessie clamps, tented up and dissected off the underlying rectus muscles. Rectus muscles were then dissected down the midline using Baltazar scissors, which exposed the peritoneum, which I entered bluntly and extended using blunt traction. Hay ring retractor was placed in the peritoneal incision, which offers excellent lateral sidewall retraction. I identified the lower uterine segment, which was found to be thinned out and make a low transverse incision to the vesicouterine peritoneum and bluntly dissected off the lower uterine segment, creating a bladder flap. I then proceeded with myotomy until membranes were visualized, at which point I extended the uterine incision laterally and superiorly using bandage scissors. Clear fluid was still noted at that time. The was found in the vertex presentation, occiput posterior with gentle fundal pressure, the 's head was elevated up the incision where it delivered incision. The nares and oropharynx were bulb suctioned. Anterior and posterior shoulders were delivered. Infant was then brought to the operative field with cord doubly clamped and cut and was handed off to Dr. Perkins, who was present for delivery. Cord blood was collected. Three-vessel cord with intact placenta was delivered spontaneously thereafter. IV Pitocin was initiated to facilitate uterine contraction. Uterine fundus confirmed by manual massage. Uterus was then exteriorized and cleared of all endometrial clots and debris. I then proceeded with closing the uterine incision using 0 Vicryl suture in a running locked fashion. A second layer of imbricating 0 Monocryl was placed. Excellent hemostasis was noted after doing this. I then placed the uterus back within the pelvis and copiously irrigated the pelvis using normal saline. Once again, there was no active bleeding noted from any of my dissection planes. There is also some mild bogginess of the uterus. I have anesthesia give 0.2 mg of Methergine IM, which resolved the bogginess of the uterus at that point. I then covered the incision with Interceed antiadhesive. I removed the Hay ring retractor and proceeded with closing the peritoneum using 3-0 Vicryl suture in running fashion. The rectus muscle was reapproximated using 3-0 Vicryl suture in interrupted fashion. The fascia was reapproximated using 0 Vicryl suture in running fashion. The subcutaneous tissue was reapproximated using 3-0 plain interrupted subcutaneous stitch and skin reapproximated using 4-0 Monocryl running subcuticular. Dermabond was applied to incision, sterile dressings with adhesive white tape. The patient tolerated the procedure well and was taken to recovery area in stable condition. Lap and sponge count were correct at the end of the procedure. Instrument counts correct as well. One gram of Ancef given preoperatively for infection prophylaxis. Job ID: [id number] DocumentID: [id number] Dictated Date: 10/16/2020 18:22:33 Primary Teaching Assistant Date: 10/16/2020 22:10:16 Dictated By: DO MALA RIDER
[2020-10-17] MEDS ORDERED: IBUPROFEN 600 MG (MOTRIN) TAB PO SCH
[2020-10-17 00:05] VITALS: BP 103/62
[2020-10-17] MEDS: KETOROLAC 30 MG/ML VIAL IV SCH ×3 (00:06→11:49)
[2020-10-17 04:40] VITALS: BP 102/55
[2020-10-17] MEDS: HYDROcodone/APAP 5 MG/325 MG (LORTAB) TAB PO PRN ×2 (04:44→11:55)
[2020-10-17 06:18] LABS: BASOPHILS % (AUTO) 0 % (0-10); EOSINOPHILS % (AUTO) 0 % (0-10); HEMATOCRIT 35 % (35-52); HEMOGLOBIN 10.6 g/dL (11.5-16.0); LYMPHOCYTES # (AUTO) 0.8 10^3/uL (1.0-4.0); LYMPHOCYTES % (AUTO) 6 % (12-44); MEAN CORPUSCULAR HEMOGLOBIN 26 pg (25-34); MEAN CORPUSCULAR HGB CONC 30 g/dL (32-36); MEAN CORPUSCULAR VOLUME 87 fL (80-99); MEAN PLATELET VOLUME 11.9 fL (9.0-12.2); MONOCYTES # (AUTO) 0.7 10^3/uL (0.0-1.0); MONOCYTES % (AUTO) 6 % (0-12); NEUTROPHILS # (AUTO) 11.4 10^3/uL (1.8-7.8); NEUTROPHILS % (AUTO) 87 % (42-75); PLATELET COUNT 156 10^3/uL (130-400); WHITE BLOOD COUNT 13.1 10^3/uL (4.3-11.0)
[2020-10-17 08:45] VITALS: BP 95/56
--- NOTE | 2020-10-17 08:45 | NUR ---
A.M. ASSESSMENT COMPLETED. VSS. RATES PAIN 8/10. WILL GIVEN HYDROCODONE AROUND 10 SO CAN HAVE 2 TABLETS. SPOUSE AT BEDSIDE. CARING FOR INFANT IN ROOM.
[2020-10-17] MEDS: DOCUSATE SODIUM 100 MG (COLACE) CAP PO SCH ×2 (08:52→22:04)
--- NOTE | 2020-10-17 10:00 | NUR ---
SLEEPING SOUNDLY WHEN ENTERED WITH PAIN MEDICATION. WILL NOT AWAKEN AT THIS TIME. NO APPARENT DISTRESS.
--- NOTE | 2020-10-17 11:30 | NUR ---
DR. NELSON HERE TO SEE PT.
--- NOTE | 2020-10-17 11:36 | Postpartum Progress Note ---
Note Note Day # 1 Subjective: Patient is without complaints. Ambulating, voiding. Tolerating a regular diet without nausea or vomiting. Normal lochia. Pain is well controlled with oral pain medications. Objective: Physical Exam: General - Alert and oriented, no apparent distress Abdomen - Soft, appropriately tender to palpation, non-distended, fundus firm at umbilicus Extremities - no edema, negative Shilpa's bilaterally Incision- c/d/i Assessment: POD 1 PLTCS Plan: Routine care. Encourage breast feeding. Encourage ambulation. Ferrous sulfate supplementation. Plan for discharge tomorrow Vitals - Labs Vital Signs - I&O Vital Signs Date Time Temp Pulse Resp B/P (MAP) Pulse Ox O2 Delivery O2 Flow Rate FiO2 10/17/20 08:45 36.4 83 18 95/56 (69) 97 Room Air 10/17/20 04:40 36.8 86 16 102/55 (71) 98 Room Air 10/17/20 00:05 37.0 70 16 103/62 (76) 97 Room Air 10/16/20 20:30 37.0 72 18 116/66 (83) 97 Room Air 10/16/20 19:15 37.3 18 120/59 (79) 98 Room Air 10/16/20 19:15 Room Air 10/16/20 19:00 Room Air 10/16/20 19:00 37.2 18 114/70 (85) 98 Room Air 10/16/20 18:45 37.3 18 118/74 (89) 98 Room Air 10/16/20 18:45 Room Air 10/16/20 18:31 37.1 18 98/57 (71) 98 Room Air 10/16/20 18:31 Room Air 10/16/20 18:16 37.3 18 104/70 (81) 99 Room Air 10/16/20 18:16 Room Air 10/16/20 16:45 38.4 79 18 106/55 (72) Room Air 10/16/20 16:30 92 18 116/61 (79) Room Air 10/16/20 16:15 91 18 115/63 (80) Room Air 10/16/20 16:00 79 18 105/58 (74) Room Air 10/16/20 15:45 38.2 123 18 109/83 (92) Room Air 10/16/20 15:30 78 18 106/56 (73) Room Air 10/16/20 15:15 71 18 117/58 (77) Room Air 10/16/20 15:00 79 18 151/70 (97) Room Air 10/16/20 14:45 83 18 136/63 (87) Room Air 10/16/20 14:30 71 18 119/55 (76) Room Air 10/16/20 14:00 93 18 129/68 (88) Room Air 10/16/20 13:45 38.3 89 18 118/58 (78) Room Air 10/16/20 13:30 81 18 125/71 (89) Room Air 10/16/20 13:15 37.0 90 18 128/73 (91) Room Air 10/16/20 13:00 83 18 130/78 (95) Room Air 10/16/20 12:45 81 18 120/69 (86) Room Air 10/16/20 12:30 76 124/76 (92) Room Air 10/16/20 12:15 75 91/55 (67) Room Air 10/16/20 12:00 38.1 76 96/53 (67) Room Air 10/16/20 11:45 75 16 107/70 (82) Room Air I & O 10/17/20 07:00 Intake Total 1810 ml Output Total 650 ml Balance 1160 ml Labs Laboratory Tests 10/17/20 06:05: White Blood Count 13.1H, Red Blood Count 4.02, Hemoglobin 10.6L, Hematocrit 35, Mean Corpuscular Volume 87, Mean Corpuscular Hemoglobin 26, Mean Corpuscular Hemoglobin Concent 30L, Red Cell Distribution Width 13.2, Platelet Count 156, M ashlyn Platelet Volume 11.9, Immature Granulocyte % (Auto) 0, Neutrophils (%) (Auto) 87H, Lymphocytes (%) (Auto) 6L, Monocytes (%) (Auto) 6, Eosinophils (%) (Auto) 0, Basophils (%) (Auto) 0, Neutrophils # (Auto) 11.4H, Lymphocytes # (Auto) 0.8L, Monocytes # (Auto) 0.7, Eosinophils # (Auto) 0.0, Basophils # (Auto) 0.0, Immature Granulocyte # (Auto) 0.1 Microbiology 10/15/20 Urine Culture - Final, Complete Mixed Bacterial Sandrine NUBIA NELSON DO Oct 17, 2020 11:36
--- NOTE | 2020-10-17 11:55 | NUR ---
LORTAB 5/325 2 TABS P.O. FOR C/O ABDOMINAL PAIN RATED 10/10.
[2020-10-17 12:00] VITALS: BP 116/70
--- NOTE | 2020-10-17 13:30 | NUR ---
STATES FEELING MUCH BETTER SINCE PAIN MEDICATION. RATING PAIN 3/10. PASSING FLATUS NOW.
--- NOTE | 2020-10-17 15:00 | NUR ---
RETURNED TO PARENTS AFTER HAVING IV STARTED. NURSERY RN EXPLAINING RATIONALE AND SHOWING IV TO PARENTS. WATCHING [employer] GAME. THIS RN HAS ENCOURAGED PT TO AMBULATE IN THE BOLDEN SEVERAL TIMES TODAY. PT IS PASSING FLATUS NOW.
[2020-10-17 16:30] VITALS: BP 98/59
--- NOTE | 2020-10-17 18:00 | NUR ---
EATING STORK MEAL. S.O. WANTING TO LEAVE AND HAVE HER MOTHER COME BUT INFORMED THAT IS NOT OUR POLICY DURING THIS PANDEMIC AND IF HE LEAVES NO OTHER PERSON CAN REPLACE HIM.
[2020-10-17] MEDS: IBUPROFEN 600 MG (MOTRIN) TAB PO SCH (18:08)
[2020-10-17] MEDS: SIMETHICONE 80 MG (MYLICON) CHEW PO PRN ×2 (18:08→22:05)
--- NOTE | 2020-10-17 18:40 | NUR ---
ONCE AGAIN, STRESSED IMPORTANCE OF INCREASING FLUID INTAKE AND AMBULATION.
--- NOTE | 2020-10-17 19:00 | NUR ---
AMBULATING IN THE BOLDEN WITH S.O. PUSHING CRIB.
[2020-10-17 20:45] VITALS: BP 99/58
--- NOTE | 2020-10-17 22:00 | NUR ---
PT IN BATHROOM TRYING TO HAVE BM. PT STATES SHE THINKS SHE IS BLOATED BECAUSE SHE NEEDS TO HAVE A BM. REPORTS PASSING GAS, BUT NO BM.
--- NOTE | 2020-10-17 22:50 | NUR ---
PT UP AMB IN HALLS. DENIES ANY NEEDS OR C/O'S.
[2020-10-18] MEDS: IBUPROFEN 600 MG (MOTRIN) TAB PO SCH ×3 (00:36→12:03)
--- NOTE | 2020-10-18 01:15 | NUR ---
PT REPORTS NO RELIEF FROM MOTRIN AND REQUESTS STRONGER MED. LORTAB 2 TAB PO GIVEN.
[2020-10-18] MEDS: HYDROcodone/APAP 5 MG/325 MG (LORTAB) TAB PO PRN ×2 (01:19→10:09)
[2020-10-18 02:35] VITALS: BP 102/59
--- NOTE | 2020-10-18 07:18 | Postpartum Progress Note ---
Note Note Day # 2 Subjective: Patient is without complaints. Ambulating, voiding. Tolerating a regular diet without nausea or vomiting. Normal lochia. Pain is well controlled with oral pain medications. Objective: Physical Exam: General - Alert and oriented, no apparent distress Abdomen - Soft, appropriately tender to palpation, non-distended, fundus firm at umbilicus Extremities - no edema, negative Shilpa's bilaterally Incision c/d/i Assessment: POD 2 PLTCS Plan: Routine care. Encourage breast feeding. Encourage ambulation. Ferrous sulfate supplementation. Plan for discharge today Vitals - Labs Vital Signs - I&O Vital Signs Date Time Temp Pulse Resp B/P (MAP) Pulse Ox O2 Delivery O2 Flow Rate FiO2 10/17/20 16:30 36.9 94 18 98/59 (72) 99 Room Air 10/17/20 12:00 36.6 93 18 116/70 (85) 99 Room Air 10/17/20 08:45 36.4 83 18 95/56 (69) 97 Room Air I & O 10/18/20 07:00 Intake Total 1040 ml Output Total 300 ml Balance 740 ml Labs Microbiology 10/15/20 Urine Culture - Final, Complete Mixed Bacterial Sandrine NUBIA NELSON DO Oct 18, 2020 07:18
[2020-10-18] MEDS: DOCUSATE SODIUM 100 MG (COLACE) CAP PO SCH (10:03)
[2020-10-18 10:12] VITALS: BP 107/67
[2020-10-18 12:00] VITALS: BP 105/62
--- NOTE | 2020-10-18 14:11 | Anesthesia-General Post-Op ---
General Patient Condition Mental Status/LOC: Same as Preop Cardiovascular: Satisfactory Nausea/Vomiting: Absent Respiratory: Satisfactory Pain: Controlled Complications: Absent Post Op Complications Complications None Follow Up Care/Instructions Patient Instructions None needed. Anesthesia/Patient Condition Patient Condition Patient is doing well, no complaints, stable vital signs, no apparent adverse anesthesia problems. No complications reported per nursing. ROSINA LEE CRNA Oct 18, 2020 14:11
--- NOTE | 2020-10-18 17:00 | NUR ---
JAMA VALADEZ demonstrates understanding of discharge instructions and accurately returns instructions upon questioning. Copy of Post-Discharge Instructions and Medication Discharge Instructions given to patient. JAMA VALADEZ is able to manage continuing needs after discharge. Patients belongings returned to patient. Skin dry and intact; no breakdown noted. Patient discharged from 3308-1 on 10-18-20 at 1700 . JAMA VALADEZ patient to boarder in room 308. not discharged at this time.
== END 2020-10-18 17:00 | disposition home or self-care (01) | DRG 788 ==
LOC: WSo 15:25 → LDRP 15:27 → WSo 20:00 → LDRP 20:00
PROVIDERS: ADMIT Family Medicine; ATTEND Obstetrics & Gynecology
PROC: 10D00Z1 Extraction of Products of Conception, Low, Open Approach (ICD-10-PCS; principal; 2020-10-16 16:59)
DX: O33.9 Maternal care for disproportion, unspecified (principal); Z3A.39 39 weeks gestation of pregnancy; Z37.0 Single live birth
CPT/HCPCS: 36415; 81000; 85025; 86850; 86900; 86901; 87088; 87635; 99212

== ENCOUNTER 2022-07-02 16:30 | Emergency (ER) | payer MEDICAID ==
[~2022-07-02] VITALS: Ht 167 cm; Wt 56.0 kg
[~2022-07-02 16:30] MED LIST changes: +ACHD5005 PO; -BALO40TA PO; +BALO40TA4 PO; +DOCU-239 PO; +IBUP-844 PO; -OXYC-471 PO; +OXYC1TAB11 PO; +PREN-37 PO
--- NOTE | 2022-07-02 17:34 | Diagnostic Imaging Report ---
EXAMINATION: PA chest, single view. Left ribs, two additional views. COMPARISON: Chest radiographs November 06, 2018. HISTORY: 31-year-old female, fall. Left rib pain. FINDINGS: Heart size and mediastinal contours are unremarkable. There is no identified pneumothorax. There is no large pleural effusion. There is no identified focal airspace consolidation. There is no identified rib fracture. IMPRESSION: 1. No identified rib fracture. 2. No identified acute cardiopulmonary abnormality. Dictated by: Dictated on workstation # [id number]
--- NOTE | 2022-07-02 18:13 | ED Fall/Injury ---
General Chief Complaint: Trauma-Non Activation Stated Complaint: BI LAT ELBOW, L RIB.R FOOT PAIN-FELL Nursing Triage Note: pt. reports slipping on wooden stair last noc. reports being 6 months . reports concern of left rib pain. Secondarily reports mild mid upper back pain, bilat elbow pain, rt. 2nd toe pain. no bruising or deformity noted. accomp by wilbert and sig other. Source: patient Exam Limitations: no limitations History of Present Illness Date Seen by Provider: Jul 02, 2022 Initial Comments This 31-year-old young lady presents to the emergency room with primary com plaint of left lower lateral chest wall pain after falling backward on stairs last night. She is 6 months . She reports positive movement today but may be less than normal. She has minor pain in her mid and upper back as well as minor pain in the right ankle. She reported some coughing and shortness of breath in the night that has since improved. Her planishing press operator is Dr. Lazcano. Based on due dates she maps out at 21 weeks and 4 days gestational age. Allergies and Home Medications Allergies Coded Allergies: No Known Drug Allergies (Unverified , 05/14/18) Patient Home Medication List Home Medication List Reviewed: Yes Docusate Sodium (Dok) 100 Mg Capsule, 100 MG PO BID PRN for CONSTIPATION-1ST LINE Prescribed by: NUBIA NELSON on 10/16/20 170 Hydrocodone/Acetaminophen (Hydrocodone-Acetamin 5-325 mg) 1 Each Tablet, 1-2 TAB PO Q6HR PRN for PAIN-MODERATE (5-7) Prescribed by: NUBIA NELSON on 10/16/20 170 Ibuprofen (Ibu) 600 Mg Tablet, 600 MG PO Q6HR Prescribed by: NUBIA NELSON on 10/16/20 170 Vit/Iron Fumarate/FA ( Tablet) 1 Each Tablet, EACH PO, (Reported) Entered as Reported by: ITZEL FREDERICK on 10/15/20 1554 Review of Systems Review of Systems Expected Date of Delivery: Nov 08, 2022 Past Ongaplv-Fokoeg-Srdehd Hx Patient Social History Tobacco Use?: No Use of E-Cig and/or Vaping dev: No Substance use?: No Alcohol Use?: No Immunizations Up To Date Tetanus Booster (TDap): Less than 5yrs PED Vaccines UTD: Yes Influenza Vaccine Up-to-Date: Yes; Up-to-Date Seasonal Allergies Seasonal Allergies: Yes Past Medical History Surgeries: No Respiratory: No Cardiac: No Neurological: Yes Headaches /Migraines Expected Date of Delivery: Nov 08, 2022 Last Menstrual Period: Jan 06, 2022 Reproductive Disorders: Yes (DUB, UTERINE MASS) Female Reproductive Disorders: Menstrual Problems Sexually Transmitted Disease: No HIV/AIDS: No Genitourinary: No Gastrointestinal: No Musculoskeletal: No Endocrine: No HEENT: No Loss of Vision: Denies Hearing Impairment: Denies Cancer: No Psychosocial: No Integumentary: No Blood Disorders: No Adverse Reaction/Blood Tranf: No (N/A) Family Medical History FH: breast cancer 19 MOTHER No Pertinent Family Hx Physical Exam Vital Signs Vital Signs - First Documented 07/02/22 16:35 Temp 37.0 Pulse 100 Resp 20 B/P (MAP) 118/77 (91) Pulse Ox 98 O2 Delivery Room Air Capillary Refill : Less Than 3 Seconds Height, Weight, BMI Height: 5'6.00" Weight: 109lbs. 0.0oz. [id number]; 20.00 BMI Method:Stated Progress/Results/Core Measures Results/Orders Vital Signs/I&O 07/02/22 16:35 Temp 37.0 Pulse 100 Resp 20 B/P (MAP) 118/77 (91) Pulse Ox 98 O2 Delivery Room Air Blood Pressure Mean: 91 Progress Progress Note : Progress Note X-rays were unremarkable of the left ribs and chest. Patient did not feel her pain anywhere else was significant enough to risk the radiation exposure for imaging. I have contacted Dr. Carrasquillo and patient will now be sent to labor and delivery for monitoring. Departure Impression Primary Impression: Fall down stairs Qualified Codes: W10.8XXA - Fall (on) (from) other stairs and steps, initial encounter Additional Impressions: Chest wall pain Disposition: HOME, SELF-CARE Condition: Stable Departure-Patient Inst. Decision time for Depature: 18:11 Referrals: JEOVANNY LAZCANO MD (PCP/Family) Primary Care Physician Patient Instructions: Abdominal Trauma in ED Add. Discharge Instructions: You may take Tylenol (acetaminophen) up to 650 mg every 6 hours as needed for pain. Icing affected areas in 20-minute intervals may also be helpful for the next 24 hours. Return to care if you have worsening symptoms such as worsening shortness of breath, escalating abdominal pain, vaginal bleeding, etc. Follow-up with Dr. Lazcano this week for repeat examination. Call with questions or concerns. All discharge instructions reviewed with patient and/or family. Voiced understanding. CRIS VALLEJO MD Jul 02, 2022 18:13
[2022-07-02 18:28] VITALS: BP 100/69
== END 2022-07-02 18:30 | disposition home or self-care (01) ==
LOC: EDUNIT# 16:30 → ER 16:33
DX: O9A.212 Injury, poisoning and certain other consequences of external causes complicating pregnancy, second trimester (principal); R07.89 Other chest pain; Z28.310 Unvaccinated for COVID-19; Z3A.21 21 weeks gestation of pregnancy; W10.9XXA Fall (on) (from) unspecified stairs and steps, initial encounter
CPT/HCPCS: 71101

== ENCOUNTER 2022-10-25 05:32 | Outpatient (CLI) | payer MEDICAID ==
[~2022-10-25] VITALS: Ht 167.7 cm; Wt 64.1 kg
[2022-10-25] MEDS ORDERED: FERR-65 PO (13:05)
[2022-10-26] MEDS ORDERED: ACHD5005 PO (04:49)
[2022-10-26] MEDS ORDERED: IBUP-844 PO (04:49)
[2022-10-26] MEDS ORDERED: DOCU100C37 PO (04:49)
[2022-10-26] MEDS ORDERED: FERR-65 PO (04:49)
== END 2022-10-25 13:10 | disposition home or self-care (01) ==
LOC: PREOP 05:32
PROVIDERS: ATTEND Obstetrics & Gynecology
DX: Z01.818 Encounter for other preprocedural examination (principal)

== ENCOUNTER 2022-10-26 01:23 | Inpatient (IN) | payer MEDICAID ==
[~2022-10-26] VITALS: Ht 167.7 cm; Wt 63.6 kg
[2022-10-26] VITALS (11 sets, daily range): BP systolic 100–113; BP diastolic 55–74
[~2022-10-26 01:23] MED LIST changes: +FERR-65 PO
[2022-10-26 02:03] LABS: BILIRUBIN,URINE NEGATIVE (NEGATIVE); CLARITY,URINE CLOUDY; COLOR,URINE YELLOW; GLUCOSE, URINE (UA) NEGATIVE (NEGATIVE); KETONES,URINE NEGATIVE (NEGATIVE); LEUKOCYTE ESTERASE ,URINE 1+ (NEGATIVE); NITRITE,URINE NEGATIVE (NEGATIVE); PROTEIN,URINE NEGATIVE (NEGATIVE)
[2022-10-26 02:11] LABS: BACTERIA,URINE MODERATE /HPF; WBC,URINE 0-2 /HPF
[2022-10-26] MEDS ORDERED: D5 LR IV SOLUTION 1,000 ML IV ONE (02:42)
[2022-10-26] MEDS ORDERED: D5 LR IV SOLUTION 1,000 ML IV SCH (02:45)
[2022-10-26] MEDS ORDERED: ceFAZolin INJECTION 2,000 MG in NS (IVPB) 50 ML IV ONE (04:00)
[2022-10-26] MEDS ORDERED: CITRIC ACID/SOB CIT (BICITRA) 30 ML UDC ONE (04:03)
[2022-10-26] MEDS ORDERED: METOCLOPRAMIDE INJ 10 MG/2 ML (REGLAN) ONE (04:03)
[2022-10-26] MEDS ORDERED: NS (IVPB) 50 ML ONE (04:03)
[2022-10-26] MEDS ORDERED: ceFAZolin INJECTION 2,000 MG ONE (04:03)
[2022-10-26] MEDS ORDERED: FAMOTIDINE 20MG/2ML IV (PEPCID) ONE (04:04)
[2022-10-26] MEDS ORDERED: FAMOTIDINE 20MG/2ML IV (PEPCID) IV ONE (04:15)
[2022-10-26] MEDS ORDERED: LACTATED RINGERS 1,000 ML IV PRN ×2 (04:15)
[2022-10-26] MEDS ORDERED: CITRIC ACID/SOB CIT (BICITRA) 30 ML UDC PO ONE (04:15)
[2022-10-26] MEDS ORDERED: CATHETER FLUSH 10 ML SYR IV PRN (04:15)
[2022-10-26] MEDS ORDERED: METOCLOPRAMIDE INJ 10 MG/2 ML (REGLAN) IV ONE (04:15)
[2022-10-26 04:32] LABS: BASOPHILS % (AUTO) 0 % (0-10); EOSINOPHILS % (AUTO) 0 % (0-10); HEMATOCRIT 32 % (35-52); HEMOGLOBIN 10.1 g/dL (11.5-16.0); LYMPHOCYTES # (AUTO) 0.6 10^3/uL (1.0-4.0); LYMPHOCYTES % (AUTO) 9 % (12-44); MEAN CORPUSCULAR HEMOGLOBIN 26 pg (25-34); MEAN CORPUSCULAR HGB CONC 31 g/dL (32-36); MEAN CORPUSCULAR VOLUME 83 fL (80-99); MEAN PLATELET VOLUME 11.2 fL (9.0-12.2); MONOCYTES # (AUTO) 0.6 10^3/uL (0.0-1.0); MONOCYTES % (AUTO) 9 % (0-12); NEUTROPHILS # (AUTO) 5.5 10^3/uL (1.8-7.8); NEUTROPHILS % (AUTO) 81 % (42-75); PLATELET COUNT 202 10^3/uL (130-400); WHITE BLOOD COUNT 6.7 10^3/uL (4.3-11.0)
[2022-10-26] MEDS ORDERED: ONDANSETRON 4 MG/2 ML (SDV) Z0FRAN ONE (04:35)
[2022-10-26] MEDS ORDERED: OXYTOCIN PRE-MIX DRIP 500 ML IV ONE (04:35)
[2022-10-26] MEDS ORDERED: fentaNYL INJ 100 MCG/2 ML AMP ONE (04:36)
[2022-10-26] MEDS ORDERED: KETOROLAC 30 MG/ML VIAL ONE (04:37)
--- NOTE | 2022-10-26 04:41 | History & Physical-OB ---
OB - Chief Complaint & HPI Date/Time Date of Admission: Date of Admission: Oct 26, 2022 at 03:55 Date seen by a Provider: Oct 26, 2022 Time Seen by a Provider: 04:30 Chief Complaint/History OB-Reason for Admission/Chief: Onset of Labor Hx : 8 Hx Para: 1 Expected Date of Delivery: Oct 08, 2023 Gestational Age in Weeks: 38 Gestational Age in Days: 1 Indication for : desires repeat Admission Nurse Assessment Rev: Yes Allergies and Home Medications Allergies Coded Allergies: No Known Drug Allergies (Unverified , 10/25/22) Patient Home Medication List Home Medication List Reviewed: Yes Ferrous Sulfate (Feosol) 325 Mg (65 Mg Iron) Tablet, 325 MG PO UD, (Reported) Entered as Reported by: VENITA GARZON on 10/25/22 1305 Vit/Iron Fumarate/FA ( Tablet) 1 Each Tablet, EACH PO, (Reported) Entered as Reported by: ITZEL FREDERICK on 10/15/20 1604 Discontinued Medications Docusate Sodium (Dok) 100 Mg Capsule, 100 MG PO BID PRN for CONSTIPATION-1ST LINE Discontinued Reason: No Longer Taking Prescribed by: NUBIA NELSON on 10/16/20 1705 Hydrocodone/Acetaminophen (Hydrocodone-Acetamin 5-325 mg) 1 Each Tablet, 1-2 TAB PO Q6HR PRN for PAIN-MODERATE (5-7) Discontinued Reason: No Longer Taking Prescribed by: NUBIA NELSON on 10/16/20 1705 Ibuprofen (Ibu) 600 Mg Tablet, 600 MG PO Q6HR Discontinued Reason: No Longer Taking Prescribed by: NUBIA NELSON on 10/16/20 1705 OB - History Hx of Present Care: Yes Ultrasounds: Normal mid trimester US Obstetrical Complications: None Medical Complications: None Obstetrical History Hx : 8 Hx Para: 1 Hx Termination: No Hx Total # of Abortions (Spona: 6 Hx Multiple Gestation: No Delivery History Hx Blood Disorders: No Adverse Rxn to Tranfusion: No (N/A) Patient Past Medical History PMHx: Denies Social History/Family History Alcohol Use: Denies Use Recreational Drug Use: No 2nd Hand Smoke Exposure: Yes Immunizations Influenza Vaccine Up-to-Date: Yes; Up-to-Date Tetanus Booster (TDap): Less than 5yrs Date of Pneumonia Vaccine: Jul 28, 2020 OB - Admission Exam Physical Exam Vitals: Vital Signs 10/26/22 03:18 Temp 37.2 Pulse 111 Resp 16 B/P (MAP) 110/58 (75) Pulse Ox 100 O2 Delivery Room Air HEENT: NCAT Heart: Rhythm Normal Lungs: Clear Abdomen: Gravid Extremities: Normal Reflexes: Normal Cervical Dilatation: 4cm Effacement: 75% Station: -1 Membranes: Intact Accelerations: Accelerations Present (FHR in the 170s BL with accels to the 200s) Decelerations: No Decelerations Short Term Variability: Present Hiv Counselor Variability: Average (6-25) Contractions on Admission: < 5 Minutes Apart Intensity: Firm Labs Laboratory Tests Test 10/26/22 01:28 10/26/22 04:17 Range/Units Urine Color YELLOW Urine Clarity CLOUDY Urine pH 6.0 5-9 Urine Specific [place] 1.020 1.016-1.022 Urine Protein NEGATIVE NEGATIVE Urine Glucose (UA) NEGATIVE NEGATIVE Urine Ketones NEGATIVE NEGATIVE Urine Nitrite NEGATIVE NEGATIVE Urine Bilirubin NEGATIVE NEGATIVE Urine Urobilinogen 2.0 < = 1.0 MG/DL Urine Leukocyte Esterase 1+ H NEGATIVE Urine RBC (Auto) NEGATIVE NEGATIVE Urine RBC NONE /HPF Urine WBC 0-2 /HPF Urine Squamous Epithelial Cells 5-10 /HPF Urine Crystals NONE /LPF Urine Bacteria MODERATE H /HPF Urine Casts NONE /LPF Urine Mucus SMALL H /LPF Urine Culture Indicated YES White Blood Count 6.7 4.3-11.0 10^3/uL Red Blood Count 3.87 3.80-5.11 10^6/uL Hemoglobin 10.1 L 11.5-16.0 g/dL Hematocrit 32 L 35-52 % Mean Corpuscular Volume 83 80-99 fL Mean Corpuscular Hemoglobin 26 25-34 pg Mean Corpuscular Hemoglobin Concent 31 L 32-36 g/dL Red Cell Distribution Width 13.3 10.0-14.5 % Platelet Count 202 130-400 10^3/uL Mean Platelet Volume 11.2 9.0-12.2 fL Immature Granulocyte % (Auto) 1 % Neutrophils (%) (Auto) 81 H 42-75 % Lymphocytes (%) (Auto) 9 L 12-44 % Monocytes (%) (Auto) 9 0-12 % Eosinophils (%) (Auto) 0 0-10 % Basophils (%) (Auto) 0 0-10 % Neutrophils # (Auto) 5.5 1.8-7.8 10^3/uL Lymphocytes # (Auto) 0.6 L 1.0-4.0 10^3/uL Monocytes # (Auto) 0.6 0.0-1.0 10^3/uL Eosinophils # (Auto) 0.0 0.0-0.3 10^3/uL Basophils # (Auto) 0.0 0.0-0.1 10^3/uL Immature Granulocyte # (Auto) 0.0 0.0-0.1 10^3/uL OB - Assessment/Plan/Diagnosis Assessment Assessment: active labor, section Admission Dx 32 yo @ 38 weeks Previous Admission Status: Inpatient Order (span 2 midnights) Reason for Inpatient Admission: Repeat Plan Plan: Section NUBIA NELSON DO Oct 26, 2022 04:41
[2022-10-26] MEDS ORDERED: TETANUS,DIPTH,PERTUSS P/F (BOOSTRIX) 0.5 ML VIAL IM SCH (04:45)
[2022-10-26] MEDS ORDERED: ONDANSETRON 4 MG/2 ML (SDV) Z0FRAN IVP PRN (04:45)
[2022-10-26] MEDS ORDERED: NALOXONE 0.4 MG/ML 1 ML (NARCAN) VIAL IV PRN (04:45)
[2022-10-26] MEDS ORDERED: MEASLES,MUMPS,RUBELLA 1 EA INJ SC SCH (04:45)
--- NOTE | 2022-10-26 04:47 | Discharge Inst-Women's Service ---
Discharge Inst-Women's Serv Depart Medication/Instructions New, Converted or Re-Newed RX: Transmitted to Pharmacy Final Diagnosis POD 2 RLTCS Problems Reviewed?: Yes Consults/Follow Up Additional Follow Up: Yes Orders/Referrals Dr. Krueger in 7-[address] Perkins in 6 weeks Activity Activity: Activity as Tolerated Driving Instructions: No Driving for 1 Week NO SMOKING: NO SMOKING Nothing Inside Vagina: No Douching, No [place], No Tampons Diet Discharge Diet: No Restrictions Symptoms to Report to : Bleeding Excessive, Pain Increased, Fever Over 101 Degrees F, Vaginal Bleeding Increase, Questions/Concerns For Any Problems or Questions: Contact Your Physician Skin/Wound Care Infection Signs and Symptoms: Increased Redness, Foul Odor of Wound, Increased Drainage, Skin Itchy or Has a Rash, Increased Swelling, Temperature Above 101 F Operative Area Clean and Dry: Keep Incision Clean/Dry Stitches/Elli/Dermabond: Dermabond, Care of Stitches Bathing Instructions: NUBIA Umana DO Oct 26, 2022 04:47
[2022-10-26] MEDS ORDERED: DOCU100C37 PO (04:49)
[2022-10-26] MEDS ORDERED: ACHD5005 PO (04:49)
[2022-10-26] MEDS ORDERED: IBUP-844 PO (04:49)
[2022-10-26] MEDS ORDERED: FERR-65 PO (04:49)
[2022-10-26] MEDS ORDERED: METHYLERGONOVINE 0.2 MG/ML (METHERGINE) AMP ONE (05:14)
[2022-10-26] MEDS ORDERED: METHYLERGONOVINE 0.2 MG/ML (METHERGINE) AMP IM ONE (05:14)
[2022-10-26] MEDS ORDERED: PHENYLEPHRINE 100 MCG/ML 10 ML (ANESTHESIA) SYR ONE (05:21)
[2022-10-26] MEDS: KETOROLAC 30 MG/ML VIAL IV SCH ×3 (05:42→18:49)
[2022-10-26] MEDS ORDERED: BUPIVACAINE 0.25% 30 ML (SENSORCAINE) VIAL ONE (05:48)
[2022-10-26] MEDS: OXYTOCIN PRE-MIX DRIP 500 ML IV SCH ×2 (06:31→10:09)
[2022-10-26] MEDS: CATHETER FLUSH 10 ML SYR IV SCH ×3 (07:13→18:49)
[2022-10-26] MEDS: HYDROcodone/APAP 5 MG/325 MG (LORTAB) TAB PO PRN ×2 (10:07→23:26)
[2022-10-26] MEDS: DOCUSATE SODIUM 100 MG (COLACE) CAP PO SCH ×2 (10:07→20:37)
--- NOTE | 2022-10-26 12:35 | OPERATIVE REPORT ---
PREOPERATIVE DIAGNOSES: 1. A 32-year-old at 38 weeks and 1 day gestation. 2. Active labor. 3. tachycardia. POSTOPERATIVE DIAGNOSES: 1. A 32-year-old at 38 weeks and 1 day gestation. 2. Active labor. 3. tachycardia. PROCEDURE: Repeat low transverse section. SURGEON: Dr. Kamari Nelson. ANESTHESIA: Spinal. ESTIMATED BLOOD LOSS: 1000 mL URINE OUTPUT: 150 mL clear at the end of the procedure. FLUIDS: 2100 mL of lactated Ringer solution. FINDINGS: Live female weighing 8 pounds 4 ounces, Apgars of 8 and 9, grossly normal appearing uterus, fallopian tubes, and ovaries. SPECIMEN SENT: Placenta. INDICATIONS FOR PROCEDURE: This is a 32-year-old female who was a patient who had sought care at the [facility]. Her was complicated by desiring repeat . I discussed with the patient her outpatient consultation, risk of . She wished to proceed. She was scheduled for next week; however, presented in labor this morning, also noted to have tachycardia. Decision was made to proceed with urgent delivery. Risks of the procedure was discussed with the patient in detail and after all of her questions were answered, consent was obtained, the patient was taken to the operating room. OPERATIVE REPORT IN DETAIL: Once in the operating room and spinal anesthesia was administered and found to be adequate, she was placed in the supine position with a leftward tilt, prepped and draped in normal sterile fashion. A timeout was performed. Anesthesia was tested. I then make a Pfannenstiel skin incision through the previously existing scar using a knife and carried down to the underlying fascia using Bovie cautery. The fascial incision extended laterally using Bovie cautery. Superior aspect of fascial incision was then grasped with Jessie clamps, tented upward, dissected off the underlying rectus muscles. The inferior aspect of the fascial incision was then grasped with Jessie clamps, tented up and dissected off the underlying rectus muscles. The rectus muscles were then dissected down the midline sharply exposing the peritoneum, which were entered bluntly and extended using blunt traction. An Hay ring retractor was placed within the peritoneal incision, which offers excellent lateral sidewall retraction. Identified the lower uterine segment, which is found to be thinned out. I make a low transverse incision in the vesicouterine peritoneum and bluntly dissected this off the lower uterine segment, creating a bladder flap. I then proceeded with myotomy until membranes were visualized, at which point I extended the uterine incision laterally and superiorly using bandage scissors. Amniotomy was performed in the process of doing this and meconium-stained fluid was noted. The was found in vertex presentation. With gentle fundal pressure, the infant's head was elevated up to the incision where it was delivered through the incision. The nares and oropharynx were bulb suctioned. Anterior and posterior shoulders were delivered. The infant was then brought to the operative field. Cords were doubly clamped and cut and was handed off to waiting nurses in attendance. Cord blood was collected. Three-vessel cord with intact placenta is delivered spontaneously thereafter. IV Pitocin was initiated to facilitate uterine contraction. Uterine fundus confirmed with bimanual massage. The uterus was exteriorized and cleared of all endometrial clots and debris. I then proceeded with closing the uterine incision using 0 Vicryl suture in a running locked fashion. A second layer of imbricating 0 Monocryl was placed. Excellent hemostasis was noted after doing this. I then placed the uterus back in the pelvis and copiously irrigated the pelvis with normal saline. Once again, there was no active bleeding noted from any of my dissection planes. I placed Interceed antiadhesive over my low transverse incision. I removed the Hay ring retractor and proceeded with closing the peritoneum using 3-0 Vicryl suture in a running fashion. Rectus muscles were reapproximated using 3-0 Vicryl suture in interrupted fashion. The fascia was reapproximated using 0 Vicryl suture in a running fashion. The subcutaneous tissue was reapproximated using 3-0 plain interrupted subcutaneous stitches and skin was reapproximated using 4-0 Monocryl running subcuticular. Dermabond was applied to the incision and sterile dressing with adhesive white tape. The patient tolerated the procedure well and was sent to recovery area in stable condition. Lap and sponge counts were correct at the end of procedure. Instrument counts correct as well. Two grams of Ancef given preoperatively for infection prophylaxis. Job ID: [id number] DocumentID: [id number] Dictated Date: 10/26/2022 05:38:48 [employer] Machine Operator Date: 10/26/2022 12:33:00 Dictated By: KAMARI NELSON DO
[2022-10-27 00:26] VITALS: BP 108/61
[2022-10-27] MEDS: KETOROLAC 30 MG/ML VIAL IV SCH (00:26)
[2022-10-27 04:15] VITALS: BP 108/53
[2022-10-27 06:12] LABS: BASOPHILS % (AUTO) 0 % (0-10); EOSINOPHILS % (AUTO) 0 % (0-10); HEMATOCRIT 28 % (35-52); HEMOGLOBIN 8.6 g/dL (11.5-16.0); LYMPHOCYTES # (AUTO) 0.6 10^3/uL (1.0-4.0); LYMPHOCYTES % (AUTO) 13 % (12-44); MEAN CORPUSCULAR HEMOGLOBIN 26 pg (25-34); MEAN CORPUSCULAR HGB CONC 31 g/dL (32-36); MEAN CORPUSCULAR VOLUME 84 fL (80-99); MEAN PLATELET VOLUME 11.5 fL (9.0-12.2); MONOCYTES # (AUTO) 0.7 10^3/uL (0.0-1.0); MONOCYTES % (AUTO) 14 % (0-12); NEUTROPHILS # (AUTO) 3.4 10^3/uL (1.8-7.8); NEUTROPHILS % (AUTO) 72 % (42-75); PLATELET COUNT 168 10^3/uL (130-400); WHITE BLOOD COUNT 4.7 10^3/uL (4.3-11.0)
[2022-10-27] MEDS: IBUPROFEN 600 MG (MOTRIN) TAB PO SCH ×3 (06:24→18:58)
--- NOTE | 2022-10-27 08:43 | Postpartum Progress Note ---
Note Note Day # 1 Subjective: Patient is without complaints. Ambulating, voiding. Tolerating a regular diet without nausea or vomiting. Normal lochia. Pain is well controlled with oral pain medications. Objective: Physical Exam: General - Alert and oriented, no apparent distress Abdomen - Soft, appropriately tender to palpation, non-distended, fundus firm at umbilicus Extremities - no edema, negative Shilpa's bilaterally Incision- c/d/i Assessment: POD 1 RLTCS Acute blood loss anemia Plan: Routine care. Encourage breast feeding. Encourage ambulation. Ferrous sulfate supplementation. Plan for discharge tomorrow Vitals - Labs Vital Signs - I&O Vital Signs Date Time Temp Pulse Resp B/P (MAP) Pulse Ox O2 Delivery O2 Flow Rate FiO2 10/27/22 04:15 37.0 87 18 108/53 (71) 96 Room Air 10/27/22 00:26 37.1 107 18 108/61 (77) 96 Room Air 10/26/22 20:36 36.6 100 18 100/55 (70) 97 10/26/22 15:55 36.8 88 18 104/62 (76) 99 Room Air 10/26/22 10:23 Room Air 10/26/22 10:00 37.3 97 18 113/61 (78) 99 Room Air Labs Laboratory Tests 10/27/22 05:52: White Blood Count 4.7, Red Blood Count 3.32L, Hemoglobin 8.6L, Hematocrit 28L, Mean Corpuscular Volume 84, Mean Corpuscular Hemoglobin 26, Mean Corpuscular Hemoglobin Concent 31L, Red Cell Distribution Width 13.5, Platelet Count 168, Mean Platelet Volume 11.5, Immature Granulocyte % (Auto) 0, Neutrophils (%) (Auto) 72, Lymphocytes (%) (Auto) 13, Monocytes (%) (Auto) 14H, Eosinophils (%) (Auto) 0, Basophils (%) (Auto) 0, Neutrophils # (Auto) 3.4, Lymphocytes # (Auto) 0.6L, Monocytes # (Auto) 0.7, Eosinophils # (Auto) 0.0, Basophils # (Auto) 0.0, Immature Granulocyte # (Auto) 0.0 NUBIA NELSON DO Oct 27, 2022 08:43
[2022-10-27 12:37] VITALS: BP 115/64
[2022-10-27] MEDS: DOCUSATE SODIUM 100 MG (COLACE) CAP PO SCH ×2 (12:37→20:12)
--- NOTE | 2022-10-27 13:32 | Anesthesia-Regional Post-Op ---
Regional Patient Condition Mental Status: Alert, Oriented x3 Circulation: Same as Pre-Op Headache: Absent Sensation: Full Recovery Motor Block: Absent Post Op Complications Complications None Follow Up Care/Instructions Patient Instructions None needed. Anesthesia/Patient Condition Patient is doing well, no complaints, stable vital signs, no apparent adverse anesthesia problems. No complications reported per nursing. JEREMY FAGAN DO Oct 27, 2022 13:32
[2022-10-27 18:56] VITALS: BP 106/63
[2022-10-27] MEDS: HYDROcodone/APAP 5 MG/325 MG (LORTAB) TAB PO PRN (18:59)
[2022-10-27 20:08] VITALS: BP 107/70
[2022-10-28] MEDS: IBUPROFEN 600 MG (MOTRIN) TAB PO SCH ×3 (00:14→12:31)
[2022-10-28 00:15] VITALS: BP 102/55
[2022-10-28] MEDS: HYDROcodone/APAP 5 MG/325 MG (LORTAB) TAB PO PRN ×2 (01:36→12:32)
[2022-10-28 06:05] VITALS: BP 108/58
--- NOTE | 2022-10-28 08:21 | Postpartum Progress Note ---
Note Note Day # 2 Subjective: Patient is without complaints. Ambulating, voiding. Tolerating a regular diet without nausea or vomiting. Normal lochia. Pain is well controlled with oral pain medications. Objective: Physical Exam: General - Alert and oriented, no apparent distress Abdomen - Soft, appropriately tender to palpation, non-distended, fundus firm at umbilicus Extremities - no edema, negative Shilpa's bilaterally Incision- c/d/i Assessment: POD 2 RLTCS Acute blood loss anemia Plan: Routine care. Encourage breast feeding. Encourage ambulation. Ferrous sulfate supplementation. Plan for discharge today Vitals - Labs Vital Signs - I&O Vital Signs Date Time Temp Pulse Resp B/P (MAP) Pulse Ox O2 Delivery O2 Flow Rate FiO2 10/28/22 06:05 36.6 77 16 108/58 (75) 98 Room Air 10/28/22 00:15 36.9 83 16 102/55 (71) 97 Room Air 10/27/22 20:08 37.0 88 16 107/70 (82) 97 Room Air 10/27/22 18:56 36.9 107 18 106/63 (77) 96 Room Air 10/27/22 12:37 37.2 107 18 115/64 (81) 98 Room Air Labs Microbiology 10/26/22 Urine Culture - Final, Complete Lactobacillus jensenii See Comments NUBIA ZHOU DO Oct 28, 2022 08:21
[2022-10-28 08:58] VITALS: BP 105/59
[2022-10-28] MEDS: DOCUSATE SODIUM 100 MG (COLACE) CAP PO SCH (09:03)
== END 2022-10-28 17:00 | disposition home or self-care (01) | DRG 787 ==
LOC: WSo 01:23 → LDRP 01:24 → WSo 03:54 → LDRP 03:55
PROVIDERS: ADMIT Obstetrics & Gynecology; ATTEND Obstetrics & Gynecology
PROC: 10D00Z1 Extraction of Products of Conception, Low, Open Approach (ICD-10-PCS; principal; 2022-10-26 04:47)
DX: O34.211 Maternal care for low transverse scar from previous cesarean delivery (principal); D62 Acute posthemorrhagic anemia; O76 Abnormality in fetal heart rate and rhythm complicating labor and delivery; Z37.0 Single live birth; O90.81 Anemia of the puerperium; Z3A.38 38 weeks gestation of pregnancy
CPT/HCPCS: 36415; 81000; 85025; 86780; 86850; 86900; 86901; 87077; 87088; 94664; 99212

== ENCOUNTER 2023-09-23 13:47 | Observation (INO) | payer MEDICAID ==
[~2023-09-23] VITALS: Ht 167.6 cm; Wt 49.9 kg
[~2023-09-23 13:47] MED LIST changes: +DOCU100C37 PO
--- OUTSIDE RECORDS SUMMARY | 2023-09-23 15:56 | XMS REPORT ---
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 Flatwork Ironer Name Role Phone DEE HUERTA Unavailable PROBLEMS Type Condition ICD9-CM Code NST03-BQ Code Onset Dates Condition Status W/U Status Risk SNOMED Code Notes Problem Seasonal allergic rhinitis, unspecified trigger J30.2 confirmed 454228129 Problem Amenorrhea N91.2 Problem resolved confirmed Problem Second trimester Z34.92 Problem resolved confirmed Problem Sore throat J02.9 confirmed 75694404 3 Problem Anemia affecting in third trimester O99.013 Problem resolved confirmed 21548978 Problem 9 weeks gestation of Z3A.09 Problem resolved confirmed 547611 Problem Allergic rhinitis, unspecified seasonality, unspecified trigger J30.9 confirmed 88609314 Problem Cough R05.9 confirmed 20738272 Problem Third trimester Z34.93 Problem resolved confirmed Problem Anemia complicating , unspecified trimester O99.019 Problem resolved confirmed 693997905 Problem Iron deficiency anemia, unspecified D50.9 confirmed 43824057 Problem Seasonal allergic rhinitis due to pollen J30.1 confirmed 32447313 ALLERGIES No Known Allergies ENCOUNTERS from 1992 to 2023-04-10 Encounter Location Date Provider Diagnosis [facility] [address] [facility] [id number] [address] Apr, DEE HUERTA Sore throat J02.9 and Strep pharyngitis J02.0 IMMUNIZATIONS Vaccine Route Administration Date Status OPV Unknown 1992 Administered Hib 4 dose schedule Unknown 1992 Administ ered DTP Unknown January 20, 1993 Administered DTP Unknown 1992 Administered PRIVATE FLU 22-23 (FLULAVAL) AGE 6MO AND UP IM Intramuscular Aug 23, 2022 Administered PRIVATE FLULAVAL QUAD 0.5ML (6 MO AND UP) 2019 IM Intramuscular Jul 28, 2020 Administered PRIVATE TDAP (BOOSTRIX) IM Intramuscular Aug 11, 2020 Administered DTP Unknown March 10, 1993 Administered mmr-II (history) Unknown Dec 22, 1993 Administere d PRIVATE TDAP (BOOSTRIX) IM Intramuscular Aug 23, 2022 Administered OPV Unknown Dec 22, 1993 Administered OPV Unknown January 20, 1993 Administered Hib 4 dose schedule Unknown Dec 22, 1993 Administ ered Hib 4 dose schedule Unknown March 10, 1993 Administ ered Hib 4 dose schedule Unknown January 20, 1993 Admini stered DTP Unknown Dec 22, 1993 Administered SOCIAL HISTORY Sex Assigned At : Social History Observation Description Sex Assigned At Unknown Alcohol Screen (Audit-C) Question Answer Notes Did you have a drink containing alcohol in the p ast year? No Points 0 Interpretation Negative Sexual History Question Answer Notes Had sex in the past 12 months (vaginal, oral, or anal)? Yes Last menstrual period 02/01/2022 Have you ever had a Sexually transmitted disease ? No with Men only Use protection? No PHQ2 Question Answer Notes In the last 2 weeks, how oft en have you had little interest or pleasure in doing things? Not at all In the last 2 weeks, how oft en have you been feeling down, depressed, or hopeless? Not at all Total PHQ2 Score 0 Tobacco use other than smoking: Question Answer Notes Are you an other tobacco user? No REASON FOR REFERRAL No Information VITAL SIGNS Height 66 in Apr, Weight 108 lbs Apr, Weight-kg 48.99 kg Apr, Temperature 99.5 degrees Fahrenheit Apr, Heart Rate 129 bpm Apr, Respiratory Rate 22 bpm Apr, Oximetry 97 % Apr, BMI 17.43 kg/m2 Apr, Blood pressure systolic 120 mmHg Apr, Blood pressure diastolic 70 mmHg Apr, MEDICATIONS No Known Medications REASON FOR VISIT Sore throat on the right side mainly and a little bit on the left side.--LENNY Luis MEDICAL (GENERAL) HISTORY Type Description Date Medical History asthma Medical History Amenorrhea (resolved 12/01/2020) Medical History Second trimester (reso lved 12/01/2020) Medical History Third trimester (resol shakira 12/01/2020) Medical History Anemia complicating , unspecified trimester (resolved 12/01/2020) Medical History 9 weeks gestation of ( resolved 12/01/2020) Medical History Anemia affecting pre gnancy in third trimester (resolved 12/22/2022) Surgical History DNC 2016 Surgical History 10/24/20 Surgical History C section 10/2022 Hospitalization History childbirth () 1 12/25/19 MENTAL STATUS No Information ASSESSMENTS Encounter Date Diagnosis Assessment Notes Treatment Notes Treatment Clinical Notes Apr, Sore throat (ICD-10 - J02.9) Bicillin 1.2 IM with shot time of 15 min Apr, Strep pharyngitis (ICD-10 - J02.0) Strep Throat: Care Instructions material was published Apr, Other Pain control wi th tylenol or motrin. Medications as advised/prescribed. Rest as able. Push fluids to maintain hydration. Supportive care and monitoring. Office visit if not improving or if symptoms worsen. STREP POSTIVIE : discussed diagnosis and treatment encouraged good hand washing, avoid sharing drinks, purchase a new tooth brush after being on the medication for least 2-3 days, may return to school after being on the medication for at elast 24 hours and fever free. PLAN OF TREATMENT Treatment Notes Assessment Notes Clinical Notes Sore throat Bicillin 1.2 IM with shot time of 15 min Strep pharyngitis Strep Throat: Care I nstructions material was published Next Appt Details if not improving with pcp o r regular follow up Reason: Insurance Providers Payer Name Payer Address Payer Phone Insured Name Patient Relationship to Insured Coverage Start Date Coverage End Date Subscriber Number Group Number [employer] [address] [facility] [address] Jessica Shukla A Self - patient is the insured 8 [id number] [employer] [address] [address] [facility] [phone] Jessica Shukla A Self - patient is the insured [id number] MEDICATIONS ADMINISTERED Medication Instructions Date of Administration Dosag e DEPO PROVERA (PT'S OWN) Nov, 150 mg DEPO-Medrol Apr, 1 mL DEPO PROVERA (150 MG/ML) Dec, 150 mg DEPO PROVERA (150 MG/ML) Sep, 150 mg DEPO PROVERA (150 MG/ML) Jun, 150 mg DEPO PROVERA (150 MG/ML) Apr, 150 mg DEPO PROVERA (150 MG/ML) Feb, 150 mg Dexamethasone Apr, 1 mL Bicillin L-A Apr, 1.2 U
--- OUTSIDE RECORDS SUMMARY | 2023-09-23 15:56 | XMS REPORT ---
Author Author Formerly [facility] ter of [facility] ter of [facility] Address Unknown Phone Unavailable Care Team Providers Care Machine Rigger Name Role Phone DEE HUERTA Unavailable PROBLEMS Type Condition ICD9-CM Code ENU10-CW Code Onset Dates Condition Status W/U Status Risk SNOMED Code Notes Problem Seasonal allergic rhinitis, unspecified trigger J30.2 confirmed [id number] Problem Amenorrhea N91.2 Problem resolved confirmed 34508041 Problem Second trimester Z34.92 Problem resolved confirmed 97822807 Problem Sore throat J02.9 confirmed 44603079 3 Problem Anemia affecting in third trimester O99.013 Problem resolved confirmed 43786297 Problem 9 weeks gestation of Z3A.09 Problem resolved confirmed 605382 Problem Allergic rhinitis, unspecified seasonality, unspecified trigger J30.9 confirmed 99813630 Problem Cough R05.9 confirmed 61497794 Problem Third trimester Z34.93 Problem resolved confirmed 35108016 Problem Anemia complicating , unspecified trimester O99.019 Problem resolved confirmed 668178562 Problem Iron deficiency anemia, unspecified D50.9 confirmed 22552771 Problem Seasonal allergic rhinitis due to pollen J30.1 confirmed 73599215 ALLERGIES No Known Allergies ENCOUNTERS from 1992 to 2023-04-02 Encounter Location Date Provider [facility] [address] [facility] [id number] [address] Apr, DEE HUERTA Seasonal allergic rhinitis due to pollen J30.1 IMMUNIZATIONS Vaccine Route Administration Date Status OPV Unknown 1992 Administered Hib 4 dose schedule Unknown 1992 Administ ered DTP Unknown January 20, 1993 Administered DTP Unknown 1992 Administered mmr-II (history) Unknown Dec 22, 1993 Administere d PRIVATE FLULAVAL QUAD 0.5ML (6 MO AND UP) 2019 IM Intramuscular Jul 28, 2020 Administered PRIVATE FLU 22-23 (FLULAVAL) AGE 6MO AND UP IM Intramuscular Aug 23, 2022 Administered DTP Unknown March 10, 1993 Administered PRIVATE TDAP (BOOSTRIX) IM Intramuscular Aug 23, 2022 Administered PRIVATE TDAP (BOOSTRIX) IM Intramuscular Aug 11, 2020 Administered OPV Unknown Dec 22, 1993 Administered [...] VITAL SIGNS Height 66 in Apr, Weight 107.9 lbs Apr, Weight-kg 48.94 kg Apr, Temperature 98.1 degrees Fahrenheit Apr, Heart Rate 84 bpm Apr, Respiratory Rate 20 bpm Apr, Oximetry 99 % Apr, BMI 17.41 kg/m2 Apr, Blood pressure systolic 118 mmHg Apr, Blood pressure diastolic 60 mmHg Apr, MEDICATIONS No Known Medications REASON FOR VISIT Allergy c/o x2days, sore throat, runny nose, no know exposure--justino GALVEZ, Not Vaccinated MEDICAL (GENERAL) HISTORY Type Description Date Medical [...] Notes Treatment Notes Treatment Clinical Notes Apr, Seasonal allergic rhinitis due to pollen (ICD-10 - J30.1) Allergies: Care Instructions material was published PLAN OF TREATMENT Treatment Notes Assessment Notes Clinical Notes Seasonal allergic rhinitis d ue to pollen Allergies: Care Instructions material was published Next Appt Details prn Reason: Insurance Providers Payer Name Payer Address Payer Phone Insured Name Patient Relationship to Insured Coverage Start Date Coverage End Date Subscriber Number Group Number [employer] [address] [address] [facility] [phone] Jessica Shukla A Self - patient is the insured [id number] [employer] [address] [facility] [phone] Jessica Shukla A Self - patient is the insured 8 [id number] MEDICATIONS ADMINISTERED Medication Instructions Date of Administration Dosag e Dexamethasone Apr, 1 mL DEPO PROVERA (PT'S OWN) Nov, 150 mg DEPO PROVERA (150 MG/ML) Feb, 150 mg DEPO PROVERA (150 MG/ML) Dec, 150 mg DEPO PROVERA (150 MG/ML) Sep, 150 mg DEPO PROVERA (150 MG/ML) Jun, 150 mg DEPO PROVERA (150 MG/ML) Apr, 150 mg Bicillin L-A Apr, 1.2 U DEPO-Medrol Apr, 1 mL
[2023-09-23 16:00] VITALS: BP 110/67
[2023-09-23] MEDS ORDERED: DEXTROSE 10% IV 250 ML 250 ML IV SCH (18:00)
[2023-09-23] MEDS ORDERED: 1/2 NS IV SOLUTION 1000 ML 1,000 ML IV SCH (19:00)
--- NOTE | 2023-09-23 19:09 | History & Physical-OB ---
OB - Chief Complaint & HPI Date/Time Date of Admission: Date of Admission: Sep 23, 2023 at 15:52 Date seen by a Provider: Sep 23, 2023 Time Seen by a Provider: 18:30 Chief Complaint/History OB-Reason for Admission/Chief: Abdominal painright upper quadra Hx : 3 Hx Para: 2 Expected Date of Delivery: Feb 14, 2024 Gestational Age in Weeks: 15 Admission Nurse Assessment Rev: Yes Other 33-year-old 3 term to L2 currently at 15 weeks who initially went to [facility] emergency room. She was felt to possibly have pyelonephritis and due to her and having pain, internal medicine contacted me with the possibility of transfer. The transfer was recommended due to obstetrical services and monitoring as well as ultrasound. She has not been running a fever. She denies any significant pelvic pain as well as no vaginal discharge other than light which she state is normal for her. Her main pain is primarily right upper quadrant abdominal pain but with further history it also does radiate to the back as well as sometimes the lower pelvis. She did have ultrasound performed last week but results were not available on a Sunday night from [facility] computer lookup. Allergies and Home Medications Allergies Coded Allergies: No Known Drug Allergies (Unverified , 10/25/22) Patient Home Medication List Home Medication List Reviewed: Yes Docusate Sodium (Docusate Sodium) 100 Mg Capsule, 100 MG PO BID PRN for CONSTIPATION-1ST LINE Prescribed by: NUBIA NELSON on 10/26/22448 Ferrous Sulfate (Feosol) 325 Mg (65 Mg Iron) Tablet, 325 MG PO UD Prescribed by: NUBIA NELSON on 10/26/22448 Hydrocodone Bit/Acetaminophen (HYDROcodone/APAP 5 MG/325 MG TAB) 1 Tab Tab, 1-2 EA PO Q4H PRN for PAIN-MODERATE (5-7) Prescribed by: NUBIA NELSON on 10/26/22448 Ibuprofen (Ibu) 600 Mg Tablet, 600 MG PO Q6H Prescribed by: NUBIA NELSON on 10/26/22448 Vit/Iron Fumarate/FA ( Tablet) 1 Each Tablet, EACH PO, (Reported) Entered as Reported by: ITZEL FREDERICK on 10/15/20 1604 OB - History Hx of Present Care: Yes Ultrasounds: Other (1 ultrasound last week but results not available) Obstetrical Complications: Other (Previous section 2) Medical Complications: None Obstetrical History Hx Termination: No Hx Multiple Gestation: No Delivery History Hx Blood Disorders: No Adverse Rxn to Tranfusion: No (N/A) Patient Past Medical History PMHx: Denies Social History/Family History 2nd Hand Smoke Exposure: Yes Immunizations Hepatitis A: Yes Hepatitis B: Yes Tetanus Booster (TDap): Less than 5yrs Date of Pneumonia Vaccine: Jul 28, 2020 OB - Admission Exam Physical Exam HEENT: Moist Membranes Heart: Rhythm Normal Lungs: Clear Abdomen: Gravid (15 cm) Extremities: Normal Reflexes: Normal Cervical Dilatation: other (Not performed) Heart Rate: 140's OB - Assessment/Plan/Diagnosis Assessment Assessment: observation (Due to right upper quadrant abdominal pain) Admission Dx 1. Right upper quadrant abdominal pain in pregnancysuspicious for gallbladder 2. Intrauterine at 15 weeks gestation Admission Status: Observation Plan Other Plan -patient will undergo gallbladder as well as obstetrical ultrasound in the morning of September 24, 2023 -recheck urine and also perform urine culture -check CBC and chemistries in the a.m. -control her pain with oral medication oxycodone 5 mg. She had previously received fentanyl in the emergency department at [place] -she has received 1 dose of ceftriaxone in the emergency department during the afternoon of September 23, 2023 CROW DANIELS MD Sep 23, 2023 19:09
[2023-09-23] MEDS ORDERED: oxyCODONE/ACETAMINOPHEN 5/325MG TABLET ONE (20:12)
[2023-09-23 20:15] VITALS: BP 108/66
[2023-09-23] MEDS: oxyCODONE/ACETAMINOPHEN 5/325MG TABLET PO PRN (20:15)
[2023-09-23] MEDS ORDERED: 1/2 NS IV SOLUTION 1000 ML 1,000 ML IV ONE (20:25)
[2023-09-23 20:30] VITALS: BP 108/66
[2023-09-23 23:14] LABS: BACTERIA,URINE MODERATE /HPF; BILIRUBIN,URINE 1+ (NEGATIVE); CLARITY,URINE CLEAR; COLOR,URINE ORANGE; GLUCOSE, URINE (UA) TRACE (NEGATIVE); KETONES,URINE 4+ (NEGATIVE); LEUKOCYTE ESTERASE ,URINE NEGATIVE (NEGATIVE); NITRITE,URINE NEGATIVE (NEGATIVE); PH,URINE 5.5 (5-9); PROTEIN,URINE 1+ (NEGATIVE); WBC,URINE 0-2 /HPF
[2023-09-23 23:15] LABS: AMORPHOUS SEDIMENT,UR FEW AMOR URATES /LPF
[2023-09-24] VITALS (10 sets, daily range): BP systolic 94–123; BP diastolic 56–79
[2023-09-24] MEDS: oxyCODONE/ACETAMINOPHEN 5/325MG TABLET PO PRN ×2 (04:38→10:38)
[2023-09-24 06:06] LABS: BASOPHILS % (AUTO) 0 % (0-10); EOSINOPHILS % (AUTO) 0 % (0-10); HEMATOCRIT 38 % (35-52); HEMOGLOBIN 12.8 g/dL (11.5-16.0); LYMPHOCYTES % (AUTO) 9 % (12-44); MEAN CORPUSCULAR HEMOGLOBIN 30 pg (25-34); MEAN CORPUSCULAR HGB CONC 34 g/dL (32-36); MEAN CORPUSCULAR VOLUME 89 fL (80-99); MEAN PLATELET VOLUME 10.7 fL (9.0-12.2); MONOCYTES # (AUTO) 1.3 10^3/uL (0.0-1.0); MONOCYTES % (AUTO) 11 % (0-12); NEUTROPHILS # (AUTO) 9.4 10^3/uL (1.8-7.8); NEUTROPHILS % (AUTO) 80 % (42-75); PLATELET COUNT 240 10^3/uL (130-400); WHITE BLOOD COUNT 11.7 10^3/uL (4.3-11.0)
[2023-09-24 06:17] LABS: ALBUMIN 3.5 GM/DL (3.2-4.5); POTASSIUM 3.1 MMOL/L (3.6-5.0)
[2023-09-24 06:18] LABS: CALCIUM 8.3 MG/DL (8.5-10.1)
[2023-09-24 06:19] LABS: TOTAL PROTEIN 7.3 GM/DL (6.4-8.2)
[2023-09-24 06:21] LABS: BILIRUBIN,TOTAL 1.2 MG/DL (0.1-1.0)
[2023-09-24 06:23] LABS: CREATININE SERUM 0.53 MG/DL (0.60-1.30)
[2023-09-24] MEDS ORDERED: NS + KCL 20 MEQ/L 1000 ML 1,000 ML IV ONE (07:01)
[2023-09-24] MEDS ORDERED: NS + KCL 20 MEQ/L 1000 ML 1,000 ML IV SCH (07:15)
--- NOTE | 2023-09-24 10:19 | Diagnostic Imaging Report ---
PROCEDURE: US Gallbladder. TECHNIQUE: Multiple real-time grayscale images were obtained over the right upper quadrant in various projections. INDICATION: Right upper quadrant pain. Patient is 15 weeks . The liver is normal in size at 14.3 cm. Portal vein is patent and shows normal direction of flow. The gallbladder is distended measuring 10.9 x 4.9 cm. There are multiple mobile stones. Gallbladder wall does appear to be thickened measuring 4 mm. There is a small amount of pericholecystic fluid. No biliary duct dilatation is identified. Pancreas unremarkable. Aorta and IVC are unremarkable. Right kidney is without calculi. There does appear to be mild hydronephrosis present. There is no ascites. IMPRESSION: 1. Gallbladder hydrops with cholelithiasis and gallbladder wall thickening with pericholecystic fluid suggestive of acute cholecystitis. Dictated by: Dictated on workstation # [id number]
--- NOTE | 2023-09-24 11:55 | Diagnostic Imaging Report ---
INDICATION: Right upper quadrant pain. Patient is 15 weeks . TECHNIQUE: Multiple real-time grayscale images were obtained over the gravid uterus. COMPARISON: None FINDINGS: There is a single live fetus in a breech presentation. heart rate was recorded at 161 bpm. Placenta is posterior. There does appear to be a placenta previa present. Amniotic fluid index is 8.8 cm. Cervical length is 6.8 cm. survey is somewhat limited due to the early gestation. Kidneys, bladder and stomach are grossly unremarkable. Brains unremarkable. There is a four-chamber heart. Three-vessel cord with normal insertion. Spine is unremarkable. Biometrical measurements are as follows: Biparietal 3.0 cm, age 15 weeks 4 days. Head circumference 12.2 cm, age 16 weeks 1 days. Abdominal circumference 9.2 cm, age 15 weeks 3 days. Femur length 1.5 cm, age 14 weeks 4 days. Sonographic estimate age: 15 weeks 4 days. Sonographic estimated date of delivery: 03/13/24. Estimated Weight: 115 gm (+/- 17 gm). LMP percentile: 2%. heart rate: 161 beats per minute. number: 1 of 1. IMPRESSION: Single live IUP measuring 15 weeks 4 days gestational age with estimated of confinement sonographically of 03/13/2024. This is discordant with the patient's LMP and which the gestational age for LMP would be 19 weeks 5 days. Dictated by: Dictated on workstation # [id number]
--- NOTE | 2023-09-24 11:57 | Progress Note ---
Subjective Subjective/Events-last exam Patient continues to have 8/10 RUQ abdominal pain. Has been NPO since arrival yesterday other then ice chips yesterday and a sip of water today to take pills. She is not having any nausea at this time. No concerns. No bleeding, cramping/ctxs or LOF. Review of Systems General: No Fatigue, No Malaise Pulmonary: No Dyspnea, No Cough Cardiovascular: No: Chest Pain, Palpitations, Edema Gastrointestinal: Nausea, Abdominal Pain; No: Vomiting Neurological: No: Weakness, Incoordination, Confusion Objective Exam Last Set of Vital Signs Vital Signs Date Time Temp Pulse Resp B/P (MAP) Pulse Ox O2 Delivery O2 Flow Rate FiO2 09/24/23 04:35 37.3 96 16 97/56 (70) 96 Room Air Capillary Refill : Less Than 3 Seconds I&O Intake and Output 09/23/23 23:59 Daily Weight Change No General: Alert, Oriented X3, Moderate Distress (with any movement or palpation of abdomen) Lungs: Clear to Auscultation, Normal Air Movement Heart: Regular Rate, No Murmurs Abdomen: Soft, Other (moderately ttp, gravid uterus) Extremities: No Tenderness/Swelling Neuro: Normal Speech Results/Procedures Lab Laboratory Tests 09/23/23 20:45: Urine Color ORANGE, Urine Clarity CLEAR, Urine pH 5.5, Urine Specific [place] >=1.030, Urine Protein 1+H, Urine Glucose (UA) TRACEH, Urine Ketones 4+H, Urine Nitrite NEGATIVE, Urine Bilirubin 1+H, Urine Urobilinogen 1.0, Urine Leukocyte Esterase NEGATIVE, Urine RBC (Auto) NEGATIVE, Urine RBC NONE, Urine WBC 0-2, Urine Squamous Epithelial Cells 2-5, Urine Crystals PRESENTH, Urine Amorphous Sediment FEW ANGELA URATESH, Urine Bacteria MODERATEH, Urine Casts NONE, Urine Mucus LARGEH, Urine Culture Indicated CULTURE PENDING 09/24/23 05:30: White Blood Count 11.7H, Red Blood Count 4.28, Hemoglobin 12.8, Hematocrit 38, Mean Corpuscular Volume 89, Mean Corpuscular Hemoglobin 30, Mean Corpuscular Hemoglobin Concent 34, Red Cell Distribution Width 13.2, Platelet Count 240, Mean Platelet Volume 10.7, Immature Granulocyte % (Auto) 0, Neutrophils (%) (Auto) 80H, Lymphocytes (%) (Auto) 9L, Monocytes (%) (Auto) 11, Eosinophils (%) (Auto) 0, Basophils (%) (Auto) 0, Neutrophils # (Auto) 9.4H, Lymphocytes # (Auto) 1.0, Monocytes # (Auto) 1.3H, Eosinophils # (Auto) 0.0, Basophils # (Auto) 0.0, Immature Granulocyte # (Auto) 0.1, Sodium Level 133L, Potassium Level 3.1L, Chloride Level 106, Carbon Dioxide Level 17L, Anion Gap 10, Blood Urea Nitrogen 5L, Creatinine 0.53L, Estimat Glomerular Filtration Rate 127, BUN/Creatinine Ratio 9, Glucose Level 92, Calcium Level 8.3L, Corrected Calcium 8.7, Total Bilirubin 1.2H, Aspartate Amino Transf (AST/SGOT) 18, Alanine Aminotransferase (ALT/SGPT) 12, Alkaline Phosphatase 92, Total Protein 7.3, Albumin 3.5 Assessment/Plan Assessment/Plan Admission Status: Observation (1) Abdominal pain affecting Status: Acute (2) Acute cholecystitis Status: Acute Assessment & Plan: - Dr Sanchez with General surgery consulted and plan to take patient to OR today (3) Second trimester (4) Previous section complicating (5) 19 weeks gestation of JON RICHEY MD Sep 24, 2023 11:57
--- NOTE | 2023-09-24 13:11 | Consultation - Surgery ---
History of Present Illness History of Present Illness Patient Consulted On(tennille/time) 09/24/23 13:05 Time Seen by Provider: 12:18 History of Present Illness Surgery asked to consult regarding acute RUQ pain. HPI per FP: 33-year-old 3 term to L2 currently at 15 weeks who initially went to [facility] emergency room. She was felt to possibly have pyelonephritis and due to her and having pain, internal medicine contacted me with the possibility of transfer. The transfer was recommended due to obstetrical services and monitoring as well as ultrasound. She has not been running a fever. She denies any significant pelvic pain as well as no vaginal discharge other than light which she state is normal for her. Her main pain is primarily right upper quadrant abdominal pain but with further history it also does radiate to the back as well as sometimes the lower pelvis. When I saw pt she stated this pain was the worst she has ever felt and she has never had pain in the RUQ before. She states maybe occasional "gas pain" but nothing associated with any types of food. She described the pain as 8 out of 10 at its worst, now it is 3-4. She stated the whole ride over from [place] any bump caused severe pain. Allergies and Home Medications Allergies Coded Allergies: No Known Drug Allergies (Unverified , 10/25/22) Patient Home Medication List Home Medication List Reviewed: Yes Docusate Sodium (Docusate Sodium) 100 Mg Capsule, 100 MG PO BID PRN for CONSTIPATION-1ST LINE Prescribed by: NUBIA NELSON on 10/26/22448 Ferrous Sulfate (Feosol) 325 Mg (65 Mg Iron) Tablet, 325 MG PO UD Prescribed by: NUBIA NELSON on 10/26/22448 Hydrocodone Bit/Acetaminophen (HYDROcodone/APAP 5 MG/325 MG TAB) 1 Tab Tab, 1-2 EA PO Q4H PRN for PAIN-MODERATE (5-7) Prescribed by: NUBIA NELSON on 10/26/22448 Ibuprofen (Ibu) 600 Mg Tablet, 600 MG PO Q6H Prescribed by: NUBIA NELSON on 10/26/22448 Vit/Iron Fumarate/FA ( Tablet) 1 Each Tablet, EACH PO, (Reported) Entered as Reported by: ITZEL FREDERICK on 10/15/20 6867 Past Wsmjsyy-Ffnpzc-Nhwzed Hx Patient Social History Smoking Status: Never a Smoker 2nd Hand Smoke Exposure: Yes Recent Hopitalizations: No Alcohol Use?: No Immunizations Up To Date Tetanus Booster (TDap): Less than 5yrs PED Vaccines UTD: Yes Date of Pneumonia Vaccine: Jul 28, 2020 Date of Influenza Vaccine: Jul 14, 2020 Seasonal Allergies Seasonal Allergies: Yes Surgeries History of Surgeries: Yes (PREVIOUS C/S) Respiratory History of Respiratory Disorde: No Cardiovascular History of Cardiac Disorders: No Neurological History of Neurological Disord: Yes Neurological Disorders: Headaches /Migraines Reproductive System Hx : 3 Hx Para: 2 Hx Reproductive Disorders: Yes (DUB, UTERINE MASS) Sexually Transmitted Disease: No HIV/AIDS: No Female Reproductive Disorders: Menstrual Problems Genitourinary History of Genitourinary Disor: No Gastrointestinal History of Gastrointestinal Di: No Musculoskeletal History of Musculoskeletal Dis: No Endocrine History of Endocrine Disorders: No HEENT History of HEENT Disorders: No Loss of Vision: Denies Hearing Impairment: Denies Cancer History of Cancer: No Psychosocial History of Psychiatric Problem: No Integumentary History of Skin or Integumenta: No Blood Transfusions History of Blood Disorders: No Adverse Reaction to a Blood Tr: No (N/A) Family Medical History Significant Family History: Cancer (Mother had breast CA) Family Medial History: FH: breast cancer 19 MOTHER Review of Systems-General Constitutional: No fever, No malaise, No weakness EENTM: No blurred vision, No mouth swelling, No epistaxis Respiratory: No cough, No dyspnea on exertion, No short of breath Cardiovascular: No chest pain, No edema, No palpitations Gastrointestinal: abdominal pain; No hematemesis, No jaundice, No melena; nausea; No vomiting Genitourinary: No dysuria, No frequency, No hematuria Musculoskeletal: No back pain, No joint pain Skin: No change in color, No change in hair/nails Psychiatric/Neurological: Denies Anxiety, Denies Depressed, Denies Seizure, Denies Tremors Physical Exam-General Problems Physical Exam Vital Signs Vital Signs - First Documented 09/23/23 16:00 Temp 36.8 Pulse 89 Resp 18 B/P (MAP) 110/67 (81) Pulse Ox 99 O2 Delivery Room Air Capillary Refill : Less Than 3 Seconds General Appearance: WD/WN, mild distress Eyes: Bilateral Eye PERRL, Bilateral Eye EOMI HEENT: pharynx normal; No scleral icterus (R), No scleral icterus (L) Neck: non-tender, supple Respiratory: lungs clear, normal breath sounds, no respiratory distress, no accessory muscle use Cardiovascular: regular rate, rhythm, no murmur Gastrointestinal: non tender, soft, no organomegaly, other (gravid abdomen) Back: no CVA tenderness, no vertebral tenderness Extremities: no pedal edema, no calf tenderness 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, no motor/sensory deficits, alert, oriented x 3 Skin: normal color, warm/dry Lymphatic: no adenopathy (neck, axilla or groin) Data Review Labs Laboratory Tests 09/23/23 20:45: Urine Color ORANGE, Urine Clarity CLEAR, Urine pH 5.5, Urine Specific [place] >=1.030, Urine Protein 1+H, Urine Glucose (UA) TRACEH, Urine Ketones 4+H, Urine Nitrite NEGATIVE, Urine Bilirubin 1+H, Urine Urobilinogen 1.0, Urine Leukocyte Esterase NEGATIVE, Urine RBC (Auto) NEGATIVE, Urine RBC NONE, Urine WBC 0-2, Urine Squamous Epithelial Cells 2-5, Urine Crystals PRESENTH, Urine Amorphous Sediment FEW ANGELA URATESH, Urine Bacteria MODERATEH, Urine Casts NONE, Urine Mucus LARGEH, Urine Culture Indicated CULTURE PENDING 09/24/23 05:30: White Blood Count 11.7H, Red Blood Count 4.28, Hemoglobin 12.8, Hematocrit 38, Mean Corpuscular Volume 89, Mean Corpuscular Hemoglobin 30, Mean Corpuscular Hemoglobin Concent 34, Red Cell Distribution Width 13.2, Platelet Count 240, Mean Platelet Volume 10.7, Immature Granulocyte % (Auto) 0, Neutrophils (%) (Auto) 80H, Lymphocytes (%) (Auto) 9L, Monocytes (%) (Auto) 11, Eosinophils (%) (Auto) 0, Basophils (%) (Auto) 0, Neutrophils # (Auto) 9.4H, Lymphocytes # (Auto) 1.0, Monocytes # (Auto) 1.3H, Eosinophils # (Auto) 0.0, Basophils # (Auto) 0.0, Immature Granulocyte # (Auto) 0.1, Sodium Level 133L, Potassium Level 3.1L, Chloride Level 106, Carbon Dioxide Level 17L, Anion Gap 10, Blood Urea Nitrogen 5L, Creatinine 0.53L, Estimat Glomerular Filtration Rate 127, BUN/Creatinine Ratio 9, Glucose Level 92, Calcium Level 8.3L, Corrected Calcium 8.7, Total Bilirubin 1.2H, Aspartate Amino Transf (AST/SGOT) 18, Alanine Aminotransferase (ALT/SGPT) 12, Alkaline Phosphatase 92, Total Protein 7.3, Albumin 3.5 Radiology Date of Exam:09/24/23 US GALLBLADDER [id number] PROCEDURE: US Gallbladder. TECHNIQUE: Multiple real-time grayscale images were obtained over the right upper quadrant in various projections. INDICATION: Right upper quadrant pain. Patient is 15 weeks . The liver is normal in size at 14.3 cm. Portal vein is patent and shows normal direction of flow. The gallbladder is distended measuring 10.9 x 4.9 cm. There are multiple mobile stones. Gallbladder wall does appear to be thickened measuring 4 mm. There is a small amount of pericholecystic fluid. No biliary duct dilatation is identified. Pancreas unremarkable. Aorta and IVC are unremarkable. Right kidney is without calculi. There does appear to be mild hydronephrosis present. There is no ascites. IMPRESSION: 1. Gallbladder hydrops with cholelithiasis and gallbladder wall thickening with pericholecystic fluid suggestive of acute cholecystitis. Dictated on workstation # [id number] Dict: 09/24/23 1014 Trans: 09/24/23 1019 CVB [id number] Interpreted by: SYDNEY SANDERS MD Assessment/Plan Assessment/Plan Assessment/Plan Acute Cholecystitis/Cholelithiasis - 19 weeks Pt has severe abdominal pain and US shows pericholecystic fluid, dilated waggoner and stones. I reviewed the US myself and spoke with Dr. Taylor regarding the pt. She has symptoms classic for cholecystitis and US proves it; in addition, she is in her second trimester and therefore this is the best time to do surgery. Pt is getting IV fluids, will make sure she gets ABX prior to OR and pain control. I spoke with the pt and her , going over risks and complications not limited to pain, bleeding, infection, scar damage to intestine or bile ducts and need for further procedure. I also told them that the will have a very small risk; labor and problems, but this is the best time. Her gallbladder looks bad and is causing severe pain, it could rupture making things even worse. Pt wants to have surgery now, will get consent and plan for OR today. VIKTORIA FORD DO Sep 24, 2023 13:11
[2023-09-24] MEDS ORDERED: LACTATED RINGERS 1,000 ML 1,000 ML IV PRN (13:15)
[2023-09-24] MEDS ORDERED: ceFAZolin 1,000 MG VIAL IV ONE (13:30)
[2023-09-24] MEDS ORDERED: LIDOCAINE 2% w/EPI 1:100,000 20 ML VIAL ONE (13:37)
[2023-09-24] MEDS ORDERED: LIDOCAINE PF 2% 5 ML VIAL ONE (13:44)
[2023-09-24] MEDS ORDERED: SEVOFLURANE (ULTANE) 15 ML INHAL SOLN ONE ×2 (13:44→14:35)
[2023-09-24] MEDS ORDERED: ONDANSETRON INJECTION 4 MG/2 ML (SDV) ONE (13:44)
[2023-09-24] MEDS ORDERED: proPOfol INJECTION 200 MG/20 ML VIAL IV ONE (13:44)
[2023-09-24] MEDS ORDERED: fentaNYL INJECTION 100 MCG/2 ML VIAL ONE (13:44)
[2023-09-24] MEDS ORDERED: PHENYLEPHRINE 100 MCG/ML 10 ML (ANESTHESIA) SYR ONE (14:10)
[2023-09-24] MEDS ORDERED: SUCCINYLCHOLINE INJ 20 MG/1 ML 10 ML VIAL ONE (14:34)
[2023-09-24] MEDS ORDERED: ROCURONIUM 50 MG/5 ML VIAL IV ONE (14:48)
[2023-09-24] MEDS ORDERED: NEOSTIGMINE 1 MG/1ML 10 ML VIAL ONE (14:57)
[2023-09-24] MEDS ORDERED: GLYCOPYRROLATE INJ 0.2 MG/ML 2 ML VIAL ONE (14:57)
--- NOTE | 2023-09-24 15:14 | Anesthesia-General Post-Op ---
General Patient Condition Mental Status/LOC: Same as Preop Cardiovascular: Satisfactory Nausea/Vomiting: Absent Respiratory: Satisfactory Pain: Controlled Complications: Absent Post Op Complications Complications None Follow Up Care/Instructions Patient Instructions None needed. Anesthesia/Patient Condition Patient Condition Patient is doing well, no complaints, stable vital signs, no apparent adverse anesthesia problems. No complications reported per nursing. SKYLA AMADRO CRNA Sep 24, 2023 15:14
[2023-09-24] MEDS ORDERED: MEPERIDINE INJ 50 MG/ML VIAL IVP ONE (15:15)
[2023-09-24] MEDS ORDERED: morphine INJ 10 MG/ML 1ML (SYR OR VIAL) IVP ONE (15:15)
[2023-09-24] MEDS ORDERED: ONDANSETRON INJECTION 4 MG/2 ML (SDV) IVP PRN (15:15)
--- NOTE | 2023-09-24 15:26 | Progress Note-Post Operative ---
Post-Operative Progess Note Surgeon (s)/Refinery Operator Assistant (s) Surgeon VIKTORIA FORD DO Refinery Operator Assistant: [place] Pre-Operative Diagnosis Acute Cholecystitis/Cholelithiasis Post-Operative Diagnosis same plus umbilical hernia Procedure & Operative Findings Date of Procedure 09/24/23 Procedure Performed/Findings PROCEDURE: Laparoscopic cholecystectomy with intraoperative cholangiogram. COMPLICATIONS: None. I did talk to the Radiologist about cholangiogram and he thought it should be ok since it would be short exposure. I also placed lead apron under pt to protect the uterus. PROCEDURE: The patient was taken to the operating suite and was prepped and draped in sterile fashion. A surgical pause was performed. Just superior to the umbilicus, a 12 mm incision was made. Dissection was taken down to the fascia, which was then scored and grasped with a Jessie and the abdomen was then entered. An 0 Vicryl suture was placed in a giifaw-vo-gxnic fashion and a Curtis trocar was placed and secured. Pneumoperitoneum was achieved. A 5mm trochar place in the subxyphoid and then Dr. Fung placed 2 in the right upper quadrant under direct visualization. Upon entering noted erythema all over the abdomen and the gallbladder was encased by omentum; usually indicating an acute process. I carefully took the adhesions down with blunt dissection and with cautery. The duodenum was also stuck to the gallbladder. Dr. Fung then grasped the gallbladder at the fundus and elevated in the superior direction. I then elected to drain the gallbladder because it was so distended it was hard to grab; I got out dark bile. Dr. Fung then grabbed at Guerrero's pouch and pulled in the infero-lateral direction. I then used hydro-dissection and a Kitner to tease out the duct and artery. Once I was able to visualize both a clip was placed on the distal portion of the cystic duct and one proximal and one distal on the artery. The duct was then partially transected and an arrow catheter was inserted into the duct. The cholangiogram was then performed. No filling defects and contrast made its way into the duodenum; as well as up into the common, right and left hepatics. Catheter was removed and clips were placed on proximal portion of the cystic duct and then the duct was then transected. Next, the cystic artery was transected. Hook cautery was used to dissect the gallbladder from the gallbladder fossa achieving hemostasis. There was a lot of edema around the gallbladder. The gallbladder was placed in an Endobag and removed through the 12 mm trocar site. The abdomen was then reinspected. Copious amounts of irrigation were used to irrigate the abdomen and there were no signs of active bleeding. Hemostasis had been achieved. The 12 mm fascial defect was then closed with 0 Vicryl suture that had been placed in a yfixik-mv-cbnga fashion. The abdomen was then desufflated, the trocars were removed. The abdomen was then washed and dried. The skin was then closed using 4-0 Monocryl in a subcuticular fashion. The abdomen was washed and dried and Skin Affix was place over incisions. Patient tolerated the procedure well without any compl ications and was taken to the recovery room in stable condition. Anesthesia Type GET Estimated Blood Loss Estimated blood loss (mL): less than 5ml Specimens/Packing Specimens Removed GB and contents VIKTORIA FORD DO Sep 24, 2023 15:26
[2023-09-24] MEDS ORDERED: ACHD5005 PO (15:28)
--- NOTE | 2023-09-24 15:29 | Discharge Inst-Surgical ---
Discharge Inst-Surgical Depart Medication/Instructions New, Converted or Re-Newed RX: Transmitted to Pharmacy Patient Instructions Follow up Appt: Make appointment for 1 week. [phone] Instructions: No lifting greater than 20 pounds. No strenuous activity. May shower in 24 hours, no tub bath or soaking. Use incentive spirometer at home as directed. No Smoking Skin/Wound Care: May remove bandages in am. You need to leave the Dermabond on incision it will fall off on it's own. Symptoms to Report: Appetite Changes, Extremity Discoloration, Numbness/Tingling, Swelling Increased, Bleeding Excessive, Eyesight Changes, Pain Increased, Urine Color Change, Constipation(Persistent), Fever over 101 degree F, Pain/Pressure in chest, Urinating Difficulty, Cough Up/Vomit Blood, Heart Beat Irreg/Pounding, Pain/Pressure in jaw, Cramps in feet or legs, Lightheadedness, Pain/Pressure in shoulder, Diarrhea(Persistent), Memory Changes Suddenly, Questions/Concerns, Weight gain consecutive days, Dizziness/Fainting, Nausea/Vomiting, Shortness of Breath, Weight gain over 2 pounds If questions or concerns contact your physician Or seek help at emergency department. Activity Activity as Tolerated: Yes Activity Instructions: Avoid Stress to Incision Driving Instructions: No Driving/Refer to Diet Discharge Diet: Avoid Fatty Foods, Low Fat/Low Cholesterol Diet After 24 Hours: Clear Liquid if Nauseous If Any Problems/Questions/Issu: Contact Your Physician, Go to Emergency Room Skin/Wound Care Infection Signs and Symptoms: Increased Redness, Foul Odor of Wound, Increased Drainage, Skin Itchy or Has a Rash, Increased Swelling, Temperature Above 101 F Bathing Instructions: Shower Stitches/Elli/Dermabond Dis: VIKTORIA Tay DO Sep 24, 2023 15:29
--- NOTE | 2023-09-24 16:35 | Diagnostic Imaging Report ---
INDICATION: Cholecystectomy. Operative Cholangiogram performed in the routine fashion with injection via the cystic duct stump in surgery. 24 views were obtained, 6.4 seconds of fluoroscopy time was used. 1.50 mGy of exposure. FINDINGS: Intraoperative views demonstrate injection via the cystic duct stump. Contrast fills the biliary tree. There are no filling defects in the common duct. Contrast passes to the duodenum without obstruction. IMPRESSION: Unremarkable operative cholangiogram. Dictated by: Dictated on workstation # [id number]
[2023-09-24] MEDS: HYDROcodone/ACETAMINOPHEN 5 MG/325 MG TABLET PO PRN (16:48)
[2023-09-24] MEDS ORDERED: ACETAMINOPHEN 500 MG TABLET ONE (18:44)
[2023-09-24] MEDS: ACETAMINOPHEN 500 MG TABLET PO PRN (18:46)
[2023-09-25 01:04] VITALS: BP 89/56
[2023-09-25] MEDS: HYDROcodone/ACETAMINOPHEN 5 MG/325 MG TABLET PO PRN ×2 (01:04→10:38)
[2023-09-25] MEDS: ACETAMINOPHEN 500 MG TABLET PO PRN ×2 (01:04→10:38)
[2023-09-25] MEDS ORDERED: FLU QUADRIvalent (6 months+) 60 mcg/0.5 ml 2023-2024 (FLUARIX) IM ONE ×2 (06:45→10:35)
--- NOTE | 2023-09-25 09:15 | Discharge Summary ---
Diagnosis/Chief Complaint Date of Admission Sep 23, 2023 at 15:52 Date of Discharge 09/25/23 Admission Diagnosis Admission Diagnosis See problem list Discharge Diagnosis See below Problems/Diagnosis: (1) Abdominal pain affecting Status: Acute (2) Acute cholecystitis Assessment & Plan: - Dr Sanchez with General surgery consulted and plan to take patient to OR today 09/25: POD #1, doing well, tolerating PO diet, no OB concerns, plan to d/c home today with maureen Perkins 1 week Status: Acute (3) Second trimester (4) Previous section complicating (5) 19 weeks gestation of Discharge Summary-Simple/Stand Procedures Laproscopic Rhona Consultations Dr Sanchez: General Surgery Discharge Physical Examination Allergies: Coded Allergies: No Known Drug Allergies (Unverified , 10/25/22) Vitals & I&Os Vital Sign - Last 12Hours Date Time Temp Pulse Resp B/P (MAP) Pulse Ox O2 Delivery O2 Flow Rate FiO2 09/25/23 01:04 36.9 86 18 89/56 (67) 98 Room Air 09/24/23 15:40 2.00 Intake and Output 09/24/23 23:59 Intake Total 600 ml Balance 600 ml General Appearance: Alert, Oriented X3, No Acute Distress Respiratory: Clear to Auscultation, Normal Air Movement Cardiovascular: Regular Rate, No Murmurs Abdominal: Normal Bowel Sounds, Soft, Other (mild incisional ttp, no signs of infection, incision C/D/I) Extremities: No Edema, No Tenderness/Swelling Neuro: Normal Speech Hospital Course See final discharge diagnosis. Radiology Reviewed Date of Exam:09/24/23 US GALLBLADDER [id number] PROCEDURE: US Gallbladder. TECHNIQUE: Multiple real-time grayscale images were obtained over the right upper quadrant in various projections. INDICATION: Right upper quadrant pain. Patient is 15 weeks . The liver is normal in size at 14.3 cm. Portal vein is patent and shows normal direction of flow. The gallbladder is distended measuring 10.9 x 4.9 cm. There are multiple mobile stones. Gallbladder wall does appear to be thickened measuring 4 mm. There is a small amount of pericholecystic fluid. No biliary duct dilatation is identified. Pancreas unremarkable. Aorta and IVC are unremarkable. Right kidney is without calculi. There does appear to be mild hydronephrosis present. There is no ascites. IMPRESSION: 1. Gallbladder hydrops with cholelithiasis and gallbladder wall thickening with pericholecystic fluid suggestive of acute cholecystitis. Dictated on workstation # [id number] Dict: 09/24/23 1014 Trans: 09/24/23 1019 CVB [id number] Interpreted by: SYDNEY SANDERS MD Discharge Condition at discharge Stable Instructions to patient/family Please see electronic discharge instructions given to patient. Discharge Medications Reviewed and agree with Discharge Medication list on patient's Discharge Instruction sheet JON RICHEY MD Sep 25, 2023 09:15
--- NOTE | 2023-09-25 09:16 | Discharge Summary ---
Discharge [facility] Discharge Medications New, Converted or Re-Newed RX: Transmitted to Pharmacy New Medications: Hydrocodone/Acetaminophen (Hydrocodone-Acetamin 5-325 mg) 5 Mg-325 Mg Tablet 1 TAB PO Q8H PRN for PAIN-MODERATE (5-7), #20 TAB Continued Medications: Docusate Sodium (Docusate Sodium) 100 Mg Capsule 100 MG PO BID PRN for CONSTIPATION-1ST LINE, #80 CAP Ferrous Sulfate (Feosol) 325 Mg (65 Mg Iron) Tablet 325 MG PO UD, #60 TAB Ibuprofen (Ibu) 600 Mg Tablet 600 MG PO Q6H, #80 TAB Vit/Iron Fumarate/FA ( Tablet) 1 Each Tablet EACH PO, TAB Discontinued Medications: Hydrocodone Bit/Acetaminophen (HYDROcodone/APAP 5 MG/325 MG TAB) 1 Tab Tab 1-2 EA PO Q4H PRN for PAIN-MODERATE (5-7), #41 TAB Patient Instructions Goal/Follow Up Appt: 1 week with Gregorio Activity & Diet Discharge Diet: No Restrictions JON RICHEY MD Sep 25, 2023 09:16
[2023-09-25 10:28] VITALS: BP 102/61
== END 2023-09-25 11:00 | disposition home or self-care (01) ==
LOC: INTOOBSV 15:52 → LDRP 15:52
PROVIDERS: ADMIT Family Medicine; ATTEND Family Medicine
DX: O99.612 Diseases of the digestive system complicating pregnancy, second trimester (principal); K80.12 Calculus of gallbladder with acute and chronic cholecystitis without obstruction; O34.219 Maternal care for unspecified type scar from previous cesarean delivery; K42.9 Umbilical hernia without obstruction or gangrene; Z3A.19 19 weeks gestation of pregnancy
CPT/HCPCS: 47563; 76000; 76705; 76805; 80053; 81000; 85025; 87088; 96360; 96361 ×2; G0378; G0379; 36415; 90686